=== PATIENT | male | born 1945 | race Caucasian/White ===

== ENCOUNTER 2020-05-08 15:17 | Outpatient (REF) | payer MEDICARE, MEDICAID, SELFPAY | END 2020-05-08 15:18 | disposition home or self-care (01) | LOC: HO.HAP 15:17 | DX: Z46.1 Encounter for fitting and adjustment of hearing aid (principal) | CPT/HCPCS: 92700 ==

== ENCOUNTER 2021-06-17 16:51 | Outpatient (REF) | payer MEDICARE, MEDICAID, SELFPAY | END 2021-06-17 16:52 | disposition home or self-care (01) | LOC: HO.HAP 16:51 | DX: Z13.89 Encounter for screening for other disorder (principal) ==

== ENCOUNTER 2022-06-12 15:47 | Emergency (ER) | payer MEDICARE, OTHER, SELFPAY ==
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
[2022-06-12 16:59] VITALS: BP 140/74; PULSE 63; O2SAT 97; BMI 24.2
[2022-06-12 17:21] LABS: MANUAL DIFF FLAG NO
[2022-06-12 17:22] LABS: Basophils Percent Auto 0.2 % (0-2); Eosinophils Absolute Auto 0.1 X10*3/uL (0.0-0.4); Eosinophils Percent Auto 1.5 % (0-4); Hematocrit 34.6 % (42.0-52.0); Imm Gran Abs Auto 0.02 X10*3/uL (0.00-0.03); Imm Gran Pct Auto 0.4 % (0.0-0.4); Lymphocytes Absolute Auto 0.8 X10*3/uL (1.2-4.9); Lymphocytes Percent Auto 18.1 % (20-40); Mean Corpuscular HGB Conc 31.8 g/dl (31.0-36.0); Mean Corpuscular Hemoglobin 29.3 pg (27.0-33.0); Mean Corpuscular Volume 92.3 fL (80.0-98.0); Mean Platelet Volume 9.1 fL (9.4-12.4); Monocytes Absolute Auto 0.4 X10*3/uL (0.1-1.2); Monocytes Percent Auto 9.1 % (2-11); Neutrophils Absolute Auto 3.3 x10*3/uL (2.0-8.3); Neutrophils Percent Auto 70.7 % (45-73); Platelet Count 194 X10*3/uL (160-400); Red Blood Count 3.75 X10*6/uL (4.60-5.80); Red Cell Distribution Width 13.2 % (11.0-16.0); White Blood Count 4.6 X10*3/uL (4.8-10.8)
[2022-06-12 17:34] LABS: Ethanol < 10 mg/dL
[2022-06-12 17:36] LABS: Alanine Aminotransferase 17 U/L (0-40); Albumin Level 4.1 g/dL (3.5-5.0); Alkaline Phosphatase 69 U/L (39-117); Anion Gap 13 (12-20); Aspartate Amino Transferase 25 U/L (5-37); Bilirubin Total 0.3 mg/dL (0.0-1.0); Blood Urea Nitrogen 16 mg/dL (9-16); Calcium 9.1 mg/dL (8.4-10.2); Carbon Dioxide 26 mmol/L (22-29); Chloride 105 mmol/L (96-108); Creatinine Clr Calc Pharmacy 78.6; Estimated Glomerular Filt Rate > 60; Glucose Random 93 mg/dL (60-115); Sodium 140 mmol/L (135-145); Total Protein 6.7 g/dL (6.5-8.0)
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
[2022-06-12 18:16] VITALS: BP 120/70; PULSE 66; RESP 18; TEMP 36.8; O2SAT 98
== END 2022-06-12 18:35 | disposition home or self-care (01) ==
LOC: HO.ED 18:15
PROVIDERS: Emergency Provider Student in an Organized Health Care Education/Training Program; PCP Nurse Practitioner Family
DX: F03.90 Unspecified dementia, unspecified severity, without behavioral disturbance, psychotic disturbance, mood disturbance, and anxiety (principal); Z79.899 Other long term (current) drug therapy
CPT/HCPCS: 36415; 80053; 82077; 85025; 99283

== ENCOUNTER 2022-12-18 15:49 | Emergency (ER) | payer MEDICARE, OTHER, SELFPAY ==
--- NOTE | ~2022-12-18 | XR_ITS ---
EXAMINATION: XR CHEST CLINICAL INFORMATION: Abnormal CT. COMPARISON: CT abdomen earlier today at 2:54 PM. TECHNIQUE: Frontal view of the chest was obtained. FINDINGS: Normal appearance of the cardiomediastinal silhouette. Increased interstitial markings and patchy opacities projecting over the left lower lung, related with bronchiectasis and mucus impaction noted on same day CT. No pleural effusion or pneumothorax. No acute osseous findings. The visualized upper abdomen is within normal limits. XR/XR chest 1V IMPRESSION: Subtle interstitial and patchy opacities projecting over the left lower lung corresponding with the bronchiectasis and mucus impaction noted on same day CT. These could be infectious or inflammatory, a short-term follow-up chest CT in 3-6 months is recommended for reevaluation.
--- NOTE | ~2022-12-18 | CT_ITS ---
EXAMINATION: CT ABDOMEN AND PELVIS WITHOUT CONTRAST CLINICAL INFORMATION: Mental status changes and vomiting. COMPARISON: 06/22/2006 TECHNIQUE: Multidetector volumetric imaging was performed from the superior aspect of the liver through the pubic symphysis. Sagittal and coronal reformatted images were obtained on the technologist's workstation. This CT examination was performed using dose optimization techniques as appropriate, variously including the following: *Automated exposure control *Adjustment of mA and/or kV according to patient size (this includes techniques or standardized protocols for targeted exams where dose is matched to indication/reason for exam; i.e. extremities or head) *Use of iterative reconstruction technique DLP: 535 mGy-cm FINDINGS: LUNG BASES: Lingular bronchiectasis with mucoid impaction and tree-in-bud opacities. Nonspecific wall thickening of the distal esophagus. LIVER, GALLBLADDER, AND BILIARY TREE: The noncontrast liver is normal in size and contour. No biliary ductal dilatation is present. The gallbladder is unremarkable with no evidence of radiopaque gallstones, gallbladder wall thickening, or obvious pericholecystic inflammatory changes. PANCREAS: Unremarkable. SPLEEN: Unremarkable. ADRENAL GLANDS: Unremarkable. KIDNEYS AND URETERS: The kidneys are symmetric in size. Midpole right renal cyst. No renal calculus. No hydronephrosis or perinephric stranding. BLADDER: Unremarkable. GASTROINTESTINAL TRACT: No small bowel obstruction. Copious stool throughout the colon with fecal impaction in the rectum. Appendix is within normal limits. LYMPH NODES: No bulky abdominal or pelvic lymphadenopathy. VASCULAR: Normal caliber abdominal aorta. PELVIC VISCERA: Surgical clips in the right groin. OSSEOUS STRUCTURES: Sclerotic focus in the right iliac bone. No destructive bone lesions. CT/CT abdomen pelvis wo IV con IMPRESSION: Severe constipation. Peribronchial tree-in-bud opacities in the lingula. This may represent an acute infectious or inflammatory process. Advise clinical correlation.
--- NOTE | ~2022-12-18 | XR_ITS ---
EXAMINATION: XR CHEST CLINICAL INFORMATION: Fever COMPARISON: None available. TECHNIQUE: Frontal view of the chest was obtained. FINDINGS: Heart size normal. There is some left basilar atelectasis with some increased density and some mild obscuration left hemidiaphragm. Infectious etiology cannot be entirely ruled out. No pleural effusions. No CHF. No lung masses. Degenerative changes are present in the spine. XR/XR chest 1V IMPRESSION: Left lower lobe atelectasis/infiltrate.
--- NOTE | ~2022-12-18 | CT_ITS ---
EXAMINATION: CT HEAD WITHOUT CONTRAST CLINICAL INFORMATION: Lethargy. Change in mental status and vomiting. COMPARISON: None available. TECHNIQUE: Contiguous axial imaging was performed from the skull base to vertex without intravenous administration of contrast. This CT examination was performed using dose optimization techniques as appropriate, variously including the following: *Automated exposure control *Adjustment of mA and/or kV according to patient size (this includes techniques or standardized protocols for targeted exams where dose is matched to indication/reason for exam; i.e. extremities or head) *Use of iterative reconstruction technique DLP: 903.7 mGy-cm FINDINGS: No intracranial hemorrhage, extra-axial surface collection, focal mass effect or midline shift. Moderate parenchymal volume loss with commensurate prominence of ventricles and sulci. No acute findings within the posterior fossa. The cerebellar tonsils are in normal position. The mild patchy hypoattenuation within periventricular white matter is compatible with sequela of chronic microangiopathy. No evidence of an acute major vascular territory infarction. The thorpe-white matter differentiation is maintained. Small amount mucus is present within a left anterior ethmoid air cell. The paranasal sinuses are overall well aerated and without air-fluid levels. The mastoid air cells are clear. There is chondrocalcinosis of temporomandibular joints. The orbits and globes are unremarkable. CT/CT head/brain wo IV con IMPRESSION: * No intracranial mass, hemorrhage or other acute intracranial pathology. * Chronic moderate volume loss and changes of mild microangiopathy affecting the supratentorial white matter.
[2022-12-18 16:01] VITALS: BP 108/58; BP 118/70; PULSE 55; PULSE 60; RESP 13; TEMP 36.4; O2SAT 100; BMI 22.8
--- NOTE | 2022-12-18 16:29 | ECG_ITS ---
Test Reason : ALTERED MENTAL Blood Pressure : / mmHG Vent. Rate : 052 BPM Atrial Rate : 052 BPM P-R Int : 140 ms QRS Dur : 090 ms QT Int : 482 ms P-R-T Axes : 082 070 069 degrees QTc Int : 448 ms Sinus bradycardia Otherwise normal ECG When compared with ECG of 13-DEC-2002 08:56, No significant change was found Referred By: Mariangel Stewart Electronically Signed By:Javier Tinsley
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
--- NOTE | 2022-12-18 17:00 | MHC.EDTECH ---
patient came in via ems ,patient was change consultant into hospital attire , patient drank a can of anna billy,patient watching television .
[2022-12-18 17:14] LABS: MANUAL DIFF FLAG NO
[2022-12-18 17:19] VITALS: BP 130/71; PULSE 52; RESP 16; TEMP 36.3; O2SAT 96
[2022-12-18 17:34] LABS: Ethanol < 10 mg/dL
[2022-12-18 17:35] LABS: Alanine Aminotransferase 20 U/L (0-40); Albumin Level 3.6 g/dL (3.5-5.0); Alkaline Phosphatase 58 U/L (39-117); Anion Gap 13 (12-20); Aspartate Amino Transferase 27 U/L (5-37); Bilirubin Direct 0.1 mg/dL (0.0-0.5); Bilirubin Total 0.4 mg/dL (0.0-1.0); Blood Urea Nitrogen 26 mg/dL (9-16); Calcium 8.7 mg/dL (8.4-10.2); Carbon Dioxide 24 mmol/L (22-29); Chloride 108 mmol/L (96-108); Estimated Glomerular Filt Rate > 60; Glucose Random 127 mg/dL (60-115); Potassium 4.9 mmol/L (3.3-5.1); Sodium 140 mmol/L (135-145)
[2022-12-18 17:42] LABS: Basophils Percent Auto 0.2 % (0-2); Eosinophils Absolute Auto 0.1 X10*3/uL (0.0-0.4); Eosinophils Percent Auto 1.8 % (0-4); Hematocrit 33.1 % (42.0-52.0); Hemoglobin 10.7 g/dl (14.0-18.0); Imm Gran Abs Auto 0.05 X10*3/uL (0.00-0.03); Lymphocytes Absolute Auto 0.8 X10*3/uL (1.2-4.9); Lymphocytes Percent Auto 15.3 % (20-40); Mean Corpuscular HGB Conc 32.3 g/dl (31.0-36.0); Mean Corpuscular Hemoglobin 29.2 pg (27.0-33.0); Mean Corpuscular Volume 90.2 fL (80.0-98.0); Mean Platelet Volume 10.1 fL (9.4-12.4); Monocytes Absolute Auto 0.4 X10*3/uL (0.1-1.2); Neutrophils Absolute Auto 3.6 x10*3/uL (2.0-8.3); Neutrophils Percent Auto 72.7 % (45-73); Platelet Count 169 X10*3/uL (160-400); Red Blood Count 3.67 X10*6/uL (4.60-5.80); Red Cell Distribution Width 13.3 % (11.0-16.0); White Blood Count 4.9 X10*3/uL (4.8-10.8)
--- NOTE | 2022-12-18 17:54 | MHC.EDTECH ---
PATIENT WAS ASSISTED TO USE THE URINAL ,URINE SAMPLE COLLECTED AND SENT TO LAB ,PATIENT WAS SET UP FOR DINNER .
[2022-12-18 18:04] LABS: Appearance Urine Clear; Color Urine Yellow; Glucose Urine UA Negative (Negative); Leukocyte Esterase Urine Negative (Negative); Nitrite Urine Negative (Negative); Specific Gravity - Urine 1.015 (1.005-1.025); Urine Blood Negative (Negative); Urine Ketones Negative (Negative); Urine Protein Negative (Neg-Trace)
--- NOTE | 2022-12-18 18:05 | MHC.EDTECH ---
PATIENT WAS ASSISTED TO WALK TO BATHROOM AND BACK TO BED ,PATIENT VOID LARGE AMOUNT OF URINE ,JILLE HUMPHREYTER CAMERA IS IN ROOM .
[2022-12-18 18:12] LABS: Amphetamine Screen Urine Not Detected (Not Detect); Barbiturates, Urine Not Detected (Not Detect); Benzodiazepines Screen Urine Not Detected (Not Detect); Cannabinoid Screen Urine Not Detected (Not Detect); Cocaine Screen Urine Not Detected (Not Detect); Fentanyl, urine Not Detected (Not Detect); Opiate Screen Urine Not Detected (Not Detect); Phencyclidine Screen Urine Not Detected (Not Detect)
--- NOTE | 2022-12-18 18:23 | MHC.EDTECH ---
PATIENT ATE 100 % OF DINNER ,DRANK 600 ML FLUIDS .
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
--- NOTE | 2022-12-18 19:48 | PC.NURSE ---
Pt ambulated independently to the bathroom. Pt had steady gait and did not need an assist. Pt has no complaints at this time.
[2022-12-18 20:00] VITALS: BP 123/65; PULSE 54; RESP 16; TEMP 36.8; O2SAT 98
--- NOTE | 2022-12-18 20:57 | PC.NURSE ---
Addendum entered by Zeinab Santana RN 12/18/22 21:20: Greg - [phone] Original Note: Spoke with Greg from [facility], who is telephone order clerk. He inquired about a psych consult, which is already in place. Stated he is telephone order clerk and will be the person to contact. Also stated he will call back in the morning.
[2022-12-18 21:29] VITALS: BP 104/51; PULSE 52; RESP 16; TEMP 36.6; O2SAT 99
--- NOTE | 2022-12-18 23:09 | MHC.EDTECH ---
PATIENT WAS ASSISTED TO WALK TO BATHROOM ,VOID AND ASSISTED BY TO BED .
[2022-12-19] VITALS (17 sets, daily range): BP systolic 114–160; BP diastolic 57–91; PULSE 46–77; RESP 16–20; TEMP 36.2–36.8; O2SAT 96–100
--- NOTE | 2022-12-19 | MHC.EDTECH ---
PATIENT WAS ASSISTED TO BATHROOM ,AND BACK TO BED ,PATIENT HAD SMALL BOWEL MOVEMENT ,PATIENT IS IS VERY AGITATED PROVIDER ILANA IS AWARE.
[2022-12-19] MEDS: diphenhydrAMINE HCL 50 MG/ML VIAL IM (01:11)
[2022-12-19] MEDS: OLANZapine 10 MG VIAL IM (01:12)
--- NOTE | 2022-12-19 01:32 | PC.NURSE ---
monica Graves returned by inventory count unable to do return bin.
--- NOTE | 2022-12-19 02:32 | MHC.EDTECH ---
600 ML URINE EMPTY FROM URINAL .
--- NOTE | 2022-12-19 03:21 | MHC.EDTECH ---
PATIENT VOID 450 IN URINAL .
--- NOTE | 2022-12-19 07:10 | PC.NURSE ---
pt is currently eating his breakfast, in no apparent distress at this time
--- NOTE | 2022-12-19 08:01 | PC.NURSE ---
Addendum entered by Estephania Luna 12/19/22 08:03: pt refusing to participate getting slightly agitated Original Note: physical therapy at bedside
--- NOTE | 2022-12-19 09:28 | PHA.MEDREC ---
Pharmacy Consult ? Medication Reconciliation Pharmacy has completed the medication reconciliation.
--- NOTE | 2022-12-19 09:29 | PC.NURSE ---
spoke to yareli the listed health care proxy, she reports that she is not the health care proxy and would like to be removed, referred her to case management her number [phone]
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
--- NOTE | 2022-12-19 12:51 | P.CNPS_ITS ---
History of Present Illness Date of Service: 12/19/2022 Chief Complaint: ams Requesting physician: Juno Hernandez Discussed with referring provider: Yes (discussed with thER physician) HPI Narrative: Mr. Mac is any a 77-year-old white gentleman with history of dementia and was brought to the emergency room because of agitation, confusion. A competency evaluation has been requested. He is not able to give any information in about his history, is quite confused, hyperverbal and intermittently agitated. He is cognitively impaired and unable to make any informed decision about his care. He does have a healthcare proxy who has refuse to participate, leading to the competency evaluation. Past Psychiatric History: Unknown Medical Evaluation Reviewed: Yes (Reviewed) Personal & Social History: Unable to obtain [facility] Medical History (Updated 12/18/22 @ 18:25 by Mariangel Stewart MD) Dementia Diagnostics Vital Signs (24Hr): Vital Signs - 24 hr 12/18/22 16:01 12/18/22 17:19 12/18/22 20:00 Temperature 97.6 F 97.4 F 98.2 F Pulse Rate 55 52 54 Respiratory Rate 13 16 16 Blood Pressure 108/58 L 130/71 123/65 Pulse Oximetry 100 96 98 Oxygen Delivery Method Room Air Room Air Room Air 12/18/22 21:29 12/19/22 01:03 12/19/22 01:18 Temperature 97.9 F 97.2 F 98.2 F Pulse Rate 52 71 55 Respiratory Rate 16 16 16 Blood Pressure 104/51 L 114/91 H 157/80 H Pulse Oximetry 99 96 96 Oxygen Delivery Method Room Air Room Air Room Air 12/19/22 01:33 12/19/22 01:48 12/19/22 02:03 Temperature 98.0 F 98.0 F 97.8 F Pulse Rate 63 65 54 Respiratory Rate 16 16 16 Blood Pressure 160/80 H 153/60 H 140/57 H Pulse Oximetry 96 96 96 Oxygen Delivery Method Room Air Room Air 12/19/22 06:00 Temperature 97.4 F Pulse Rate 46 L Respiratory Rate 16 Blood Pressure 126/62 Pulse Oximetry 97 Oxygen Delivery Method Room Air BMI result Body Mass Index 22.8 Labs 12/18/22 17:09 12/18/22 17:09 Labs: Laboratory Results - last 48 hr 12/18/22 12/18/22 12/18/22 17:09 17:09 17:09 WBC 4.9 RBC 3.67 L Hgb 10.7 L Hct 33.1 L MCV 90.2 MCH 29.2 MCHC 32.3 RDW 13.3 Plt Count 169 MPV 10.1 Immature Gran % (Auto) 1.0 H Neut % (Auto) 72.7 Lymph % (Auto) 15.3 L [place] % (Auto) 9.0 Eos % (Auto) 1.8 Baso % (Auto) 0.2 Lymph # (Auto) 0.8 L [place] # (Auto) 0.4 Eos # (Auto) 0.1 Baso # (Auto) 0.0 Abs Immat Gran (auto) 0.05 H Absolute Neuts (auto) 3.6 Absolute Nucleated RBC 0.000 Nucleated RBC % (auto) 0.0 Sodium 140 Potassium 4.9 D Chloride 108 Carbon Dioxide 24 Anion Gap 13 BUN 26 H Creatinine 0.70 Estim Creat Clear Calc 81.0 Estimated GFR > 60 Random Glucose 127 H Calcium 8.7 Magnesium 2.0 Total Bilirubin 0.4 Direct Bilirubin 0.1 AST 27 ALT 20 Alkaline Phosphatase 58 Total Protein 6.0 L Albumin 3.6 Urine Color Urine Appearance Urine pH Ur Specific [place] Urine Protein Urine Glucose (UA) Urine Ketones Urine Blood Urine Nitrite Ur Leukocyte Esterase Urine Opiates Screen Urine Fentanyl Screen Ur Barbiturates Screen Ur Phencyclidine Scrn Ur Amphetamines Screen U Benzodiazepines Scrn Urine Cocaine Screen U Marijuana (THC) Screen Ethyl Alcohol < 10 12/18/22 12/18/22 17:57 17:57 WBC RBC Hgb Hct MCV MCH MCHC RDW Plt Count MPV Immature Gran % (Auto) Neut % (Auto) Lymph % (Auto) [place] % (Auto) Eos % (Auto) Baso % (Auto) Lymph # (Auto) [place] # (Auto) Eos # (Auto) Baso # (Auto) Abs Immat Gran (auto) Absolute Neuts (auto) Absolute Nucleated RBC Nucleated RBC % (auto) Sodium Potassium Chloride Carbon Dioxide Anion Gap BUN Creatinine Estim Creat Clear Calc Estimated GFR Random Glucose Calcium Magnesium Total Bilirubin Direct Bilirubin AST ALT Alkaline Phosphatase Total Protein Albumin Urine Color Yellow Urine Appearance Clear Urine pH 7.0 Ur Specific [place] 1.015 Urine Protein Negative Urine Glucose (UA) Negative Urine Ketones Negative Urine Blood Negative Urine Nitrite Negative Ur Leukocyte Esterase Negative Urine Opiates Screen Not Detected Urine Fentanyl Screen Not Detected Ur Barbiturates Screen Not Detected Ur Phencyclidine Scrn Not Detected Ur Amphetamines Screen Not Detected U Benzodiazepines Scrn Not Detected Urine Cocaine Screen Not Detected U Marijuana (THC) Screen Not Detected Ethyl Alcohol Mental Status Exam Mental Status Exam Narrative: I attempted to see him today in the emergency room. In he is loud, agitated and unable to give any coherent information. Based on his current mental status I do not find him to be able to make any informed decision pertaining to his care and welfare. Medications Medications Current Medications Pharmacy Consult (Consult Rx Perform Med Rec) 1 each MISCELLANE ONCE PRN PRN Reason: Consult order Allergies Allergies Allergy/AdvReac Type Severity Reaction Status Date / Time Unable to Assess Allergy Verified 06/12/22 16:15 Assessment & Plan Assessment & Plan (1) Dementia: Status: Acute Code(s): F03.90 - Unspecified dementia, unspecified severity, without behavioral disturbance, psychotic disturbance, mood disturbance, and anxiety Plan Is not able to make any informed decision pertaining to his care Total time managing care of this patient today ____ minutes.
[2022-12-19] MEDS: diphenhydrAMINE HCL 25 MG CAPSULE PO (12:52)
[2022-12-19] MEDS: OLANZapine 10 MG TABLET PO ×2 (12:52→23:26)
--- NOTE | 2022-12-19 12:55 | PC.NURSE ---
pt started to get agitated, wanting to leave and is putting his clothing on, medicated for agitation psychiatrist at bedside for evaluation
--- NOTE | 2022-12-19 15:05 | PC.NURSE ---
report received from RUSSELL Ibarra Pt is resting comfortably on chair in room at this time, occasionally getting up to wander. pt is now sitting eating pudding at this time. No apparent distress. Pt is noted to be slightly unsteady on his feet and should have someone standby if he does get up. Camera sitter in place at this time
--- NOTE | 2022-12-19 19:29 | ED_ITS ---
HPI - General Adult General Chief complaint: General Medical Stated complaint: ams Time Seen by Provider: 12/18/22 16:11 Source: EMS Mode of arrival: EMS Limitations: other (Dementia) Related Data Home Medications Medication Instructions Recorded Confirmed No Known Home Meds 12/19/22 12/19/22 Allergies Allergy/AdvReac Type Severity Reaction Status Date / Time Unable to Assess Allergy Verified 06/12/22 16:15 [facility] Past Medical History Medical History (Updated 12/18/22 @ 18:25 by Mariangel Stewart MD) Dementia Social History Social History Alcohol intake: unknown Use of substances other than those prescribed or required for medical reasons: Unknown Advance Directives: No Advance Directives Information Provided: Yes Physical Exam ED Vital Signs: Vital Signs - 24 hr 12/18/22 20:00 12/18/22 21:29 12/19/22 01:03 Temperature 98.2 F 97.9 F 97.2 F Pulse Rate 54 52 71 Respiratory Rate 16 16 16 Blood Pressure 123/65 104/51 L 114/91 H Pulse Oximetry 98 99 96 Oxygen Delivery Method Room Air Room Air Room Air 12/19/22 01:18 12/19/22 01:33 12/19/22 01:48 Temperature 98.2 F 98.0 F 98.0 F Pulse Rate 55 63 65 Respiratory Rate 16 16 16 Blood Pressure 157/80 H 160/80 H 153/60 H Pulse Oximetry 96 96 96 Oxygen Delivery Method Room Air Room Air 12/19/22 02:03 12/19/22 06:00 12/19/22 13:02 Temperature 97.8 F 97.4 F Pulse Rate 54 46 L 66 Respiratory Rate 16 16 20 Blood Pressure 140/57 H 126/62 138/78 Pulse Oximetry 96 97 99 Oxygen Delivery Method Room Air Room Air Room Air BMI result Body Mass Index 22.8 Course Reevaluation(s) Reevaluation #1: Patient is becoming combative. He has been up ambulating throughout the department and has been redirectable throughout most my shift. However now he is not redirectable and becoming aggressive. He was medicated for his safety Time: 19:29 Medications Administered Discontinued Medications Generic Name Dose Route Start Last Admin Trade Name Freq PRN Reason Stop Dose Admin Diphenhydramine HCl 50 mg 12/18/22 23:58 12/19/22 01:11 Diphenhydramine Hcl 25 Mg Capsule PO 12/18/22 23:59 Not Given ONCE ONE Diphenhydramine HCl 50 mg 12/19/22 01:02 12/19/22 01:11 Diphenhydramine Hcl 50 Mg/Ml Vial IM 12/19/22 01:03 50 mg ONCE ONE Administration Diphenhydramine HCl 25 mg 12/19/22 12:46 12/19/22 12:52 Diphenhydramine Hcl 25 Mg Capsule PO 12/19/22 12:47 25 mg ONCE ONE Administration Olanzapine 10 mg 12/19/22 01:02 12/19/22 01:12 Olanzapine 10 Mg Vial IM 12/19/22 01:03 10 mg ONCE ONE Administration Olanzapine 10 mg 12/19/22 12:46 12/19/22 12:52 Olanzapine 10 Mg Tablet PO 12/19/22 12:47 10 mg ONCE ONE Administration Medical Decision Making Lab Data 12/18/22 17:09 12/18/22 17:09 Labs: Lab Results 12/18/22 12/18/22 12/18/22 Range/Units 17:09 17:09 17:09 WBC 4.9 (4.8-10.8) X10*3/uL RBC 3.67 L (4.60-5.80) X10*6/uL Hgb 10.7 L (14.0-18.0) g/dl Hct 33.1 L (42.0-52.0) % MCV 90.2 (80.0-98.0) fL MCH 29.2 (27.0-33.0) pg MCHC 32.3 (31.0-36.0) g/dl RDW 13.3 (11.0-16.0) % Plt Count 169 (160-400) X10*3/uL MPV 10.1 (9.4-12.4) fL Immature Gran % (Auto) 1.0 H (0.0-0.4) % Neut % (Auto) 72.7 (45-73) % Lymph % (Auto) 15.3 L (20-40) % [place] % (Auto) 9.0 (2-11) % Eos % (Auto) 1.8 (0-4) % Baso % (Auto) 0.2 (0-2) % Lymph # (Auto) 0.8 L (1.2-4.9) X10*3/uL [place] # (Auto) 0.4 (0.1-1.2) X10*3/uL Eos # (Auto) 0.1 (0.0-0.4) X10*3/uL Baso # (Auto) 0.0 (0.0-0.2) X10*3/uL Abs Immat Gran (auto) 0.05 H (0.00-0.03) X10*3/uL Absolute Neuts (auto) 3.6 (2.0-8.3) x10*3/uL Absolute Nucleated RBC 0.000 (0.0-0.012) X10*3/uL Nucleated RBC % (auto) 0.0 (0.0-0.2) /100WBC Sodium 140 (135-145) mmol/L Potassium 4.9 D (3.3-5.1) mmol/L Chloride 108 (96-108) mmol/L Carbon Dioxide 24 (22-29) mmol/L Anion Gap 13 (12-20) BUN 26 H (9-16) mg/dL Creatinine 0.70 (0.5-1.4) mg/dL Estim Creat Clear Calc 81.0 Estimated GFR > 60 Random Glucose 127 H (60-115) mg/dL Calcium 8.7 (8.4-10.2) mg/dL Magnesium 2.0 (1.6-2.6) mg/dL Total Bilirubin 0.4 (0.0-1.0) mg/dL Direct Bilirubin 0.1 (0.0-0.5) mg/dL AST 27 (5-37) U/L ALT 20 (0-40) U/L Alkaline Phosphatase 58 (39-117) U/L Total Protein 6.0 L (6.5-8.0) g/dL Albumin 3.6 (3.5-5.0) g/dL Urine Color Urine Appearance Urine pH (5.0-9.0) Ur Specific [place] (1.005-1.025) Urine Protein (Neg-Trace) mg/dL Urine Glucose (UA) (Negative) mg/dL Urine Ketones (Negative) mg/dL Urine Blood (Negative) Urine Nitrite (Negative) Ur Leukocyte Esterase (Negative) Urine Opiates Screen (Not Detect) Urine Fentanyl Screen (Not Detect) Ur Barbiturates Screen (Not Detect) Ur Phencyclidine Scrn (Not Detect) Ur Amphetamines Screen (Not Detect) U Benzodiazepines Scrn (Not Detect) Urine Cocaine Screen (Not Detect) U Marijuana (THC) Screen (Not Detect) Ethyl Alcohol < 10 mg/dL 12/18/22 12/18/22 Range/Units 17:57 17:57 WBC (4.8-10.8) X10*3/uL RBC (4.60-5.80) X10*6/uL Hgb (14.0-18.0) g/dl Hct (42.0-52.0) % MCV (80.0-98.0) fL MCH (27.0-33.0) pg MCHC (31.0-36.0) g/dl RDW (11.0-16.0) % Plt Count (160-400) X10*3/uL MPV (9.4-12.4) fL Immature Gran % (Auto) (0.0-0.4) % Neut % (Auto) (45-73) % Lymph % (Auto) (20-40) % [place] % (Auto) (2-11) % Eos % (Auto) (0-4) % Baso % (Auto) (0-2) % Lymph # (Auto) (1.2-4.9) X10*3/uL [place] # (Auto) (0.1-1.2) X10*3/uL Eos # (Auto) (0.0-0.4) X10*3/uL Baso # (Auto) (0.0-0.2) X10*3/uL Abs Immat Gran (auto) (0.00-0.03) X10*3/uL Absolute Neuts (auto) (2.0-8.3) x10*3/uL Absolute Nucleated RBC (0.0-0.012) X10*3/uL Nucleated RBC % (auto) (0.0-0.2) /100WBC Sodium (135-145) mmol/L Potassium (3.3-5.1) mmol/L Chloride (96-108) mmol/L Carbon Dioxide (22-29) mmol/L Anion Gap (12-20) BUN (9-16) mg/dL Creatinine (0.5-1.4) mg/dL Estim Creat Clear Calc Estimated GFR Random Glucose (60-115) mg/dL Calcium (8.4-10.2) mg/dL Magnesium (1.6-2.6) mg/dL Total Bilirubin (0.0-1.0) mg/dL Direct Bilirubin (0.0-0.5) mg/dL AST (5-37) U/L ALT (0-40) U/L Alkaline Phosphatase (39-117) U/L Total Protein (6.5-8.0) g/dL Albumin (3.5-5.0) g/dL Urine Color Yellow Urine Appearance Clear Urine pH 7.0 (5.0-9.0) Ur Specific [place] 1.015 (1.005-1.025) Urine Protein Negative (Neg-Trace) mg/dL Urine Glucose (UA) Negative (Negative) mg/dL Urine Ketones Negative (Negative) mg/dL Urine Blood Negative (Negative) Urine Nitrite Negative (Negative) Ur Leukocyte Esterase Negative (Negative) Urine Opiates Screen Not Detected (Not Detect) Urine Fentanyl Screen Not Detected (Not Detect) Ur Barbiturates Screen Not Detected (Not Detect) Ur Phencyclidine Scrn Not Detected (Not Detect) Ur Amphetamines Screen Not Detected (Not Detect) U Benzodiazepines Scrn Not Detected (Not Detect) Urine Cocaine Screen Not Detected (Not Detect) U Marijuana (THC) Screen Not Detected (Not Detect) Ethyl Alcohol mg/dL Discharge Plan Discharge Clinical Impression: Dementia Patient Disposition: Still a Patient Prescriptions: No Action No Known Home Meds
[2022-12-19] MEDS: Ziprasidone Mesylate 20 MG VIAL IM (19:37)
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
--- NOTE | 2022-12-19 23:30 | PC.NURSE ---
pt given zyprexa to assist with falling asleep not as a restraint. Pt is resting comfortably reports to this RN I cannot fall asleep tonight .
--- NOTE | 2022-12-20 01:08 | PC.NURSE ---
pt sleeping at this time, respirations even and unlabored, skin pwd. 1:[address] for safety
--- NOTE | 2022-12-20 04:51 | PC.NURSE ---
Pt ambulatory to restroom with 1 assist due to drowsiness. clear yelow urine noted in toilet. New caitlin coat and pants given to pt.
[2022-12-20 06:00] VITALS: PULSE 67; RESP 18; TEMP 36.1; O2SAT 98
--- NOTE | 2022-12-20 06:34 | PC.NURSE ---
Breakfast tray brought to bedside. Pt made aware however turned over in bed for more sleep.
--- NOTE | 2022-12-20 06:56 | PC.NURSE ---
Continues with constant intelligence clerk for safety. Sleeping at this time.
[2022-12-20 08:22] VITALS: BP 125/67; PULSE 51; RESP 18; TEMP 36.4; O2SAT 98
--- NOTE | 2022-12-20 08:35 | PC.NURSE ---
Pt ambulatory to bathroom with pt observer. Steady. Eating breakfast, appears in good spirits at this time
--- NOTE | 2022-12-20 08:54 | PC.NURSE ---
Alert and watching t.v. in bed after eating breakfast. Calm and cooperative
[2022-12-20 11:48] VITALS: BP 118/64; PULSE 50; RESP 16; O2SAT 99
[2022-12-20 14:02] VITALS: BP 124/61; PULSE 82; RESP 18; TEMP 37.1; O2SAT 99
--- NOTE | 2022-12-20 14:03 | PC.NURSE ---
Alert with confusion. Hard of hearing but clam and cooperative. Taking fluids when offered, good appetite for lunch. No complaints of any pain or discomfort. Resting in bed at this time watching t.v.
[2022-12-20 16:34] VITALS: BP 128/82; PULSE 69; RESP 16; O2SAT 99
--- NOTE | 2022-12-20 19:26 | PC.NURSE ---
I assumed care of the pt at 1900. Pt was found standing in his room, making his bed, with good balance and steady gait. Pt is calm and cooperative, answering questions appropriately.
[2022-12-20 22:00] VITALS: RESP 16
[2022-12-21 06:21] VITALS: BP 105/68; PULSE 65; RESP 17; TEMP 36.3; O2SAT 95
[2022-12-21 08:02] VITALS: BP 92/73; PULSE 84; RESP 15; TEMP 36.7; O2SAT 97
--- NOTE | 2022-12-21 08:13 | PC.NURSE ---
pt is a/o x 1 no sob/herminio noted. pt states that he is very wrangell. pt ate breakfast. appears in good spirits. pt is sitting on his bed.
--- NOTE | 2022-12-21 09:08 | MHC.EDTECH ---
PCT went into to pts room ambulated PATIENT to the bathroom, PATIENT refused to be washed up at this time, I said I would come back soon to check if its a good time to wash up,AM care completed along with with shaving patient
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
--- NOTE | 2022-12-21 12:00 | PC.NURSE ---
Patient sitting at side of bed having lunch. Patient with no complaints at this time and is generally well appearing.
[2022-12-21 14:47] VITALS: BP 102/72; PULSE 67; RESP 14; TEMP 36.7; O2SAT 98
[2022-12-21] MEDS: risperiDONE 2 MG TABLET PO (20:21)
[2022-12-21 21:07] VITALS: BP 110/58; PULSE 68; RESP 15; TEMP 36.5; O2SAT 97
--- NOTE | 2022-12-21 21:10 | PC.NURSE ---
Patient given bedtime medication without incident. Patient is resting quietly on hospital bed, no complaints at this time.
--- NOTE | 2022-12-21 23:16 | PC.NURSE ---
hand off to bruce rn
--- NOTE | 2022-12-21 23:29 | PC.NURSE ---
Took report from off-going RN. Pt is sleeping in bed, appears comfortable and changes positions independently as desired. Sitter at bedside for safety. Will continue to monitor.
--- NOTE | 2022-12-22 01:16 | PC.NURSE ---
Pt is awake and alert, sitting in bed. Denies any needs at this time. Sitter at bedside for safety. Will continue to monitor.
[2022-12-22 03:22] VITALS: BP 130/43; PULSE 54; RESP 16; O2SAT 98
[2022-12-22 06:14] VITALS: BP 135/47; PULSE 77; RESP 20; O2SAT 96
--- NOTE | 2022-12-22 06:18 | PC.NURSE ---
Pt back to bed after ambulating to the bathroom with assist of one. Pt is arousable with verbal stimuli and changes positions in bed as desired. Pt verbalizes any needs. Pt is easily agitated and can be vocal towards staff. Sitter at bedside for safety. Will continue to monitor.
--- NOTE | 2022-12-22 09:08 | MHC.EDTECH ---
pt cleaned and linens changed. call light given
--- NOTE | 2022-12-22 10:28 | MHC.CM.PN ---
Addendum entered by Jerri Cortes 12/24/22 13:55: Placed call to Derek to f/u re: potential guardian. Awaiting return phone call. Original Note: This financial underwriter placed call to Jerri Gonzalez for final validation that she no longer will serve as HCP- she continued to voice that she no longer wants to serve in this capacity. Implications to this decision were communicated. Call placed to patient's nephew listed in contact information. Derek Morris is considering taking on the role of Guardian- education regarding the role was sent via email. This financial underwriter will follow up with Derek 12/23 afternoon.
[2022-12-22 10:37] VITALS: BP 100/57; PULSE 67; RESP 16; O2SAT 99
--- NOTE | 2022-12-22 13:33 | PC.NURSE ---
OT saw pt in ED to assess cognition. OT administered the Devendra Cognitive Level Screen. Pt scored a 3.4 on the ACLS indicating severe cognitive impairment, very little awareness of cause and effect, poor safety awareness. A score of 3.4 can indicate: attention span is MAX 30 minutes and actions are unpredictable; MODERATE Assistance may be needed for simple tasks; No new learning occurs, pt relies on motor memory for ADLs; pt can be perseverative, erratic, impulsive. Pt woul benefit from close supervision, needing 54% cognitive assistance.
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
--- NOTE | 2022-12-22 14:27 | ED.GENADULT ---
HPI - General Adult General Chief complaint: General Medical Stated complaint: ams Time Seen by Provider: 12/18/22 16:11 Source: EMS Mode of arrival: EMS Limitations: other (Dementia) Related Data Home Medications Medication Instructions Recorded Confirmed No Known Home Meds 12/19/22 12/19/22 Allergies Allergy/AdvReac Type Severity Reaction Status Date / Time Unable to Assess Allergy Verified 06/12/22 16:15 [facility] Past Medical History Medical History (Updated 12/22/22 @ 00:25 by Cherie Thomas) Dementia Social History Social History Alcohol intake: unknown Use of substances other than those prescribed or required for medical reasons: Unknown Advance Directives: Yes Advance Directives on File: Yes Advance Directives Date on File: 12/21/22 Physical Exam ED Vital Signs: Vital Signs - 24 hr 12/21/22 14:47 12/21/22 21:07 12/22/22 03:22 Temperature 98.0 F 97.7 F Pulse Rate 67 68 54 Respiratory Rate 14 15 16 Blood Pressure 102/72 110/58 L 130/43 L Pulse Oximetry 98 97 98 Oxygen Delivery Method Room Air Room Air Room Air 12/22/22 06:14 12/22/22 10:37 Temperature Pulse Rate 77 67 Respiratory Rate 20 16 Blood Pressure 135/47 L 100/57 L Pulse Oximetry 96 99 Oxygen Delivery Method Room Air Room Air BMI result Body Mass Index 22.8 Medications Administered Generic Name Dose Route Start Last Admin Trade Name Freq PRN Reason Stop Dose Admin Risperidone 2 mg 12/21/22 21:00 12/21/22 20:21 Risperidone 2 Mg Tablet PO 2 mg BEDTIME EDSON Administration Discontinued Medications Generic Name Dose Route Start Last Admin Trade Name Freq PRN Reason Stop Dose Admin Diphenhydramine HCl 50 mg 12/18/22 23:58 12/19/22 01:11 Diphenhydramine Hcl 25 Mg Capsule PO 12/18/22 23:59 Not Given ONCE ONE Diphenhydramine HCl 50 mg 12/19/22 01:02 12/19/22 01:11 Diphenhydramine Hcl 50 Mg/Ml Vial IM 12/19/22 01:03 50 mg ONCE ONE Administration Diphenhydramine HCl 25 mg 12/19/22 12:46 05/20/23 12:52 Diphenhydramine Hcl 25 Mg Capsule PO 12/19/22 12:47 25 mg ONCE ONE Administration Olanzapine 10 mg 12/19/22 01:02 12/19/22 01:12 Olanzapine 10 Mg Vial IM 12/19/22 01:03 10 mg ONCE ONE Administration Olanzapine 10 mg 12/19/22 12:46 12/19/22 12:52 Olanzapine 10 Mg Tablet PO 12/19/22 12:47 10 mg ONCE ONE Administration Olanzapine 10 mg 12/19/22 23:15 12/19/22 23:26 Olanzapine 10 Mg Tablet PO 12/19/22 23:16 10 mg ONCE ONE Administration Ziprasidone 20 mg 12/19/22 19:29 12/19/22 19:37 Ziprasidone Mesylate 20 Mg Vial IM 12/19/22 19:30 20 mg ONCE ONE Administration Medical Decision Making Lab Data 12/18/22 17:09 12/18/22 17:09 Labs: Lab Results 12/18/22 12/18/22 12/18/22 Range/Units 17:09 17:09 17:09 WBC 4.9 (4.8-10.8) X10*3/uL RBC 3.67 L (4.60-5.80) X10*6/uL Hgb 10.7 L (14.0-18.0) g/dl Hct 33.1 L (42.0-52.0) % MCV 90.2 (80.0-98.0) fL MCH 29.2 (27.0-33.0) pg MCHC 32.3 (31.0-36.0) g/dl RDW 13.3 (11.0-16.0) % Plt Count 169 (160-400) X10*3/uL MPV 10.1 (9.4-12.4) fL Immature Gran % (Auto) 1.0 H (0.0-0.4) % Neut % (Auto) 72.7 (45-73) % Lymph % (Auto) 15.3 L (20-40) % [place] % (Auto) 9.0 (2-11) % Eos % (Auto) 1.8 (0-4) % Baso % (Auto) 0.2 (0-2) % Lymph # (Auto) 0.8 L (1.2-4.9) X10*3/uL [place] # (Auto) 0.4 (0.1-1.2) X10*3/uL Eos # (Auto) 0.1 (0.0-0.4) X10*3/uL Baso # (Auto) 0.0 (0.0-0.2) X10*3/uL Abs Immat Gran (auto) 0.05 H (0.00-0.03) X10*3/uL Absolute Neuts (auto) 3.6 (2.0-8.3) x10*3/uL Absolute Nucleated RBC 0.000 (0.0-0.012) X10*3/uL Nucleated RBC % (auto) 0.0 (0.0-0.2) /100WBC Sodium 140 (135-145) mmol/L Potassium 4.9 D (3.3-5.1) mmol/L Chloride 108 (96-108) mmol/L Carbon Dioxide 24 (22-29) mmol/L Anion Gap 13 (12-20) BUN 26 H (9-16) mg/dL Creatinine 0.70 (0.5-1.4) mg/dL Estim Creat Clear Calc 81.0 Estimated GFR > 60 Random Glucose 127 H (60-115) mg/dL Calcium 8.7 (8.4-10.2) mg/dL Magnesium 2.0 (1.6-2.6) mg/dL Total Bilirubin 0.4 (0.0-1.0) mg/dL Direct Bilirubin 0.1 (0.0-0.5) mg/dL AST 27 (5-37) U/L ALT 20 (0-40) U/L Alkaline Phosphatase 58 (39-117) U/L Total Protein 6.0 L (6.5-8.0) g/dL Albumin 3.6 (3.5-5.0) g/dL Urine Color Urine Appearance Urine pH (5.0-9.0) Ur Specific [place] (1.005-1.025) Urine Protein (Neg-Trace) mg/dL Urine Glucose (UA) (Negative) mg/dL Urine Ketones (Negative) mg/dL Urine Blood (Negative) Urine Nitrite (Negative) Ur Leukocyte Esterase (Negative) Urine Opiates Screen (Not Detect) Urine Fentanyl Screen (Not Detect) Ur Barbiturates Screen (Not Detect) Ur Phencyclidine Scrn (Not Detect) Ur Amphetamines Screen (Not Detect) U Benzodiazepines Scrn (Not Detect) Urine Cocaine Screen (Not Detect) U Marijuana (THC) Screen (Not Detect) Ethyl Alcohol < 10 mg/dL 12/18/22 12/18/22 Range/Units 17:57 17:57 WBC (4.8-10.8) X10*3/uL RBC (4.60-5.80) X10*6/uL Hgb (14.0-18.0) g/dl Hct (42.0-52.0) % MCV (80.0-98.0) fL MCH (27.0-33.0) pg MCHC (31.0-36.0) g/dl RDW (11.0-16.0) % Plt Count (160-400) X10*3/uL MPV (9.4-12.4) fL Immature Gran % (Auto) (0.0-0.4) % Neut % (Auto) (45-73) % Lymph % (Auto) (20-40) % [place] % (Auto) (2-11) % Eos % (Auto) (0-4) % Baso % (Auto) (0-2) % Lymph # (Auto) (1.2-4.9) X10*3/uL [place] # (Auto) (0.1-1.2) X10*3/uL Eos # (Auto) (0.0-0.4) X10*3/uL Baso # (Auto) (0.0-0.2) X10*3/uL Abs Immat Gran (auto) (0.00-0.03) X10*3/uL Absolute Neuts (auto) (2.0-8.3) x10*3/uL Absolute Nucleated RBC (0.0-0.012) X10*3/uL Nucleated RBC % (auto) (0.0-0.2) /100WBC Sodium (135-145) mmol/L Potassium (3.3-5.1) mmol/L Chloride (96-108) mmol/L Carbon Dioxide (22-29) mmol/L Anion Gap (12-20) BUN (9-16) mg/dL Creatinine (0.5-1.4) mg/dL Estim Creat Clear Calc Estimated GFR Random Glucose (60-115) mg/dL Calcium (8.4-10.2) mg/dL Magnesium (1.6-2.6) mg/dL Total Bilirubin (0.0-1.0) mg/dL Direct Bilirubin (0.0-0.5) mg/dL AST (5-37) U/L ALT (0-40) U/L Alkaline Phosphatase (39-117) U/L Total Protein (6.5-8.0) g/dL Albumin (3.5-5.0) g/dL Urine Color Yellow Urine Appearance Clear Urine pH 7.0 (5.0-9.0) Ur Specific [place] 1.015 (1.005-1.025) Urine Protein Negative (Neg-Trace) mg/dL Urine Glucose (UA) Negative (Negative) mg/dL Urine Ketones Negative (Negative) mg/dL Urine Blood Negative (Negative) Urine Nitrite Negative (Negative) Ur Leukocyte Esterase Negative (Negative) Urine Opiates Screen Not Detected (Not Detect) Urine Fentanyl Screen Not Detected (Not Detect) Ur Barbiturates Screen Not Detected (Not Detect) Ur Phencyclidine Scrn Not Detected (Not Detect) Ur Amphetamines Screen Not Detected (Not Detect) U Benzodiazepines Scrn Not Detected (Not Detect) Urine Cocaine Screen Not Detected (Not Detect) U Marijuana (THC) Screen Not Detected (Not Detect) Ethyl Alcohol mg/dL Discharge Plan Discharge Clinical Impression: Dementia Patient Disposition: Still a Patient Prescriptions: No Action No Known Home Meds
[2022-12-22 15:10] VITALS: BP 115/55; PULSE 72; RESP 16
--- NOTE | 2022-12-22 16:48 | PC.NURSE ---
pt up - irritable and yelling, telling staff to take a walk . pt appears paranoid. walking out of his room and peaking around the corner. willing to take a walk with NAT Linda.
[2022-12-22] MEDS: chlorproMAZINE HCl 25 MG TABLET 50 MG PO (19:38)
[2022-12-22] MEDS: risperiDONE 2 MG TABLET PO (19:40)
[2022-12-22 23:21] VITALS: BP 116/68; PULSE 69; RESP 18; TEMP 36.7; O2SAT 96
--- NOTE | 2022-12-23 00:03 | PC.NURSE ---
pt assessed, sleeping, oob to bathroom with standby assist
[2022-12-23 00:35] VITALS: BP 135/78; PULSE 67; RESP 22; TEMP 36.4; O2SAT 98
[2022-12-23] MEDS: chlorproMAZINE HCl 25 MG TABLET 50 MG PO ×2 (01:03→19:51)
[2022-12-23] MEDS: diphenhydrAMINE HCL 50 MG/ML VIAL IM (01:59)
--- NOTE | 2022-12-23 02:33 | PC.NURSE ---
Assumed care at midnight. Pt is confused and agitated. PRN meds for agitation was given with no effect, needing us to call the security to calm and redirect the patiet. IM benadryl given.
[2022-12-23 08:29] VITALS: BP 143/76; PULSE 66; RESP 16; O2SAT 98
--- NOTE | 2022-12-23 12:02 | MHC.CM.ED ---
Patient remains in ER. Jerri Cortes, Director of Case Management is working with indoor landscaper/gardener to submit guardianship paperwork. Anticipate patient will be with us until this is completed and a safe discharge plan could be made. Continue to monitor for d/c needs.
[2022-12-23 16:07] VITALS: BP 111/74; PULSE 99; RESP 16; TEMP 36.6; O2SAT 99
[2022-12-23 19:21] VITALS: BP 135/70; PULSE 77; RESP 16; TEMP 36.3; O2SAT 98
[2022-12-23] MEDS: risperiDONE 2 MG TABLET PO (19:51)
--- NOTE | 2022-12-23 21:14 | PC.NURSE ---
pt anxious ambulated in room ans around main ed, pt directed for safety
--- NOTE | 2022-12-23 21:38 | MHC.EDTECH ---
Patient token for a walk around the unit and then given magazines
--- NOTE | 2022-12-23 22:29 | MHC.EDTECH ---
Patient was washed up and caitlin changed and new pants and socks given
[2022-12-23 23:39] VITALS: BP 109/73; PULSE 83; RESP 19; O2SAT 94
--- NOTE | 2022-12-24 04:30 | PC.NURSE ---
end of downtime charting. pt agitated and combative during downtime, medicated per provider order. pt continued with agitated behavior, entering other patients rooms. assisted back to bed, sitter remains at bedside for pt safety.
--- NOTE | 2022-12-24 05:32 | PC.NURSE ---
pt resting at this time, no longer displaying anxious and agitated behavior, resp even and unlabored.
--- NOTE | 2022-12-24 07:40 | PC.NURSE ---
assumed care of this pt at 0700. pt ambulated to BR and ate breakfast. currently resting quietly on stretcher. denies pain. vss. rr even/unlabored. wctm
--- NOTE | 2022-12-24 07:55 | MHC.EDTECH ---
pt walked to and from the bathroom. pt sat on the edge of the bed with breakfast. bed alarm on
[2022-12-24 10:01] VITALS: BP 152/77; PULSE 65; RESP 16; TEMP 36.4; O2SAT 100
--- NOTE | 2022-12-24 12:17 | PC.NURSE ---
pt sleeping in hospital bed in no apparent distress. rr even/unlabored. wctm
--- NOTE | 2022-12-24 13:54 | MHC.CM.ED ---
Patient remains in ER. Jerri Cortes still waiting to hear from pateint's nephew to see if he would be willing to be guardian or conservator. Continue to monitor for d/c needs.
--- NOTE | 2022-12-24 15:32 | PC.NURSE ---
pt awoke for short amount of time, walked around ED and escorted back to room. pt back to bed and currently sleeping. in no apparent distress. rr even/unlabored. wctm
--- NOTE | 2022-12-24 18:44 | PC.NURSE ---
obtained report from ed nurse, pt brought to overflow bed 9, assumed care of patient at 1845, patient currently sleeping- per report- pt is alert to self when awake, will be reporting off to evening/night nurse in 15 minutes.
[2022-12-24] MEDS: risperiDONE 2 MG TABLET PO (21:43)
[2022-12-24 22:00] VITALS: BP 139/71; PULSE 56; RESP 16; TEMP 36.3; O2SAT 100
--- NOTE | 2022-12-24 23:39 | PC.NURSE ---
Assumed care for patient at 1900. Patient sleeping, when woke he was incontinent of urine. Patient and bed changed. Resting at present. Will continue to monitor.
[2022-12-25 07:22] VITALS: BP 176/90; PULSE 64; RESP 16; TEMP 36.2; O2SAT 99
--- NOTE | 2022-12-25 09:07 | PC.NURSE ---
patient awake/alert to self, pt requesting to watch tv- speech difficult to understand which is at baseline as told in report, pt denies pain/discomfort, call ta within reach will continue to monitor
--- NOTE | 2022-12-25 12:50 | PC.NURSE ---
patient alert to his baseline, pt offers no complaints of pain or discomfort, ambulated with assist to bathroom, pt given lunch tray, call ta within reach, will continue to monitor
--- NOTE | 2022-12-25 14:04 | MHC.CM.ED ---
Pt continues to board in ED while waiting for court date for guardianship. CM Director will discuss possible appointment w/pt's nephew. Pt will need LTC placement once payor and guardianship have been secured. Pt will continue boarding in the ED until a safe disposition can be obtained.
[2022-12-25 14:28] VITALS: BP 103/60; PULSE 74; RESP 20; TEMP 36.6; O2SAT 98
--- NOTE | 2022-12-25 15:24 | PC.NURSE ---
pt exit seeking and increased agitation about being in the hospital, will medicate the patient.
[2022-12-25] MEDS: chlorproMAZINE HCl 25 MG TABLET 50 MG PO ×2 (15:31→20:46)
--- NOTE | 2022-12-25 15:32 | PC.NURSE ---
pt medicated per order will continue to monitor
--- NOTE | 2022-12-25 15:34 | PC.NURSE ---
ed provider notified that pt was given prn medication for agitation
--- NOTE | 2022-12-25 16:40 | PC.NURSE ---
pt noted to settle and is calm after taking po medication, pt requested light to be shut off so he could take a nap, per pt request the light was turned down. will continue to monitor.
--- NOTE | 2022-12-25 17:38 | PC.NURSE ---
patient currently sleeping, dinner being saved for him, will continue to monitor
[2022-12-25] MEDS: risperiDONE 2 MG TABLET PO (20:46)
--- NOTE | 2022-12-25 20:58 | PC.NURSE ---
pt assessed, mildly anxious, able to be redirected . took meds w/o any difficulty
[2022-12-25 22:48] VITALS: BP 118/68; PULSE 74; RESP 14; TEMP 36.6; O2SAT 98
--- NOTE | 2022-12-26 05:53 | PC.NURSE ---
pt assessed , slept during the night
[2022-12-26 06:31] VITALS: BP 132/78; RESP 18; TEMP 36.8; O2SAT 99
[2022-12-26] MEDS: chlorproMAZINE HCl 25 MG TABLET 50 MG PO (16:24)
[2022-12-26 17:53] VITALS: BP 135/68; PULSE 101; RESP 17; TEMP 36.7; O2SAT 99
[2022-12-26] MEDS: OLANZapine ODT 10 MG TAB.RAPDIS 20 MG TRANSLINGU (18:11)
[2022-12-26] MEDS: Acetaminophen 325 MG TABLET 650 MG PO (21:08)
[2022-12-26] MEDS: risperiDONE 2 MG TABLET PO (21:08)
[2022-12-26 21:16] VITALS: TEMP 38
[2022-12-26 22:28] VITALS: BP 142/70; PULSE 90; RESP 14; TEMP 37.7; O2SAT 99
[2022-12-27 00:59] VITALS: BP 110/63; PULSE 80; RESP 16; TEMP 37.4; O2SAT 97
--- NOTE | 2022-12-27 01:02 | PC.NURSE ---
Pt found out of bed and on the floor. The floor was wet with urine as well. Pt assisted back to bed with no difficulty. Changed to clean hospital attire as pt was also wet with urine. No injuries noted. Pt re-assigned to a room closer to the nurses and camera monitor put in place. Charge nurse and provider notified. VSS.
[2022-12-27 06:00] VITALS: BP 134/59; PULSE 82; RESP 16; TEMP 36.2; O2SAT 98
--- NOTE | 2022-12-27 07:53 | PC.NURSE ---
found by this rn and pct to be heavily saturated in urine, attempting to get out of bed. bed linens appear saturated from head to toe of bed in urine. pt walked to bathroom using walker and two assist to continue to use bathroom as well as get changed and cleaned. pt given warm wipe bath while toileting, tolerated well, expressing appreciation throughout. pt walked back to room using walker and standby assist, bed cleaned and linens changed. pt brought back to bed sitting upright, provided breakfast and opened and readied all containers for pt. camera on in room for pt safety, pt reportedly had fall r/t incontinence last night.
[2022-12-27 14:26] VITALS: BP 124/69; PULSE 89; RESP 16; TEMP 36.5; O2SAT 100
--- NOTE | 2022-12-27 19:11 | PC.NURSE ---
assumed care of pt at 1900. pt disoriented, exiting bed and room, requiring frequent redirection back to room, camera at bedside.
[2022-12-27] MEDS: risperiDONE 2 MG TABLET PO (19:44)
--- NOTE | 2022-12-27 19:44 | PC.NURSE ---
Addendum entered by Joe Cordova 12/27/22 20:03: pharmacy contacted re rescheduling PM medication, pt starts experiencing increased agitation in early evening, PM bedtime medication scheduled for 0. Original Note: pt medicated w pm medications, took medication whole with water.
--- NOTE | 2022-12-27 21:11 | PC.NURSE ---
pt assisted with getting into bed and repositioning, warm blanket provided.
--- NOTE | 2022-12-27 21:49 | MHC.EDTECH ---
Addendum entered by Radhika Mcnair 12/27/22 21:57: note by idalia lacy. Original Note: RN-RN report given to ED Overflow, pt transporting to OF9.
[2022-12-28 00:06] VITALS: BP 101/59; PULSE 91; RESP 18; TEMP 36.6; O2SAT 100
[2022-12-28] MEDS: chlorproMAZINE HCl 25 MG TABLET 50 MG PO ×2 (00:30→21:30)
--- NOTE | 2022-12-28 10:01 | PC.NURSE ---
report obtained from sacha, uche care for patient at 930, patient sleeping, wakes to verbal stimulus- pt hard of hearing- speech slurred/difficult to understand at baseline, pt denies pain/discomfort, call ta within reach, will continue to monitor.
--- NOTE | 2022-12-28 10:02 | PC.NURSE ---
lungs clear/diminished throughout
--- NOTE | 2022-12-28 10:06 | PC.NURSE ---
pt ambulating with tech to bathroom with walker
[2022-12-28 11:43] VITALS: BP 130/67; PULSE 72; RESP 16; O2SAT 98
[2022-12-28 14:21] VITALS: BP 122/68; PULSE 74; RESP 18; O2SAT 98
--- NOTE | 2022-12-28 14:49 | PC.NURSE ---
patient has been incontinent of large amounts of urine, [place] cath applied for patient comfort- patient currently sleeping, vss, call ta within reach, will continue to monitor
--- NOTE | 2022-12-28 15:28 | PC.NURSE ---
Report recevied from RUSSELL Welch Pt is sleeping at this time, per previous nurse, patient has been sleeping for a little while but is easily arousable. Pt respirations are even and unlabored, skin pwd, no apparent distress at this time. Bed alarm on and call ta within reach Continue plan of care for case management follow up
--- NOTE | 2022-12-28 16:52 | PC.NURSE ---
pt was assisted up to chair to eat dinner, pt ate about half his dinner when he requested to go back to the bed. Pt was assisted back into bed to finish the rest of his dinner. pt finished his dinner and then requested to go to the bathroom. This RN reminded patient that he had a condom catheter on so he could urinate if he needed to. Pt was adamant about going to the bathroom so this RN assisted patient to the bathroom. When going ot the bathroom, the patient's condom cath fell off so this RN replaced it. Pt is now back in bed resting comfortably
[2022-12-28] MEDS: risperiDONE 2 MG TABLET PO (18:27)
--- NOTE | 2022-12-28 18:45 | PC.NURSE ---
pt resting in bed at this time, eating ice cream, offers no complaints, no apparent distress
--- NOTE | 2022-12-28 19:43 | MHC.EDTECH ---
THIS PCT ASSUMED CARE OF PT AT 1930 PM ,PT WAS REPOSITION IN BED ,PT WATCHING TELEVISION .
[2022-12-28 20:44] VITALS: BP 147/76; PULSE 82; RESP 16; TEMP 36.7; O2SAT 95
--- NOTE | 2022-12-28 21:31 | MHC.EDTECH ---
PT VITALS SIGN TAKEN ,PT CARE GIVEN ,PT BACK IN BED WATCHING TELEVISION .
--- NOTE | 2022-12-28 22:58 | PC.NURSE ---
0832-0621; Patient alert, oriented to self, denies pain at this time, l/s diminished, and soft, vss. Assisted with urinal, repositioned, warm blanket provided. Call ta within reach.
--- NOTE | 2022-12-28 23:32 | PC.NURSE ---
Addendum entered by Silvia Vines RN 12/29/22 00:06: 2330; Report given to next shift RN, made aware of patient's elevated temperature, orders for tylenol, viral swab, chest xray Original Note: Patient reporting he needs to use the bathroom, assisted patient, patient incontinent, patient very warm to touch, rectal temp 102.2 No orders for tylenol available, main ed called, charge nurse notified who will notify ed provider.
[2022-12-28 23:33] VITALS: BP 149/73; PULSE 74; RESP 16; TEMP 39; O2SAT 97
--- NOTE | 2022-12-28 23:41 | MHC.EDTECH ---
patient was inc of urine ,care given ,this pct felt pt skin was warm ,rectal temp taken ,it was 102.2 full sets of vitals taken at this time bambi nicolas aware ,pt drank 240 ml water .
--- NOTE | 2022-12-29 00:03 | MHC.EDTECH ---
RSV COVID SWAB COLLECTED AND SENT TO LAB .
--- NOTE | 2022-12-29 00:04 | MHC.EDTECH ---
pt drank an additional 480 ml water .
[2022-12-29] MEDS: Acetaminophen 325 MG TABLET 975 MG PO (00:11)
[2022-12-29 00:37] LABS: Influenza A PCR NEGATIVE (Negative); Influenza B PCR NEGATIVE (Negative); Resp Syncy Virus RNA Qual PCR NEGATIVE (Negative); SARS COV2 PCR INHOUSE NEGATIVE (Negative)
--- NOTE | 2022-12-29 00:54 | MHC.EDTECH ---
PATIENT IV WAS PUT IN BY MECHELLE ASKEW ,BLOOD DRAWN ,INCLUDING BLOOD CULTURE AND LACTIC ACID ALL SENT TO LAB ,PT WAS INCONIENT CARE GIVEN BEDDING CHANGE ,RECTAL TEMP TAKEN AT THIS TIME IT WAS 101.2 RUSSELL BAH AWARE ,UNABLE TO COLLECT URINE SAMPLE PATIENT IS INCONIENT ,RN AWARE .
[2022-12-29 00:56] LABS: MANUAL DIFF FLAG NO
[2022-12-29 00:57] LABS: Basophils Percent Auto 0.1 % (0-2); Eosinophils Percent Auto 0.1 % (0-4); Hematocrit 32.6 % (42.0-52.0); Hemoglobin 10.6 g/dl (14.0-18.0); Imm Gran Abs Auto 0.05 X10*3/uL (0.00-0.03); Imm Gran Pct Auto 0.5 % (0.0-0.4); Lymphocytes Absolute Auto 0.4 X10*3/uL (1.2-4.9); Lymphocytes Percent Auto 4.4 % (20-40); Mean Corpuscular HGB Conc 32.5 g/dl (31.0-36.0); Mean Corpuscular Hemoglobin 28.6 pg (27.0-33.0); Mean Corpuscular Volume 88.1 fL (80.0-98.0); Mean Platelet Volume 9.9 fL (9.4-12.4); Monocytes Absolute Auto 0.9 X10*3/uL (0.1-1.2); Monocytes Percent Auto 8.7 % (2-11); Neutrophils Absolute Auto 8.5 x10*3/uL (2.0-8.3); Neutrophils Percent Auto 86.2 % (45-73); Platelet Count 157 X10*3/uL (160-400); Red Cell Distribution Width 13.6 % (11.0-16.0); White Blood Count 9.8 X10*3/uL (4.8-10.8)
[2022-12-29 00:58] VITALS: TEMP 38.4
[2022-12-29 01:14] LABS: Alanine Aminotransferase 20 U/L (0-40); Albumin Level 3.6 g/dL (3.5-5.0); Alkaline Phosphatase 81 U/L (39-117); Anion Gap 12 (12-20); Aspartate Amino Transferase 25 U/L (5-37); Bilirubin Total 0.4 mg/dL (0.0-1.0); Blood Urea Nitrogen 20 mg/dL (9-16); Calcium 8.7 mg/dL (8.4-10.2); Carbon Dioxide 27 mmol/L (22-29); Chloride 99 mmol/L (96-108); Creatinine Clr Calc Pharmacy 69.2; Estimated Glomerular Filt Rate > 60; Glucose Random 123 mg/dL (60-115); Potassium 3.9 mmol/L (3.3-5.1); Sodium 134 mmol/L (135-145); Total Protein 6.4 g/dL (6.5-8.0)
[2022-12-29] MEDS: cefTRIAXone sodium 1 GM in 0.9 % Sodium Chloride 50 ML IV (01:26)
[2022-12-29] MEDS: Azithromycin 500 MG in 0.9 % Sodium Chloride 250 ML 125 MG IV (01:57)
--- NOTE | 2022-12-29 02:20 | MHC.EDTECH ---
PATIENT WAS INCONTINENT OF URINE CARE GIVEN ,VITALS SIGN TAKEN .
--- NOTE | 2022-12-29 02:21 | PC.NURSE ---
Assumed care of pt at 23:00, RN from previous shift reported that the pt had a rectal temp of 102.2. ED MD ordered one time dose of PO Tylenol, chest xray & viral swab. Pt A&O to self, denies any pain, and restless in bed. This RN administered the one time dose of PO Tylenol. Chest xray results showed pna, viral swab still pending. MD ordered lab work, and IV antibiotics. PA came to bedside to assess the pt and placed a #20 to R AC. IV antibiotic adminitred to pt and rectal temp went down to 99.8. Pt changed and repositioned with call ta in reach, camera & bed alarm on. Will continue to monitor.
[2022-12-29 02:28] VITALS: BP 126/70; PULSE 72; RESP 18; TEMP 37.7; O2SAT 98
--- NOTE | 2022-12-29 04:23 | MHC.EDTECH ---
PATIENT AWAKE UP TO USE URINAL ,VOID 700ML ,URINE SAMPLE COLLECTED AND SENT TO LAB .
[2022-12-29 04:53] LABS: Appearance Urine Clear; Color Urine Yellow; Glucose Urine UA Negative (Negative); Leukocyte Esterase Urine Negative (Negative); Nitrite Urine Negative (Negative); PH 6.5 (5.0-9.0); Urine Blood Negative (Negative); Urine Ketones Negative (Negative); Urine Protein Negative (Neg-Trace)
[2022-12-29 04:58] LABS: Bacteria Urine None Seen (None Seen); Hyaline Casts Urine 0-2 /LPF (0-2); RBC Urine 0-2 /HPF (0-2); Squamous Epithelial Cell Urine 0-2 /HPF (0-2); WBC Urine 0-5 /HPF (0-5)
[2022-12-29 06:00] VITALS: BP 129/67; PULSE 66; RESP 16; TEMP 36.4; O2SAT 98
--- NOTE | 2022-12-29 06:00 | MHC.EDTECH ---
0600 ROUNDING DONE ,VITALS SIGN TAKEN ,PT ASLEEP ,AND IS DRY ,FRESH ICE WATER AT BEDSIDE TABLE ,BED ALARM ON BED .
[2022-12-29 08:01] VITALS: BP 129/68; PULSE 72; RESP 14; TEMP 36.7; O2SAT 94
--- NOTE | 2022-12-29 09:29 | PC.NURSE ---
called pharmacy awaiting missing med
[2022-12-29] MEDS: Azithromycin 250 MG TABLET PO (10:17)
--- NOTE | 2022-12-29 10:22 | PC.NURSE ---
patient sleeping, woke to verbal stimulus, pt took po abx per order whole with water, pt denying pain/discomfort, lungs diminished, call ta within reach, will continue to monitor
--- NOTE | 2022-12-29 12:48 | MHC.EDTECH ---
patient ate 10% of his lunch. patient did stand up with staff assist and transition to the recliner.
--- NOTE | 2022-12-29 12:50 | MHC.EDTECH ---
patient asked to go back to bed. patient was incontinent of urine before going back to bed. patient was cleaned and bed was freshened. patient transitioned from the recliner to the bed.
--- NOTE | 2022-12-29 14:14 | PC.NURSE ---
patient awake/alert, pt has been oob to chair to eat meals today, pt offers no c/o pain or discomfort at this time, currently watching tv, call ta within reach, will continue to monitor.
[2022-12-29 17:38] VITALS: BP 109/58; PULSE 73; RESP 16; TEMP 37.1; O2SAT 99
[2022-12-29] MEDS: chlorproMAZINE HCl 25 MG TABLET 50 MG PO (18:21)
[2022-12-29] MEDS: risperiDONE 2 MG TABLET PO (18:21)
--- NOTE | 2022-12-29 18:22 | PC.NURSE ---
patient agitated and argumentative, attempting to get oob without assist, pt arguing not wanting to walk with his walker stating hes fine and doesnt need it. pt was given a choice to either go for a walk with the walker, sit in the bedside chair or get back into bed, pt was medicated and put back into bed, pt wished to now eat dinner which he had refused earlier, pts dinner tray set up, call ta within reach, will continue to monitor.
--- NOTE | 2022-12-29 20:00 | PC.NURSE ---
Pt slightly agitated, intermittently trying to get out of bed. Ambulated to bathroom with walker per EDTA.
[2022-12-29 20:44] VITALS: BP 140/65; PULSE 83; RESP 17; TEMP 37.2; O2SAT 97
[2022-12-29] MEDS: HaloperidoL 5 MG TABLET PO (20:46)
[2022-12-29] MEDS: LORazepam 1 MG TABLET PO (20:46)
--- NOTE | 2022-12-29 20:49 | PC.NURSE ---
Pt medicated per MAR with night meds. Tolerated well.
--- NOTE | 2022-12-29 22:40 | PC.NURSE ---
Pt remains intermittently agitated trying to get out of bed, redirectable.
--- NOTE | 2022-12-30 | PC.NURSE ---
Pt continues to yell out and intermittently try to get out of bed. Remains redirectable. Julia sure remains in place and alarming as appropriate.
--- NOTE | 2022-12-30 02:00 | PC.NURSE ---
Pt still talking to himself in bed. Thinks it is time for work. Redirectable at this time. Avasure remains in place.
--- NOTE | 2022-12-30 03:30 | PC.NURSE ---
Pt appears to be resting quietly with eyes closed. Respirations even and unlabored. No acute distress noted.
[2022-12-30 06:02] VITALS: BP 133/71; PULSE 83; RESP 17; TEMP 36.8; O2SAT 98
[2022-12-30 07:47] VITALS: BP 127/70; PULSE 88; RESP 18; TEMP 37.3; O2SAT 99
--- NOTE | 2022-12-30 08:30 | PC.NURSE ---
pt is a/o x 1 no sob/herminio noted pt is extremely teller. speaks in mumbling language at times. pt is being feed breakfast hob up.
[2022-12-30] MEDS: chlorproMAZINE HCl 25 MG TABLET 50 MG PO ×2 (08:31→19:51)
[2022-12-30] MEDS: Azithromycin 250 MG TABLET PO (08:31)
--- NOTE | 2022-12-30 08:40 | PC.NURSE ---
pt restless, med x 1 with thorazine 50mg po.
--- NOTE | 2022-12-30 11:04 | MHC.CM.PN ---
Guardianship paperwork continues to be in progress. Derek (nephew) has agreed to be the guardian. In review of pt's chart- pt was prescribed 2 antipsychotic medications. If these medications are to be continued pt will need a [employer] Affidavidt for a Kwame's order. Message sent to Dr. Long covering consults for ER.
[2022-12-30 13:33] VITALS: BP 140/82; PULSE 90; RESP 18; TEMP 37.1; O2SAT 95
[2022-12-30 19:26] VITALS: BP 97/70; PULSE 89; RESP 18; TEMP 37; O2SAT 98
[2022-12-30] MEDS: risperiDONE 2 MG TABLET PO (19:51)
--- NOTE | 2022-12-30 21:10 | PC.NURSE ---
Pt confused and can be impulsive at times. He has poor po intake, sched meds given curshed in applesauce. Incont of urine and also voided 500cc in urinal. Bed alarm on/camera in room, safety measures maintained.
[2022-12-31 06:36] VITALS: BP 120/74; PULSE 87; RESP 18; TEMP 36.6; O2SAT 98
[2022-12-31 08:04] VITALS: BP 130/61; PULSE 88; RESP 18; TEMP 36.7; O2SAT 97
[2022-12-31] MEDS: Azithromycin 250 MG TABLET PO (08:04)
[2022-12-31 11:08] LABS: MANUAL DIFF FLAG NO
[2022-12-31 11:11] LABS: Eosinophils Percent Auto 0.4 % (0-4); Hematocrit 30.2 % (42.0-52.0); Hemoglobin 9.7 g/dl (14.0-18.0); Imm Gran Abs Auto 0.03 X10*3/uL (0.00-0.03); Imm Gran Pct Auto 0.5 % (0.0-0.4); Lymphocytes Absolute Auto 0.3 X10*3/uL (1.2-4.9); Lymphocytes Percent Auto 4.9 % (20-40); Mean Corpuscular HGB Conc 32.1 g/dl (31.0-36.0); Mean Corpuscular Hemoglobin 28.5 pg (27.0-33.0); Mean Corpuscular Volume 88.8 fL (80.0-98.0); Mean Platelet Volume 10.3 fL (9.4-12.4); Monocytes Absolute Auto 0.4 X10*3/uL (0.1-1.2); Monocytes Percent Auto 7.7 % (2-11); Neutrophils Absolute Auto 4.8 x10*3/uL (2.0-8.3); Neutrophils Percent Auto 86.5 % (45-73); Platelet Count 159 X10*3/uL (160-400); Red Cell Distribution Width 13.5 % (11.0-16.0); White Blood Count 5.6 X10*3/uL (4.8-10.8)
[2022-12-31 11:30] LABS: Anion Gap 14 (12-20); Blood Urea Nitrogen 27 mg/dL (9-16); Calcium 8.3 mg/dL (8.4-10.2); Carbon Dioxide 22 mmol/L (22-29); Chloride 105 mmol/L (96-108); Creatinine Clr Calc Pharmacy 83.4; Estimated Glomerular Filt Rate > 60; Glucose Random 202 mg/dL (60-115); Sodium 137 mmol/L (135-145)
--- NOTE | 2022-12-31 11:44 | MHC.EDTECH ---
Assisted patient with personal care . Silvia Lemon
--- NOTE | 2022-12-31 12:03 | HO.PSYCHPN ---
Subjective Subjective Date of Service: 12/31/22 Reason For Visit: ams Interim History: Reviewed note; discussed with team; Patient sleeping on approach and did not arouse. Staff who have been working with patient said that he has become more lethargic lately and sleeping most of the day. Review of notes indicate patient recently diagnosed with pneumonia and started on antibiotics. Review of MAR are shows that patient is getting Thorazine 50 mg about once or twice a day in addition to Risperdal 2 mg scheduled at bedtime. At this time it is not clear if patient sedation is due to lung infection or psychiatric medications. Mental Status Exam Mental Status Exam Narrative: Patient sleeping Diagnostics Vital Signs (24Hr): Vital Signs - 24 hr 12/30/22 13:33 12/30/22 19:26 12/31/22 06:36 Temperature 98.8 F 98.6 F 97.8 F Pulse Rate 90 89 87 Respiratory Rate 18 18 18 Blood Pressure 140/82 H 97/70 120/74 Pulse Oximetry 95 98 98 Oxygen Delivery Method Room Air Room Air Room Air 12/31/22 08:04 Temperature 98.1 F Pulse Rate 88 Respiratory Rate 18 Blood Pressure 130/61 Pulse Oximetry 97 Oxygen Delivery Method Room Air BMI result Body Mass Index 22.8 Labs 12/31/22 10:44 12/31/22 10:44 Labs: Laboratory Results - last 48 hr 12/31/22 12/31/22 10:44 10:44 WBC 5.6 RBC 3.40 L Hgb 9.7 L Hct 30.2 L MCV 88.8 MCH 28.5 MCHC 32.1 RDW 13.5 Plt Count 159 L MPV 10.3 Immature Gran % (Auto) 0.5 H Neut % (Auto) 86.5 H Lymph % (Auto) 4.9 L Harper % (Auto) 7.7 Eos % (Auto) 0.4 Baso % (Auto) 0.0 Lymph # (Auto) 0.3 L Harper # (Auto) 0.4 Eos # (Auto) 0.0 Baso # (Auto) 0.0 Abs Immat Gran (auto) 0.03 Absolute Neuts (auto) 4.8 Absolute Nucleated RBC 0.000 Nucleated RBC % (auto) 0.0 Sodium 137 Potassium 4.0 Chloride 105 Carbon Dioxide 22 Anion Gap 14 BUN 27 H Creatinine 0.68 Estim Creat Clear Calc 83.4 Estimated GFR > 60 Random Glucose 202 H Calcium 8.3 L Imaging Radiology Impressions: ITS Impressions Chest X-Ray 12/28/22 23:58 IMPRESSION: Left lower lobe atelectasis/infiltrate. Medications Medications Current Medications Azithromycin (Azithromycin 250 Mg Tablet) 250 mg PO DAILY [facility] Stop: 01/01/23 09:01 Last Admin: 12/31/22 08:04 Dose: 250 mg Cefuroxime Axetil (Cefuroxime Axetil 500 Mg Tablet) 500 mg PO BID [facility] Stop: 01/04/23 21:01 Last Admin: 12/31/22 08:04 Dose: 500 mg Chlorpromazine HCl (Chlorpromazine Hcl 25 Mg Tablet) 12.5 mg PO BID PRN PRN Reason: agitation Pharmacy Consult (Consult Rx Perform Med Rec) 1 each MISCELLANE ONCE PRN PRN Reason: Consult order Risperidone (Risperidone 2 Mg Tablet) 2 mg PO DAILY@1900 [facility] Last Admin: 12/30/22 19:51 Dose: 2 mg Allergies Allergies Allergy/AdvReac Type Severity Reaction Status Date / Time Unable to Assess Allergy Verified 06/12/22 16:15 Assessment & Plan Assessment & Plan (1) Major neurocognitive disorder due to multiple etiologies with behavioral disturbance: Status: Acute Code(s): F02.818 - Dementia in other diseases classified elsewhere, unspecified severity, with other behavioral disturbance Plan Mr. Morris is a 77 year-old male with hx of advanced dementia who was sent [place] [facility] due to combative behaviors. His HCP has expressed her preference not to continue being his HCP. Hospital going for guardianship as pt severely impaired in terms of his memory and cognitive affecting his ability to make medical decisions, care for himself safely in the community. F/P Reportedly patient is more sedated than on admission; not sure if it is due to recovering from recent pneumonia or psychiatric medications. Currently, he is getting PRN Thorazine 50 mg about once or twice a day in addition to Risperdal 2 mg scheduled at bedtime. Thorazine is slow to get out of a person system and also has anticholinergic properties. At this time will discontinue Thorazine. Will continue with Risperdal 2 mg at bedtime and add low-dose Risperdal as a p.r.n. for breakthrough agitation. It remains preferable to see if monotherapy can alleviate agitation. PLAN 1. Continue risperidone 2mg po qhs. 2 ADD prn Risperdal 0.25 mg b.i.d. p.r.n. for breakthrough agitation 3 DISContinue prn Thorazine as it is anticholinergic and may be causing over-sedation Reason for continued inpatient stay Substantial Risk for: inability to function Time Spent With Patient Time: Total time managing care of this patient today ____ minutes.
--- NOTE | 2022-12-31 15:00 | PC.NURSE ---
report received from RUSSELL Pavon Pt is sleeping at this time, per previous RN, patient has been sleeping and fatigued throughout the morning. Pt is arousable at this time. Respirations even and unlabored, skin pwd. Continue plan of care for abx treatment and case management follow up
[2022-12-31 15:25] VITALS: BP 134/72; PULSE 87; RESP 14; TEMP 36.4; O2SAT 98
--- NOTE | 2022-12-31 16:08 | PC.NURSE ---
pt incontinent of urine in bed, this RN and NAT Garrido changed patients linens, cleaned patient and repositioned him to prevent bed sores. Pt calm and cooperative throughout process. Pt is now back to sleeping at this time
--- NOTE | 2022-12-31 16:59 | PC.NURSE ---
Pt incontinent in bed again, pt was assisted up to chair by this RN and NAT Garrido. Pt now in chair eating dinner, pt is much more responsive that earlier in the shift. Pt alert to name at this time
--- NOTE | 2022-12-31 17:41 | PC.NURSE ---
pt ate approximately 25% of his dinner, pt more responsive to pureed food than chopped food. Pt requested to go back to bed. Pt assisted back into bed and is now resting comfortably in bed watching TV, no apparent distress, respirations even and unlabored
[2022-12-31] MEDS: risperiDONE 2 MG TABLET PO (18:26)
--- NOTE | 2022-12-31 21:21 | PC.NURSE ---
pt repositioned in bed, took night medications with pudding. now sleeping, respirations equal and unlabored, skin pwd, no apparent distress
[2022-12-31 21:51] VITALS: BP 124/65; PULSE 92; RESP 15; TEMP 36.6; O2SAT 97
--- NOTE | 2022-12-31 22:39 | MHC.EDTECH ---
pt ambulated w/ walker and 2 asst by t/w and RUSSELL Burris
--- NOTE | 2022-12-31 22:39 | PC.NURSE ---
pt ambulated around overflow with this RN and NAT Garrido. Pt walked with walker and occasionally required re-direction and assistance. Pt is now back in bed, repositioned for comfort, no apparent distress
--- NOTE | 2023-01-01 02:14 | MHC.EDTECH ---
pt incontinent of urine. pt's shawn and caitlin changed. tasha lacy and t/w applied condom catheter to protect skin. condom catheter tolerated well by pt
--- NOTE | 2023-01-01 06:08 | PC.NURSE ---
pt assisted to reclining chair from the bed, pt is resting comfortably offering no complaints at this time. Pt provided with newspaper and playing cards as well at the TV remote. continue plan of care for case management follow up
[2023-01-01 06:22] VITALS: BP 119/69; PULSE 79; RESP 16; TEMP 36.3; O2SAT 98
[2023-01-01] MEDS: Azithromycin 250 MG TABLET PO (09:21)
--- NOTE | 2023-01-01 12:44 | PC.NURSE ---
patient assisted with eating lunch. cooperative and pleasant with staff
--- NOTE | 2023-01-01 14:24 | MHC.CM.ED ---
Patient remains in ER overflow unit. Jerri Cortes CM director still completing necessary paperwork for guardianship, conservator and Kwame's order. Placement will not be able to be pursued until guardianship, conservator, and Kwame's order have been granted. Continue to monitor for d/c needs.
--- NOTE | 2023-01-01 14:54 | MHC.CM.PN ---
Complete guardianship w/ clinicians affidavit submitted to [place] for court filing.
[2023-01-01 16:38] VITALS: BP 124/63; PULSE 70; RESP 16; TEMP 36.8; O2SAT 98
--- NOTE | 2023-01-01 18:46 | MHC.EDTECH ---
PT was cleaned up had change of caitlin and bedding.
[2023-01-01] MEDS: risperiDONE 2 MG TABLET PO (21:07)
--- NOTE | 2023-01-01 21:53 | PC.NURSE ---
Pt confused and can be impulsive at times. He has poor po intake, sched meds given crushed in applesauce. Incont of urine and also voided 500cc in urinal. Pt resting in bed w/ eyes closed. Bed alarm on/camera in room, safety measures maintained.
[2023-01-01] MEDS: risperiDONE 0.25 MG TABLET PO (23:17)
--- NOTE | 2023-01-01 23:18 | PC.NURSE ---
Pt agitated, yelling and screaming that he wants to go to his house. Impulsive and tried to get OOB. Pt was redirected back to bed and prn risperidal given.
[2023-01-02 06:00] VITALS: BP 122/83; PULSE 112; RESP 20; TEMP 36.8; O2SAT 99
[2023-01-02] MEDS: risperiDONE 0.25 MG TABLET PO (08:07)
--- NOTE | 2023-01-02 09:59 | PC.NURSE ---
Assumed care of patient at 0645, Pt is A&Ox1-2 and requires frequent redirection. Pt continues to try to get out of bed and out of the chair with out ringing for help, pt is unsteady. Redirection provided multiple times with minimal success, toileting and snacks offered. Pt given scheduled risperidone as ordered, with poor effect. Provider notified of patients agitation and exit seeking via tiger txt, additional dose of risperidone ordered. Pt is currently up in chair, chair alarm on, camera in place. All needs met at this time, VSS.
[2023-01-02] MEDS: risperiDONE 1 MG TABLET PO (10:46)
[2023-01-02 14:00] VITALS: BP 117/67; PULSE 73; RESP 14; TEMP 36.8; O2SAT 100
[2023-01-02] MEDS: risperiDONE 2 MG TABLET PO (19:54)
[2023-01-02 21:26] VITALS: BP 118/70; PULSE 72; RESP 16; TEMP 36.9; O2SAT 98
--- NOTE | 2023-01-02 23:14 | PC.NURSE ---
Pt A&OX1, confused and can be impulsive at times. He has poor po intake, sched meds given crushed in applesauce. Incont of urine. Pt resting in bed w/ eyes closed. Bed alarm on/camera in room, safety measures maintained.
[2023-01-03] MEDS: risperiDONE 0.25 MG TABLET PO ×2 (01:27→13:01)
[2023-01-03 05:53] VITALS: BP 105/61; PULSE 82; RESP 16; TEMP 36.6; O2SAT 100
[2023-01-03 14:00] VITALS: BP 109/64; PULSE 89; RESP 20; TEMP 36.6; O2SAT 98
[2023-01-03 15:15] VITALS: BP 128/74; PULSE 91; RESP 20; TEMP 36.3; O2SAT 94
[2023-01-03] MEDS: risperiDONE 2 MG TABLET PO (18:20)
[2023-01-04 05:30] VITALS: BP 119/57; PULSE 72; RESP 20; TEMP 36.2; O2SAT 100
[2023-01-04 14:13] VITALS: BP 113/64; PULSE 64; RESP 14; TEMP 36.7; O2SAT 97
--- NOTE | 2023-01-04 14:19 | MHC.EDTECH ---
pt was found soiled in urine, with help from rn, pt was cleaned, fresh sheets, hospital gown, and warm blankets were given. pt is now comfortable and eating lunch.
--- NOTE | 2023-01-04 15:56 | MHC.EDTECH ---
Tw helped pt going to the bathroom. Pt was changed to a new hospital gown. Pt is resting in bed at this time.
--- NOTE | 2023-01-04 19:20 | PC.NURSE ---
Report received from previous nurse. Upon assessment patient found to be at rest with eyes closed at this time respirations with ease, no s/s of discomfort noted. Patent allow to rest at this time. Will continue to monitor patient status.
--- NOTE | 2023-01-04 20:45 | MHC.EDTECH ---
At 16:20 pt was offered his dinner tray, pt refused and went back to sleep. rn aware. Around 20:20 pt was seen eating part of his meal.
[2023-01-04] MEDS: risperiDONE 2 MG TABLET PO (20:48)
[2023-01-04 22:00] VITALS: BP 123/60; PULSE 66; RESP 20; TEMP 36.8; O2SAT 98
--- NOTE | 2023-01-05 13:48 | MHC.CM.ED ---
Patient remains in ER overflow. Guardianship court is scheduled for 01/15 at 11am via Zoom. Court paperwork delivered to patient. Received telephone call from patient's court appointed urology surgeon, Department Store Door Greeter Susana Owusu. She can be reached via telephone at [phone]. Facetime appointment scheduled for 01/06 at 2pm. Jerri Cortes CM director aware. Continue to monitor for d/c needs.
[2023-01-05 14:00] VITALS: BP 138/89; PULSE 70; RESP 19; TEMP 36.4; O2SAT 98
--- NOTE | 2023-01-05 14:00 | PC.NURSE ---
incontinent care and complete bed change done. pt compliant with not getting out of bed without assistance.
--- NOTE | 2023-01-05 19:37 | PC.NURSE ---
assumed care of pt at 1915 - pt resting comfortably on stretcher in no apparent distress. pt within view of nurses station will CTM
[2023-01-05] MEDS: risperiDONE 2 MG TABLET PO (20:09)
[2023-01-06 00:16] VITALS: BP 157/80; PULSE 67; RESP 18; TEMP 36.4; O2SAT 98
[2023-01-06] MEDS: risperiDONE 0.25 MG TABLET PO (03:08)
--- NOTE | 2023-01-06 14:42 | MHC.CM.ED ---
Patient remains in ER overflow. Court appointed coil winder hand met with patient virtually. Court is scheduled for 01/15. Mason is complaining that his hearing aides are not working properly. Carmelo MIN made aware and asked to ordera NUTRITION THERAPIST eval to assist in evaluating patient's hearing aides. Continue to monitor for d/c needs.
[2023-01-06 16:10] VITALS: BP 122/70; PULSE 72; RESP 16; TEMP 36.5; O2SAT 98
--- NOTE | 2023-01-06 16:11 | MHC.EDTECH ---
THIS PCT ASSUMED CARE OF PT AT 1500 ,VITALS SIGN TAKEN ,PT IN BED WATCHING TELEVISION ,PT HAVING ICE CREAM FOR SNACK .
--- NOTE | 2023-01-06 17:52 | MHC.EDTECH ---
PT ATE 100 % OF DINNER DRANK 360 ML FLUIDS ,AFTER DINNER ,PT HAD A BED BATH ,BEDDING CHANGE ,LOTION APPLY ,PT WATCHING TELEVISION ,NO ISSUES AT THIS TIME .
[2023-01-06] MEDS: risperiDONE 2 MG TABLET PO (19:18)
[2023-01-06 21:32] VITALS: BP 132/76; PULSE 68; RESP 16; TEMP 36.3; O2SAT 98
--- NOTE | 2023-01-06 21:35 | MHC.EDTECH ---
800 ml empty from high ,patient sleeping .
[2023-01-07 05:54] VITALS: BP 126/77; PULSE 58; RESP 16; TEMP 36.5; O2SAT 98
--- NOTE | 2023-01-07 05:55 | MHC.EDTECH ---
0600 rounding done ,vitals sign taken ,200 ml urine empty ,pt was up most of the night ,pt had 2 pudding throughtout the night and drank 3 orange juice .
[2023-01-07 07:29] VITALS: BP 115/60; PULSE 94; RESP 18; TEMP 36.6; O2SAT 100
[2023-01-07 14:00] VITALS: BP 107/76; PULSE 82; RESP 16; TEMP 36.4; O2SAT 98
--- NOTE | 2023-01-07 16:49 | PC.NURSE ---
Pt calm and cooperative with staff throughout day. Ate 100% of breakfast and lunch. Pt had a nice 2 hour visit with a family member today. Currently sleeping while dinner is present, will reheat for pt when awake. Will CTM. VSS.
--- NOTE | 2023-01-07 19:02 | MHC.EDTECH ---
Assisted patient with nurse Rosy with personal hygiene and commode assist. Changed patients gown and linen. Emptied commode and replced liner. Silvia Lemon
[2023-01-07] MEDS: risperiDONE 2 MG TABLET PO (19:58)
[2023-01-07 22:00] VITALS: BP 127/71; PULSE 81; RESP 16; TEMP 36.3; O2SAT 99
--- NOTE | 2023-01-08 05:47 | PC.NURSE ---
HS vital signs stable. Pt A&OX1-self. Pleasant and cooperative. [place]. Slept all night (talks in his sleep). Pt pulled off [place] catheter X2. Urinal at bedside. No c/o pain. Camera and bed alarm on for patient safety.
[2023-01-08 06:47] VITALS: BP 119/61; PULSE 79; RESP 18; TEMP 37; O2SAT 98
--- NOTE | 2023-01-08 11:54 | PC.NURSE ---
patient sleeping at this time. respirations are equal and unlabored. bed in lowest locked position with bed alarm on for safety. will CTM
--- NOTE | 2023-01-08 13:11 | PC.NURSE ---
incontinence care provided. bed linen and hospital gown changed to new. set up for lunch. patient calm and cooperative with staff. will CTM
[2023-01-08 15:17] VITALS: BP 102/67; PULSE 75; RESP 18; TEMP 36.3; O2SAT 100
--- NOTE | 2023-01-08 18:08 | PC.NURSE ---
patient up eating dinner. visitors at the bedside
[2023-01-08] MEDS: risperiDONE 2 MG TABLET PO (19:17)
--- NOTE | 2023-01-08 19:29 | PC.NURSE ---
Pt sitting up in bed with family at the bedside. Pt is eating his dinner. Pt was given chopped chicken but is unable to chew the chicken. Family is requesting a dietary change. Otherwise, pt is alert and oriented to person with some confusion. Pt has warm, dry skin. No complaints at this time.
--- NOTE | 2023-01-08 23:57 | PC.NURSE ---
Pt had an episode of urinary incontinence. He was cleaned and given a new brief. Pt was able to stand and pivot to the commode with two assist.Pt had 2 firm bowel movements, normal in color. Pt reported difficulty passing the bowel movements. Pt was assisted back in bed and positioned for comfort. Pt has no other complaints at this time.
--- NOTE | 2023-01-09 03:31 | PC.NURSE ---
assumed care of pt resting quietly, no apparent distress will CTM
--- NOTE | 2023-01-09 04:34 | PC.NURSE ---
pt sleeping respirations even and unlabored no apparent distress
--- NOTE | 2023-01-09 06:07 | PC.NURSE ---
assisted pt with urinal
[2023-01-09 06:12] VITALS: BP 125/73; PULSE 63; RESP 16; TEMP 36.7; O2SAT 98
--- NOTE | 2023-01-09 08:39 | MHC.EDTECH ---
patient AM care done bed change . Patient relaxing drawing and reading his news paper.
--- NOTE | 2023-01-09 11:18 | PC.NURSE ---
pt sleeping in room, bed alarm and camera in place
--- NOTE | 2023-01-09 16:46 | PC.NURSE ---
complete bed change done by pct, pt now sitting in recliner with camera in place
[2023-01-09 17:22] VITALS: BP 120/67; PULSE 80; RESP 16; TEMP 36.7; O2SAT 100
[2023-01-09] MEDS: risperiDONE 2 MG TABLET PO (19:41)
--- NOTE | 2023-01-09 19:43 | PC.NURSE ---
Assumed care of pt. Pt sitting on recliner, with newspaper in hand. No acute medical or behavrioal concners at this time. Medicated per orders and plan to transfer pt to stretcher at 9:00 p.m. for sleep. Pt aware of POC. WCTM.
--- NOTE | 2023-01-09 21:57 | PC.NURSE ---
Pt transferred to Overflow, report given to RUSSELL Wan
--- NOTE | 2023-01-10 05:26 | MHC.EDTECH ---
Micheal has been awake for several hours this shift. he was given snacks and is resting comfortably in bed.
[2023-01-10 05:43] VITALS: BP 117/65; PULSE 83; RESP 18; TEMP 36.6; O2SAT 96
--- NOTE | 2023-01-10 05:46 | PC.NURSE ---
Assumed care at approximately 2200 when patient moved to overflow unit. Patient resting in bed eyes closed hslf of the night. Patient [place], talking loudly and very confused. Patient incontinent of urine, cleaned and changed bed/clothes. Patient educated and redirected multiple times throughout the night.Camera in place, bed alarm on.
[2023-01-10 14:00] VITALS: BP 109/64; PULSE 63; RESP 18; TEMP 36.6; O2SAT 99
--- NOTE | 2023-01-10 16:03 | MHC.EDTECH ---
pt found to have episode of incontinence of both bladder and bowels. pt cleaned, clothes and linens changed, boosted and repositioned. pt then ate 25% lunch . per report, pt was asleep when lunch came.
--- NOTE | 2023-01-10 17:32 | PC.NURSE ---
Assumed care at 1500. Patient alert to self, confused. No complaints. Incontinent of urine and stool. Adjust self in bed. Resting comfortably, no complaints. All needs met.
[2023-01-10 19:44] VITALS: BP 138/69; PULSE 68; RESP 16; TEMP 36.3; O2SAT 98
[2023-01-10] MEDS: risperiDONE 2 MG TABLET PO (20:43)
--- NOTE | 2023-01-10 21:36 | PC.NURSE ---
Addendum entered by Jory Bassett RN 01/11/23 05:05: At approx 0430, pt restless in bed. Unable to get comfortable, and continues to yell out to staff. PRN Risperidone for agitation given with effect. Resting comfortably in bed. Original Note: Assumed care for patient at 1900, A&Ox person, pleasantly confused. Mild c/o neck and back pain, repositioned and placed extra pillow with effect. No s/sx respiratory distress. Incontinent of urine, maris care provided. Call ta with reach. Bed alarm on and in lowest locked position. Maintained safety and comfort.
[2023-01-11] MEDS: risperiDONE 0.25 MG TABLET PO ×2 (04:16→23:51)
[2023-01-11 05:38] VITALS: BP 113/68; PULSE 65; RESP 17; TEMP 36.5; O2SAT 99
--- NOTE | 2023-01-11 11:33 | PC.NURSE ---
patient continues to sleep. respirations are equal and unlabored. bed alarm in place for safety. will CTM
--- NOTE | 2023-01-11 14:34 | PC.NURSE ---
bed bath provided. new linen and hospital gown in place.
--- NOTE | 2023-01-11 17:33 | MHC.EDTECH ---
Warmed up patients lunch at 15:30.
[2023-01-11] MEDS: risperiDONE 2 MG TABLET PO (18:15)
[2023-01-11 22:00] VITALS: BP 136/75; PULSE 69; RESP 18; TEMP 36.2; O2SAT 100
[2023-01-12 06:00] VITALS: BP 120/72; PULSE 69; RESP 20; TEMP 36.3; O2SAT 96
[2023-01-12 07:20] VITALS: BP 137/70; PULSE 73; RESP 18; TEMP 36.4; O2SAT 97
[2023-01-12] MEDS: risperiDONE 0.25 MG TABLET PO (08:29)
--- NOTE | 2023-01-12 08:36 | MHC.CM.ED ---
Patient remains in ER overflow. Guardian/conservator court scheduled for Monday 01/15 virtually. Continue to monitor for d/c needs.
[2023-01-12 16:08] VITALS: BP 112/61; PULSE 73; RESP 20; TEMP 36.4; O2SAT 99
[2023-01-12] MEDS: risperiDONE 2 MG TABLET PO (18:31)
[2023-01-12 20:52] VITALS: BP 105/71; PULSE 75; RESP 20; TEMP 36.6; O2SAT 100
--- NOTE | 2023-01-13 01:05 | PC.NURSE ---
Assume care for patient at 1900. A&Ox1 to self only. VSS. Patient LIME, speaking loudly while awake though difficult to understand at times. Redirected and reoriented frequently. Safety measures including bed alarm and Avasure video monitoring camera in place. Patient has been intermittently resting/sleeping in bed overnight. Breathing is even and unlabored without distress. Incontinent of bladder, incontinence care provided.
[2023-01-13 05:39] VITALS: BP 119/65; PULSE 67; RESP 16; TEMP 36.4; O2SAT 97
[2023-01-13 07:12] VITALS: BP 123/66; PULSE 72; RESP 20; TEMP 36.6; O2SAT 98
--- NOTE | 2023-01-13 08:26 | MHC.EDTECH ---
fall risk measures placed
--- NOTE | 2023-01-13 09:32 | PC.NURSE ---
patient aaox1, calm and cooperative, pleasant and confused. garbled speech at baseline. re-directable, following commands. lung sounds clear throughout on room air. positive bowel sounds. incontinent of urine and stool. no complaints of pain. up in recliner eating breakfast. avasure in place.
--- NOTE | 2023-01-13 09:37 | MHC.EDTECH ---
tx pt to recliner, given art supplies
--- NOTE | 2023-01-13 09:55 | MHC.EDTECH ---
PT ate 100% of breakfast
--- NOTE | 2023-01-13 11:47 | MHC.EDTECH ---
asst with lunch tray set up
[2023-01-13 13:20] VITALS: BP 111/65; PULSE 78; RESP 18; TEMP 36.6; O2SAT 99
--- NOTE | 2023-01-13 13:23 | MHC.EDTECH ---
vitals , rounded , placed alarm
[2023-01-13] MEDS: risperiDONE 0.25 MG TABLET PO (13:41)
--- NOTE | 2023-01-13 13:58 | MHC.EDTECH ---
pt ate 75% of lunch , vmt camera stated due to pt trying to get up states he wanted to go up to his room.
[2023-01-13] MEDS: risperiDONE 2 MG TABLET PO (19:11)
[2023-01-13 21:48] VITALS: BP 120/67; PULSE 85; RESP 16; TEMP 36.6; O2SAT 98
--- NOTE | 2023-01-13 22:19 | MHC.EDTECH ---
Pt informed this manual writer that it is his birthday and read me a few birthday cards, at this time he requested and was given an ice cream . Pt requested cake , there was nine in cafeteria so I got him a brownie. Patient very pleased. Patient is now resting comfortably .
--- NOTE | 2023-01-14 06:45 | PC.NURSE ---
Patient continues in ED overflow. VSS. Continues A&Ox1 to self. Agitated on assuming care, improved with scheduled risperdal. Slept most of night. LSCTA on RA. No distress noted. Denies pain. Abd WNL. +BM overnight, continent. Patient incontinent of urine this AM, odorless yellow. Incont. care provided. Safety measures, Bed alarm and camera in place.
[2023-01-14 09:05] VITALS: BP 109/66; PULSE 90; RESP 18; O2SAT 99
--- NOTE | 2023-01-14 14:56 | PC.NURSE ---
Pt AOx1. Redirectable. Pt is resting in bed. Safety measures, bed alarm, and camera in place.
[2023-01-14 18:05] VITALS: BP 119/71; PULSE 84; RESP 16; TEMP 36.1; O2SAT 100
[2023-01-14] MEDS: risperiDONE 2 MG TABLET PO (18:50)
--- NOTE | 2023-01-14 20:16 | PC.NURSE ---
patient in bed with eyes open patient showing no signs of distress patient stated he is not in any pain at this time patient will continue to be monitored for safety
[2023-01-14 23:02] VITALS: BP 126/71; PULSE 65; O2SAT 99
[2023-01-15 06:00] VITALS: BP 114/69; PULSE 65; RESP 14; TEMP 36.6; O2SAT 99
--- NOTE | 2023-01-15 07:36 | PC.NURSE ---
Pt sitting up on side of bed eating his breakfast. After eating 100%, pt requested assistance to go to the restroom with staff.
[2023-01-15] MEDS: risperiDONE 0.25 MG TABLET PO ×2 (08:26→16:30)
--- NOTE | 2023-01-15 08:27 | PC.NURSE ---
Pt agitated wanting belongings from various part of the unit. Wanting to go upstairs, shouting. PRN medication given.
--- NOTE | 2023-01-15 10:50 | MHC.CM.ED ---
Patient scheduled for virtual court at 11am. T/W went to patient's bedside to get patient set up for Zoom meeting. Patient currently sleeping. Spoke with patient's court appointed veneer stock layer, Susana Owusu via telephone at [phone]. Susana will waive patient's appearance at court hearing. Continue to monitor for d/c needs.
--- NOTE | 2023-01-15 11:33 | PC.NURSE ---
Attempted to wake pt from nap for lunch. Pt snoring, will re-heat lunch when pt awake.
--- NOTE | 2023-01-15 12:22 | PC.NURSE ---
Pt sat up to eat both breakfast and lunch today.
[2023-01-15 14:00] VITALS: BP 110/66; PULSE 73; RESP 16; TEMP 36.1; O2SAT 97
--- NOTE | 2023-01-15 14:51 | PC.NURSE ---
Patient sitting up coloring, non-disruptive.
[2023-01-15] MEDS: risperiDONE 2 MG TABLET PO (19:58)
[2023-01-16 05:47] VITALS: BP 138/74; PULSE 80; RESP 18; TEMP 36.7; O2SAT 99
[2023-01-16 06:00] VITALS: BP 132/55; PULSE 54; RESP 18; TEMP 36.6; O2SAT 97
[2023-01-16] MEDS: risperiDONE 0.25 MG TABLET PO (07:28)
--- NOTE | 2023-01-16 10:52 | PC.NURSE ---
Assumed care of patient at 0645, at this time patient agitated and trying to get out of bed, patient redirected multiple times. Pt given Risperdal at 0728 and then ambulated to bathroom with assistance. Pt currently resting in bed comfortably, rise and fall of chest noted RR 18. All safety measures in place, VSS.
[2023-01-16 14:00] VITALS: BP 118/67; PULSE 77; RESP 16; TEMP 36.6; O2SAT 98
[2023-01-16] MEDS: risperiDONE 2 MG TABLET PO (19:17)
[2023-01-16 19:19] VITALS: BP 134/67; PULSE 75; RESP 18; TEMP 36.8; O2SAT 94
--- NOTE | 2023-01-16 19:19 | MHC.EDTECH ---
pt up in chair requesting food. [place] ,soda and nicole dune cookies given. Pt thankful and in a good mood.
[2023-01-16 23:38] VITALS: BP 138/70; PULSE 73; RESP 17; TEMP 37.1; O2SAT 98
[2023-01-17 06:57] VITALS: BP 140/72; PULSE 72; RESP 16; TEMP 36.9; O2SAT 97
--- NOTE | 2023-01-17 09:18 | PC.NURSE ---
Pt up OOB in chair eating breakfast, non disruptive, no reports of pain.
--- NOTE | 2023-01-17 12:48 | MHC.CM.ED ---
Pt had a court hearing for guardianship/conservator on 01/15. Unsure of outcome: ED RN to follow up w/court on 01/19 on status. Pt pleasant, offers no complaints and is conversant. Pt will need LTC placement once he has a guardian and conservator. No referrals placed at this time.
[2023-01-17 14:00] VITALS: BP 114/62; PULSE 67; RESP 18; TEMP 36.4; O2SAT 99
[2023-01-17] MEDS: risperiDONE 2 MG TABLET PO (19:17)
[2023-01-17 22:36] VITALS: BP 114/67; PULSE 61; O2SAT 99
[2023-01-18 06:00] VITALS: BP 120/62; PULSE 72; TEMP 36.2; O2SAT 98
[2023-01-18] MEDS: risperiDONE 0.25 MG TABLET PO (07:50)
[2023-01-18] MEDS: Acetaminophen 325 MG TABLET 975 MG PO (07:51)
[2023-01-18] MEDS: Amoxicillin/Potassium Clav 875 MG TABLET PO ×2 (07:52→19:20)
[2023-01-18 13:31] VITALS: BP 133/72; PULSE 70; RESP 18; TEMP 36.1; O2SAT 96
--- NOTE | 2023-01-18 15:16 | PC.NURSE ---
Addendum entered by Vance Bell RN 01/18/23 15:19: PRN risperidal with minimal effect this morning. Original Note: Assumed care at 07:00. Patient was awake all night per report, confused, calls out often for delusional needs like needing help coloring, gets volatile and aggressive about this type of problem when help is offered. Patient is confused, difficult to assess, very hard of hearing. Hearing aides installed with new batteries with some improvement. Patient ambulated to with 1 assist. Pills whole with thin liquids. 100% breakfast. LS clear. Breathing easily on room air.
--- NOTE | 2023-01-18 17:36 | PC.NURSE ---
Assumed care at 1500- Patient confused, wanting to go upstairs , easily redirected. Ambulated with staff x2. OOB to bathroom, +void. Denies pain, trouble breathing, chest pain. Ate 100% of dinner. All needs met at this time.
[2023-01-18] MEDS: risperiDONE 2 MG TABLET PO (19:20)
--- NOTE | 2023-01-18 19:23 | PC.NURSE ---
Assumed care for pt. Pt alert and oriented to self. Resting at the bedside. No apparent distress noted. Medicated po as ordered. Pt tolerated well. Video monitor at bedside. Will continue to monitor.
--- NOTE | 2023-01-18 21:21 | ECG_ITS ---
Test Reason : CHEST PAIN Blood Pressure : / mmHG Vent. Rate : 064 BPM Atrial Rate : 064 BPM P-R Int : 126 ms QRS Dur : 080 ms QT Int : 434 ms P-R-T Axes : 076 075 073 degrees QTc Int : 447 ms Normal sinus rhythm Normal ECG When compared with ECG of 18-DEC-2022 16:40, No significant change was found Referred By: Mariangel Stewart Electronically Signed By:REYNA CARRIZALES
--- NOTE | 2023-01-18 21:32 | PC.NURSE ---
Pt reports chest pain/epigastric pain. Reports I don't know why it hurts pointing to the center of the chest. VSS. EKG done with NSR. MD aware. No new orders at this time. Pt currently resting at the bedside. No apparent distress noted.
--- NOTE | 2023-01-18 21:40 | PC.NURSE ---
Pt resting/sleeping at the bedside in no apparent distress. Lab drawn and sent per Dr Stewart.
[2023-01-18 21:56] VITALS: BP 136/75; PULSE 72; O2SAT 100
[2023-01-18 22:12] LABS: COVID-19 Test Negative (Negative); IDNOW Serial# BCCEAD1C
[2023-01-18 22:21] LABS: Troponin-I High Sensitivity < 2.7 ng/L (<3.5-35.0)
--- NOTE | 2023-01-19 01:08 | PC.NURSE ---
Pt asleep at the bedside in no apparent distress. Breahts are even regular and unlabored with equal chest rises. Will continue to monitor.
[2023-01-19] MEDS: risperiDONE 0.25 MG TABLET PO ×2 (02:53→12:45)
[2023-01-19 06:00] VITALS: BP 111/80; PULSE 94; RESP 16; TEMP 36.4; O2SAT 98
--- NOTE | 2023-01-19 08:19 | MHC.EDTECH ---
Patients personal belongings were placed in room 12 activity room dresser drawers. His clothes were folded and placed in the drawer labeled rm 9. His hygiene products were placed inside this drawer as well, to avoid keeping them on the floor.
--- NOTE | 2023-01-19 08:48 | PC.NURSE ---
Pt sleeping soundly Unable to roused for am meds. will attempt to medicate again in 30 min.
--- NOTE | 2023-01-19 09:08 | PC.NURSE ---
Attempted to medicate x 2 with Antibiotic. Pt remains deeply asleep. Sissy MIN notified. Okay to hold antibiotics until pt wakes up.
[2023-01-19] MEDS: Amoxicillin/Potassium Clav 875 MG TABLET PO (12:44)
--- NOTE | 2023-01-19 13:03 | PC.NURSE ---
ambulated with walker and ERT to bathroom. Medicated with AM medication at this time. PT endorses feeling restless. Pt encouraged to express feelings. Pt given lunch try.
--- NOTE | 2023-01-19 13:06 | MHC.EDTECH ---
patient woke up just after lunch. He ambulated with a walker and tech to bathroom. He washed up and brief changed. His lunch was warmed up and he ate. His bed linens were changed. pt is curently sitting in his recliner finishing lunch.
[2023-01-19 13:53] VITALS: BP 122/77; PULSE 102; RESP 18; TEMP 36; O2SAT 100
--- NOTE | 2023-01-19 14:07 | PC.NURSE ---
ambulated approximately 150ft x 2 to bathroom and back with walker.
--- NOTE | 2023-01-19 15:00 | PC.NURSE ---
Report received from off-going RN. Pt resting quietly in bed with eyes closed. respirations even and unlabored. no acute distress noted.
--- NOTE | 2023-01-19 18:15 | PC.NURSE ---
pt ambulatory to restroom with tech
[2023-01-19] MEDS: risperiDONE 2 MG TABLET PO (18:31)
--- NOTE | 2023-01-19 19:00 | PC.NURSE ---
Report received from RN, Melissa Coley about pts present condition, the reason for the admission to the hospital, what the care plan is and what is to be expected by the care placed by MD. All pertinent information about lab results, test results and treatments provided were also discussed. At moment pt is resting comfortably in bed, call ta within reach, bed in low position, valuables within pts reach. Pt appears in NAD.
--- NOTE | 2023-01-19 22:00 | PC.NURSE ---
pt cleaned up by tech and nurse from soiled urine. Pt attempting to get out of bed, nurse at bedside to prevent pt from falling.
--- NOTE | 2023-01-20 | PC.NURSE ---
pt jumped out of bed as the camera is on and bed alarm is on. tech had to eliseo pt from running or falling from the bed. Pt was running towards the bathroom because pt was confused and wanted to go to the bathroom not recognizing that there is a bedside commode by his side. Pt did not fall and tech was able to catch pt before any incidences could have occured.
--- NOTE | 2023-01-20 03:31 | PC.NURSE ---
Pt was moved from overflow bed 9 to bed 3 to be closer to the nurses station. camera at bedside, bed alarm on, bed in low position, pt continues to have the red socks on bilaterally and fall bracelet on right side of arm for safety all personal items within reach.
[2023-01-20 06:00] VITALS: BP 119/76; PULSE 70; RESP 16; TEMP 36.6; O2SAT 98
[2023-01-20] MEDS: Amoxicillin/Potassium Clav 875 MG TABLET PO ×2 (06:18→19:22)
--- NOTE | 2023-01-20 10:03 | PC.NURSE ---
assumed care of pt at 0645, pt alert to self only, yelling out to staff but unable to comprehend what pt is yelling about, pt needs frequent redirecting, ate all of breakfast as well as 2 milks and an ice cream yet still asking for more food. Patient cleaned and bed changed by CNAs.
[2023-01-20 12:50] LABS: MANUAL DIFF FLAG NO
[2023-01-20 12:51] LABS: Basophils Percent Auto 0.1 % (0-2); Eosinophils Absolute Auto 0.1 X10*3/uL (0.0-0.4); Eosinophils Percent Auto 1.1 % (0-4); Hematocrit 31.4 % (42.0-52.0); Hemoglobin 10.2 g/dl (14.0-18.0); Imm Gran Abs Auto 0.04 X10*3/uL (0.00-0.03); Imm Gran Pct Auto 0.5 % (0.0-0.4); Lymphocytes Absolute Auto 0.8 X10*3/uL (1.2-4.9); Lymphocytes Percent Auto 10.2 % (20-40); Mean Corpuscular HGB Conc 32.5 g/dl (31.0-36.0); Mean Corpuscular Volume 89.2 fL (80.0-98.0); Mean Platelet Volume 9.1 fL (9.4-12.4); Monocytes Absolute Auto 0.7 X10*3/uL (0.1-1.2); Monocytes Percent Auto 9.2 % (2-11); Neutrophils Absolute Auto 5.9 x10*3/uL (2.0-8.3); Neutrophils Percent Auto 78.9 % (45-73); Platelet Count 213 X10*3/uL (160-400); Red Blood Count 3.52 X10*6/uL (4.60-5.80); Red Cell Distribution Width 13.7 % (11.0-16.0); White Blood Count 7.5 X10*3/uL (4.8-10.8)
[2023-01-20 13:06] LABS: Anion Gap 14 (12-20); Blood Urea Nitrogen 15 mg/dL (9-16); Calcium 9.1 mg/dL (8.4-10.2); Carbon Dioxide 28 mmol/L (22-29); Chloride 102 mmol/L (96-108); Creatinine Clr Calc Pharmacy 79.9; Estimated Glomerular Filt Rate > 60; Glucose Random 125 mg/dL (60-115); Potassium 3.7 mmol/L (3.3-5.1); Sodium 140 mmol/L (135-145)
[2023-01-20] MEDS: risperiDONE 0.25 MG TABLET PO (15:02)
--- NOTE | 2023-01-20 16:04 | PC.NURSE ---
Patient constantly yelling out, throwing belongings, and disturbing other patients, medicated prn risperadal per sep with very little effect.
[2023-01-20 18:03] VITALS: BP 133/66; PULSE 91; RESP 18; TEMP 36.6; O2SAT 98
[2023-01-20] MEDS: risperiDONE 2 MG TABLET PO (19:22)
--- NOTE | 2023-01-20 20:39 | MHC.EDTECH ---
This tech ambulated patient to the bathroom,patient urinated a moderate amount. Patient is back in bed and was repositioned to comfort. Alarm is on for safety and Call ta within reach
[2023-01-21] MEDS: risperiDONE 0.25 MG TABLET PO (01:35)
[2023-01-21] MEDS: Acetaminophen 325 MG TABLET 975 MG PO (01:35)
[2023-01-21 06:00] VITALS: BP 112/69; PULSE 83; RESP 16; TEMP 36.6; O2SAT 98
[2023-01-21] MEDS: Amoxicillin/Potassium Clav 875 MG TABLET PO ×2 (08:12→19:39)
--- NOTE | 2023-01-21 08:59 | PC.NURSE ---
Addendum entered by Kaylee Aguiar RN 01/21/23 12:26: Patient assisted to recliner at 1000. Resting quietly at present. No distress. Addendum entered by Kaylee Aguiar RN 01/21/23 10:07: Patient assisted oob to recliner 1 assist. Currently resting quietly. Original Note: Patient alert, confused. Restless and needs frequent reorientation. Constantly trying to jump oob. Camera in place. Ate 100% of breakfast.
[2023-01-21 14:00] VITALS: BP 124/74; PULSE 76; RESP 20; TEMP 36.4; O2SAT 98
[2023-01-21 15:59] VITALS: BP 109/66; PULSE 97; RESP 16; TEMP 36.5; O2SAT 98
[2023-01-21] MEDS: risperiDONE 2 MG TABLET PO (18:15)
[2023-01-21] MEDS: LORazepam 1 MG TABLET PO (19:39)
[2023-01-21] MEDS: diphenhydrAMINE HCL 25 MG CAPSULE PO (19:39)
--- NOTE | 2023-01-21 21:08 | PC.NURSE ---
patient in bed with eyes closed with no distress at this time patient received medication with no issues patient will continue to monitored safety
[2023-01-21 21:51] VITALS: BP 131/78; PULSE 65; RESP 20; TEMP 37.2; O2SAT 100
--- NOTE | 2023-01-22 01:15 | PC.NURSE ---
patient in the bed with eyes closed patient was changed twice due to patient is incontinent patient will continue to be monitored for the remaining of the night safety maintained vitals are stable
[2023-01-22 05:35] VITALS: BP 142/78; PULSE 70; RESP 18; TEMP 36.4; O2SAT 98
[2023-01-22 06:30] LABS: Appearance Urine Clear; Color Urine Yellow; Glucose Urine UA Negative (Negative); Leukocyte Esterase Urine Negative (Negative); Nitrite Urine Negative (Negative); Urine Blood Negative (Negative); Urine Ketones Negative (Negative); Urine Protein Negative (Neg-Trace)
[2023-01-22 07:21] VITALS: BP 131/62; PULSE 74; RESP 20; TEMP 37.4; O2SAT 99
[2023-01-22] MEDS: Acetaminophen 325 MG TABLET 975 MG PO (07:49)
[2023-01-22] MEDS: risperiDONE 0.25 MG TABLET PO (07:49)
[2023-01-22] MEDS: Amoxicillin/Potassium Clav 875 MG TABLET PO ×2 (07:49→19:47)
--- NOTE | 2023-01-22 09:21 | PC.NURSE ---
Assumed care of patient at 0645, Pt sleeping at this time, noted rise and fall of chest, no apparent distress. Upon awakening patient A&O to self per baseline. Pt appears agitated, constantly trying to get out of bed, snacks, toileting, and repositioning offered multiple times. PRN Tylenol and Risperdal given at 0749 with mild effect per patient continuing to try to get out of bed. Patient currently up in chair, camera on, chair alarm in place, patient visible from nursing station. VSS, all needs met at this time, awaiting disposition.
--- NOTE | 2023-01-22 10:17 | MHC.CM.ED ---
Patient remains in ER overflow. Copy of temporary guardianship obtained. Patient's nephew Derek is the guardian. He can be reached via telephone at [phone]. Contact information provided to [facility] [place] so they can reach out to apply for [facility] for patient. Patient will also need a Kwame's Order. Continue to monitor for d/c needs.
[2023-01-22] MEDS: LORazepam 1 MG TABLET PO (10:58)
--- NOTE | 2023-01-22 12:12 | PC.NURSE ---
Patient was agitated, throwing lunch food and asking to take things back home. ED provider called, Im shot ordered, patient calmer after moving to bed, no need for IM at this time
[2023-01-22 14:00] VITALS: BP 112/68; PULSE 76; RESP 18; TEMP 36.9; O2SAT 99
[2023-01-22] MEDS: risperiDONE 2 MG TABLET PO (19:47)
--- NOTE | 2023-01-22 20:42 | PC.NURSE ---
Pt sleeping-had to wake for assessment and HS medications. Cooperative with both. Pt alert and oriented to self. LS-CTA/dim. No cough or SOB noted. HRR. BS+. No c/o N/V. Denies pain. Bed alarm and camera on for patient safety. Will continue to monitor.
[2023-01-22 23:28] VITALS: BP 104/56; PULSE 65; RESP 16; TEMP 36.9; O2SAT 98
--- NOTE | 2023-01-23 05:12 | PC.NURSE ---
05:12-report given to Elsa in ED. Pt transported with paperwork and belongings at present time.
[2023-01-23 06:00] VITALS: BP 96/55; PULSE 75; RESP 16; TEMP 36.8; O2SAT 98
--- NOTE | 2023-01-23 06:32 | PC.NURSE ---
Informed that pt's BP is 96/55.
[2023-01-23 06:34] VITALS: BP 106/57
[2023-01-23] MEDS: Amoxicillin/Potassium Clav 875 MG TABLET PO ×2 (07:40→19:29)
--- NOTE | 2023-01-23 11:19 | PC.NURSE ---
Patient attempting to get out of bed unassisted. Patient able to be redirected to bed, bed alarm on at this time.
[2023-01-23 14:10] VITALS: BP 111/67; PULSE 76; RESP 15; O2SAT 95
--- NOTE | 2023-01-23 15:00 | PC.NURSE ---
Patient hollering in room stating that he's hungry. Patient given chocolate ice cream at this time. Patient sitting on side of bed eating his ice cream at this time.
[2023-01-23] MEDS: risperiDONE 0.25 MG TABLET PO (15:53)
[2023-01-23 16:00] VITALS: BP 114/70; PULSE 72; RESP 16; TEMP 36.1; O2SAT 97
--- NOTE | 2023-01-23 16:10 | MHC.EDTECH ---
this pct assumed care of pt at 150o ,pt was incontinent of urine ,bed bath given ,bedding change ,pt was walk to the bathroom ,had a medium bowel movement .back to bed snack given .
--- NOTE | 2023-01-23 18:30 | MHC.EDTECH ---
PATIENT ATE 100 5 OF DINNER ,DRANK 240 ML COFFEE ,120 ML MILK ,AFTER DINNER PATIENT FACE CLEAN ,PT VOID IN BEDSIDE COMMODE AND BACK IN BED WATCHING TELEVISION ,WARM BLANKET GIVEN .
[2023-01-23] MEDS: risperiDONE 2 MG TABLET PO (19:29)
[2023-01-23 19:57] VITALS: BP 113/59; PULSE 75; RESP 16; TEMP 36.2; O2SAT 97
--- NOTE | 2023-01-23 20:31 | PC.NURSE ---
I assumed care of the pt at 1900. Pt is asleep at this time. When woken up, pt was calm and cooperative, answering questions appropriately. Pt was medicated per MAR, had no problem with swallowing pills. Pt has no complaints at this time.
--- NOTE | 2023-01-23 23:55 | PC.NURSE ---
Assisted pt with standing and urinating into commode
--- NOTE | 2023-01-24 00:02 | MHC.EDTECH ---
patient was up to void then back to bed ,bed alarm on bed .
--- NOTE | 2023-01-24 04:02 | PC.NURSE ---
Assisted pt to commode, pt voided without complication. Pt was given a sandwich and ice cream. Pt is still yelling sporadically and getting out of bed. I asked the pt if he would like something to help him sleep, he said yes. PRN medication administered.
[2023-01-24] MEDS: risperiDONE 0.25 MG TABLET PO ×2 (04:04→12:27)
[2023-01-24] MEDS: Amoxicillin/Potassium Clav 875 MG TABLET PO ×2 (07:42→21:40)
[2023-01-24 07:45] VITALS: BP 119/68; PULSE 78; RESP 16; TEMP 36.5; O2SAT 98
--- NOTE | 2023-01-24 07:53 | PC.NURSE ---
assumed care of this pt at 0700. pt ate breakfast and took meds per sep. vs taken and stable. rr even/unlabored. resting in hospital bed. sitter camera in room. no distress noted. wctm
[2023-01-24 08:53] VITALS: BP 99/62; PULSE 80; RESP 14; TEMP 36.7; O2SAT 98
--- NOTE | 2023-01-24 13:00 | PC.NURSE ---
Addendum entered by Akosua Wild 01/24/23 16:06: pt sitting up in bed, having lunch. pt is pleasent, verbalizes needs. bedding / linens are dry. Original Note: pt sittig
--- NOTE | 2023-01-24 17:11 | PC.NURSE ---
PT QUIET IN ROOM.
[2023-01-24] MEDS: risperiDONE 2 MG TABLET PO (18:32)
[2023-01-24 20:21] VITALS: BP 128/74; PULSE 77; RESP 16; TEMP 36.9; O2SAT 99
--- NOTE | 2023-01-24 21:36 | PC.NURSE ---
patient is being medicated with no issues patient vitals are stable at this time patient will continue to be monitored for safety
[2023-01-24] MEDS: LORazepam 1 MG TABLET PO (22:44)
--- NOTE | 2023-01-25 00:24 | PC.NURSE ---
patient in bed with eyes closed patient showing no distress at this time patient will continue to be monitored for safety
[2023-01-25 02:06] VITALS: BP 128/74; PULSE 77; RESP 16; TEMP 36.9; O2SAT 99
[2023-01-25] MEDS: LORazepam 1 MG TABLET PO ×3 (04:01→21:06)
--- NOTE | 2023-01-25 04:14 | PC.NURSE ---
patient had to be given a prn due to patient was becoming very delusional patient was assisted to the commode vitals are stable patient will continue to be monitored for safety
[2023-01-25 08:39] VITALS: BP 131/74; PULSE 68; RESP 16; TEMP 36.4; O2SAT 98
--- NOTE | 2023-01-25 08:40 | PC.NURSE ---
Addendum entered by Veronica Prajapati 01/25/23 08:47: pt awoke to verbal stimuli, vss, pt has camera stationed in room for pt safety, bed alarm intact, no pain noted. Original Note: pt resting comfortably in bed semi-andino's position, pt eating breakfast
--- NOTE | 2023-01-25 08:58 | PC.NURSE ---
pt incontinent, full bed changed performed, pt changed to clean hospital attire, pt resumed eating breakfast.
[2023-01-25] MEDS: risperiDONE 0.25 MG TABLET PO (10:02)
--- NOTE | 2023-01-25 10:02 | PC.NURSE ---
this morning the patient has had increased confusion as well as agitation with staff, pt repeatedly getting oob independently and he is unsteady on his feet- pt redirected which he becomes angry with staff. patient states he is at home and is unaware he is in the hospital at this time. provider was notified, patient has been medicated with his prn medications for agitation, call ta within reach, fall precautions intact- red sox, camera and bed in lowest position, will continue to monitor.
--- NOTE | 2023-01-25 11:12 | PC.NURSE ---
patient currently sleeping
--- NOTE | 2023-01-25 11:30 | PC.NURSE ---
pt brought to overflow by transport
[2023-01-25 14:00] VITALS: BP 126/71; PULSE 71; RESP 18; TEMP 36.8; O2SAT 98
--- NOTE | 2023-01-25 17:46 | PC.NURSE ---
pt brought back over to main ED as overflow closed.
--- NOTE | 2023-01-25 18:11 | PC.NURSE ---
per overflow RN, pt refused dinner.
--- NOTE | 2023-01-25 20:19 | MHC.EDTECH ---
Patient given chicken salad sandwhich, beef stew and 2 gingerales
[2023-01-25] MEDS: Ibuprofen 600 MG TABLET PO (21:06)
[2023-01-25] MEDS: risperiDONE 2 MG TABLET PO (21:06)
--- NOTE | 2023-01-25 22:02 | MHC.EDTECH ---
2202 pm check for inc patient is dry
[2023-01-25 23:14] VITALS: BP 126/70; PULSE 80; RESP 16; TEMP 36.9
[2023-01-25 23:15] VITALS: BP 125/77; PULSE 65; RESP 18; TEMP 36.9
[2023-01-26 03:21] VITALS: BP 119/68; PULSE 63; RESP 16; TEMP 36.5; O2SAT 98
--- NOTE | 2023-01-26 05:32 | PC.NURSE ---
patient in bed with eyes closed patient ADL was taken care of patient was cooperative patient will continue to be monitored for safety
--- NOTE | 2023-01-26 07:25 | PC.NURSE ---
Resumed care of patient, he is currently eating breakfast in bed. Denies needing anything at this time. Bed alarm remains on.
--- NOTE | 2023-01-26 07:31 | MHC.CM.ED ---
Addendum entered by Rosmery Perez 01/26/23 12:24: Tonia from [facility] [place] emailed patient's nephew/guardian on 01/22 explaining all of the documentation she will need for patient's LTC [facility]. She has not received a response yet. Jerri Cortes CM Director aware. Original Note: Patient remains in ER. Copy of Kwame's Order obtained. Patient is currently on Ativan Q4H PRN agitation. Ativan is not on Kwame's Order. Copy of Kwame's Order provided to Lary MIN. Lary will order correct meds. Continue to monitor for d/c needs.
[2023-01-26] MEDS: OLANZapine 5 MG TABLET PO (11:16)
--- NOTE | 2023-01-26 11:16 | PC.NURSE ---
Pt getting restless in bed, needing a lot of redirection, and attempting to get back into bed
[2023-01-26] MEDS: Ibuprofen 600 MG TABLET PO (14:51)
[2023-01-26] MEDS: risperiDONE 0.25 MG TABLET PO (14:51)
--- NOTE | 2023-01-26 14:56 | PC.NURSE ---
Pt attempting to get out of bed multiple times, swinging at staff and yelling. Attempted to assess PO intake, offered ice cream and OJ, offered warm blanket, got pt up in chair. PRN given at this time, camera in place
[2023-01-26] MEDS: Ziprasidone 20 MG CAPSULE PO (17:37)
--- NOTE | 2023-01-26 18:19 | PC.NURSE ---
PT continues to get up multiple times, hitting staff, taking shoes off to attempt to hit staff, multiple attempts to distract with folding towels, coloring, wheeling pt around unit, dinner, with no success..
--- NOTE | 2023-01-26 20:29 | MHC.CM.ED ---
Addendum entered by Rea Perkins 01/26/23 20:38: Pt medicated with Geodon po. Presently sleeping. Original Note: Pt has been increasingly confused, attempting to wander and is a high fall risk. He can be aggressive and yelling at times. Staff has been able to re-direct him, but he needs constant attention. Telesitter is present, Patient has been medicated with both scheduled medications and prn's without much effect. CM spoke with Inocente MIN. Will order psych consult to review medication management. ? need for possible [facility] psych admission for medication management. Concerns that the main ED is too stimulating for this patient. Concerns e-mailed to CM Line Up Machine Operator and Director. No referrals yet placed for LTC, as application has not been completed as of yet and guardianship and Fisher Order have just be obtained this week. Will attempt to call guardian in the morning regarding LTC choices. CM will continue to monitor for discharge planning.
--- NOTE | 2023-01-27 00:06 | PC.NURSE ---
Pt is a bit aggressive yelling at staff and wanting to get out of bed, sitter at bedside, MD made aware of pts behavior. Pt denies any pain or needing to go to the bathroom.
[2023-01-27 05:06] VITALS: RESP 16
--- NOTE | 2023-01-27 07:20 | PC.NURSE ---
assumed care of this pt at 0700. pt currently sleeping soundly, in no apparent distress. sitter camera in room for pt safety. rr even/unlabored. wctm
[2023-01-27] MEDS: Ziprasidone 20 MG CAPSULE PO (10:53)
[2023-01-27 11:24] VITALS: BP 119/73; PULSE 85; RESP 20; TEMP 36.3; O2SAT 100
[2023-01-27 11:49] LABS: MANUAL DIFF FLAG NO
[2023-01-27 11:53] LABS: Basophils Percent Auto 0.2 % (0-2); Eosinophils Absolute Auto 0.1 X10*3/uL (0.0-0.4); Eosinophils Percent Auto 2.3 % (0-4); Hemoglobin 10.9 g/dl (14.0-18.0); Imm Gran Abs Auto 0.04 X10*3/uL (0.00-0.03); Imm Gran Pct Auto 0.9 % (0.0-0.4); Lymphocytes Absolute Auto 0.7 X10*3/uL (1.2-4.9); Lymphocytes Percent Auto 15.9 % (20-40); Mean Corpuscular HGB Conc 32.1 g/dl (31.0-36.0); Mean Corpuscular Hemoglobin 28.7 pg (27.0-33.0); Mean Corpuscular Volume 89.5 fL (80.0-98.0); Mean Platelet Volume 9.1 fL (9.4-12.4); Monocytes Absolute Auto 0.3 X10*3/uL (0.1-1.2); Monocytes Percent Auto 7.6 % (2-11); Neutrophils Absolute Auto 3.2 x10*3/uL (2.0-8.3); Neutrophils Percent Auto 73.1 % (45-73); Platelet Count 264 X10*3/uL (160-400); Red Cell Distribution Width 13.5 % (11.0-16.0); White Blood Count 4.3 X10*3/uL (4.8-10.8)
[2023-01-27 12:07] LABS: Alanine Aminotransferase 15 U/L (0-40); Albumin Level 3.6 g/dL (3.5-5.0); Alkaline Phosphatase 87 U/L (39-117); Anion Gap 8 (12-20); Aspartate Amino Transferase 19 U/L (5-37); Bilirubin Total 0.3 mg/dL (0.0-1.0); Blood Urea Nitrogen 16 mg/dL (9-16); Calcium 9.5 mg/dL (8.4-10.2); Carbon Dioxide 29 mmol/L (22-29); Chloride 103 mmol/L (96-108); Creatinine Clr Calc Pharmacy 78.8; Estimated Glomerular Filt Rate > 60; Glucose Random 112 mg/dL (60-115); Sodium 136 mmol/L (135-145); Total Protein 6.8 g/dL (6.5-8.0)
[2023-01-27] MEDS: QUEtiapine Fumarate 50 MG TABLET PO ×2 (14:01→20:15)
[2023-01-27] MEDS: OLANZapine 10 MG VIAL 5 MG IM (14:28)
--- NOTE | 2023-01-27 15:03 | PC.NURSE ---
pt becoming increasingly agitated, sitting in recliner attempting to get up multiple times. sitter camera for safety to alert staff when pt is getting up. pt is upset that the bottom of his shoes have a tear at the heels from scuffing his feet from walking in them but he is accusing staff of ruining them. pt is visably upset, yelling and threatening to call the police. pt also appearing to possibly get physical with staff with his increasing agitation. MECHELLE Randall aware of situation and ordered medication restraint on pt. two staff members gently helped hold the pt in place while the pt was medicated per sep. he is sitting in the chair geovanna, appearing slightly calmer than before. medication restraint paperwork being filled out per protocol. wctm
[2023-01-27 15:12] VITALS: BP 132/75; PULSE 73; RESP 16; O2SAT 100
--- NOTE | 2023-01-27 15:25 | MHC.EDTECH ---
1:1 assist from recliner to bed. Boost up patient with the help of another tech. Brought patient ice water.
--- NOTE | 2023-01-27 16:14 | P.CNPS_ITS ---
History of Present Illness Date of Service: 01/27/2023 Chief Complaint: ams Reason for Consult: combative behaviors in dementia. Requesting physician: Tonia Powell Discussed with referring provider: Yes Sources of Information: patient interviewed, chart reviewed and crisis/core team assessment reviewed HPI Narrative: Mr. Morris is a 77 year-old male with hx of dementia who was brought via EMS due to combative behaviors on 12/19/2022. Pt's HCP has been invoked, however, his HCP has declined to continue serving has his HCP. Nephew was appointed as guardian. Pt was seen by psychiatry, initially started on risperidone 2 mg po qhs. He had prn risperidone but this medication as PRN not shown to be effective. Pt has Kwame's- which includes, risperidone, seroquel, olanzapine. Mr. Morris has been waiting for placement. However, in past 2 days increasingly more combative trying to hit staff and difficult to redirect. Pt has been given geodon IM. This morning, pt again increasingly more agitated, trying to ambulate on his own without safety awareness, more combative when redirected. Labs ordered including cbc and cmp- no acute anormalities. no acute medical conditions affecting combative behaviors in setting of dementia. Past Psychiatric History: Unknown [facility] Medical History (Updated 12/22/22 @ 15:37 by Meri Medel) Dementia Diagnostics Vital Signs (24Hr): Vital Signs - 24 hr 01/27/23 05:06 01/27/23 11:24 01/27/23 15:12 Temperature 97.4 F Pulse Rate 85 73 Respiratory Rate 16 20 16 Blood Pressure 119/73 132/75 Pulse Oximetry 100 100 Oxygen Delivery Method Room Air Room Air BMI result Body Mass Index 22.8 Labs 01/27/23 11:42 01/27/23 11:43 Labs: Laboratory Results - last 48 hr 01/27/23 01/27/23 11:42 11:43 WBC 4.3 L RBC 3.80 L Hgb 10.9 L Hct 34.0 L MCV 89.5 MCH 28.7 MCHC 32.1 RDW 13.5 Plt Count 264 MPV 9.1 L Immature Gran % (Auto) 0.9 H Neut % (Auto) 73.1 H Lymph % (Auto) 15.9 L Vilas % (Auto) 7.6 Eos % (Auto) 2.3 Baso % (Auto) 0.2 Lymph # (Auto) 0.7 L Vilas # (Auto) 0.3 Eos # (Auto) 0.1 Baso # (Auto) 0.0 Abs Immat Gran (auto) 0.04 H Absolute Neuts (auto) 3.2 Absolute Nucleated RBC 0.000 Nucleated RBC % (auto) 0.0 Sodium 136 Potassium 4.0 Chloride 103 Carbon Dioxide 29 Anion Gap 8 L BUN 16 Creatinine 0.72 Estim Creat Clear Calc 78.8 Estimated GFR > 60 Random Glucose 112 Calcium 9.5 Total Bilirubin 0.3 AST 19 ALT 15 Alkaline Phosphatase 87 Total Protein 6.8 Albumin 3.6 Imaging Radiology Impressions: ITS Impressions Chest X-Ray 12/28/22 23:58 IMPRESSION: Left lower lobe atelectasis/infiltrate. Mental Status Exam Mental Status Exam Narrative: Appearance: wearing hospital gown, sitting in bed, with newspaper, trying to read loudly Behaviors: calm Psychomotor: no agitation at time of interview TP: disorganized, difficult to understands TC: mumbles, difficult to understand Affect: calm Not oriented to place or situation, month or date. Medications Medications Current Medications Acetaminophen (Acetaminophen 325 Mg Tablet) 975 mg PO Q8H PRN PRN Reason: mild to moderate pain Last Admin: 01/22/23 07:49 Dose: 975 mg Ibuprofen (Ibuprofen 600 Mg Tablet) 600 mg PO Q8H PRN PRN Reason: moderate pain Last Admin: 01/26/23 14:51 Dose: 600 mg Olanzapine (Olanzapine 5 Mg Tablet) 5 mg PO TID PRN PRN Reason: Agitation Last Admin: 01/26/23 11:16 Dose: 5 mg Pharmacy Consult (Consult Rx Perform Med Rec) 1 each MISCELLANE ONCE PRN PRN Reason: Consult order Risperidone (Risperidone 2 Mg Tablet) 2 mg PO DAILY@1900 E[facility] Last Admin: 01/26/23 21:11 Dose: Not Given Allergies Allergies Allergy/AdvReac Type Severity Reaction Status Date / Time Unable to Assess Allergy Verified 06/12/22 16:15 Assessment & Plan Assessment & Plan (1) Major neurocognitive disorder due to multiple etiologies with behavioral disturbance: Status: Acute Code(s): F02.818 - Dementia in other diseases classified elsewhere, unspecified severity, with other behavioral disturbance Plan Mr. Morris is a 77 year-old male with hx of advanced dementia who was [place] [facility] [place] to combative behaviors. His HCP has expressed her preference not to continue being his HCP. Hospital going for guardianship as pt severely impaired in terms of his memory and cognitive affecting his ability to make medical decisions, care for himself safely in the community. Pt currently has kwame's order- includes only antipsychotic- risperidone, seroquel and olanzapine PLAN 01/27- will dc risperidone. add instead seroquel 50mg po TID- monitor for over sedation. monitor EKG, maintain qtc<500ms, Maintain K>4, Mg>2. PRN seroquel 50mg po q6h agitation. If need IM- use olanzapine 5mg IM with or without ativan 1mg IM- again monitor over sedation, cumulative doses of antipsychotic with other sedation medication to avoid over medication. Total time managing care of this patient today _30___ minutes.
--- NOTE | 2023-01-27 16:49 | MHC.CM.ED ---
JC spoke with Meri Pierce main entree cook and cashier regarding her plan of care/recommendations for this patient. Meri 1. ordered labs, which were in normal limits,2. will order scheduled medication changes, 3. asked that providers try to use antipsychotics approved on his Fisher order (Risperdal, Seroquel and Zyprexa) whenever possible, 4. will see patient each day this week to assess patient response to medication changes, and 5. asked that staff and CM document behaviors/prn medications and that CM contact her with any concerns. JC did speak with Meri regarding possible [facility] psych admit. Meri would like to go forward with this plan of care and reassess. JC shared this plan with provider and with [facility] Clinical coordinator. Will email Jerri Brown and Reema Petersen from CM.
[2023-01-27] MEDS: OLANZapine 5 MG TABLET PO (17:21)
--- NOTE | 2023-01-27 19:00 | PC.NURSE ---
assumed care of pt from Maddi WELLS about pts present condition, the reason for pts stay into the ED and what the care plan is for pt in the ED. Pt has been very agitated, per RN. Pt was given medication restraints to calm his aggressive behavior. Upon assessment pt continues to be agitated, yelling and wanting to get out of bed, is not happy with his dinner tonight stating I always get the same food, everyday . Pt states that he is also upset with not being able to walk freely about the hospital . MD made aware of pts behavior and his frustration with dinner and not able to move about freely.
--- NOTE | 2023-01-27 22:00 | PC.NURSE ---
Pt is resting comfortable, sitter at bedside, no signs of distress.
--- NOTE | 2023-01-27 22:54 | PC.NURSE ---
Report received from RNMaddi about pts present condition, the reason pt has a sitter at bedside and how pt was behaving this afternoon. Upon assessment of pt. Pt appears to be angry that the food is always the same and the fact that he cant walk around freely as he wants .
--- NOTE | 2023-01-28 00:18 | PC.NURSE ---
Pt has awoke from his sleep wanting to use the bathroom and asking for something to eat. sitter at side helping pt with urination and providing food for pt per his request.
[2023-01-28 00:20] VITALS: BP 145/81; PULSE 81; RESP 16; TEMP 36.3; O2SAT 98
[2023-01-28 05:06] VITALS: RESP 16
--- NOTE | 2023-01-28 08:17 | PC.NURSE ---
see paper documentation for down time charting
[2023-01-28 08:22] VITALS: BP 130/72; PULSE 67; RESP 16; TEMP 36.6; O2SAT 98
--- NOTE | 2023-01-28 08:35 | PC.NURSE ---
pt awake in bed. incontinent of urine. linen changed and maris care provided. attempted to assist pt to eat breakfast- refused at this time. will reattempt.
--- NOTE | 2023-01-28 08:41 | MHC.EDTECH ---
Patient found to be incontinent of urine. Complete bed change done with welder apprenticeJose Vidal. Patient cleaned up with new hospital gown placed and repositioned. Vitals done on Pt. Patient in and out of sleep, not awake enough to eat breakfast. RUSSELL mojica.
[2023-01-28] MEDS: QUEtiapine Fumarate 50 MG TABLET PO ×4 (09:37→19:59)
--- NOTE | 2023-01-28 15:14 | PC.NURSE ---
report given to rn in overflow
[2023-01-28] MEDS: OLANZapine 5 MG TABLET PO (15:34)
[2023-01-28] MEDS: Acetaminophen 325 MG TABLET 975 MG PO (19:58)
[2023-01-29] MEDS: OLANZapine 5 MG TABLET PO ×3 (01:30→18:04)
[2023-01-29 06:00] VITALS: BP 104/68; PULSE 72; RESP 18; TEMP 36.7; O2SAT 92
[2023-01-29] MEDS: QUEtiapine Fumarate 50 MG TABLET PO ×3 (08:28→14:41)
--- NOTE | 2023-01-29 13:18 | MHC.CM.ED ---
Patient remains in ER overflow. Attempted to reach out to patient's guardian/nephew, Derek via telephone at [phone]. Left message requesting return telephone so update on Zechariah and progress on [employer] application can be discussed. Continue to monitor for d/c needs.
[2023-01-29 14:00] VITALS: BP 122/65; PULSE 83; RESP 18; TEMP 37; O2SAT 97
[2023-01-29 15:42] VITALS: BP 99/57; PULSE 76; RESP 20; TEMP 37.2; O2SAT 98
[2023-01-29] MEDS: OLANZapine 10 MG VIAL 5 MG IM (18:56)
--- NOTE | 2023-01-29 19:59 | PC.NURSE ---
Assumed care at 07:00. Patient initially slept in late, then was agitated, yelling/shouting/swearing/threatening staff/demanding help with things that, when asked, were clearly delusional stimuli. Patient was redirected as best as possible, and has 1:1 and telesitter. Patient still very aggressive all day despite full use of PRN seroquel PO and zyprexa PO, appeared to be sundowning as well in the evening, and [employer] notified, and new order for IM zyprexa administered to right deltoid with good effect. Patient was fully outfitted with hearing aides and glasses, and batteries changed in hearing aides. Is compliant with medications. Pills whole in pureed. Ate well. OOB to commode and also incontinent to briefs.
[2023-01-29 23:39] VITALS: BP 100/58; PULSE 87; RESP 16; TEMP 37.1; O2SAT 98
--- NOTE | 2023-01-29 23:51 | MHC.EDTECH ---
THIS PCT ASSUMED CARE OF PT AT 2300 ,PT SLEEPING AND IS DRY VITALS TAKEN AND IS STABLE .
--- NOTE | 2023-01-30 01:15 | PC.NURSE ---
Assumed care for patient at 1900. Patient confused , and yelling at staff. Zyprexa 5mg IM administered with good effect. Patient has been sleeping , unable to take HS Seroquel. Will continue to monitor.
--- NOTE | 2023-01-30 05:12 | MHC.EDTECH ---
Patient up to commode with help of this tech and observer. Patient urinated and then situated himself back into bed, resting quietly at this time. Commode cleaned and new liner placed.
[2023-01-30 06:39] VITALS: BP 113/62; PULSE 57; RESP 16; TEMP 37.2; O2SAT 99
[2023-01-30] MEDS: QUEtiapine Fumarate 50 MG TABLET PO ×3 (08:55→19:46)
--- NOTE | 2023-01-30 10:40 | PC.NURSE ---
pt has camera with 1:1 sitter for the safety, pt has difficulty hearing. he talking out loudly. elevated voices all time. pt dentures in the denture cup and put it in the belonging bag. all staffing witnesses. will monitor any changes and keep him safe.
--- NOTE | 2023-01-30 11:31 | PC.NURSE ---
pt sitting up on edge of bed talking to 1:1 sitter, camera at bedside, pt cooperative with care.
[2023-01-30] MEDS: OLANZapine 5 MG TABLET PO ×2 (13:16→19:46)
--- NOTE | 2023-01-30 13:18 | PC.NURSE ---
pt moved to dining room for lunch, ate 50% of meal. increased agitation after lunch, requiring multiple techs for redirection ack to chair/bed for safety, medicated w PRN zyprexa per SEP.
[2023-01-30 14:00] VITALS: BP 127/71; PULSE 69; RESP 16; TEMP 36.7; O2SAT 96
--- NOTE | 2023-01-30 14:41 | PC.NURSE ---
Addendum entered by Joe Cordova 01/30/23 14:41: pt repositioned to recliner, resting quietly, talking to 1:1 sitter. Original Note: pt medicated per PREETHI rios 1500 medication.
[2023-01-30] MEDS: Acetaminophen 325 MG TABLET 975 MG PO (19:46)
--- NOTE | 2023-01-30 20:16 | PC.NURSE ---
Pt moved from overflow bed 9 to overflow bed 1. Medicated per SEP. Sitter and camera in room. Pt resting comfortably in bed.
[2023-01-31 06:00] VITALS: BP 142/77; PULSE 54; RESP 18; TEMP 36.8; O2SAT 99
[2023-01-31] MEDS: QUEtiapine Fumarate 50 MG TABLET PO ×3 (08:56→20:06)
[2023-01-31] MEDS: OLANZapine 5 MG TABLET PO ×2 (10:16→20:12)
[2023-01-31 14:00] VITALS: BP 132/64; PULSE 88; TEMP 36.1; O2SAT 94
[2023-01-31] MEDS: Acetaminophen 325 MG TABLET 975 MG PO (15:23)
--- NOTE | 2023-01-31 17:04 | PC.NURSE ---
pt with sitter and camera in the room. takes pills whole in pudding. Intermittently agitated. Awaiting guardianship
[2023-01-31 21:11] VITALS: BP 122/77; PULSE 72; RESP 16; TEMP 36.6; O2SAT 95
--- NOTE | 2023-01-31 22:41 | PC.NURSE ---
Assumed care of pt at 19:00. Pt alert & orientated to self. [place] to bilateral ears, lungs dim at bases. Pt a little agitated after being medicated per MAR. PRN Olanzapine given to pt with no effect. 1:1 sitter at bedside with camera in room. Personal belongings and call ta within reach.
[2023-02-01] MEDS: OLANZapine 5 MG TABLET PO ×4 (00:21→22:05)
[2023-02-01] MEDS: QUEtiapine Fumarate 50 MG TABLET PO ×5 (00:21→19:16)
--- NOTE | 2023-02-01 00:51 | PC.NURSE ---
Assumed care at 2330. Pt was awake and agitated. Loud voice. Combative. Sitter with the pt. Camera inside the room. Pt fell. Vital signs with in normal. Remains combative and agitated. ED charge nurse notified to ask for any meds. Per MD to give PRNs. Pt was not cooperative . Trying to hit the staff. Security was called. Finally able to take the PRN meds. Awaiting for meds effectiveness.
[2023-02-01] MEDS: Acetaminophen 325 MG TABLET 975 MG PO (08:06)
--- NOTE | 2023-02-01 09:15 | PC.NURSE ---
Pt conversing with staff but difficult to understand. Took all po medications as ordered as well as tylenol for back pain this morning. Tolerated breakfast. Currently resting in bed
--- NOTE | 2023-02-01 09:59 | PC.NURSE ---
Pt becoming agitated, pushing through sitter to get into hallway. Yelling aloud, upset over breakfast menu. Attempted to guide pt back into room but refusing and continues to yell aloud. Pt guided back into room with 2 assist, given prn dose of Olanzapine and a snack. Will monitor effectiveness
--- NOTE | 2023-02-01 11:31 | PC.NURSE ---
Pt with increased agitation, raising voice, trying to pack up belongings. Attempted to redirect pt without effect. PRN Seroquel given with pending effect. Sitter at bedside along with bedside camera
--- NOTE | 2023-02-01 13:01 | MHC.CM.ED ---
Patient remains in ER overflow. Still waiting for [employer] osvaldo to be completed by guardian. Continue to monitor for d/c needs.
[2023-02-01 14:44] VITALS: BP 124/77; PULSE 98; RESP 16; TEMP 36.8; O2SAT 99
[2023-02-01 16:39] VITALS: BP 113/61; PULSE 64; RESP 16; TEMP 36.6; O2SAT 97
--- NOTE | 2023-02-01 16:40 | MHC.EDTECH ---
THIS PCT ASSUMED CARE OF PATIENT AT 1500 ,VITALS SIGN TAKEN ,PT WAS ASSISTED TO AMBULATE TO BATHROOM AND BACK TO RECLINER ,WAITING FOR DINNER .
--- NOTE | 2023-02-01 17:19 | PC.NURSE ---
1500: Pt walking into hallway with sitter accompanying him. He attempted to push away from sitter and slid onto his left hip onto the floor. VS 98.3 HR 98 RR 18 BP 124/77. No injuries noted. Assisted pt to standing, denies pain. Sissy Senior notified. No new orders at this time. Pt medicated with prn Olanzapine with some effect. Pt not easily directable. Has been continuously ambulating throughout the day. Sitter at side
--- NOTE | 2023-02-01 19:00 | MHC.EDTECH ---
PATIENT DID NOT EAT MUCH DINNER ,HAD AN ICE CREAM AND DRANK APPLE JUICE ,AND A FEW BITES OF PASTA ,PT WAS INCONIENT OF URINE ,SPONGE BATH GIVEN ,PATIENT IN BED WATCHING TELEVISION.
[2023-02-01 20:55] VITALS: BP 138/72; PULSE 85; RESP 16; TEMP 36.3; O2SAT 98
--- NOTE | 2023-02-01 21:48 | PC.NURSE ---
Assumedcare at 1900. Pt is awake intermittently. takes naps. C/o burning sensation from epigastric area that goes up to the throat. He has cough but no phlegm only saliva. RN cristy lorenzana MD provider in ED for meds for acid reflux. awaiting for orders. Still on 1:1 watch.
[2023-02-02] MEDS: QUEtiapine Fumarate 50 MG TABLET PO ×4 (02:47→19:51)
[2023-02-02 06:00] VITALS: BP 114/71; PULSE 76; RESP 16; TEMP 37.1; O2SAT 98
[2023-02-02] MEDS: OLANZapine 5 MG TABLET PO ×3 (06:19→17:46)
[2023-02-02 14:00] VITALS: BP 138/55; PULSE 76; RESP 18; TEMP 36.8; O2SAT 97
--- NOTE | 2023-02-02 15:38 | MHC.CM.ED ---
Met w/pt : attempted to converse however, pt was fixated on taking a walk and wouldn't engage this CM: [employer] application in process of completion by guardian for transfer to LTC.
--- NOTE | 2023-02-02 15:46 | PC.NURSE ---
At approx 1515pm, patient was standing without his walker with 2 staff members and was lowered to the floor as he was going to fall, no injury noted. He refused to use his walker and very agitated throughout the shift.
--- NOTE | 2023-02-02 15:46 | MHC.EDTECH ---
PT was walking around and refusing to use a walker. Pt tripped and was about to fall when observer and and two techs carefully guided him down to the ground. Pt had no sign of pain or wounds.
--- NOTE | 2023-02-02 18:45 | PC.NURSE ---
patient was with agitation for the entire shift, refusing his walker and when helping him he got even more agitated. he did however take all his meds that given without any complications noted.Charge nurse aware of his status.
[2023-02-02] MEDS: Acetaminophen 325 MG TABLET 975 MG PO (19:54)
--- NOTE | 2023-02-02 22:22 | PC.NURSE ---
patient confused,1:1 sitter with patient,ambulated to BR x2 since 7 pm,denies pain at present
--- NOTE | 2023-02-03 00:47 | PC.NURSE ---
Patient confused, refused hs vital signs. Resting in bed at present. 1:1 sitter at bedside. Denies pain.
[2023-02-03] MEDS: QUEtiapine Fumarate 50 MG TABLET PO ×4 (07:20→22:16)
[2023-02-03] MEDS: OLANZapine 5 MG TABLET PO ×3 (08:26→22:16)
--- NOTE | 2023-02-03 09:28 | PC.NURSE ---
Patient with neurological surgeon at bedside, patient awake and speaking with neurological surgeon. Patient confused but cooperative at this time.
--- NOTE | 2023-02-03 10:17 | MHC.CM.ED ---
Patient remains in ER overflow. T/W spoke with patient's nephew/guardian, Derek via telephone at [phone]. Derek is in the process of obtaining all the necessary paperwork for patient's LTC [facility] application. Derek is planning on working with Tonia of [facility] to complete MH osvaldo. Derek lives in [place], [place] and would prefer patient be placed in [place] or [facility]. T/W explained bedsearch will be started when [employer] Application is completed and necessary financial documents are obtained. Derek verbalized understanding. Continue to monitor for d/c needs.
[2023-02-03 10:52] VITALS: BP 129/63; PULSE 69; RESP 18; TEMP 36.7; O2SAT 99
--- NOTE | 2023-02-03 11:02 | PC.NURSE ---
Patient continues to yell at staff. Patient medicated per MAR, given snack per request.
--- NOTE | 2023-02-03 13:43 | PC.NURSE ---
Family at bedside with patient.
[2023-02-03 14:00] VITALS: BP 133/63; PULSE 89; TEMP 36.8; O2SAT 97
--- NOTE | 2023-02-03 14:09 | PC.NURSE ---
Patient still agitated despite getting PRN medications. Provider aware.
--- NOTE | 2023-02-03 15:00 | PM.PSYCN ---
History of Present Illness Date of Service: 02/03/2023 Chief Complaint: ams Reason for Consult: combative behaviors Discussed with referring provider: Yes Sources of Information: patient interviewed, chart reviewed and crisis/core team assessment reviewed HPI Narrative: Interim Hx: pt with dementia awaiting placement. Last week, seroquel was increased to 50mg po TID. Pt continues to become agitated, trying to ambulate without walker without awareness of fall risk. Pt seen in ED today, pt talkative, difficult to understand at times. Pt grabbing things from tray. Did mentioned pain in throat. Otherwise, pt difficult to engage in linear conversation. Reviewed RN notes. Pt continues to receive PRN medication for agitation. Past Psychiatric History: Unknown [facility] Medical History (Updated 12/22/22 @ 15:37 by Meri Medel) Dementia Diagnostics Vital Signs (24Hr): Vital Signs - 24 hr 02/03/23 10:52 Temperature 98.0 F Pulse Rate 69 Respiratory Rate 18 Blood Pressure 129/63 Pulse Oximetry 99 Oxygen Delivery Method Room Air BMI result Body Mass Index 22.8 Labs 01/27/23 11:42 01/27/23 11:43 Imaging Radiology Impressions: ITS Impressions Chest X-Ray 12/28/22 23:58 IMPRESSION: Left lower lobe atelectasis/infiltrate. Mental Status Exam Mental Status Exam Narrative: Appearance: wearing hospital gown, sitting in bed, with newspaper, trying to read loudly Behaviors: talkative Psychomotor: no agitation at time of interview TP: disorganized, difficult to understands TC: mumbles, difficult to understand Affect: fairly calm but hyperverbal Not oriented to place or situation, month or date. Medications Medications Current Medications Acetaminophen (Acetaminophen 325 Mg Tablet) 975 mg PO Q8H PRN PRN Reason: mild to moderate pain Last Admin: 02/02/23 19:54 Dose: 975 mg Divalproex Sodium (Divalproex Sodium 250 Mg Tablet.) 250 mg PO BID EDSON Olanzapine (Olanzapine 5 Mg Tablet) 5 mg PO Q6H PRN PRN Reason: Agitation Last Admin: 02/03/23 08:26 Dose: 5 mg Pharmacy Consult (Consult Rx Perform Med Rec) 1 each MISCELLANE ONCE PRN PRN Reason: Consult order Quetiapine Fumarate (Quetiapine Fumarate 50 Mg Tablet) 50 mg PO Q6H PRN PRN Reason: agitation Last Admin: 02/03/23 10:50 Dose: 50 mg Quetiapine Fumarate (Quetiapine Fumarate 25 Mg Tablet) 75 mg PO TID EDSON Allergies Allergies Allergy/AdvReac Type Severity Reaction Status Date / Time Unable to Assess Allergy Verified 06/12/22 16:15 Assessment & Plan Assessment & Plan (1) Major neurocognitive disorder due to multiple etiologies with behavioral disturbance: Status: Acute Code(s): F02.818 - Dementia in other diseases classified elsewhere, unspecified severity, with other behavioral disturbance Plan Mr. Morris is a 77 year-old male with hx of multifactorial dementia, awaiting senior living placement. Pt continues to present as agitated, trying to ambulate without walker without awareness of fall risk and getting more agitated and combative when staff tries to redirect him. PLAN 02/03 increase seroquel to 75mg po TID, start depakote 250mg po BID for impulsive, explosive behaviors- Monitor EKG, maintain QTc<500ms, K>4, Mg>2. Will check depakote and ammonia levels in 4-7 days. Total time managing care of this patient today ____ minutes.
--- NOTE | 2023-02-03 15:19 | PC.NURSE ---
Pt sitting in recliner with sitter at side. Increased yelling and pt becoming agitated. Medicated with Zyprexa with pending effect.
--- NOTE | 2023-02-03 16:42 | PC.NURSE ---
1545: pharmacy called to stock depakote in [facility]
[2023-02-03] MEDS: Divalproex Sodium 250 MG TABLET.DR PO (17:56)
--- NOTE | 2023-02-03 18:05 | PC.NURSE ---
Pt sitting in recliner, continuously talking. Refused dinner but offered snakcks and tolerated those.
[2023-02-03 19:32] VITALS: BP 139/69; PULSE 78; RESP 17; TEMP 36.7; O2SAT 97
[2023-02-03] MEDS: QUEtiapine Fumarate 25 MG TABLET 75 MG PO (20:10)
[2023-02-03 21:00] VITALS: RESP 20; O2SAT 98
--- NOTE | 2023-02-04 02:48 | PC.NURSE ---
bed/linen changed due to inc. mental status at baseline. health and safety coordinator at bedside. cont to reinforce safety.
[2023-02-04 06:00] VITALS: BP 132/68; PULSE 68; RESP 18; TEMP 36.6; O2SAT 96
[2023-02-04] MEDS: QUEtiapine Fumarate 50 MG TABLET PO (07:31)
[2023-02-04] MEDS: Divalproex Sodium 250 MG TABLET.DR PO ×2 (07:31→20:18)
--- NOTE | 2023-02-04 10:22 | PC.NURSE ---
Patient alert to person only, denies any pain at this time. Patient impulsive, agitated at times. Sitter and camera at bedside for safety. VSS. PRN seroquel given for agitation at 0800. At this time patient resting comfortably in bed, no distress noted.
[2023-02-04] MEDS: QUEtiapine Fumarate 25 MG TABLET 75 MG PO ×2 (11:13→20:18)
--- NOTE | 2023-02-04 15:43 | PC.NURSE ---
Alert and pleasant. Coloring in room, calm and cooperative. Denies pain or discomfort
[2023-02-04 16:34] VITALS: BP 142/91; PULSE 92; RESP 18; TEMP 36.7; O2SAT 99
[2023-02-04] MEDS: Acetaminophen 325 MG TABLET 975 MG PO (18:54)
[2023-02-04] MEDS: OLANZapine 5 MG TABLET PO (18:54)
--- NOTE | 2023-02-04 19:28 | PC.NURSE ---
Assumed care at 1902. Pt was heard to be so agitated and loud. Offered PRN Olanzapine for agitation and tylenol for sore throat. Pt became more agitated and refused to take the meds. Security was called to help pacify the pt.
[2023-02-05] MEDS: Divalproex Sodium 250 MG TABLET.DR PO ×2 (07:41→19:39)
[2023-02-05] MEDS: QUEtiapine Fumarate 25 MG TABLET 75 MG PO ×3 (07:41→19:39)
[2023-02-05 09:25] VITALS: BP 120/78; PULSE 91; RESP 18; TEMP 36.7; O2SAT 98
--- NOTE | 2023-02-05 09:50 | PC.NURSE ---
sitter/tech at bedside. Pt went to bathroom and is now talking with tech. will cont to kathia
--- NOTE | 2023-02-05 13:55 | PC.NURSE ---
pt so far today has been alert and active, very talkative, but not especially agitated nor combative. Tech/1:1 staff have been with pt and are able to keep him relatively calm, cooperative and comfortable. At this time, after an active morning, lights are dimmed in the room, pt is back in bed after a walk and spending some time in recliner, and is encouraged to rest.
--- NOTE | 2023-02-05 15:22 | PC.NURSE ---
holding seroquel for now, pt is sleeping
--- NOTE | 2023-02-05 15:42 | PC.NURSE ---
pt awake and having a sandwich as a snack with 1:1 at bedside, medicated with scheduled seroquel per mar
--- NOTE | 2023-02-05 16:47 | PC.NURSE ---
pt has increased agitation over the past half hour. pt is yelling and arguing with staff
[2023-02-05] MEDS: OLANZapine 5 MG TABLET PO ×2 (17:52→23:07)
--- NOTE | 2023-02-05 17:54 | PC.NURSE ---
pt continues to be agitated and aggressive despite attempts to calm pt with distractions. Pt attempted to walk behind nurses station, and made attempts to push staff when they guided him away. Medicated with PRN zyprexa per [facility] protocol for agitation
--- NOTE | 2023-02-05 19:04 | MHC.EDTECH ---
Pt in room a little agigtated. patient states he is hungry and will give him a sandwich and gingerale.
[2023-02-05] MEDS: Acetaminophen 325 MG TABLET 975 MG PO (19:39)
[2023-02-05 19:47] VITALS: BP 139/80; PULSE 90; RESP 20; TEMP 36.6; O2SAT 96
[2023-02-05 22:00] VITALS: RESP 20
[2023-02-05] MEDS: QUEtiapine Fumarate 50 MG TABLET PO (22:13)
--- NOTE | 2023-02-06 05:38 | PC.NURSE ---
Pt agitated/restless throughout most of the night. Pt given scheduled seroquel at HS with no effect. Pt then given PRN seroquel at 2213, again with no effect. Pt given PRN zyprexa at 2315 with minimal effect - pt fell asleep briefly for 30 minutes or less, then began yelling and getting out of bed. Very difficult to redirect. One time dose of trazodne ordered - positive effect. PT asleep around 0330, up x1 to void and then back to sleep.
[2023-02-06 06:00] VITALS: BP 127/87; PULSE 74; RESP 16; TEMP 36.5; O2SAT 95
[2023-02-06] MEDS: Divalproex Sodium 250 MG TABLET.DR PO ×2 (08:15→20:41)
[2023-02-06] MEDS: QUEtiapine Fumarate 25 MG TABLET 75 MG PO ×3 (08:15→20:39)
[2023-02-06 14:13] VITALS: BP 127/87; PULSE 74; RESP 15; TEMP 36.5; O2SAT 99
--- NOTE | 2023-02-06 14:58 | PC.NURSE ---
pt has been chatting a lot, very calm and cooperative during shift. got up ate breakfast, got dressed and has spent most of the day in community room. also ambulating around unit with assist.
--- NOTE | 2023-02-06 16:15 | PC.NURSE ---
really enjoyed watching older versions of Notorious Mouse (black & white)
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
[2023-02-06] MEDS: Acetaminophen 325 MG TABLET 975 MG PO (19:10)
[2023-02-06] MEDS: OLANZapine 5 MG TABLET PO (19:10)
--- NOTE | 2023-02-06 19:31 | PC.NURSE ---
Tylenol and Olanzapine given at 1910. Pt is sitting on the edge of the bed, continues to be yelling and slightly aggressive with the staff, but is more manageable. Medications appear to slowly be taken into effect. staff is trying to see if pt wants to take a shower before bed, but pt is refusing treatment or help at the moment. pt continues to be unsettled and is walking around the unit and yelling to go home.
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
--- NOTE | 2023-02-06 21:22 | PC.NURSE ---
Pt was given an extra dose of 5mg of Zyprexa for his violent behavior. At the moment the sitter is in the room with pt trying to get pt to rest in bed comfortably. Pt at the moment is calming down a little. Pt is still awake but has stopped roaming around the unit, laying in bed gently talking and being cooperative.
--- NOTE | 2023-02-06 23:56 | PC.NURSE ---
Pt has lost his sitter due to staffing. Pt is being monitored by the camera and pt is near the nurses station, but has lost his 1:1 sitter due to lack of staffing. made aware of pts behavior with climbing out of bed and that he no longer has a sitter to watch over him.
[2023-02-07 00:13] VITALS: BP 118/70; PULSE 72; RESP 16; TEMP 36.6; O2SAT 95
[2023-02-07] MEDS: QUEtiapine Fumarate 50 MG TABLET PO ×2 (00:31→17:30)
--- NOTE | 2023-02-07 02:00 | PC.NURSE ---
Pt continues to be aggressive with staff, jumping out of bed, trying to hit the staff members, and being very agitated and just yelling out. Pt has been fighting to stay awake regardless of the medication that was given.
[2023-02-07] MEDS: OLANZapine 5 MG TABLET PO ×2 (03:28→15:58)
[2023-02-07 06:00] VITALS: BP 128/73; PULSE 70; RESP 16; TEMP 37; O2SAT 100
--- NOTE | 2023-02-07 06:02 | PC.NURSE ---
assisted pt to the bedside commode. Pt urinated 250 cc of urine.
[2023-02-07] MEDS: QUEtiapine Fumarate 25 MG TABLET 75 MG PO ×2 (08:25→15:57)
[2023-02-07] MEDS: Divalproex Sodium 250 MG TABLET.DR PO ×2 (08:25→20:13)
--- NOTE | 2023-02-07 08:41 | PC.NURSE ---
pt has been up and moving all morning. has a bed alarm and camera but was able to walk through department with staff simply standing by. difficult to redirect. now, finally sleeping at this time in a recliner.
[2023-02-07 12:00] VITALS: RESP 18
[2023-02-07 14:00] VITALS: RESP 16
--- NOTE | 2023-02-07 14:48 | PC.NURSE ---
tech at bedside w pt encouraging to eat lunch and taking vs. pt in recliner. no distress. RR 18 breaths/min. warm blanket given. given bathrobe
--- NOTE | 2023-02-07 15:52 | MHC.CM.ED ---
Pt moved to main ED: attempted to visit - pt sleeping in recliner after what was apparently episodes of aggitated behavior requiring PRN medication. Pt is extremely hard of hearing and becomes frustrated easily. In addition, his speaking voice is quite loud and can be interpreted as angry or aggressive. Pt can also exhibit behaviors that are aggressive and threatening. Pt is boarding for LTC placement but needs [facility]/payor source. Pt has a guardian who is in the process of completing application after which LTC referrals with then be placed.
--- NOTE | 2023-02-07 16:00 | PC.NURSE ---
pt becoming restless and anxious- given meds per mar. offered food and urinal. no distress. respirations even
[2023-02-07 18:00] VITALS: RESP 18
--- NOTE | 2023-02-07 18:52 | PC.NURSE ---
pt changed and cleaned for incontinence. new clothes. pt loud and yelling, given prn seroquel per leny practitioner to help calm pt down and be less agitated. ate dinner earlier prior to this agitation. alert. no resp distress. walking around with staff.
[2023-02-07 23:43] VITALS: RESP 16
[2023-02-08 05:16] VITALS: RESP 18
--- NOTE | 2023-02-08 05:16 | PC.NURSE ---
Pt appears to be sleeping, RR 18, equal and non labored, no apparent distress noted, will CTM.
[2023-02-08 06:00] VITALS: BP 132/58; PULSE 67; RESP 16; TEMP 36.7; O2SAT 100
--- NOTE | 2023-02-08 10:43 | PC.NURSE ---
assumed care of this pt at 0700. pt has gotten up once to use the bathroom, otherwise has been sleeping since this RN came on shift. rr even/unlabored. sitter camera at bedside for pt safety. pt has not eaten breakfast or taken meds due to pt sleeping. wctm
[2023-02-08] MEDS: Divalproex Sodium 250 MG TABLET.DR PO ×2 (11:28→20:37)
[2023-02-08] MEDS: QUEtiapine Fumarate 25 MG TABLET 75 MG PO ×3 (11:28→20:37)
--- NOTE | 2023-02-08 11:35 | PC.NURSE ---
pt woke up, was bathed/cleaned up and linens changed. reprinted patient bracelet. medicated per sep. pt in recliner currently eating lunch.
--- NOTE | 2023-02-08 11:37 | MHC.CM.ED ---
Patient remains in ER overflow. Patient's nephew/guardian, Derek is still in the process of trying to obtain the necessary documents to apply to [facility] assisted care. Continue to monitor for d/c needs.
[2023-02-08 14:00] VITALS: BP 96/62; PULSE 86; RESP 20; TEMP 36.8; O2SAT 97
--- NOTE | 2023-02-08 17:18 | MHC.EDTECH ---
1:1 assist to the commode. Patient constipated. Nurse aware. Patient had a B/M and voided. 1:1 assist back to bed.
[2023-02-08] MEDS: OLANZapine 5 MG TABLET PO ×2 (17:50→20:37)
--- NOTE | 2023-02-08 17:58 | PC.NURSE ---
pt became increasingly agitated. refusing to get back in bed and yelling at this rn and mary mendoza to get out of his room. pt medicated with PRN per mar. given crayons and coloring book for activity. david
[2023-02-08] MEDS: QUEtiapine Fumarate 50 MG TABLET PO (18:43)
--- NOTE | 2023-02-08 18:49 | PC.NURSE ---
pt became even more agitated and kept getting out of bed, becoming slightly combative towards this rn and tech and yelling profanities. medicated with PRN per sep. 1:1 sitter in pt room now and at bedside for safety
[2023-02-08] MEDS: Acetaminophen 325 MG TABLET 975 MG PO (20:37)
[2023-02-08] MEDS: LORazepam 1 MG TABLET PO (21:58)
[2023-02-09 00:07] VITALS: BP 135/65; PULSE 87; RESP 17; TEMP 36.1; O2SAT 98
[2023-02-09] MEDS: QUEtiapine Fumarate 50 MG TABLET PO ×2 (00:26→21:31)
--- NOTE | 2023-02-09 00:35 | PC.NURSE ---
Pt seen on bed at 1900, alert , agitated, yelling out loud, impulsive, combative and unredirectible to verbal cues, distractions, TV, or any other activity, previous RN said pt just got prn seroquel and Zyprexa with no effect evidently. sitter was taken to the ED so single FOOD AND BEVERAGE MANAGER in the unit sat with the pt, Maura Rivera was notified. additional Zyprexa 5 mg po ordered and given at 2036, pt's behavioral was unchanged. Maura was updated, Dr. Almanza ordered Ativan 1 mg po and given at 2157, sitter came to attend to pt, pt quieted down for good 30 mins and resumed being loud and yelling out again, sitter remained at bedside and tried redirecting pt, anotehr dose of prn seroquel given at 24, effectiveness pending, kept pt safe on bed.
--- NOTE | 2023-02-09 07:30 | PC.NURSE ---
Pt visualized in bed with video monitor in room. he is resting comfortably and quietly on stretcher.
--- NOTE | 2023-02-09 09:04 | PC.NURSE ---
Pt sleeping in stretcher with observer in room. he is resting comfortably and quietly.
[2023-02-09] MEDS: OLANZapine 5 MG TABLET PO ×3 (10:01→21:31)
[2023-02-09] MEDS: Divalproex Sodium 250 MG TABLET.DR PO ×2 (10:01→20:28)
[2023-02-09] MEDS: QUEtiapine Fumarate 25 MG TABLET 75 MG PO ×3 (10:01→20:28)
[2023-02-09 10:14] VITALS: BP 147/87; PULSE 74; RESP 14; TEMP 35.9; O2SAT 94
--- NOTE | 2023-02-09 10:14 | PC.NURSE ---
Pt abruptly stood up, yelling out, urinated large amount on floor. pt difficult to redirect but was returned to clean bed, given food and fluids, medicated per order.
--- NOTE | 2023-02-09 15:44 | PC.NURSE ---
Pt sleeping on stretcher, repositioning self intermittently. 1:1 observer at bedside.
--- NOTE | 2023-02-09 16:50 | PC.NURSE ---
Pt assisted up to commode, voided small amount and had wet brief. pt cleaned and then put back to bed. pt then became very agitated yelling I need to go to the bathroom and I want to go to bed. difficult to redirect. multiple attempts to get out of bed. medicated per PRN order. pt fed by RN, ate mashed potatoes and some corn.
[2023-02-09 19:42] VITALS: BP 123/91; PULSE 78; RESP 18; TEMP 36.5; O2SAT 100
--- NOTE | 2023-02-09 20:54 | MHC.EDTECH ---
Patient was asking to get up, patient was incontinent of urine, patient bedding change, patient is clean dry.
[2023-02-09] MEDS: Acetaminophen 325 MG TABLET 975 MG PO (21:31)
--- NOTE | 2023-02-10 00:29 | PC.NURSE ---
pt awake talking very loud, complaint in staying in the bed
--- NOTE | 2023-02-10 00:30 | PC.NURSE ---
pt being watched by camera
--- NOTE | 2023-02-10 03:35 | MHC.EDTECH ---
Patient woke up, yelling that he wanted to go to his bed. His linens were changed due to incontinence. Given 2 warm blankets and reposition in his bed. Patient settled and went back to sleep.
--- NOTE | 2023-02-10 06:11 | PC.NURSE ---
pt slept for a few hours, refused VS
[2023-02-10 06:13] VITALS: RESP 16; TEMP 36.8
[2023-02-10 12:04] VITALS: BP 131/72; PULSE 76; RESP 20; TEMP 37.2; O2SAT 98
[2023-02-10] MEDS: OLANZapine 5 MG TABLET PO ×2 (12:47→20:09)
--- NOTE | 2023-02-10 13:47 | MHC.CM.ED ---
Patient remains in ER overflow. Still waiting for [facility] LTC application to be completed with guardian/Derek arias. Derek would prefer LTC placement be found in [place] or [facility]. Continue to monitor for d/c needs.
[2023-02-10] MEDS: QUEtiapine Fumarate 25 MG TABLET 75 MG PO ×2 (14:21→20:09)
[2023-02-10] MEDS: Divalproex Sodium 250 MG TABLET.DR PO (20:09)
--- NOTE | 2023-02-10 20:37 | MHC.EDTECH ---
I can not add the vitals on the work list, they are not listed and the computer will not allow me to add the task. T:97.7 temporal scan, P:92, R:18, O2:93, BP: 108/75 Right upper arm semi fowlers. SG.
[2023-02-10] MEDS: QUEtiapine Fumarate 50 MG TABLET PO (21:35)
[2023-02-10] MEDS: Acetaminophen 325 MG TABLET 975 MG PO (23:16)
[2023-02-11] MEDS: OLANZapine 5 MG TABLET PO ×3 (02:03→20:20)
[2023-02-11] MEDS: QUEtiapine Fumarate 50 MG TABLET PO ×2 (03:30→21:37)
--- NOTE | 2023-02-11 04:47 | PC.NURSE ---
pt changed several times during night for INC. no attempts out of bed but remains very verbal/loud. safety sealer at bedside. will cont to maintain safety.
--- NOTE | 2023-02-11 07:46 | PC.NURSE ---
assumed care of pt at 0700. pt currently sleeping in hospital bed with sitter at bedside. rr even/unlabored. wctm
[2023-02-11] MEDS: Divalproex Sodium 250 MG TABLET.DR PO ×2 (10:30→20:20)
[2023-02-11] MEDS: QUEtiapine Fumarate 25 MG TABLET 75 MG PO ×3 (10:30→20:20)
[2023-02-11 17:07] VITALS: RESP 16
--- NOTE | 2023-02-11 18:59 | MHC.EDTECH ---
assisted pt w/ urinal. pt screaming while sleeping. when asked about needs, pt screams incoherently. pt very confused and agitated. t/w, bambi toro, and sitter walked pt w/ fww around unit. pt provided with ice cream and clean pants. rr observed d/t agitation
--- NOTE | 2023-02-11 21:06 | MHC.EDTECH ---
t/w and esdras lacy toilet pt on commode. pt urinated in commode. pt extremely disoriented, yelling, striking staff.
[2023-02-12] MEDS: QUEtiapine Fumarate 50 MG TABLET PO (03:51)
[2023-02-12] MEDS: OLANZapine 5 MG TABLET PO (03:52)
[2023-02-12 10:09] LABS: MANUAL DIFF FLAG NO
[2023-02-12 10:11] LABS: Basophils Percent Auto 0.2 % (0-2); Hematocrit 37.4 % (42.0-52.0); Hemoglobin 12.2 g/dl (14.0-18.0); Imm Gran Abs Auto 0.03 X10*3/uL (0.00-0.03); Imm Gran Pct Auto 0.3 % (0.0-0.4); Lymphocytes Absolute Auto 0.5 X10*3/uL (1.2-4.9); Lymphocytes Percent Auto 4.3 % (20-40); Mean Corpuscular HGB Conc 32.6 g/dl (31.0-36.0); Mean Corpuscular Hemoglobin 28.6 pg (27.0-33.0); Mean Corpuscular Volume 87.6 fL (80.0-98.0); Mean Platelet Volume 9.2 fL (9.4-12.4); Monocytes Absolute Auto 0.8 X10*3/uL (0.1-1.2); Monocytes Percent Auto 6.3 % (2-11); Neutrophils Absolute Auto 10.7 x10*3/uL (2.0-8.3); Neutrophils Percent Auto 88.9 % (45-73); Platelet Count 230 X10*3/uL (160-400); Red Blood Count 4.27 X10*6/uL (4.60-5.80); Red Cell Distribution Width 14.1 % (11.0-16.0)
[2023-02-12 10:14] LABS: Venous Blood Gas Refer to POC result
[2023-02-12 10:14] LABS: VBG Base Excess 2.1 mmol/L; VBG HCO3 25 mmol/L (22-26); VBG pCO2 34 mmHg; VBG pH 7.47 (7.32-7.43); VBG pO2 118 mmHg
[2023-02-12 10:21] LABS: Prothrombin Time 10.9 SEC (10.0-13.1)
[2023-02-12 10:24] LABS: Partial Thromboplastin Time 28.2 SEC (26.0-36.4)
[2023-02-12 10:53] LABS: Alanine Aminotransferase 12 U/L (0-40); Albumin Level 3.8 g/dL (3.5-5.0); Alkaline Phosphatase 77 U/L (39-117); Anion Gap 13 (12-20); Aspartate Amino Transferase 16 U/L (5-37); Bilirubin Direct 0.1 mg/dL (0.0-0.5); Bilirubin Total 0.4 mg/dL (0.0-1.0); Blood Urea Nitrogen 16 mg/dL (9-16); Carbon Dioxide 23 mmol/L (22-29); Chloride 110 mmol/L (96-108); Creatinine Clr Calc Pharmacy 87.3; Estimated Glomerular Filt Rate > 60; Glucose Random 148 mg/dL (60-115); Potassium 3.9 mmol/L (3.3-5.1); Sodium 142 mmol/L (135-145); Total Protein 6.6 g/dL (6.5-8.0)
[2023-02-12 10:53] LABS: COVID-19 Test Negative (Negative); IDNOW Serial# BCCEAD1C
--- NOTE | 2023-02-12 11:54 | PC.NURSE ---
patient has been sleeping pretty much the entire morning, is arousal to sternal rub and then just drifts back to sleep. vomited a large amount of brown vomits and PA was here and is aware
[2023-02-12 12:11] LABS: Appearance Urine Clear; Color Urine Yellow; Glucose Urine UA Negative (Negative); Leukocyte Esterase Urine Negative (Negative); Nitrite Urine Negative (Negative); Urine Blood Negative (Negative); Urine Ketones Trace mg/dL (Negative); Urine Protein Negative (Neg-Trace)
[2023-02-12 15:34] VITALS: BP 126/85; PULSE 88; RESP 16; TEMP 36.9; O2SAT 98
[2023-02-12] MEDS: Piperacillin Sodium/Tazobactam 4.5 GM in 0.9 % Sodium Chloride 100 ML IV (17:55)
[2023-02-12] MEDS: 0.9 % Sodium Chloride 1,000 ML 999 ML IVCONT (18:12)
--- NOTE | 2023-02-12 18:12 | P.HPHOSP_ITS ---
History of Present Illness Date of Service: 02/12/23 Chief Complaint: Vomiting This is a 77-year-old gentleman was brought in to [facility] by EMS since social director call 911 with concern that patient was not safe at home, patient offered no complaints in the emergency room and was admitted for long-term care placement, patient was living alone at home and was receiving help form Jerri Gonzalez patient's reported healthcare proxy/p.o.a, she informed that patient was rapidly declining in his ability to self manage noted to be paranoid blocking doors with furniture and walking outside at night and getting lost, patient unable to use the microwave to prepare meals, Jerri was bringing food and checking on him daily, 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, and wear glasses he can read and write and communicate with the white board if needed, he speaks very loud and is mistaken for aggression, she also stated the patient was showing more physical aggression with increasing confusion, patient was in overflow waiting for long-term care placement and was being daily checked according to patient's nurse he was doing fine up until last night but this morning he was noted to be very sleepy , lethargic and not himself and had 3 episodes of brown color vomiting therefore ED provider, obtained labs that showed stable renal function and electrolytes blood [place] 148[place] [address] s table hematocrit of 37, platelet of [address] head showed no intracranial mass hemorrhage, showed chronic moderate volume loss and changes of mild microangiopathy, CT abdomen and pelvis showed severe constipation, with fecal impaction, and CT chest showed peribronchial your tree-in-bud opacities in the lung and lingula representing acute infection or inflammatory process, patient is communicating awake ,alert answering questions in 1 or 2 words moving all 4 extremities, stable oxygenation and vitals. During course of ED stay patient was followed closely by Psychiatry and has been started on Depakote 250 mg b.i.d., Seroquel 75 mg t.i.d. recently dose increased, and is on as needed Seroquel 50 mg q.6 hours. and Zyprexa 5 mg q.6 hours prn, patient was not on any home medications prior to admission. Review of Systems Review of Systems: Unable to obtain due to mental status PMFSH Medical History Dementia Pertinent family history: Unable to obtain due to mental status Social History Alcohol intake: never Patient Tobacco Use Status: Never used Tobacco Smoked in Last 30 Days: No Use of substances other than those prescribed or required for medical reasons: No Advance Directives: Yes Advance Directives on File: Yes Advance Directives Date on File: 12/21/22 Nutrition Risks: No Nutritional Risk Meds Allergies Allergy/AdvReac Type Severity Reaction Status Date / Time Unable to Assess Allergy Verified 06/12/22 16:15 Active Medications: Current Medications Acetaminophen (Acetaminophen 325 Mg Tablet) 975 mg PO Q8H PRN PRN Reason: mild to moderate pain Last Admin: 02/10/23 23:16 Dose: 975 mg Acetaminophen (Acetaminophen 325 Mg Tablet) 650 mg PO Q6H PRN PRN Reason: Pain, Mild (Pain Scale 1-3) Divalproex Sodium (Divalproex Sodium 250 Mg Tablet.Dr) 250 mg PO BID [facility] Last Admin: 02/12/23 10:11 Dose: Not Given Enoxaparin Sodium (Enoxaparin Sodium 40 Mg/0.4 Ml Syringe) 40 mg SUBCUT DAILY [facility] Piperacillin Sod/Tazobactam (Sod 3.375 gm/ Sodium Chloride) 50 mls @ 100 mls/hr IV Q6H [facility] Dextrose/Lactated Ringer's (D5lr) 1,000 mls @ 100 mls/hr IVCONT .Q10H [facility] Ondansetron HCl (Ondansetron Hcl 4 Mg/2 Ml Vial) 4 mg IVPUSH Q8H PRN PRN Reason: Nausea and Vomiting Pharmacy Consult (Consult Rx Perform Med Rec) 1 each MISCELLANE ONCE PRN PRN Reason: Consult order Quetiapine Fumarate (Quetiapine Fumarate 25 Mg Tablet) 25 mg PO Q6H PRN PRN Reason: agitation Quetiapine Fumarate (Quetiapine Fumarate 50 Mg Tablet) 50 mg PO BID [facility] Sodium Chloride (0.9 % Sodium Chloride Flush 3 Ml Syringe) 3 ml IVFLUSH QSHIFT [facility] Home Medications Medication Instructions Recorded Confirmed Last Taken Type No Known Home Meds 12/19/22 12/19/22 Unknown History Physical Exam Vital Signs and Narrative: Vital Signs: Last Vital Signs Temp 98.4 F 02/12/23 15:34 Pulse 88 02/12/23 15:34 Resp 16 02/12/23 15:34 BP 126/85 02/12/23 15:34 Pulse Ox 98 02/12/23 15:34 O2 Del Method Room Air 02/12/23 15:34 BMI result Body Mass Index 22.8 Const: Other: General awake alert, resting comfortably in no acute distress. Neck supple no JVD. CVS regular rate rhythm, Respiratory lungs clear to auscultation, no respiratory distress, no wheeze, no rhonchi. Gastrointestinal abdomen soft, nontender, bowel sounds audible, no guarding , no rigidity. Extremities no edema. Neuro nonfocal, moving all 4 extremity ,speech clear. Noted to have jerky movement both upper extremity. Skin no rash Psych poor insight Results Labs 02/12/23 10:04 02/12/23 10:04 Labs: Laboratory Results - last 24 hr 02/12/23 02/12/23 02/12/23 10:04 10:04 10:04 MCV 87.6 MCH 28.6 MCHC 32.6 RDW 14.1 Plt Count 230 MPV 9.2 L Immature Gran % (Auto) 0.3 Neut % (Auto) 88.9 H Lymph % (Auto) 4.3 L [place] % (Auto) 6.3 Eos % (Auto) 0.0 Baso % (Auto) 0.2 Lymph # (Auto) 0.5 L [place] # (Auto) 0.8 Eos # (Auto) 0.0 Baso # (Auto) 0.0 Abs Immat Gran (auto) 0.03 Absolute Neuts (auto) 10.7 H Absolute Nucleated RBC 0.000 Nucleated RBC % (auto) 0.0 PT 10.9 INR 1.0 APTT 28.2 VBG pH VBG pCO2 VBG pO2 VBG HCO3 VBG O2 Saturation VBG Base Excess Anion Gap 13 Estim Creat Clear Calc 87.3 Estimated GFR > 60 Random Glucose 148 H Lactic Acid Calcium 9.0 Magnesium 2.0 Total Bilirubin 0.4 Direct Bilirubin 0.1 AST 16 ALT 12 Alkaline Phosphatase 77 Ammonia Total Protein 6.6 Albumin 3.8 Urine Color Urine Appearance Urine pH Ur Specific Energy Urine Protein Urine Glucose (UA) Urine Ketones Urine Blood Urine Nitrite Ur Leukocyte Esterase COVID-19 ([facility]) COVID-19 Clin Com 0702/12/23 02/12/23 10:07 10:16 11:54 MCV MCH MCHC RDW Plt Count MPV Immature Gran % (Auto) Neut % (Auto) Lymph % (Auto) [place] % (Auto) Eos % (Auto) Baso % (Auto) Lymph # (Auto) [place] # (Auto) Eos # (Auto) Baso # (Auto) Abs Immat Gran (auto) Absolute Neuts (auto) Absolute Nucleated RBC Nucleated RBC % (auto) PT INR APTT VBG pH 7.47 H VBG pCO2 34 VBG pO2 118 VBG HCO3 25 VBG O2 Saturation 99.0 VBG Base Excess 2.1 Anion Gap Estim Creat Clear Calc Estimated GFR Random Glucose Lactic Acid Calcium Magnesium Total Bilirubin Direct Bilirubin AST ALT Alkaline Phosphatase Ammonia Total Protein Albumin Urine Color Yellow Urine Appearance Clear Urine pH 7.0 Ur Specific Energy 1.020 Urine Protein Negative Urine Glucose (UA) Negative Urine Ketones Trace Urine Blood Negative Urine Nitrite Negative Ur Leukocyte Esterase Negative COVID-19 ([facility]) Negative COVID-19 Clin Com See Note 02/12/23 02/12/23 17:56 17:56 MCV MCH MCHC RDW Plt Count MPV Immature Gran % (Auto) Neut % (Auto) Lymph % (Auto) [place] % (Auto) Eos % (Auto) Baso % (Auto) Lymph # (Auto) [place] # (Auto) Eos # (Auto) Baso # (Auto) Abs Immat Gran (auto) Absolute Neuts (auto) Absolute Nucleated RBC Nucleated RBC % (auto) PT INR APTT VBG pH VBG pCO2 VBG pO2 VBG HCO3 VBG O2 Saturation VBG Base Excess Anion Gap Estim Creat Clear Calc Estimated GFR Random Glucose Lactic Acid 1.1 Calcium Magnesium Total Bilirubin Direct Bilirubin AST ALT Alkaline Phosphatase Ammonia 21 Total Protein Albumin Urine Color Urine Appearance Urine pH Ur Specific Energy Urine Protein Urine Glucose (UA) Urine Ketones Urine Blood Urine Nitrite Ur Leukocyte Esterase COVID-19 ([facility]) COVID-19 Clin Com Imaging Radiologist's Impressions: Impressions Abdomen/Pelvis CT 02/12/23 15:11 IMPRESSION: Severe constipation. Peribronchial tree-in-bud opacities in the lingula. This may represent an acute infectious or inflammatory process. Advise clinical correlation. Head CT 02/12/23 15:11 IMPRESSION: * No intracranial mass, hemorrhage or other acute intracranial pathology. * Chronic moderate volume loss and changes of mild microangiopathy affecting the supratentorial white matter. Chest X-Ray 02/12/23 16:44 IMPRESSION: Subtle interstitial and patchy opacities projecting over the left lower lung corresponding with the bronchiectasis and mucus impaction noted on same day CT. These could be infectious or inflammatory, a short-term follow-up chest CT in 3-6 months is recommended for reevaluation. Assessment and Plan (1) Dementia: Status: Acute (2) Aspiration pneumonia: Status: Inactive (3) Constipation: Status: Inactive (4) Acute metabolic encephalopathy: Status: Inactive Plan 77-year-old gentleman with no known past medical history was brought in to [facility] since he was unable to take care of himself due to worsening dementia patient was living alone, patient was placed in overflow bed 1 and was waiting for long-term care placement being followed by case specialist and waiting for [facility] application to be completed with guardian/Nephew Derek Morris , patient this morning noted to be lethargic, vomiting imaging studies consistent with constipation, stool impaction and possible left lower lobe pne umonia therefore being admitted to medical floor. Vomiting Likely due to constipation related to antipsychotic, hematocrit is stable, will treat constipation with enema, Anti emetics/IV fluids/clear liquid diet if tolerated/bowl regimen CT abdomen showed no small-bowel obstruction Will add PPI for GI prophylaxis Extrapyramidal side effect with dystonia likely due to antipsychotic medication will minimize medication follow clinical course Acute toxic metabolic encephalopathy Likely related to multiple antipsychotic medications, infection Will check ammonia level/CPK/lactic acid Minimize antipsychotics/treat infections/IV fluids follow clinical course Possible left lower lobe pneumonia ? aspiration pneumonia Noted to have leukocytosis, afebrile no hypoxia Chest x-ray and CT abdomen and pelvis showed subtle interstitial and patchy opacities left lower lobe corresponding with bronchiectasis and mucus impaction question infection or inflammatory Will treat with IV Zosyn is started on 02/12 follow clinical course No evidence of sepsis, check lactic acid, blood cultures Code status DNR DNI discussed with patient's nephew healthcare proxy DVT prophylaxis Lovenox subQ In my clinical judgment patient will need 2 night inpatient stay FaceTime on a report is a bony numbness in toe which I you minimal drip inpatient hospitalization for treatment of constipation/vomiting acute toxic metabolic encephalopathy and pneumonia with IV antibiotics Time Spent With Patient Time: Total time managing care of this patient today ____ minutes. Quality Stroke Does the patient have a stroke diagnosis?: No VTE Prior VTE?: No VTE Risk Level:: Medical - moderate - high VTE Device Contraindication: Treatment Not Indicated VTE Drug Contraindication: N/A - Med Ordered
[2023-02-12 18:14] LABS: Ammonia 21 umol/L (13-55)
[2023-02-12 18:17] LABS: Lactic Acid 1.1 mmol/L (0.5-2.0)
--- NOTE | 2023-02-12 18:49 | PC.NURSE ---
approx 1700 patient has become more awake and alert, not sleeping as much but feels tired still. IV line and first antibiotic given, labs drawn. sitter is still in place as of now, city dispatch supervisor is aware of the situation with a pending admission.
[2023-02-12 19:36] LABS: Thyroid Stimulating Hormone 0.81 uIU/mL (0.32-4.0)
--- NOTE | 2023-02-12 19:49 | PM.EVENT ---
Event Note Date of Service: 02/12/23 Event Note: Patient combative, not cooperating, not directable. will give 5 of Haldol Time Spent With Patient Time: Total time managing care of this patient today ____ minutes.
[2023-02-12] MEDS: Lactulose 20 GM/30 ML SOLUTION 10 GM PO (19:59)
[2023-02-12 20:00] VITALS: BP 129/80; PULSE 80; RESP 17; O2SAT 98
[2023-02-12] MEDS: Haloperidol Lactate 5 MG/ML VIAL IM (20:10)
[2023-02-12 20:15] VITALS: BP 115/71; PULSE 73; RESP 17; O2SAT 98
[2023-02-12] MEDS: ondansetron HCL 4 MG/2 ML VIAL IVPUSH (20:15)
[2023-02-12] MEDS: Dextrose 5 % and Lactated Ring 1,000 ML 100 ML IVCONT (20:21)
[2023-02-12 20:30] VITALS: BP 131/69; PULSE 75; RESP 17; O2SAT 99
[2023-02-12] MEDS: diphenhydrAMINE HCL 50 MG/ML VIAL IVPUSH (20:31)
--- NOTE | 2023-02-12 20:34 | PC.NURSE ---
patient received in a very agitated and combative mood patient doctor was notified about the update on patient condition patient had to be given a chemical restraint due to patient condition patient IV fluids are just being administered due to this circumstances patient vitals are being monitored patient will be reassessed doctor will continue to be monitored for safety patient refused all oral medications doctor is aware patient has a 1:1 status at this time
[2023-02-12 20:45] VITALS: BP 118/70; PULSE 86; RESP 17; O2SAT 99
[2023-02-12 21:00] VITALS: BP 116/65; PULSE 82; RESP 17; O2SAT 100
[2023-02-12] MEDS: Divalproex Sodium 250 MG TABLET.DR PO (22:32)
--- NOTE | 2023-02-13 00:36 | PC.NURSE ---
patient hearing aids are not in the container storeroom supervisor Lili and the case management Mary and were notified about the issue patient will continue to be monitored for safety
[2023-02-13] MEDS: 0.9 % Sodium Chloride Flush 3 ML SYRINGE IVFLUSH ×2 (00:42→18:18)
[2023-02-13] MEDS: Piperacillin Sodium/Tazobactam 3.375 GM in 0.9 % Sodium Chloride 50 ML IV ×4 (00:55→18:16)
--- NOTE | 2023-02-13 00:55 | PC.NURSE ---
patient in bed with eyes open patient is still very restless and agitated patient vitals are continuing to be monitored for safety patient is being monitored patient is receiving IV medication patient will continue to be monitored for safety
[2023-02-13] MEDS: Dextrose 5 % and Lactated Ring 1,000 ML 100 ML IVCONT (03:30)
--- NOTE | 2023-02-13 04:08 | PC.NURSE ---
patient in room up in the chair bring very restless and agitated as well as combative patient is on a 1 to 1 at this time patient doctor was notified of the status of the patient safety will continue to be maintained
[2023-02-13] MEDS: LORazepam 2 MG/ML VIAL 0.5 MG IVPUSH ×2 (05:02→19:00)
--- NOTE | 2023-02-13 05:03 | PC.NURSE ---
patient was given medication for the agitation and restlessness patient vitals are stable patient 1:1 is still in affect patient will continue to be monitored for safety.
[2023-02-13 06:14] VITALS: BP 127/55; PULSE 66; RESP 17; TEMP 36.1; O2SAT 97
--- NOTE | 2023-02-13 09:54 | P.PNIM_ITS ---
Subjective Subjective Date of Service: 02/13/23 Interval History: Events from last night noted patient noted to be agitated receive IV Haldol and IV Ativan this morning patient noted to be sedated resting in bed, vitals remained stable. Review of Systems Unable to obtain due to mental status Physical Exam Vital Signs: Vital Signs: Last Vital Signs Temp 96.9 F 02/13/23 06:14 Pulse 66 02/13/23 06:14 Resp 17 02/13/23 06:14 BP 127/55 L 02/13/23 06:14 Pulse Ox 97 02/13/23 06:14 O2 Del Method Room Air 02/13/23 06:14 BMI result Body Mass Index 22.8 Const: Other: General resting comfortably in no acute distress.? Neck? supple no JVD. CVS? regular rate rhythm, Respiratory lungs clear to auscultation, no respiratory distress, no wheeze, no rhonchi. Gastrointestinal abdomen soft, bowel sounds audible Extremities no edema. Neuro not done since patient is sleeping Skin no rash Objective Data Active Medications Acetaminophen (Acetaminophen 325 Mg Tablet) 650 mg PO Q6H PRN PRN Reason: Pain, Mild (Pain Scale 1-3) Divalproex Sodium (Divalproex Sodium 250 Mg Tablet.) 250 mg PO BID [facility] Last Admin: 02/12/23 22:32 Dose: 250 mg Documented By: DEREK Docusate Sodium (Docusate Sodium 100 Mg Capsule) 100 mg PO DAILY [facility] Last Admin: 02/12/23 20:12 Dose: Not Given Documented By: DUNIA Non-Admin Reason: Patient Refused Enoxaparin Sodium (Enoxaparin Sodium 40 Mg/0.4 Ml Syringe) 40 mg SUBCUT DAILY [facility] Piperacillin Sod/Tazobactam (Sod 3.375 gm/ Sodium Chloride) 50 mls @ 100 mls/hr IV Q6H [facility] Last Infusion: 02/13/23 05:50 Dose: 100 mls/hr Documented By: DEREK Ondansetron HCl (Ondansetron Hcl 4 Mg/2 Ml Vial) 4 mg IVPUSH Q8H PRN PRN Reason: Nausea and Vomiting Last Admin: 02/12/23 20:15 Dose: 4 mg Documented By: DUNIA Pharmacy Consult (Consult Rx Perform Med Rec) 1 each MISCELLANE ONCE PRN PRN Reason: Consult order Polyethylene Glycol (Polyethylene Glycol 3350 17 Gm Powd.Pack) 17 gm PO DAILY [facility] Quetiapine Fumarate (Quetiapine Fumarate 25 Mg Tablet) 25 mg PO Q6H PRN PRN Reason: agitation Quetiapine Fumarate (Quetiapine Fumarate 50 Mg Tablet) 50 mg PO BID [facility] Last Admin: 02/12/23 20:14 Dose: Not Given Documented By: DUNIA Non-Admin Reason: Patient Refused Sodium Chloride (0.9 % Sodium Chloride Flush 3 Ml Syringe) 3 ml IVFLUSH QSHIFT [facility] Last Admin: 02/13/23 09:44 Dose: Not Given Documented By: ALEXUS Non-Admin Reason: Patient Asleep Labs 02/12/23 10:04 02/12/23 10:04 Labs: Laboratory Results - last 24 hr 02/12/23 02/12/23 02/12/23 10:04 10:04 10:04 MCV 87.6 MCH 28.6 MCHC 32.6 RDW 14.1 Plt Count 230 MPV 9.2 L Immature Gran % (Auto) 0.3 Neut % (Auto) 88.9 H Lymph % (Auto) 4.3 L [place] % (Auto) 6.3 Eos % (Auto) 0.0 Baso % (Auto) 0.2 Lymph # (Auto) 0.5 L [place] # (Auto) 0.8 Eos # (Auto) 0.0 Baso # (Auto) 0.0 Abs Immat Gran (auto) 0.03 Absolute Neuts (auto) 10.7 H Absolute Nucleated RBC 0.000 Nucleated RBC % (auto) 0.0 PT 10.9 INR 1.0 APTT 28.2 VBG pH VBG pCO2 VBG pO2 VBG HCO3 VBG O2 Saturation VBG Base Excess Anion Gap 13 Estim Creat Clear Calc 87.3 Estimated GFR > 60 Random Glucose 148 H Lactic Acid Calcium 9.0 Magnesium 2.0 Total Bilirubin 0.4 Direct Bilirubin 0.1 AST 16 ALT 12 Alkaline Phosphatase 77 Ammonia Total Creatine Kinase Total Protein 6.6 Albumin 3.8 TSH Urine Color Urine Appearance Urine pH Ur Specific [place] Urine Protein Urine Glucose (UA) Urine Ketones Urine Blood Urine Nitrite Ur Leukocyte Esterase COVID-19 ([facility]) COVID-19 Clin Com 02/12/23 02/12/23 02/12/23 10:07 10:16 11:54 MCV MCH MCHC RDW Plt Count MPV Immature Gran % (Auto) Neut % (Auto) Lymph % (Auto) Iron % (Auto) Eos % (Auto) Baso % (Auto) Lymph # (Auto) Iron # (Auto) Eos # (Auto) Baso # (Auto) Abs Immat Gran (auto) Absolute Neuts (auto) Absolute Nucleated RBC Nucleated RBC % (auto) PT INR APTT VBG pH 7.47 H VBG pCO2 34 VBG pO2 118 VBG HCO3 25 VBG O2 Saturation 99.0 VBG Base Excess 2.1 Anion Gap Estim Creat Clear Calc Estimated GFR Random Glucose Lactic Acid Calcium Magnesium Total Bilirubin Direct Bilirubin AST ALT Alkaline Phosphatase Ammonia Total Creatine Kinase Total Protein Albumin TSH Urine Color Yellow Urine Appearance Clear Urine pH 7.0 Ur Specific [place] 1.020 Urine Protein Negative Urine Glucose (UA) Negative Urine Ketones Trace Urine Blood Negative Urine Nitrite Negative Ur Leukocyte Esterase Negative COVID-19 ([facility]) Negative COVID-19 Clin Com See Note 02/12/23 02/12/23 02/12/23 17:56 17:56 18:37 MCV MCH MCHC RDW Plt Count MPV Immature Gran % (Auto) Neut % (Auto) Lymph % (Auto) Iron % (Auto) Eos % (Auto) Baso % (Auto) Lymph # (Auto) Iron # (Auto) Eos # (Auto) Baso # (Auto) Abs Immat Gran (auto) Absolute Neuts (auto) Absolute Nucleated RBC Nucleated RBC % (auto) PT INR APTT VBG pH VBG pCO2 VBG pO2 VBG HCO3 VBG O2 Saturation VBG Base Excess Anion Gap Estim Creat Clear Calc Estimated GFR Random Glucose Lactic Acid 1.1 Calcium Magnesium Total Bilirubin Direct Bilirubin AST ALT Alkaline Phosphatase Ammonia 21 Total Creatine Kinase 32 L Total Protein Albumin TSH 0.81 Urine Color Urine Appearance Urine pH Ur Specific [place] Urine Protein Urine Glucose (UA) Urine Ketones Urine Blood Urine Nitrite Ur Leukocyte Esterase COVID-19 ([facility]) COVID-19 Clin Com Assessment and Plan (1) Dementia: Status: Acute Plan 77-year-old gentleman with no known past medical history was brought in to [facility] since he was unable to take care of himself due to worsening dementia patient was living alone, patient was placed in overflow bed 1 and was waiting for long-term care placement being followed by director of casework department and waiting for [facility] LT application to be completed with guardian/Nephew Derek Morris , patient this morning noted to be lethargic, vomiting imaging studies consistent with constipation, stool impaction and possible left lower lobe pneumonia therefore being admitted to medical floor. Vomiting No recurrent episodes of vomiting noted Likely was due to constipation related to antipsychotic, hematocrit is stable, had small bowel movement after enema Continue as needed Anti emetics, diet as tolerated CT abdomen showed no small-bowel obstruction PPI for GI prophylaxis/stool softeners added Extrapyramidal side effect with dystonia likely due to antipsychotic medication dose of Seroquel reduced to 50 t.i.d. Acute toxic metabolic encephalopathy Likely related to multiple antipsychotic medications, infection Normal ammonia level/CPK/lactic acid Minimize antipsychotics/treat infections Unspecified dementia with behavioral change Minimize antipsychotic medication, re-consult Psychiatry, recommend to ambulate patient t.i.d. /out of bed to chair/as needed iv ativan Possible left lower lobe pneumonia ? aspiration pneumonia Noted to have leukocytosis, afebrile no hypoxia Chest x-ray and CT abdomen and pelvis showed subtle interstitial and patchy opacities left lower lobe corresponding with bronchiectasis and mucus impaction question infection or inflammatory on IV Zosyn started on 02/12 follow clinical course No evidence of sepsis, follow blood cultures Code status DNR DNI discussed with patient's nephew healthcare proxy DVT prophylaxis Lovenox subQ In my clinical judgment patient will need continued inpatient hospitalization for treatment of constipation/vomiting acute toxic metabolic encephalopathy and pneumonia with IV antibiotics Time Spent With Patient Time: Total time managing care of this patient today ____ minutes. Quality Stroke Does the patient have a stroke diagnosis?: No VTE Prior VTE?: No VTE Risk Level:: Medical - moderate - high VTE Device Contraindication: Treatment Not Indicated VTE Drug Contraindication: N/A - Med Ordered
[2023-02-13] MEDS: Enoxaparin Sodium 40 MG/0.4 ML SYRINGE SUBCUT (12:30)
[2023-02-13 14:22] VITALS: BP 151/85; PULSE 66; RESP 16; TEMP 37.1; O2SAT 98
[2023-02-13 15:42] VITALS: BP 132/77; PULSE 61; RESP 18; TEMP 36.6; O2SAT 98
--- NOTE | 2023-02-13 18:21 | PC.NURSE ---
pt sleeping most of the morning/early afternoon. Incontinent of urine, maris care provided. IV Zosyn infusing per orders. Pt intermittently agitated, raising voice but redirectable
[2023-02-13] MEDS: QUEtiapine Fumarate 25 MG TABLET PO (19:05)
--- NOTE | 2023-02-13 19:14 | PC.NURSE ---
patient in bed with eyes open patient started being restless and agitated patient was given a PRN to help patient to be less agitated patient vitals are stable at this time patient has a 1:1 due to patient needs a monitor due to patient condition patient will continue to be monitored for safety
[2023-02-13] MEDS: Divalproex Sodium 250 MG TABLET.DR PO (20:16)
[2023-02-13] MEDS: QUEtiapine Fumarate 50 MG TABLET PO (20:17)
--- NOTE | 2023-02-13 20:54 | MHC.EDTECH ---
This tech assume care of pt at 1900 pt has a 1-1 sitter for safety and camera in place. pt was incont. of a large amount of urine pt was cleaned linen was changed and pt was repositioned.
--- NOTE | 2023-02-13 23:00 | PC.NURSE ---
patient in bed with eyes open patient is restless, having internal stimuli patient received all medication with no issues
[2023-02-14] MEDS: 0.9 % Sodium Chloride Flush 3 ML SYRINGE IVFLUSH ×3 (00:31→17:29)
[2023-02-14] MEDS: Piperacillin Sodium/Tazobactam 3.375 GM in 0.9 % Sodium Chloride 50 ML IV ×4 (00:31→17:29)
--- NOTE | 2023-02-14 00:32 | PC.NURSE ---
patient in bed with eyes open patient is restless patient have close monitoring at this time patient have no signs of pain at this time patient will continue to be monitored for safety
--- NOTE | 2023-02-14 02:14 | MHC.EDTECH ---
Completed hourly rounds,patient was yelling out this tech checked if patient was wet,patient is clean and dry at this time,patient was repositioned and warm blankets were applied. Camera is monitoring patient for safety and bed alarm is on.
--- NOTE | 2023-02-14 04:06 | PC.NURSE ---
patient was in bed with eyes open patient vitals are stable at this time patient continue to have internal stimuli patient ADL care was given safety will continue to be maintained
[2023-02-14 04:12] VITALS: BP 163/88; PULSE 96; RESP 18; TEMP 37; O2SAT 95
--- NOTE | 2023-02-14 04:13 | MHC.EDTECH ---
Completed hourly rounds,vitals taken and patient was incont of a large amount of urine. Patient was cleaned and linen was changed. Warm blankets applied to patient. Video monitor and bed alarm on for safety. RN aware
[2023-02-14] MEDS: Omeprazole 20 MG CAPSULE.DR PO (05:55)
--- NOTE | 2023-02-14 06:57 | PC.NURSE ---
Resumed care of patient, he is currently sleeping in bed, reported from prior staff he has not slept in a couple of days. Staff to keep safety measures in place, and let pt rest.
--- NOTE | 2023-02-14 10:29 | PC.NURSE ---
Pt remains sleeping at this time, provider aware, plan to not wake patient at this time, morning medications delayed, provider aware.
[2023-02-14 12:11] VITALS: BP 155/81; PULSE 90; RESP 18; O2SAT 97
--- NOTE | 2023-02-14 12:12 | PC.NURSE ---
pt continues to sleep, with periods of waking up and yelling out and then falling back asleep, provider aware, AM medications held, POc checked 110, vitals stable at this time, provider aware.
[2023-02-14 12:14] LABS: Glucose, Whole Blood 110 mg/dL (60-115)
[2023-02-14 12:22] VITALS: TEMP 36.4
--- NOTE | 2023-02-14 13:44 | MHC.CM.PN ---
Patient has been holding since 12/18/2022. A guardianship was granted on 01/17/23. Patient's nephew, Derek, was appointed patient's guardian. Derek is in the process of trying to obtain all the necessary paperwork so that a [facility] application can be completed. Patient was found to have aspiration pneumonia and was admitted to the hospital. This was explained to Derek via telephone at [phone]. IMM explained and sent via certified mail. Derek is hoping for placement in [facility] because that is where Derek lives. Derek also questioned patient being transferred to an acute care hospital near him. T/W explained there would need to be a medical need that can't be performed at [facility] in order for this to happen. Derek verbalized understanding. Continue to monitor for d/c needs.
--- NOTE | 2023-02-14 16:47 | MHC.EDTECH ---
PATIENT WAS FED DINNER ATE 1 CUP JELLO AND1 CUP PUDDING ,DRANK 240 ML JUICE ,PATIENT SAID THAT'S ALL HE WANT .
--- NOTE | 2023-02-14 17:43 | HO.PM.IMPN ---
Subjective Subjective Date of Service: 02/14/23 Interval History: Patient noted to be somnolent easily arousable but then falls back to sleep as per nursing staff he was up most of the night, but did not require prn antipsychotics, patient vitals and blood sugars are stable. Hard of hearing, does not have hearing aids in ED. Review of Systems Unable to obtain due to somnolence. Physical Exam Vital Signs: Vital Signs: Last Vital Signs Temp 97.5 F 02/14/23 12:22 Pulse 90 02/14/23 12:11 Resp 18 02/14/23 12:11 BP 155/81 H 02/14/23 12:11 Pulse Ox 97 02/14/23 12:11 O2 Del Method Room Air 02/14/23 12:11 BMI result Body Mass Index 22.8 Const: Other: Gen:? Somnolent bu t arousable, in no acute distress HE ENT: sclera anicte jessy, moist mucus m embranes, no thrus h Neck: supple Duran gs: clear to auscu ltation bilaterall y Heart: regular r ate and rhythm, no murmurs Abd:? Sof t ,non tender, bow el sounds audible Ext: no edema Skin : warm/well-perfus ed Neuro: Moving all 4 extremities speech clear Objective Data Active Medications Acetaminophen (Acetaminophen 325 Mg Tablet) 650 mg PO Q6H PRN PRN Reason: Pain, Mild (Pain Scale 1-3) Divalproex Sodium (Divalproex Sodium 250 Mg Tablet.) 250 mg PO BID [facility] Last Admin: 02/14/23 12:04 Dose: Not Given Documented By: EVELYNE Non-Admin Reason: Physician Approved Docusate Sodium (Docusate Sodium 100 Mg Capsule) 100 mg PO DAILY [facility] Last Admin: 02/14/23 12:04 Dose: Not Given Documented By: EVELYNE Non-Admin Reason: Physician Approved Enoxaparin Sodium (Enoxaparin Sodium 40 Mg/0.4 Ml Syringe) 40 mg SUBCUT DAILY [facility] Last Admin: 02/14/23 12:04 Dose: Not Given Documented By: EVELYNE Non-Admin Reason: Physician Approved Piperacillin Sod/Tazobactam (Sod 3.375 gm/ Sodium Chloride) 50 mls @ 100 mls/hr IV Q6H [facility] Last Admin: 02/14/23 17:29 Dose: 100 mls/hr Documented By: EVELYNE Lactulose (Lactulose 20 Gm/30 Ml Solution) 10 gm PO DAILY PRN PRN Reason: Constipation Lorazepam (Lorazepam 2 Mg/Ml Vial) 0.5 mg IVPUSH Q6H PRN PRN Reason: Restlessness Omeprazole (Omeprazole 20 Mg Capsule.Dr) 20 mg PO DAILY@0630 [facility] Last Admin: 02/14/23 05:55 Dose: 20 mg Documented By: DEREK Ondansetron HCl (Ondansetron Hcl 4 Mg/2 Ml Vial) 4 mg IVPUSH Q8H PRN PRN Reason: Nausea and Vomiting Last Admin: 02/12/23 20:15 Dose: 4 mg Documented By: DUNIA Pharmacy Consult (Consult Rx Perform Med Rec) 1 each MISCELLANE ONCE PRN PRN Reason: Consult order Polyethylene Glycol (Polyethylene Glycol 3350 17 Gm Powd.Pack) 17 gm PO DAILY [facility] Last Admin: 02/14/23 12:09 Dose: Not Given Documented By: EVELYNE Non-Admin Reason: Physician Approved Quetiapine Fumarate (Quetiapine Fumarate 25 Mg Tablet) 25 mg PO Q6H PRN PRN Reason: agitation Last Admin: 02/13/23 19:05 Dose: 25 mg Documented By: DEREK Quetiapine Fumarate (Quetiapine Fumarate 50 Mg Tablet) 50 mg PO BID [facility] Last Admin: 02/14/23 12:09 Dose: Not Given Documented By: EVELYNE Non-Admin Reason: Physician Approved Sodium Chloride (0.9 % Sodium Chloride Flush 3 Ml Syringe) 3 ml IVFLUSH QSHIFT [facility] Last Admin: 02/14/23 17:29 Dose: 3 ml Documented By: EVELYNE Labs 02/12/23 10:04 02/12/23 10:04 Labs: Laboratory Results - last 24 hr 02/14/23 12:09 POC Glucose 110 Microbiology Microbiology Results: Microbiology 02/12/23 17:56 Blood Culture - Preliminary Blood - Venous No growth after 24 hours. 02/12/23 17:56 Blood Culture - Preliminary Blood - Venous No growth after 24 hours. Assessment and Plan (1) Dementia: Status: Acute Plan 77-year-old gentleman with no known past medical history was brought in to [facility] since he was unable to take care of himself due to worsening dementia patient was living alone, patient was placed in overflow bed 1 and was waiting for long-term care placement being followed by child support case officer and waiting for [facility] application to be completed with guardian/Nephew Derek Morris , patient this morning noted to be lethargic, vomiting imaging studies consistent with constipation, stool impaction and possible left lower lobe pneumonia therefore being admitted to medical floor. Vomiting patient admitted to medical service on 02/12 since noted to have 3 episodes of brown color vomitus, Likely was due to constipation related to antipsychotic, hematocrit is stable, had small bowel movement after enema No recurrent episodes of vomiting, Continue diet as tolerated ,CT abdomen showed no small-bowel obstruction PPI for GI prophylaxis/stool softeners Extrapyramidal side effect with dystonia likely due to antipsychotic medication dose of Seroquel reduced to 50 b.i.d. from 75 mg t.i.d. Acute toxic metabolic encephalopathy Likely related to multiple antipsychotic medications, infection Normal ammonia level/CPK/lactic acid, Minimize antipsychotics/treat infections , patient noted to be somnolent all day today since up all night, will try to medicate with Seroquel tonight, will reassess need for a.m. Seroquel. Unspecified dementia with behavioral change Minimize antipsychotic medication, re-consult Psychiatry, recommend to ambulate patient t.i.d. /out of bed to chair/as needed iv ativan Patient mostly bed ridden in ED overflow will obtain PT evaluation since patient noted to be weak with unsteady gait Possible left lower lobe pneumonia ? aspiration pneumonia Noted to have leukocytosis, afebrile no hypoxia Chest x-ray and CT abdomen and pelvis showed subtle interstitial and patchy opacities left lower lobe corresponding with bronchiectasis and mucus impaction question infection or inflammatory on IV Zosyn started on 02/12 follow clinical course, blood cultures x2 negative, no evidence of sepsis will DC antibiotics after 5 day treatment Code status DNR DNI discussed with patient's nephew healthcare proxy DVT prophylaxis Lovenox subQ In my clinical judgment patient will need continued inpatient hospitalization for treatment of acute toxic metabolic encephalopathy and pneumonia on IV antibiotics. Time Spent With Patient Time: Total time managing care of this patient today ____ minutes. Quality Stroke Does the patient have a stroke diagnosis?: No VTE Prior VTE?: No VTE Risk Level:: Medical - moderate - high VTE Device Contraindication: Treatment Not Indicated VTE Drug Contraindication: N/A - Med Ordered
--- NOTE | 2023-02-14 18:00 | MHC.EDTECH ---
PATIENT WAS INCONTINENT OF URINE ,CARE GIVEN BEDDING CHANGE ,WARM BLANKET GIVEN .
--- NOTE | 2023-02-14 18:19 | PC.NURSE ---
pt continuing to yell out for help when staff enters the room and asks what he needs pt then yells leave me the fuck alone Nurse went in to d/c IV antx running, and pt would not let go of IV tubing, two staff members were able to free it from pt. Pt attempted to be redirected multiple times, offered multiple activies, pt just yells leave me the fuck alone at staff. Warm blankts given, verbal reassurance given, low stim noted.
[2023-02-14] MEDS: QUEtiapine Fumarate 50 MG TABLET PO (19:52)
[2023-02-14] MEDS: Divalproex Sodium 250 MG TABLET.DR PO (19:52)
[2023-02-14 20:02] VITALS: BP 142/86; PULSE 82; RESP 16; TEMP 36.4; O2SAT 96
--- NOTE | 2023-02-14 20:07 | MHC.EDTECH ---
PATIENT VITALS SIGN TAKEN ,PT AWAKE IN BED WATCHING TELEVISION .
[2023-02-14] MEDS: LORazepam 2 MG/ML VIAL 0.5 MG IVPUSH (22:10)
--- NOTE | 2023-02-14 22:22 | PC.NURSE ---
assisted out of bed for ROM. stood at bedside briefly and assisted back to bed. pt is unsteady on feet. cont to reinforce safety/ maintenance worker municipal at bedside.
[2023-02-15] MEDS: Piperacillin Sodium/Tazobactam 3.375 GM in 0.9 % Sodium Chloride 50 ML IV ×2 (00:16→05:29)
[2023-02-15] MEDS: 0.9 % Sodium Chloride Flush 3 ML SYRINGE IVFLUSH ×2 (00:20→09:48)
[2023-02-15] MEDS: QUEtiapine Fumarate 25 MG TABLET PO (00:22)
[2023-02-15 06:00] VITALS: BP 128/69; PULSE 90; RESP 16; TEMP 36.9; O2SAT 98
--- NOTE | 2023-02-15 06:00 | MHC.EDTECH ---
PATIENT WAS AWAKE MOST OF THE NIGHT FELL ASLEEP AROUND 0500 ,0600 VITALS SIGN TAKEN ,AM BLOOD DRAWN AND SENT TO LAB ,PATIENT WAS INCONTINENT ,CARE GIVEN .BED ALARM ON BED .
--- NOTE | 2023-02-15 06:08 | PC.NURSE ---
Assumed care at 2300. Pt was lethargic, but intermittently making some loud noises. Given 1 time PRN Seroquel. Occasional coughing noted. High risk for aspiration. There is a moderate amount of clear secretions in the buccal cavity, needing constant suctioning. HOB kept elevated to 30degrees. Scheduled omeprazole this am was held because pt is too sleepy and unable to swallow.
[2023-02-15 06:59] LABS: Hematocrit 34.1 % (42.0-52.0); Mean Corpuscular HGB Conc 32.3 g/dl (31.0-36.0); Mean Corpuscular Hemoglobin 28.4 pg (27.0-33.0); Mean Corpuscular Volume 87.9 fL (80.0-98.0); Mean Platelet Volume 9.9 fL (9.4-12.4); Platelet Count 223 X10*3/uL (160-400); Red Blood Count 3.88 X10*6/uL (4.60-5.80); Red Cell Distribution Width 14.2 % (11.0-16.0); White Blood Count 10.6 X10*3/uL (4.8-10.8)
[2023-02-15 07:01] LABS: Anion Gap 15 (12-20); Blood Urea Nitrogen 17 mg/dL (9-16); Calcium 8.5 mg/dL (8.4-10.2); Carbon Dioxide 23 mmol/L (22-29); Chloride 107 mmol/L (96-108); Creatinine Clr Calc Pharmacy 84.6; Estimated Glomerular Filt Rate > 60; Glucose Random 148 mg/dL (60-115); Potassium 3.8 mmol/L (3.3-5.1); Sodium 141 mmol/L (135-145)
--- NOTE | 2023-02-15 07:30 | PC.NURSE ---
PT IS SLEEPING RESP EVEN AND UNLABORED. PT HAS A CAMERA IN HIS ROOM AND A 1:1 SITTER AT BEDSIDE. SWALLOW EVAL ORDERED PER HOUSING AND RESIDENCE LIFE DIRECTOR RN PT HAD TO BE SUCTIONED WHILE SLEEPING
[2023-02-15 08:14] LABS: Procalcitonin 0.11 ng/mL
[2023-02-15 08:21] VITALS: BP 141/79; PULSE 88; RESP 24; TEMP 36.4; O2SAT 96
--- NOTE | 2023-02-15 12:15 | PC.NURSE ---
RN TO RN REPORT GIVEN TO LUC VALADEZ TO BE TRANSFER ROOM 383 WITH 1:1 SITTER AND CAMERA.
[2023-02-15] MEDS: Enoxaparin Sodium 40 MG/0.4 ML SYRINGE SUBCUT (12:34)
--- NOTE | 2023-02-15 14:28 | PC.NURSE ---
please note that pt was transferee to room 383 at 1237. lovenox 40mg was also given by this rn.
== END 2023-02-15 13:53 | disposition admitted as inpatient to this hospital (09) ==
PROVIDERS: Emergency Medicine; Family Medicine; Hospitalist; Nurse Practitioner Family; Physician Assistant; Social Worker; Emergency Provider Emergency Medicine Emergency Medical Services
DX: F03.90 Unspecified dementia, unspecified severity, without behavioral disturbance, psychotic disturbance, mood disturbance, and anxiety (principal); J69.0 Pneumonitis due to inhalation of food and vomit; G93.41 Metabolic encephalopathy; R41.82 Altered mental status, unspecified; R50.9 Fever, unspecified; R26.2 Difficulty in walking, not elsewhere classified; R47.02 Dysphasia; J98.11 Atelectasis; Z20.828 Contact with and (suspected) exposure to other viral communicable diseases; Z20.822 Contact with and (suspected) exposure to COVID-19; Z79.899 Other long term (current) drug therapy
CPT/HCPCS: 0241U; 36415; 70450; 71045; 74176; 80048; 80053; 80076; 80307; 81001; 81003; 82140; 82550; 82803; 82947; 83605; 83735; 84145; 84443; 84484; 85025; 85027; 85610; 85730; 87040; 87635; 93005; 97161; 99285; J0456; J0696; J1200; J1650; J2060; J2405; J2543; J3486

== ENCOUNTER → 2022-12-18 16:34 | Outpatient (BNV) | payer MEDICARE, MEDICAID, SELFPAY | PROVIDERS: Emergency Provider Emergency Medicine Emergency Medical Services; Visit Provider Internal Medicine | DX: F03.90 Unspecified dementia, unspecified severity, without behavioral disturbance, psychotic disturbance, mood disturbance, and anxiety (principal) | CPT/HCPCS: 99232; 99233; 99499 ==

== ENCOUNTER 2023-02-15 11:24 | Outpatient (BNV) | payer MEDICARE, MEDICAID, SELFPAY | END 2023-02-18 15:29 | PROVIDERS: Admitting Provider Family Medicine; Visit Provider Internal Medicine Cardiovascular Disease | DX: R94.31 Abnormal electrocardiogram [ECG] [EKG] (principal) | CPT/HCPCS: 93010 ==

== ENCOUNTER 2023-02-15 11:24 | Inpatient (IN) | payer MEDICARE, OTHER, SELFPAY ==
--- NOTE | ~2023-02-15 | XR_ITS ---
EXAMINATION: XR ABDOMEN KUB CLINICAL INDICATION: Constipation. COMPARISON: CT abdomen/pelvis 02/12/2023 TECHNIQUE: 2 views of the abdomen. FINDINGS: Minimal opacity in the lingula. Copious gas and stool throughout the colon. Fecal impaction in the rectum. No abnormal small bowel dilatation. XR/XR abdomen 1V IMPRESSION: Constipation.
--- OUTSIDE RECORDS SUMMARY | 2023-02-15 12:01 | XMS_ITS | Continuity of Care Document ---
Author Name Unknown Organization [facility] ter Address [address] [place] [address]- Care Team Providers Care Comprehensive Ophthalmologist Name Role Phone Erick CHEEMA, Alicia Chi Primary Care Physician Encounter [facility] Date(s): 04/29/22 - 04/30/[address] [address]- Discharge Disposition: A-D/C Home Attending Physician: Mohit Gomez MD Admitting Physician: Mohit Gomez MD Referring Physician: Not on Staff, Referring MD Allergies, Adverse Reactions, Alerts Substance Reaction Severity Status ibuprofen Unknown Active naproxen ALLERGY Active ketoconazole Unknown Active lorazepam ALLERGY Active ipratropium Unknown Active nitroglycerin Unknown Active oxycodone ALLERGY Active fluticasone Unknown Active loratadine Unknown Active fexofenadine ALLERGY Active Keflex ALLERGY Active cephalexin monohydrate Unknown Activ e Selenium Sulfide Unknown Active Mometasone Furoate Unknown Active Metoprolol Succinate ER Unknown Acti ve Azelastine Hydrochloride Unknown Act jelena Immunizations Given and Recorded Vaccine Date Status Refusal Reason SARS-CoV-2 (COVID-19) mRNA-1273 vaccine 12/25/20 R ecorded SARS-CoV-2 (COVID-19) mRNA-1273 vaccine 11/27/20 R ecorded influenza virus vaccine, inactivated 05/30/20 Marcelo rded influenza virus vaccine, inactivated 1 07/10/19 Gi mery influenza virus vaccine, inactivated 03/31/19 Marcelo rded influenza virus vaccine, inactivated 04/08/18 Marcelo rded influenza virus vaccine, inactivated 07/29/17 Marcelo rded influenza virus vaccine, inactivated 08/06/16 Marcelo rded influenza virus vaccine, inactivated 04/11/16 Marcelo rded pneumococcal 23-valent vaccine 07/22/18 Given pneumococcal 13-valent vaccine 06/27/18 Given Zoster Vaccine Live 10/09/13 Recorded tetanus-diphtheria toxoids (Td) 10/06/10 Given 1Result Comment: [facility] 60687-133-09 Problem List Condition Confirmation Course Effective Dates Status H ealth Status Informant BPH (benign prostatic hyperplasia) Confirmed Active Bronchiectasis Confirmed Active Epididymitis Confirmed Active History of chest pain Confirmed Active Hearing impaired Confirmed Active History of shortness of breath Confirmed Active Urinary frequency Confirmed Active Urge incontinence Confirmed Active Results Radiology Reports * Exam Date Time Procedure Performing Provider Status 04/29/22 9:41 PM Chest Portable Jerri Espinal; Auth (Verified) Notes: (Chest Portable) Reason For Exam: Shortness of Breath RESULT: Chest Portable Chest Portable Reason: Shortness of Breath; Clinical Question(s): CHF COMPARISON: 11/23/2017. FINDINGS: LINES AND TUBES: None. LUNGS AND PLEURA: Clear lungs. Normal pulmonary vascularity. No pleural effusion. No pneumothorax. HEART, MEDIASTINUM AND ALEXA: Heart is normal in size. Normal mediastinal and hilar contour. BONES AND SOFT TISSUES: No acute abnormality. IMPRESSION: No acute abnormality. WSN: [id number] Ordering Physician: Codie Rivera Dictated By: Khurram Saenz MD Dictated Date/Time: 04/29/22 9:42 pm Reviewed By: Khurram Saenz MD Signed By: Khurram Saenz MD Signed Date/Time: 04/29/22 9:42 pm Transcribed By: TAWNYA Transcribed Date/Time: 04/29/22 9:42 pm Vital Signs Most recent to oldest [Reference Range]: 1 2 3 Oxygen Saturation [94-100 %] 99 % (04/30/22 6:20 PM) 98 % (04/30/22 8:59 AM) 98 % (04/29/22 8:30 PM) Pulse Rate [55-90 bpm] 53 bpm *L* (04/30/22 6:20 PM) 74 bpm (04/30/22 8:59 AM) 50 bpm *L* (04/30/22 12:08 AM) Blood Pressure [90-138/55-84 mm Hg] 133/68mm Hg (04/30/22 6:20 PM) 136/53mm Hg (04/30/22 8:59 AM) 125/61mm Hg (04/30/22 12:08 AM) Respiratory Rate [16-30 br/min] 17 br/min (04/30/22 6:20 PM) 18 br/min (04/30/22 1:00 PM) 16 br/min (04/30/22 8:59 AM) Temperature [96.8-100.4 DegF] 98.1 DegF (04/30/22 12:08 AM) 97.8 DegF (04/29/22 8:30 PM) Mode of Delivery (Oxygen) Room air (04/30/22 6:20 PM) Room air (04/30/22 8:59 AM) Room air (04/29/22 8:30 PM) Blood pressure sites Arm, left (04/29/22 8:30 PM) Temperature Route Oral (04/30/22 12:08 AM) Oral (04/29/22 8:30 PM) Social History Social History Type Response Smoking Status Never smoker entered on: 09/24/16 Sex Portable XR Chest Views * BHSPowerscribe , CIS S: TRANSCRIBE Khurram Saenz MD: VERIFY Event Display: Result: Authored Date: [id number] Chest Portable Reason: Shortness of Breath; Clinical Question(s): CHF COMPARISON: 11/23/2017. FINDINGS: LINES AND TUBES: None. LUNGS AND PLEURA: Clear lungs. Normal pulmonary vascularity. No pleural effusion. No pneumothorax. HEART, MEDIASTINUM AND ALEXA: Heart is normal in size. Normal mediastinal and hilar contour. BONES AND SOFT TISSUES: No acute abnormality. IMPRESSION: No acute abnormality. WSN: [id number] Ordering Physician: Codie Rivera Dictated By: Khurram Saenz MD Dictated Date/Time: 04/29/22 9:42 pm Reviewed By: Khurram Saenz MD Signed By: Khurram Saenz MD Signed Date/Time: 04/29/22 9:42 pm Transcribed By: TAWNYA Transcribed Date/Time: 04/29/22 9:42 pm Patient Care team information Personnel Name: Alicia Suarez NP Address: Address: [address] [address]- [place]
--- OUTSIDE RECORDS SUMMARY | 2023-02-15 12:01 | XMS_ITS | Continuity of Care Document ---
Author Name Unknown Organization [facility] Adult Address [address] [place] [address]- Care Team Providers Care Automobile Glass Technician Name Role Phone Alicia Suarez NP Primary Care Physician Encounter [facility] Date(s): 09/01/22 - 09/08/22 [facility] [address] [place] [id number]- Encounter Diagnosis Major neurocognitive disorder(Discharge Diagnosis) - 09/01/22 Intellectual disability(Discharge Diagnosis) - 09/01/22 Attending Physician: Josesito Barr MD Allergies, Adverse Reactions, Alerts Substance Reaction [...] and Recorded Vaccine Date Status Refusal Reason [id number] bivalent booster vax 06/03/22 Recorded influenza virus vaccine, inactivated 06/03/22 Marcelo rded influenza virus vaccine, inactivated 05/30/20 Marcelo rded influenza virus vaccine, inactivated 1 07/10/19 Gi mery influenza virus vaccine, inactivated 03/31/19 Marcelo rded influenza virus vaccine, inactivated 04/08/18 Marcelo rded influenza virus vaccine, inactivated 07/29/17 Marcelo rded influenza virus vaccine, inactivated 08/06/16 Marcelo rded influenza virus vaccine, inactivated 04/11/16 Marcelo rded SARS-CoV-2 (COVID-19) mRNA-1273 vaccine 12/25/20 R ecorded SARS-CoV-2 (COVID-19) mRNA-1273 vaccine 11/27/20 R ecorded pneumococcal 23-valent vaccine 07/22/18 Given pneumococcal 13-valent vaccine 06/27/18 Given Zoster Vaccine Live 10/09/13 Recorded tetanus-diphtheria toxoids (Td) 10/06/10 Given 1Result Comment: [facility] [id number] Problem List Condition Confirmation Course Effective Dates Status H ealth Status Informant BPH (benign prostatic hyperplasia) Confirmed Active Bronchiectasis Confirmed Active Epididymitis Confirmed Active History of chest pain Confirmed Active Hearing impaired Confirmed Active History of shortness of breath Confirmed Active Urinary frequency Confirmed Active Intellectual disability Confirmed Active Major neurocognitive disorder Confirmed Active Urge incontinence Confirmed Active Diagnosis Diagnosis Type Effective Dates Health Status Clinical Service Informant Major neurocognitive disorder Discharge Diagnosis 09/01/22 Intellectual disability Discharge Diagnosis 09/01/22 Vital Signs Most recent to oldest [Reference Range]: 1 Height 162 cm (09/01/22 1:38 PM) Weight 64.7 kg (09/01/22 1:38 PM) Oxygen Saturation [94-100 %] 100 % (09/01/22 1:38 PM) Pulse Rate [55-90 bpm] 53 bpm *L* (09/01/22 1:38 PM) Body Mass Index [18.5-24.99 kg/m2] 24.65 kg/m2 (09/01/22 1:38 PM) Blood Pressure [90-138/55-84 mm Hg] 98/5 4mm Hg (09/01/22 1:38 PM) Temperature [96.8-100.4 DegF] 98.6 DegF (09/01/22 1:38 PM) Mode of Delivery (Oxygen) Room air (09/01/22 1:38 PM) Blood pressure sites Arm, left (09/01/22 1:38 PM) Temperature Route Temporal (09/01/22 1:38 PM) Weight Obtained Via Standing scale (09/01/22 1:38 PM) Social History Social History Type Response Smoking Status Never smoker entered on: 09/24/16 Sex Patient Care team information Care Team Personnel Name: Erick CHEEMA, Alicia Chi Position: S PCO Associate Professional Member Role: PCP Address: Address: [address] [place] [address] [address] [place], [place] [address] Name: Nuha Leigh RN Position: [facility] Nurse Member Role: Primary Care Nurse Name: Karen Campbell RN Position: [facility] Hospital Can Machine Operator Member Role: Primary Care Nurse Care Team Related Persons Name: ADRIEL VICTORIA Address: home [address] [place] [address] OF [employer] [place] [address] Name: ANANTH HARRELL Address: [place] [address]
--- OUTSIDE RECORDS SUMMARY | 2023-02-15 12:01 | XMS_ITS | Continuity of Care Document ---
Author Name Unknown Organization [facility] Address [address] [place] [address]- Care Team Providers Care Federal District Clerk Name Role Phone Erick CHEEMA, Alicia Chi Primary Care Physician [place] [facility] Date(s): 02/05/20 - 03/06/[address] [address]- [facility] Attending Physician: Ruben Nunes Admitting Physician: AdmtrRuben Referring Physician: AdmtrRuben Allergies, Adverse Reactions, Alerts Substance Reaction Severity [...] and Recorded Vaccine Date Status Refusal Reason influenza virus vaccine, inactivated 1 07/10/19 Gi mery influenza virus vaccine, inactivated 04/08/18 Marcelo rded pneumococcal 23-valent vaccine 07/22/18 Given pneumococcal 13-valent vaccine 06/27/18 Given tetanus-diphtheria toxoids (Td) 10/06/10 Given 1Result Comment: [facility] [id number] Problem List Condition Effective Dates Status Health Status Inform ant BPH (benign prostatic hyperplasia)(Confirmed) Active Bronchiectasis(Confirmed) Active Epididymitis(Confirmed) Active History of chest pain(Confirmed) Active Hearing impaired(Confirmed) Active History of shortness of breath(Confirmed) Active Urinary frequency(Confirmed) Active Urge incontinence(Confirmed) Active Social History Social History Type Response Smoking Status Never smoker entered on: 09/24/16 Sex
--- OUTSIDE RECORDS SUMMARY | 2023-02-15 12:01 | XMS_ITS | Continuity of Care Document ---
Author Name Unknown Organization [facility] Adult Address [address] [place] [address]- Care Team Providers Care Entry Level Programmer Name Role Phone Erick CHEEMA, Alicia Chi Primary Care Physician Encounter [facility] Date(s): 05/07/22 - 05/14/22 [facility] [address] [place] [address] Encounter Diagnosis Confusion(Discharge Diagnosis) - 05/07/22 Attending Physician: Alicia Suarez NP Allergies, Adverse Reactions, Alerts Substance Reaction Severity [...] tetanus-diphtheria toxoids (Td) 10/06/10 Given 1Result Comment: [facility] [id number] Problem List Condition Confirmation Course Effective Dates Status H ealth Status Informant BPH (benign prostatic hyperplasia) Confirmed Active Bronchiectasis Confirmed Active Epididymitis Confirmed Active History of chest pain Confirmed Active Hearing impaired Confirmed Active History of shortness of breath Confirmed Active Urinary frequency Confirmed Active Urge incontinence Confirmed Active Diagnosis Diagnosis Type Effective Dates Health Status Clini verna Service Informant Confusion Discharge Diagnosis 05/07/22 Vital Signs Most recent to oldest [Reference Range]: 1 Height 162 cm (05/07/22 1:21 PM) Weight 60.3 kg (05/07/22 1:21 PM) Oxygen Saturation [94-100 %] 99 % (05/07/22 1:21 PM) Pulse Rate [55-90 bpm] 59 bpm (05/07/22 1:21 PM) Body Mass Index [18.5-24.99 kg/m2] 22.98 kg/m2 (05/07/22 1:21 PM) Blood Pressure [90-138/55-84 mm Hg] 103/ 57mm Hg (05/07/22 1:21 PM) Temperature [96.8-100.4 DegF] 98.4 DegF (05/07/22 1:21 PM) Mode of Delivery (Oxygen) Room air (05/07/22 1:21 PM) Blood pressure sites Arm, left (05/07/22 1:21 PM) Temperature Route Temporal (05/07/22 1:21 PM) Weight Obtained Via Standing scale (05/07/22 1:21 PM) Social History Social History Type Response Smoking Status Never smoker entered on: 09/24/16 Sex Patient Care team information Personnel Name: Erick CHEEMA, Alicia Chi Address: Address: [address] [place], [place] [address]
--- OUTSIDE RECORDS SUMMARY | 2023-02-15 12:02 | XMS_ITS | Continuity of Care Document ---
Author Name Unknown Organization [facility] Adult Address [address] [place] [address]- Care Team Providers Care Atmospheric Drier Tender Name Role Phone Erick CHEEMA, Alicia Chi Primary Care Physician Encounter [facility] Date(s): 10/01/21 - 10/31/[address] [address] Allergies, Adverse Reactions, Alerts Substance Reaction Severity Status ibuprofen Unknown Active naproxen ALLERGY Active ketoconazole Unknown Active lorazepam ALLERGY Active ipratropium Unknown Active nitroglycerin Unknown Active oxycodone ALLERGY Active fluticasone Unknown Active loratadine Unknown Active fexofenadine ALLERGY Active Keflex ALLERGY Active cephalexin monohydrate Unknown Activ e Mometasone Furoate Unknown Active Metoprolol Succinate ER Unknown Acti ve Azelastine Hydrochloride Unknown Act jelena Selenium Sulfide Unknown Active Immunizations Given and Recorded Vaccine Date Status [...] tetanus-diphtheria toxoids (Td) 10/06/10 Given 1Result Comment: [facility] 66069-861-44 Problem List Condition Effective Dates Status Health Status Inform ant BPH (benign prostatic hyperplasia)(Confirmed) Active Bronchiectasis(Confirmed) Active Epididymitis(Confirmed) Active History of chest pain(Confirmed) Active Hearing impaired(Confirmed) Active History of shortness of breath(Confirmed) Active Urinary frequency(Confirmed) Active Urge incontinence(Confirmed) Active Social History Social History Type Response Smoking Status Never smoker entered on: 09/24/16 Sex
--- OUTSIDE RECORDS SUMMARY | 2023-02-15 12:02 | XMS_ITS | Continuity of Care Document ---
Author Name Unknown Organization [facility] Adult Address [address] [place] [address]- Care Team Providers Care Octave Board Racker Name Role Phone Alicia Suarez NP Primary Care Physician [place] [facility] [place] Date(s): 07/08/22 - 07/15/[address] [address]- Encounter Diagnosis Hearing impaired(Discharge Diagnosis) - 07/08/22 Mood swings(Discharge Diagnosis) - 07/08/22 Attending Physician: Alicia Suarez NP Allergies, Adverse [...] and Recorded Vaccine Date Status Refusal Reason [id number] bivalent booster vax 06/03/22 Recorded influenza virus [...] tetanus-diphtheria toxoids (Td) 10/06/10 Given 1Result Comment: [facility][NOTE 3] 45033-127-17 Problem List Condition Confirmation Course Effective Dates Status H ealth Status Informant BPH (benign prostatic hyperplasia) Confirmed Active Bronchiectasis Confirmed Active Epididymitis Confirmed Active History of chest pain Confirmed Active Hearing impaired Confirmed Active History of shortness of breath Confirmed Active Urinary frequency Confirmed Active Urge incontinence Confirmed Active Diagnosis Diagnosis Type Effective Dates Health Status Cl inical Service Informant Hearing impaired Discharge Diagnosis 07/08/22 Mood swings Discharge Diagnosis 07/08/22 Vital Signs Most recent to oldest [Reference Range]: 1 Height 162 cm (07/08/22 8:06 AM) Weight 62.6 kg (07/08/22 8:06 AM) Oxygen Saturation [94-100 %] 98 % (07/08/22 8:06 AM) Pulse Rate [55-90 bpm] 64 bpm (07/08/22 8:06 AM) Body Mass Index [18.5-24.99 kg/m2] 23.85 kg/m2 (07/08/22 8:06 AM) Blood Pressure [90-138/55-84 mm Hg] 124/ 71mm Hg (07/08/22 8:06 AM) Temperature [96.8-100.4 DegF] 97.9 DegF (07/08/22 8:06 AM) Mode of Delivery (Oxygen) Room air (07/08/22 8:06 AM) Blood pressure sites Arm, right (07/08/22 8:06 AM) Temperature Route Temporal (07/08/22 8:06 AM) Weight Obtained Via Standing scale (07/08/22 8:06 AM) Social History Social History Type Response Smoking Status Never smoker entered on: 09/24/16 Sex Note * Brittanie Chen: PERFORM, SIGN, VERIFY Event Display: Patient Education/Instruction Authored Date: [id number] [facility] *[facility] [place] [facility] Clinical Summary Name JIGAR HARRELL Age 76 Years 1945 PCP Erick CHEEMA, [id number] Visit Date 07/08/2022 07:50:00 Additional Instructions: Scheduled Appointments?? Future Appointments ?*Rehab??Adult??Aud ?Phone:??--?Fax:??-- ?Appt. Date:??07/08/2022?1:00 PM ?Scheduled Provider:??Milagros Snowden Follow-Up Instructions ?? Diagnosis Emotional lability; Unspecified hearing loss, unspecified ear Medications: Please continue your medications until treatment is completed or stopped by your provider. Discuss any questions related to medications with your provider. Allergy Info:?? Azelastine Hydrochloride; Metoprolol Succinate ER; Mometasone Furoate; Selenium Sulfide; cephalexin monohydrate; Keflex; fexofenadine; loratadine; fluticasone; oxycodone; nitroglycerin; ipratropium; lorazepam; ketoconazole; naproxen; ibuprofen Medications Given This Visit Future Orders ?No future orders Vital Signs Height 162 cm Weight 62.6 kg BMI 23.85 kg/m2 Blood Pressure 124 mm Hg/71 mm Hg Temperature 97.9 DegF Pulse Rate 64 bpm Respiratory Rate 02 Sat Mode of Delivery 98 %/Room air You can now view a summary of your hospital visit from the comfort of your home through a free online portal called [employer]. [employer] is a website that allows you to securely view your medical information including discharge summary, medications and follow-up visits. ??You can alsosend a secure electronic message to your doctor???s office to request appointments, renew medications or just ask a question. You can enroll at [email or web address] or register during your next office visit. Disclaimer:?? The information provided is of a general nature and is intended to be used in conjunction with the recommendations and advice of your health care practitioner. ??Every effort has been made to ensure that the information provided is accurate and complete at the time it is provided to you however, as your needs change, or, as new ??information becomes available, different or additional instructions may be required. If you have questions, please consult with your primary care provider or pharmacist, as appropriate. ??This information is not intended to serve as substitution for assessment and evaluation by a qualified health care provider. If you do not have a primary care provider, you may find a [facility] provider by calling [facility] [employer] [facility] at [phone]. For information about the plan of care including goals and instructions for your diagnosis, please see the patient education orders section of this document. Patient Education Materials?? The content of this educational material or handout may have been modified, supplemented, or adapted from its original content and format to support your individualized medical care. Patient Care team information Care Team Personnel Name: Alicia Suarez NP Position: [facility] PCO Associate Professional Member Role: PCP Address: Address: [address] 3rd Floor [place], [place] [address] Name: Nuha Leigh RN Position: [facility] Nurse Member Role: Primary Care Nurse Name: Karen Campbell RN Position: [facility] Hospital Human Factors Specialist Member Role: Primary Care Nurse Care Team Related Persons Name: ADRIEL VICTORIA Address: home [address] [place] [address] [place] [address] Name: ANANTH HARRELL Address: [place] [address]
--- OUTSIDE RECORDS SUMMARY | 2023-02-15 12:02 | XMS_ITS | Continuity of Care Document ---
Author Name Unknown Organization [facility] Adult Address [address] [place] [address]- Care Team Providers Care Air Deodorizer Servicer Name Role Phone Erick CHEEMA, Alicia Chi Primary Care Physician Encounter [facility] [place] Date(s): 07/16/20 - 08/15/20 [facility] Adult [address] [place] [address] Attending Physician: Admcharisma, [id number] Admitting Physician: Admtr, Ar8 Referring Physician: Admtr, Ar8 Allergies, Adverse Reactions, Alerts Substance Reaction Severity [...] tetanus-diphtheria toxoids (Td) 10/06/10 Given 1Result Comment: [facility] 33302-578-67 Problem List Condition Effective Dates Status Health Status Inform ant BPH (benign prostatic hyperplasia)(Confirmed) Active Bronchiectasis(Confirmed) Active Epididymitis(Confirmed) Active History of chest pain(Confirmed) Active Hearing impaired(Confirmed) Active History of shortness of breath(Confirmed) Active Urinary frequency(Confirmed) Active Urge incontinence(Confirmed) Active Social History Social History Type Response Smoking Status Never smoker entered on: 2/23/17 Sex
--- OUTSIDE RECORDS SUMMARY | 2023-02-15 12:02 | XMS_ITS | Continuity of Care Document ---
Author Name Unknown Organization [facility] Adult Address [address] [place] [address]- Care Team Providers Care Control Chemist Name Role Phone Erick CHEEMA, Alicia Chi Primary Care Physician [place] [facility] Date(s): 10/29/22 - 11/28/22 [facility] Adult [address] [place] [address]- Attending Physician: Admtr, [id number] Admitting Physician: Admtr, Ar8 Referring Physician: [...] and Recorded Vaccine Date Status Refusal Reason [id number] bivalent booster vax 06/03/22 Recorded influenza virus [...] tetanus-diphtheria toxoids (Td) 10/06/10 Given 1Result Comment: [facility] 50894-928-46 Problem List Condition Confirmation Course Effective Dates Status H ealth Status Informant BPH (benign prostatic hyperplasia) Confirmed Active Bronchiectasis Confirmed Active Epididymitis Confirmed Active History of chest pain Confirmed Active Hearing impaired Confirmed Active History of shortness of breath Confirmed Active Urinary frequency Confirmed Active Intellectual disability Confirmed Active Major neurocognitive disorder Confirmed Active Urge incontinence Confirmed Active Social History Social History Type Response Smoking Status Never smoker entered on: 09/24/16 Sex Note * Event Display: Laboratory Result Scanned Authored Date: [id number] * Event Display: Laboratory Result Scanned Authored Date: [id number] Patient Care team information Care Team Personnel Name: Erick CHEEMA, Alicia Chi Position: [facility] PCO Associate Professional Member Role: PCP Address: Address: [address] [place] [address]- Name: Nuha Leigh RN Position: [facility] OB RN Member Role: Primary Care Nurse Name: Karen Campbell RN Position: [facility] Hospital Repairer Wood Furniture Member Role: Primary Care Nurse Care Team Related Persons Name: ADRIEL VICTORIA Address: home [address] [place] [address] [place] [address] Name: ANANTH HARRELL Address: [place] [address]
--- OUTSIDE RECORDS SUMMARY | 2023-02-15 12:02 | XMS_ITS | Continuity of Care Document ---
Author Name Unknown Organization [facility] Adult Address [address] [place] [address]- Care Team Providers Care Home Health Care Physician Name Role Phone Alicia Suarez NP Primary Care Physician Encounter [facility] [place] Date(s): 09/25/22 - 10/25/22 [facility] Adult [address] [place] [address]- Allergies, Adverse Reactions, Alerts Substance Reaction Severity [...] and Recorded Vaccine Date Status Refusal Reason [id number] bivalent booster vax 06/03/22 Recorded influenza virus [...] tetanus-diphtheria toxoids (Td) 10/06/10 Given 1Result Comment: [facility] 50072-035-32 Problem List Condition Confirmation Course Effective Dates [...] Team Personnel Name: Alicia Suarez NP Position: [facility] PCO Associate Professional Member Role: PCP Address: Address: [address] [place] [address] [address]rd [place] [address]- Name: Nuha Leigh RN Position: [facility] OB RN Member Role: Primary Care Nurse Name: Karen Campbell RN Position: [facility] Hospital Die Maintenance Technician Member Role: Primary Care Nurse Care Team Related Persons Name: ADRIEL VICTORIA Address: home [address] [place] [address] [place] [address] Name: ANANTH HARRELL Address: [place] [address]
--- OUTSIDE RECORDS SUMMARY | 2023-02-15 12:02 | XMS_ITS | Continuity of Care Document ---
Author Name Unknown Organization [facility] Adult Address [address] [place] [address]- Care Team Providers Care Land Resource Specialist Name Role Phone Erick CHEEMA, Alicia Chi Primary Care Physician [place] [facility] [place] Date(s): 02/24/21 - 03/26/21 [facility] Adult [address] [place] [address]- Allergies, Adverse Reactions, Alerts Substance Reaction Severity [...] Status Refusal Reason SARS-CoV-2 (COVID-19) mRNA-1273 vaccine 11/27/20 R ecorded influenza virus vaccine, inactivated 1 07/10/19 Gi mery influenza virus vaccine, inactivated 04/08/18 Marcelo rded pneumococcal 23-valent vaccine 07/22/18 Given pneumococcal 13-valent vaccine 06/27/18 Given tetanus-diphtheria toxoids (Td) 10/06/10 Given 1Result Comment: [facility] 77183-080-95 Problem List Condition Effective Dates Status Health Status Inform ant BPH (benign prostatic hyperplasia)(Confirmed) Active Bronchiectasis(Confirmed) Active Epididymitis(Confirmed) Active History of chest pain(Confirmed) Active Hearing impaired(Confirmed) Active History of shortness of breath(Confirmed) Active Urinary frequency(Confirmed) Active Urge incontinence(Confirmed) Active Social History Social History Type Response Smoking Status Never smoker entered on: 09/24/16 Sex
--- OUTSIDE RECORDS SUMMARY | 2023-02-15 12:02 | XMS_ITS | Continuity of Care Document ---
Author Name Unknown Organization [facility] Adult Address [address] [place] [address]- Care Team Providers Care Lmft Name Role Phone Alicia Suarez NP Primary Care Physician En[place] [facility] Date(s): 11/18/22 - 12/18/22 [facility] Adult [address] [place] [address]- Allergies, Adverse Reactions, Alerts Substance Reaction Severity Status ibuprofen Unknown Active naproxen ALLERGY Active ketoconazole Unknown Active lorazepam ALLERGY Active ipratropium Unknown Active nitroglycerin Unknown Active oxycodone ALLERGY Active fluticasone Unknown Active loratadine Unknown Active fexofenadine ALLERGY Active Mometasone Furoate Unknown Active Metoprolol Succinate ER Unknown Acti ve Azelastine Hydrochloride Unknown Act jelena Keflex ALLERGY Active cephalexin monohydrate Unknown Activ e Selenium Sulfide Unknown Active Immunizations Given and Recorded Vaccine Date Status Refusal Reason [id number] bivalent booster vax 06/03/22 Recorded influenza virus [...] toxoids (Td) 10/06/10 Given 1Result Comment: [facility] 49123-150-57 Problem List Condition Confirmation Course Effective Dates [...] Team Personnel Name: Alicia Suarez NP Position: [facility] PCO Associate Professional Member Role: PCP Address: Address: [address] [place] [address] [address]rd [place] [address]- Name: Nuha Leigh RN Position: [facility] OB RN Member Role: Primary Care Nurse Name: Karen Campbell RN Position: [facility] Hospital Motors And Controls Tester Member Role: Primary Care Nurse Care Team Related Persons Name: ADRIEL VICTORIA Address: home [address] [place] [address] [place] [address] Name: ANANTH HARRELL Address: [place] [address]
--- OUTSIDE RECORDS SUMMARY | 2023-02-15 12:02 | XMS_ITS | Continuity of Care Document ---
Author Name Unknown Organization [facility] Adult Address [address] [place] [address]- Care Team Providers Care Well Logger Name Role Phone Alicia Suarez NP Primary Care Physician En[facility] [place] Date(s): 10/20/22 - 11/19/22 [facility] Adult [address] [place] [address]- Allergies, Adverse Reactions, Alerts Substance Reaction Severity [...] and Recorded Vaccine Date Status Refusal Reason [id number] bivalent booster vax 06/03/22 Recorded influenza virus [...] tetanus-diphtheria toxoids (Td) 10/06/10 Given 1Result Comment: [facility] 12613-332-90 Problem List Condition Confirmation Course Effective Dates [...] Team Personnel Name: Alicia Suarez NP Position: [facility] PCO Associate Professional Member Role: PCP Address: Address: [address] [place] [address] 3rd [place] [address]- Name: Nuha Leigh RN Position: [facility] OB RN Member Role: Primary Care Nurse Name: Karen Campbell RN Position: [facility] Hospital Molded Goods Inspector Trimmer Member Role: Primary Care Nurse Care Team Related Persons Name: ADRIEL VICTORIA Address: home [address] [place] [address] [place] [address] Name: ANANTH HARRELL Address: [place] [address]
--- OUTSIDE RECORDS SUMMARY | 2023-02-15 12:02 | XMS_ITS | Continuity of Care Document ---
Author Name Unknown Organization [facility] Adult Address [address] [place] [address]- Care Team Providers Care Non Destructive Evaluation Technician Name Role Phone Erick CHEEMA, Alicia Chi Primary Care Physician Encounter [facility] [place] Date(s): 07/01/21 - 07/08/[address] [address] Encounter Diagnosis Memory changes(Discharge Diagnosis) - 07/01/21 Incontinence(Discharge Diagnosis) - 07/01/21 Attending Physician: Alicia Suarez NP Allergies, Adverse [...] 10/06/10 Given 1Result Comment: [facility] 96577-589-90 Problem List Condition Effective Dates Status Health Status Inform ant BPH (benign prostatic hyperplasia)(Confirmed) Active Bronchiectasis(Confirmed) Active Epididymitis(Confirmed) Active History of chest pain(Confirmed) Active Hearing impaired(Confirmed) Active History of shortness of breath(Confirmed) Active Urinary frequency(Confirmed) Active Urge incontinence(Confirmed) Active Diagnosis Diagnosis Type Effective Dates Health Status Cl inical Service Informant Memory changes Discharge Diagnosis 07/01/21 Incontinence Discharge Diagnosis 07/01/21 Vital Signs Most recent to oldest [Reference Range]: 1 Height 162 cm (07/01/21 11:31 AM) Weight 62.3 kg (07/01/21 11:31 AM) Oxygen Saturation [94-100 %] 100 % (07/01/21 11:31 AM) Pulse Rate [55-90 bpm] 55 bpm (07/01/21 11:31 AM) Body Mass Index [18.5-24.99] 23.74 (07/01/21 11:31 AM) Blood Pressure [90-138/55-84 mm Hg] 108/ 65mm Hg (07/01/21 11:31 AM) Mode of Delivery (Oxygen) Room air (07/01/21 11:31 AM) Blood pressure sites Arm, left (07/01/21 11:31 AM) Weight Obtained Via Standing scale (07/01/21 11:31 AM) Social History Social History Type Response Smoking Status Never smoker entered on: 09/24/16 Sex
--- OUTSIDE RECORDS SUMMARY | 2023-02-15 12:02 | XMS_ITS | Continuity of Care Document ---
Author Name Unknown Organization [facility] Address [address] [place] [address]- Care Team Providers Care Forestry Adviser Name Role Phone Erick CHEEMA, Alicia Chi Primary Care Physician [place] [facility] [place] Date[place] 07/08/22 - 08/07/[address] [address] Attending Physician: AdmRuben zafar Admitting Physician: Admtr, [id number] Referring Physician: Admtr, Ar8 Allergies, Adverse Reactions, Alerts Substance Reaction Severity Status ibuprofen Unknown Active naproxen ALLERGY Active oxycodone ALLERGY Active ketoconazole Unknown Active lorazepam ALLERGY Active ipratropium Unknown Active nitroglycerin Unknown Active fluticasone Unknown Active loratadine Unknown Active Mometasone Furoate Unknown Active fexofenadine ALLERGY Active Keflex ALLERGY Active cephalexin monohydrate Unknown Activ e Selenium Sulfide Unknown Active Metoprolol Succinate ER Unknown Acti ve Azelastine Hydrochloride Unknown Act jelena Immunizations Given and Recorded Vaccine Date Status Refusal Reason [id number] bivalent booster vax 06/03/22 Recorded influenza virus [...] toxoids (Td) 10/06/10 Given 1Result Comment: [facility] 23698-931-28 Problem List Condition Confirmation Course Effective Dates Status H ealth Status Informant BPH (benign prostatic hyperplasia) Confirmed Active Bronchiectasis Confirmed Active Epididymitis Confirmed Active History of chest pain Confirmed Active Hearing impaired Confirmed Active History of shortness of breath Confirmed Active Urinary frequency Confirmed Active Urge incontinence Confirmed Active Social History Social History Type Response Smoking Status Never smoker entered on: 09/24/16 Sex Patient Care team information Care Team Personnel Name: Erick CHEEMA, Alicia Chi Position: [facility] PCO Associate Professional Member Role: PCP Address: Address: [address] [place] [address] [address]rd [place] [address]- Name: Nuha Leigh RN Position: [facility] Nurse Member Role: Primary Care Nurse Name: Karen Campbell RN Position: [facility] Hospital Agricultural Sales Representative Member Role: Primary Care Nurse Care Team Related Persons Name: ADRIEL VICTORIA Address: home [address] [place] [address] [place] [address] Name: ANANTH HARRELL Address: [place] [address]
--- OUTSIDE RECORDS SUMMARY | 2023-02-15 12:02 | XMS_ITS | Continuity of Care Document ---
Author Name Unknown Organization [facility] Adult Address [address] [place] [address]- Care Team Providers Care Farm Helper Name Role Phone Erick CHEEMA, Alicia Chi Primary Care Physician [id number] Date(s): 01/09/20 - 01/16/[address] [address] Encounter Diagnosis BPH (benign prostatic hyperplasia)(Discharge Diagnosis) - 01/09/20 Bronchiectasis(Discharge Diagnosis) - 01/09/20 Hearing impaired(Discharge Diagnosis) - 01/09/20 Attending Physician: Alicia Suarez NP Allergies, Adverse [...] Comment: [facility] 96170-179-20 Problem List Condition Effective Dates Status Health Status Inform ant BPH (benign prostatic hyperplasia)(Confirmed) Active Bronchiectasis(Confirmed) Active Epididymitis(Confirmed) Active History of chest pain(Confirmed) Active Hearing impaired(Confirmed) Active History of shortness of breath(Confirmed) Active Urinary frequency(Confirmed) Active Urge incontinence(Confirmed) Active Diagnosis Diagnosis Type Effective Dates Health Status Clinical Service Informant BPH (benign prostatic hyperplasia) Discharge Diagnosis 01/09/20 Bronchiectasis Discharge Diagnosis 01/09/20 Hearing impaired Discharge Diagnosis 01/09/20 Vital Signs Most recent to oldest [Reference Range]: 1 2 Height 162 cm (01/09/20 2:32 PM) 162 cm (01/09/20 2:09 PM) Weight 66.8 kg (01/09/20 2:09 PM) Oxygen Saturation [94-100 %] 97 % (01/09/20 2:09 PM) Pulse Rate [55-90 bpm] 57 bpm (01/09/20 2:09 PM) Body Mass Index [18.5-24.99] 25.45 *H* (01/09/20 2:09 PM) Blood Pressure [90-138/55-84 mm Hg] 102/ 62mm Hg (01/09/20 2:32 PM) 102/58mm Hg (01/09/20 2:09 PM) Respiratory Rate [16-30 br/min] 18 br/mi n (01/09/20 2:09 PM) Mode of Delivery (Oxygen) Room air (01/09/20 2:09 PM) Blood pressure sites Arm, left (01/09/20 2:32 PM) Arm, left (01/09/20 2:09 PM) Weight Obtained Via Standing scale (01/09/20 2:09 PM) Social History Social History Type Response Smoking Status Never smoker entered on: 09/24/16 Sex
--- OUTSIDE RECORDS SUMMARY | 2023-02-15 12:02 | XMS_ITS | Continuity of Care Document ---
Author Name Unknown Organization [facility] Adult Address [address] [place] [address]- Care Team Providers Care Surgical Training Specialist Name Role Phone Erick CHEEMA, Alicia Chi Primary Care Physician En[place] [facility] [place] Date(s): 04/17/20 - 08/15/20 [facility] Adult [address] [place] [address]- Attending Physician: Alicia Suarez NP Allergies, Adverse [...] tetanus-diphtheria toxoids (Td) 10/06/10 Given 1Result Comment: [facility] 94414-690-81 Problem List Condition Effective Dates Status Health Status Inform ant BPH (benign prostatic hyperplasia)(Confirmed) Active Bronchiectasis(Confirmed) Active Epididymitis(Confirmed) Active History of chest pain(Confirmed) Active Hearing impaired(Confirmed) Active History of shortness of breath(Confirmed) Active Urinary frequency(Confirmed) Active Urge incontinence(Confirmed) Active Social History Social History Type Response Smoking Status Never smoker entered on: 09/24/16 Sex
--- OUTSIDE RECORDS SUMMARY | 2023-02-15 12:02 | XMS_ITS | Continuity of Care Document ---
Author Name Unknown Organization [facility] Adult Address [address] [place] [address]- Care Team Providers Care Junior Qa Analyst Name Role Phone Alicia Suarez NP Primary Care Physician En[place] [facility] [place](s): 08/21/22 - 09/20/22 [facility] Adult [address] [place] [address]- Allergies, Adverse Reactions, Alerts Substance Reaction Severity [...] and Recorded Vaccine Date Status Refusal Reason [id number] bivalent booster vax 06/03/22 Recorded influenza virus [...] tetanus-diphtheria toxoids (Td) 10/06/10 Given 1Result Comment: [facility] 44617-508-28 Problem List Condition Confirmation Course Effective Dates [...] Team Personnel Name: Alicia Suarez NP Position: [facility] Associate Professional Member Role: PCP Address: Address: [address] [place] [address] 3rd [place] [address]- Name: Nuha Leihg RN Position: [facility] Nurse Member Role: Primary Care Nurse Name: Karen Campbell RN Position: [facility] Hospital Route Aide Member Role: Primary Care Nurse Care Team Related Persons Name: ADRIEL VI[place]IA Address: home [address] [facility] [place] [address] Name: ANANTH HARRELL Address: [place] [address]
--- OUTSIDE RECORDS SUMMARY | 2023-02-15 12:02 | XMS_ITS | Continuity of Care Document ---
Author Name Unknown Organization [facility] Adult Address [address] [place] [address]- Care Team Providers Care Project Superintendent Name Role Phone Alicia Suarez NP Primary Care Physician [place] [facility] [place] 03/07/20 - 04/06/20 [facility] Adult [address] [place] [address]- [facility] Allergies, Adverse Reactions, Alerts Substance Reaction Severity [...] tetanus-diphtheria toxoids (Td) 10/06/10 Given 1Result Comment: [facility] 04430-137-78 Problem List Condition Effective Dates Status Health Status Inform ant BPH (benign prostatic hyperplasia)(Confirmed) Active Bronchiectasis(Confirmed) Active Epididymitis(Confirmed) Active History of chest pain(Confirmed) Active Hearing impaired(Confirmed) Active History of shortness of breath(Confirmed) Active Urinary frequency(Confirmed) Active Urge incontinence(Confirmed) Active Social History Social History Type Response Smoking Status Never smoker entered on: 09/24/16 Sex
--- OUTSIDE RECORDS SUMMARY | 2023-02-15 12:02 | XMS_ITS | Continuity of Care Document ---
Author Name Unknown Organization [facility] Adult Address [address] [place] [address]- Care Team Providers Care Assembler Wire Group Name Role Phone Alicia Suarez NP Primary Care Physician Encounter [facility] [place] Date(s): 07/08/22 - 08/07/22 [facility] Adult [address] [place] [address]- Attending Physician: Ruben Nunes Admitting Physician: AdmtrRuben Referring Physician: Admtr, Ar8 Allergies, Adverse Reactions, [...] and Recorded Vaccine Date Status Refusal Reason [id number] bivalent booster vax 06/03/22 Recorded influenza virus [...] (Td) 10/06/10 Given 1Result Comment: [facility] 95438-256-93 Problem List Condition Confirmation Course Effective Dates [...] Event Display: Laboratory Result Scanned Authored Date: * Event Display: Laboratory Result Scanned Authored Date: Patient Care team information Care Team Personnel Name: Alicia Suarez NP Position: [facility] Associate Professional Member Role: PCP Address: Address: [address] [place] [address] 3rd [place] [address]- Name: Nuha Leigh RN Position: [facility] Nurse Member Role: Primary Care Nurse Name: Karen Campbell RN Position: [facility] Hospital Director Custom Member Role: Primary Care Nurse Care Team Related Persons Name: ADRIEL VICTORIA Address: home [address] [place] [address] HYDROGENATION [place] [address] Name: ANANTH HARRELL Address: [place] [address]
--- OUTSIDE RECORDS SUMMARY | 2023-02-15 12:02 | XMS_ITS | Continuity of Care Document ---
Author Name Unknown Organization [facility] Adult Address [address] [place] [address]- Care Team Providers Care Central Office Supervisor Name Role Phone Erick CHEEMA, Alicia Chi Primary Care Physician Encounter [facility] [place] Date(s): 12/16/20 - 01/15/21 [facility] Adult [address] [place] [address]- Allergies, Adverse Reactions, Alerts Substance Reaction Severity [...] tetanus-diphtheria toxoids (Td) 10/06/10 Given 1Result Comment: [facility] 47195-456-43 Problem List Condition Effective Dates Status Health Status Inform ant BPH (benign prostatic hyperplasia)(Confirmed) Active Bronchiectasis(Confirmed) Active Epididymitis(Confirmed) Active History of chest pain(Confirmed) Active Hearing impaired(Confirmed) Active History of shortness of breath(Confirmed) Active Urinary frequency(Confirmed) Active Urge incontinence(Confirmed) Active Social History Social History Type Response Smoking Status Never smoker entered on: 09/24/16 Sex
--- OUTSIDE RECORDS SUMMARY | 2023-02-15 12:02 | XMS_ITS | Continuity of Care Document ---
Author Name Unknown Organization [facility] Address [address] [place] [address]- Care Team Providers Care Grocery Cashier Name Role Phone Erick CHEEMA, Alicia Chi Primary Care Physician En[place] [facility] [place] Date(s): 06/21/20 - 07/21/[address] [email or web address] Attending Physician: AdmRuben zafar Admitting Physician: Admtr, Ruben Referring Physician: Admtr, Ar8 Allergies, Adverse Reactions, [...] 1Result Comment: [facility] 99587-220-25 Problem List Condition Effective Dates Status Health Status Inform ant BPH (benign prostatic hyperplasia)(Confirmed) Active Bronchiectasis(Confirmed) Active Epididymitis(Confirmed) Active History of chest pain(Confirmed) Active Hearing impaired(Confirmed) Active History of shortness of breath(Confirmed) Active Urinary frequency(Confirmed) Active Urge incontinence(Confirmed) Active Social History Social History Type Response Smoking Status Never smoker entered on: 09/24/16 Sex
--- OUTSIDE RECORDS SUMMARY | 2023-02-15 12:02 | XMS_ITS | Continuity of Care Document ---
Author Name Unknown Organization [facility] Adult Address [address] [place] [address]- Care Team Providers Care Plastics Production Machine Operator Name Role Phone Erick CHEEMA, Alicia Chi Primary Care Physician En[place] [facility] [place]s): 07/01/21 - 07/31/21 [facility] Adult [address] [place] [address] Attending Physician: Admcharisma, Severo8 Admitting Physician: Admtr, Ar8 Referring Physician: Admtr, Ar8 Allergies, Adverse Reactions, Alerts Substance Reaction Severity Status ibuprofen Unknown Active naproxen ALLERGY Active nitroglycerin Unknown Active oxycodone ALLERGY Active ketoconazole Unknown Active lorazepam ALLERGY Active ipratropium Unknown Active fluticasone Unknown Active loratadine Unknown [...] tetanus-diphtheria toxoids (Td) 10/06/10 Given 1Result Comment: [facility] 77887-669-94 Problem List Condition Effective Dates Status Health Status Inform ant BPH (benign prostatic hyperplasia)(Confirmed) Active Bronchiectasis(Confirmed) Active Epididymitis(Confirmed) Active History of chest pain(Confirmed) Active Hearing impaired(Confirmed) Active History of shortness of breath(Confirmed) Active Urinary frequency(Confirmed) Active Urge incontinence(Confirmed) Active Social History Social History Type Response Smoking Status Never smoker entered on: 09/24/16 Sex
--- OUTSIDE RECORDS SUMMARY | 2023-02-15 12:02 | XMS_ITS | Continuity of Care Document ---
Author Name Unknown Organization [facility] Adult Address [address] [place] [address]- Care Team Providers Care Electric Melt Operator Name Role Phone Erick CHEEMA, Alicia Chi Primary Care Physician En[place] [facility] [place] Date(s): 05/07/22 - 06/06/[address] [address] Attending Physician: Admtr, Ar8 Admitting Physician: Admtr, Ar8 Referring Physician: Admtr, [...] tetanus-diphtheria toxoids (Td) 10/06/10 Given 1Result Comment: [facility] [place] 71118-720-41 Problem List Condition Confirmation Course Effective Dates [...] Sex Patient Care team information Personnel Name: Alicia Suarez NP Address: Address: [address] [place] [address] 3rd Floor [place], [place] [address]
--- OUTSIDE RECORDS SUMMARY | 2023-02-15 12:02 | XMS_ITS | Continuity of Care Document ---
Author Name Unknown Organization [facility] Adult Address [address] [place] [address]- Care Team Providers Care Banking Teacher Name Role Phone Erick CHEEMA, Alicia hCi Primary Care Physician Encounter [facility] Date(s): 07/01/21 - 07/31/[address] [address] Allergies, Adverse Reactions, Alerts Substance Reaction [...] tetanus-diphtheria toxoids (Td) 10/06/10 Given 1Result Comment: [facility] 57575-506-95 Problem List Condition Effective Dates Status Health Status Inform ant BPH (benign prostatic hyperplasia)(Confirmed) Active Bronchiectasis(Confirmed) Active Epididymitis(Confirmed) Active History of chest pain(Confirmed) Active Hearing impaired(Confirmed) Active History of shortness of breath(Confirmed) Active Urinary frequency(Confirmed) Active Urge incontinence(Confirmed) Active Social History Social History Type Response Smoking Status Never smoker entered on: 09/24/16 Sex
--- OUTSIDE RECORDS SUMMARY | 2023-02-15 12:02 | XMS_ITS | Continuity of Care Document ---
Author Name Unknown Organization [facility] Adult Address [address] [place] [address]- Care Team Providers Care Manager Financial Reporting Name Role Phone Erick CHEEMA, Alicia Chi Primary Care Physician Encounter [facility] Date(s): 01/23/22 - 02/22/22 [facility] Adult [address] [place] [address]- Allergies, Adverse Reactions, Alerts Substance Reaction Severity [...] toxoids (Td) 10/06/10 Given 1Result Comment: [facility] 63288-386-39 Problem List Condition Effective Dates Status Health Status Inform ant BPH (benign prostatic hyperplasia)(Confirmed) Active Bronchiectasis(Confirmed) Active Epididymitis(Confirmed) Active History of chest pain(Confirmed) Active Hearing impaired(Confirmed) Active History of shortness of breath(Confirmed) Active Urinary frequency(Confirmed) Active Urge incontinence(Confirmed) Active Social History Social History Type Response Smoking Status Never smoker entered on: 09/24/16 Sex
--- OUTSIDE RECORDS SUMMARY | 2023-02-15 12:02 | XMS_ITS | Continuity of Care Document ---
Author Name Unknown Organization [facility] Adult Address [address] [place] [address]- Care Team Providers Care Rehab Services Aide Name Role Phone Erick CHEEMA, Alicia Chi Primary Care Physician Encounter [facility] [place] Date(s): 01/10/21 - 02/09/21 [facility] Adult [address] [place] [address]- Allergies, Adverse Reactions, Alerts Substance Reaction Severity [...] (Td) 10/06/10 Given 1Result Comment: [facility] 54687-023-82 Problem List Condition Effective Dates Status Health Status Inform ant BPH (benign prostatic hyperplasia)(Confirmed) Active Bronchiectasis(Confirmed) Active Epididymitis(Confirmed) Active History of chest pain(Confirmed) Active Hearing impaired(Confirmed) Active History of shortness of breath(Confirmed) Active Urinary frequency(Confirmed) Active Urge incontinence(Confirmed) Active Social History Social History Type Response Smoking Status Never smoker entered on: 09/24/16 Sex
--- OUTSIDE RECORDS SUMMARY | 2023-02-15 12:02 | XMS_ITS | Continuity of Care Document ---
Author Name Unknown Organization [facility] Adult Address [address] [place] [address]- Care Team Providers Care Integration Analyst Name Role Phone Alicia Suarez NP Primary Care Physician Encounter [facility] [place] Date(s): 08/12/22 - 09/11/22 [facility] Adult [address] [place] [address]- Allergies, Adverse Reactions, Alerts Substance Reaction Severity [...] and Recorded Vaccine Date Status Refusal Reason [id number] bivalent booster vax 06/03/22 Recorded influenza virus [...] 10/06/10 Given 1Result Comment: [facility] 20820-929-54 Problem List Condition Confirmation Course Effective Dates [...] Team Personnel Name: Alicia Suarez NP Position: [facility] Associate Professional Member Role: PCP Address: Address: [address] [place] [address] 3rd [place] [address]- Name: Nuha Leigh RN Position: [facility] Nurse Member Role: Primary Care Nurse Name: Karen Campbell RN Position: [facility] Hospital High Risk Case Manager Member Role: Primary Care Nurse Care Team Related Persons Name: ADRIEL [place]IA Address: home [address] [place] [address] OF [employer] [place] [address] Name: ANANTH HARRELL Address: [place] [address]
--- OUTSIDE RECORDS SUMMARY | 2023-02-15 12:02 | XMS_ITS | Continuity of Care Document ---
Author Name Unknown Organization [facility] Adult Address [address] [place] [address]- Care Team Providers Care Tool And Die Supervisor Name Role Phone Erick CHEEMA, Alicia Chi Primary Care Physician Encounter [facility] Date(s): 08/06/21 - 09/05/[address] [address] Allergies, Adverse Reactions, Alerts Substance Reaction Severity Status ibuprofen Unknown Active naproxen ALLERGY Active ketoconazole Unknown Active lorazepam ALLERGY Active ipratropium Unknown Active nitroglycerin Unknown Active oxycodone ALLERGY Active loratadine Unknown Active Keflex ALLERGY Active cephalexin monohydrate Unknown Activ e Selenium Sulfide Unknown Active Mometasone Furoate Unknown Active Metoprolol Succinate ER Unknown Acti ve Azelastine Hydrochloride Unknown Act jelena fluticasone Unknown Active fexofenadine ALLERGY Active Immunizations Given and Recorded Vaccine Date [...] toxoids (Td) 10/06/10 Given 1Result Comment: [facility] 99495-080-59 Problem List Condition Effective Dates Status Health Status Inform ant BPH (benign prostatic hyperplasia)(Confirmed) Active Bronchiectasis(Confirmed) Active Epididymitis(Confirmed) Active History of chest pain(Confirmed) Active Hearing impaired(Confirmed) Active History of shortness of breath(Confirmed) Active Urinary frequency(Confirmed) Active Urge incontinence(Confirmed) Active Social History Social History Type Response Smoking Status Never smoker entered on: 09/24/16 Sex
--- OUTSIDE RECORDS SUMMARY | 2023-02-15 12:02 | XMS_ITS | Continuity of Care Document ---
Author Name Unknown Organization [facility] Address [address] [place] [address]- Care Team Providers Care Stick Puller Name Role Phone Erick CHEEMA, Alicia Chi [id number] - 03/06/[address] [address] [facility] Attending Physician: Alicia Suarez NP Admitting Physician: Alicia Suarez NP Referring Physician: Agustin Oneil MD Allergies, Adverse Reactions, Alerts Substance Reaction [...] tetanus-diphtheria toxoids (Td) 10/06/10 Given 1Result Comment: [facility] 45163-179-34 Problem List Condition Effective Dates Status Health Status Inform ant BPH (benign prostatic hyperplasia)(Confirmed) Active Bronchiectasis(Confirmed) Active Epididymitis(Confirmed) Active History of chest pain(Confirmed) Active Hearing impaired(Confirmed) Active History of shortness of breath(Confirmed) Active Urinary frequency(Confirmed) Active Urge incontinence(Confirmed) Active Social History Social History Type Response Smoking Status Never smoker entered on: 09/24/16 Sex
--- OUTSIDE RECORDS SUMMARY | 2023-02-15 12:02 | XMS_ITS | Continuity of Care Document ---
Author Name Unknown Organization [facility] Adult Address [address] [place] [address]- Care Team Providers Care Sourcer Name Role Phone Erick CHEEMA, Alicia Chi Primary Care Physician [place] [facility] [place] 01/23/21 [facility] Adult [address] [place] [address]- Allergies, Adverse Reactions, Alerts Substance Reaction Severity [...] 10/06/10 Given 1Result Comment: [facility] 79704-606-88 Problem List Condition Effective Dates Status Health Status Inform ant BPH (benign prostatic hyperplasia)(Confirmed) Active Bronchiectasis(Confirmed) Active Epididymitis(Confirmed) Active History of chest pain(Confirmed) Active Hearing impaired(Confirmed) Active History of shortness of breath(Confirmed) Active Urinary frequency(Confirmed) Active Urge incontinence(Confirmed) Active Social History Social History Type Response Smoking Status Never smoker entered on: 09/24/16 Sex
--- OUTSIDE RECORDS SUMMARY | 2023-02-15 12:03 | XMS_ITS | Continuity of Care Document ---
Author Name Unknown Organization [facility] Address [address] [place] [address]- Care Team Providers Care Pet Ambassador Name Role Phone Erick CHEEMA, Alicia Chi Primary Care Physician [place] [facility] [place]/11/20 - 04/10/20 [place] [address]- [facility] Attending Physician: Admcharisma, Ruben Admitting Physician: Admtr, Severo8 Referring Physician: Admtr, [...] tetanus-diphtheria toxoids (Td) 10/06/10 Given 1Result Comment: [facility] 30483-490-41 Problem List Condition Effective Dates Status Health Status Inform ant BPH (benign prostatic hyperplasia)(Confirmed) Active Bronchiectasis(Confirmed) Active Epididymitis(Confirmed) Active History of chest pain(Confirmed) Active Hearing impaired(Confirmed) Active History of shortness of breath(Confirmed) Active Urinary frequency(Confirmed) Active Urge incontinence(Confirmed) Active Social History Social History Type Response Smoking Status Never smoker entered on: 09/24/16 Sex
--- OUTSIDE RECORDS SUMMARY | 2023-02-15 12:03 | XMS_ITS | Continuity of Care Document ---
Author Name Unknown Organization [facility] Adult Address [address] [place] [address]- Care Team Providers Care Industrial Electrician Journeyman Name Role Phone Alicia Suarez NP Primary Care Physician Encounter [facility] [place] Date(s): 12/11/22 - 01/10/23 [facility] Adult [address] [place] [address]- Allergies, Adverse Reactions, Alerts Substance Reaction Severity Status ibuprofen Unknown Active naproxen ALLERGY Active loratadine Unknown Active ketoconazole Unknown Active lorazepam ALLERGY Active ipratropium Unknown Active nitroglycerin Unknown Active oxycodone ALLERGY Active fluticasone Unknown Active fexofenadine ALLERGY Active Keflex ALLERGY Active Mometasone Furoate Unknown Active cephalexin monohydrate Unknown Activ e Selenium Sulfide Unknown Active Metoprolol Succinate ER Unknown Acti ve Azelastine Hydrochloride Unknown Act jelena Immunizations Given and Recorded Vaccine Date Status Refusal Reason [id number] bivalent booster vax 06/03/22 Recorded influenza virus [...] 10/06/10 Given 1Result Comment: [facility] 86046-134-77 Problem List Condition Confirmation Course Effective Dates [...] Team Personnel Name: Alicia Suarez NP Position: [facility]O Associate Professional Member Role: PCP Address: Address: [address] [place] [address] 3rd [place] [address]- Name: Nuha Leigh RN Position: [facility] OB RN Member Role: Primary Care Nurse Name: Karen Campbell RN Position: [facility] Hospital Director Of Food And Nutrition Services Member Role: Primary Care Nurse Care Team Related Persons Name: ADRIEL [place]IA Address: home [address] [place] [address] SURFACE [place] [address] Name: ANANTH HARRELL Address: [place] [address]
--- OUTSIDE RECORDS SUMMARY | 2023-02-15 12:03 | XMS_ITS | Continuity of Care Document ---
Author Name Unknown Organization [facility] Adult Address [address] [place] [address]- Care Team Providers Care Development Editor Name Role Phone Alicia Suarez NP Primary Care Physician [place] [facility] [place]22 - 01/07/23 [facility] Adult [address] [place] [address]- Allergies, Adverse Reactions, Alerts Substance Reaction Severity Status ibuprofen Unknown Active naproxen ALLERGY Active ipratropium Unknown Active Keflex ALLERGY Active ketoconazole Unknown Active lorazepam ALLERGY Active nitroglycerin Unknown Active oxycodone ALLERGY Active fluticasone Unknown Active loratadine Unknown Active fexofenadine ALLERGY Active Metoprolol Succinate ER Unknown Acti ve cephalexin monohydrate Unknown Activ e Mometasone Furoate Unknown Active Selenium Sulfide Unknown Active Azelastine Hydrochloride Unknown Act jelena Immunizations Given and Recorded Vaccine Date Status Refusal Reason [id number] bivalent booster vax 06/03/22 Recorded influenza virus [...] tetanus-diphtheria toxoids (Td) 10/06/10 Given 1Result Comment: [facility] 36818-460-49 Problem List Condition Confirmation Course Effective Dates [...] Team Personnel Name: Alicia Suarez NP Position: [facility] Associate Professional Member Role: PCP Address: Address: [address] [place] [address] 3rd [place] [address]- Name: Nuha Leigh RN Position: [facility] OB RN Member Role: Primary Care Nurse Name: Karen Campbell RN Position: [facility] Hospital Foundry Technician Member Role: Primary Care Nurse Care Team Related Persons Name: ADRIEL VICTORIA Address: home [address] [place] [address] [place] [address] Name: ANANTH HARRELL Address: [place] [address]
--- OUTSIDE RECORDS SUMMARY | 2023-02-15 12:03 | XMS_ITS | Continuity of Care Document ---
Author Name Unknown Organization [facility] Adult Address [address] [place] [address]- Care Team Providers Care Ballistic Expert Name Role Phone Erick CHEEMA, Alicia Chi Primary Care Physician Encounter [facility] [place] Date(s): 02/25/21 - 03/04/[address] [address]- Attending Physician: Katey STANFORD, Alex Referring Physician: Marisa CHEEMA, Dimple Allergies, Adverse Reactions, Alerts Substance Reaction Severity [...] toxoids (Td) 10/06/10 Given 1Result Comment: [facility] 02033-560-71 Problem List Condition Effective Dates Status Health Status Inform ant BPH (benign prostatic hyperplasia)(Confirmed) Active Bronchiectasis(Confirmed) Active Epididymitis(Confirmed) Active History of chest pain(Confirmed) Active Hearing impaired(Confirmed) Active History of shortness of breath(Confirmed) Active Urinary frequency(Confirmed) Active Urge incontinence(Confirmed) Active Vital Signs Most recent to oldest [Reference Range]: 1 Height 162 cm (02/25/21 8:46 AM) Social History Social History Type Response Smoking Status Never smoker entered on: 09/24/16 Sex
--- OUTSIDE RECORDS SUMMARY | 2023-02-15 12:03 | XMS_ITS | Continuity of Care Document ---
Author Name Unknown Organization [facility] Adult Address [address] [place] [address]- Care Team Providers Care Ginner Name Role Phone Erick CHEEMA, Alicia Chi Primary Care Physician [place] [facility] [place]20 - 03/27/21 [facility] Adult [address] [place] [address] Attending Physician: Alicia Suarez NP Allergies, Adverse [...] tetanus-diphtheria toxoids (Td) 10/06/10 Given 1Result Comment: [facility] 18720-432-16 Problem List Condition Effective Dates Status Health Status Inform ant BPH (benign prostatic hyperplasia)(Confirmed) Active Bronchiectasis(Confirmed) Active Epididymitis(Confirmed) Active History of chest pain(Confirmed) Active Hearing impaired(Confirmed) Active History of shortness of breath(Confirmed) Active Urinary frequency(Confirmed) Active Urge incontinence(Confirmed) Active Social History Social History Type Response Smoking Status Never smoker entered on: 09/24/16 Sex
--- OUTSIDE RECORDS SUMMARY | 2023-02-15 12:03 | XMS_ITS | Continuity of Care Document ---
Author Name Unknown Organization [facility] Adult Address [address] [place] [address]- Care Team Providers Care Special Effects Designer Name Role Phone Erick CHEEMA, Alicia Chi Primary Care Physician [place] [facility] [place] 05/08[place]21 - 06/07/21 [facility] Adult [address] [place] [address]- Allergies, Adverse Reactions, Alerts Substance Reaction Severity [...] toxoids (Td) 10/06/10 Given 1Result Comment: [facility] 20965-322-41 Problem List Condition Effective Dates Status Health Status Inform ant BPH (benign prostatic hyperplasia)(Confirmed) Active Bronchiectasis(Confirmed) Active Epididymitis(Confirmed) Active History of chest pain(Confirmed) Active Hearing impaired(Confirmed) Active History of shortness of breath(Confirmed) Active Urinary frequency(Confirmed) Active Urge incontinence(Confirmed) Active Social History Social History Type Response Smoking Status Never smoker entered on: 09/24/16 Sex
--- OUTSIDE RECORDS SUMMARY | 2023-02-15 12:03 | XMS_ITS | Continuity of Care Document ---
Author Name Unknown Organization [facility] Address [address] [place] [address]- Care Team Providers Care Lead Game Designer Name Role Phone Erick CHEEMA, Alicia hCi Primary Care Physician Encounter [facility] [place] Date(s): 08/09/19 - 08/19/[address] [address]- [facility] Attending Physician: Ruben Nunes Admitting Physician: AdmtrRuben [...] tetanus-diphtheria toxoids (Td) 10/06/10 Given 1Result Comment: [facility] 69525-011-38 Medications hydrocortisone 2.5% topical ointment 1 application, Topically, 2 times a day, # 20 Gm, 0 Refills, Maintenance, 05/03/19 8:44:57 EDT, Ointment, 1 application Topically 2 times a day Start Date: 05/03/19 Status: Ordered oxybutynin 15 mg/24 hr oral tablet, extended release TK 1 T PO QD Start Date: 11/17/17 Status: Ordered Problem List Condition Effective Dates Status Health Status Inform ant BPH (benign prostatic hyperplasia)(Confirmed) Active Bronchiectasis(Confirmed) Active Epididymitis(Confirmed) Active History of chest pain(Confirmed) Active Hearing impaired(Confirmed) Active History of shortness of breath(Confirmed) Active Urinary frequency(Confirmed) Active Urge incontinence(Confirmed) Active Social History Social History Type Response Smoking Status Never smoker entered on: 09/24/16 Sex
--- OUTSIDE RECORDS SUMMARY | 2023-02-15 12:03 | XMS_ITS | Continuity of Care Document ---
Author Name Unknown Organization [facility] Adult Address [address] [place] [address]- Care Team Providers Care Family Practice Physician Name Role Phone Erick DIE FITTER, Alicia Chi [id number] - 09/26/[address] [address]- [facility] Encounter Diagnosis Subconjunctival hemorrhage(Discharge Diagnosis) - 09/19/19 Attending Physician: Ac CHEEMA, Patricia Allergies, Adverse Reactions, Alerts Substance Reaction Severity [...] [facility] 64907-515-94 Medications hydrocortisone 2.5% topical ointment 1 application, [...] Effective Dates Health Status Clinical Service Informant Subconjunctival hemorrhage Discharge Diagnosis 09/19/19 Vital Signs Most recent to oldest [Reference Range]: 1 Height 162 cm (09/19/19 9:42 AM) Weight 67 kg (09/19/19 9:42 AM) Oxygen Saturation [94-100 %] 98 % (09/19/19 9:42 AM) Pulse Rate [55-90 bpm] 57 bpm (09/19/19 9:42 AM) Body Mass Index [18.5-24.99] 25.53 *H* (09/19/19 9:42 AM) Blood Pressure [90-138/55-84 mm Hg] 100/ 50mm Hg (09/19/19 9:42 AM) Temperature [96.8-100.4 DegF] 98 DegF (09/19/19 9:42 AM) Mode of Delivery (Oxygen) Room air (09/19/19 9:42 AM) Blood pressure sites Arm, left (09/19/19 9:42 AM) Temperature Route Oral (09/19/19 9:42 AM) Weight Obtained Via Standing scale (09/19/19 9:42 AM) Social History Social History Type Response Smoking Status Never smoker entered on: 09/24/16 Sex
--- OUTSIDE RECORDS SUMMARY | 2023-02-15 12:03 | XMS_ITS | Continuity of Care Document ---
Author Name Unknown Organization [facility] Address [address] [place] [address]- Care Team Providers Care Highway Painter Helper Name Role Phone Erick CHEEMA, Alicia Chi Primary Care [id number] Date[facility] 08/03/19 - 10/09/[address] [address]- [facility] Discharge Disposition: A-D/C Home Attending Physician: Alicia Suarez NP Admitting Physician: Alicia Suarez NP Referring Physician: Alicia Suarez NP Allergies, Adverse Reactions, [...] tetanus-diphtheria toxoids (Td) 10/06/10 Given 1Result Comment: [facility] 35630-564-59 Medications hydrocortisone 2.5% topical ointment 1 application, [...]
--- OUTSIDE RECORDS SUMMARY | 2023-02-15 12:03 | XMS_ITS | Continuity of Care Document ---
Author Name Unknown Organization [facility] Adult Address [address] [place] [address]- Care Team Providers Care Studio Assistant Name Role Phone Erick CHEEMA, Alicia Chi Primary Care Physician Encounter [facility] Date(s): 11/04/21 - 12/04/21 [facility] Adult [address] [place] [address]- Allergies, Adverse Reactions, Alerts Substance Reaction Severity [...] Given 1Result Comment: [facility] 28276-719-99 Problem List Condition Effective Dates Status Health Status Inform ant BPH (benign prostatic hyperplasia)(Confirmed) Active Bronchiectasis(Confirmed) Active Epididymitis(Confirmed) Active History of chest pain(Confirmed) Active Hearing impaired(Confirmed) Active History of shortness of breath(Confirmed) Active Urinary frequency(Confirmed) Active Urge incontinence(Confirmed) Active Social History Social History Type Response Smoking Status Never smoker entered on: 09/24/16 Sex
--- OUTSIDE RECORDS SUMMARY | 2023-02-15 12:03 | XMS_ITS | Continuity of Care Document ---
Author Name Unknown Organization [facility] Adult Address [address] [place] [address]- Care Team Providers Care Senior Consultant Name Role Phone Alicia Suarez NP Primary Care Physician En[place] [facility] [place] Date(s): 10/29/22 - 11/05/22 [facility] Adult [address] [place] [address]- Encounter Diagnosis Hearing impaired(Discharge Diagnosis) - 10/29/22 Intellectual disability(Discharge Diagnosis) - 10/29/22 Major neurocognitive disorder(Discharge Diagnosis) - 10/29/22 Attending Physician: Alicia Suarez NP Allergies, Adverse [...] and Recorded Vaccine Date Status Refusal Reason [id number] bivalent booster vax 06/03/22 Recorded influenza virus [...] toxoids (Td) 10/06/10 Given 1Result Comment: [facility] 15995-605-62 Problem List Condition Confirmation Course Effective Dates [...] Effective Dates Health Status Clinical Service Informant Hearing impaired Discharge Diagnosis 10/29/22 Intellectual disability Discharge Diagnosis 10/29/22 Major neurocognitive disorder Discharge Diagnosis 10/29/22 Vital Signs Most recent to oldest [Reference Range]: 1 Height 162 cm (10/29/22 9:40 AM) Social History Social History Type Response Smoking Status Never smoker entered on: 09/24/16 Sex Patient Care team information Care Team Personnel Name: Erick CHEEMA, Alicia Chi Position: [facility] PCO Associate Professional Member Role: PCP Address: Address: [address] [place] [address] [address] [place] [address]- Name: Nuha Leigh RN Position: [facility] OB RN Member Role: Primary Care Nurse Name: Karen Campbell RN Position: [facility] Hospital Neonatal Nurse Member Role: Primary Care Nurse Care Team Related Persons Name: ADRIEL VICTORIA Address: home [address] [place] [address] Name: ANANTH HARRELL Address: [place] [address]
--- OUTSIDE RECORDS SUMMARY | 2023-02-15 12:03 | XMS_ITS | Continuity of Care Document ---
Author Name Unknown Organization [facility] Adult Address [address] [place] [address]- Care Team Providers Care Psychiatry Adult Physician Name Role Phone Erick CHEEMA, Alicia Chi Primary Care Physician [place] [facility] [place] Date(s): 07/12/20 - 08/11/20 [facility] Adult [address] [place] [address]- Allergies, Adverse Reactions, Alerts Substance Reaction Severity [...] toxoids (Td) 10/06/10 Given 1Result Comment: [facility] 21429-532-06 Problem List Condition Effective Dates Status Health Status Inform ant BPH (benign prostatic hyperplasia)(Confirmed) Active Bronchiectasis(Confirmed) Active Epididymitis(Confirmed) Active History of chest pain(Confirmed) Active Hearing impaired(Confirmed) Active History of shortness of breath(Confirmed) Active Urinary frequency(Confirmed) Active Urge incontinence(Confirmed) Active Social History Social History Type Response Smoking Status Never smoker entered on: 09/24/16 Sex
--- OUTSIDE RECORDS SUMMARY | 2023-02-15 12:03 | XMS_ITS | Continuity of Care Document ---
Author Name Unknown Organization [facility] Adult Address [address] [place] [address]- Care Team Providers Care Printer Technician Name Role Phone Alicia Suarez NP Primary Care Physician [place] [facility] [place](s): 09/23/22 - 10/23/22 [facility] Adult [address] [place] [address]- Allergies, Adverse Reactions, Alerts Substance Reaction Severity [...] and Recorded Vaccine Date Status Refusal Reason [id number] bivalent booster vax 06/03/22 Recorded influenza virus [...] (Td) 10/06/10 Given 1Result Comment: [facility] 13749-302-61 Problem List Condition Confirmation Course Effective Dates [...] Name: Alicia Suarez NP Position: [facility] PCO Associate Professional Member Role: PCP Address: Address: [address] [place] [address] [address] [place] [address]- Name: Nuha Leigh RN Position: [facility] OB RN Member Role: Primary Care Nurse Name: Karen Campbell RN Position: [facility] Hospital Caser Member Role: Primary Care Nurse Care Team Related Persons Name: ADRIEL VICTORIA Address: home [address] [place] [address] [place] [address] Name: ANANTH HARRELL Address: [place] [address]
--- OUTSIDE RECORDS SUMMARY | 2023-02-15 12:03 | XMS_ITS | Continuity of Care Document ---
Author Name Unknown Organization [facility] Adult Address [address] [place] [address]- Care Team Providers Care Mold Sheet Cleaner Name Role Phone Alicia Suarez NP Primary Care Physician [place] [facility] [place] 10[place]29[place]22 - 11/28/22 [facility] Adult [address] [place] [address]- Allergies, Adverse Reactions, Alerts Substance Reaction Severity [...] and Recorded Vaccine Date Status Refusal Reason [id number] bivalent booster vax 06/03/22 Recorded influenza virus vaccine, inactivated 06/03/22 Marceol rded influenza virus vaccine, inactivated 05/30/20 Marcelo [...] toxoids (Td) 10/06/10 Given 1Result Comment: [facility] 81420-551-91 Problem List Condition Confirmation Course Effective Dates [...] Team Personnel Name: Alicia Suarez NP Position: [facility] PCO Associate Professional Member Role: PCP Address: Address: [address] [place] [address] [address] [place] [address]- Name: Nuha Leigh RN Position: [facility] OB RN Member Role: Primary Care Nurse Name: Karen Campbell RN Position: [facility] Hospital Marine Steamfitter Member Role: Primary Care Nurse Care Team Related Persons Name: ADRIEL VICTORIA Address: home [address] [place] [address] [employer] [place] [address] Name: ANANTH HARRELL Address: [place] [address]
--- OUTSIDE RECORDS SUMMARY | 2023-02-15 12:03 | XMS_ITS | Continuity of Care Document ---
Author Name Unknown Organization [facility] Adult Address [address] [place] [address]- Care Team Providers Care Cooker Operator Name Role Phone Alicia Suarez NP Primary Care Physician [place] [facility] [place] 07/10/19 - 07/17/[address] [address] Encounter Diagnosis BPH (benign prostatic hyperplasia)(Discharge Diagnosis) - 07/10/19 Bronchiectasis(Discharge Diagnosis) - 07/10/19 Hearing impaired(Discharge Diagnosis) - 07/10/19 GERD (gastroesophageal reflux disease)(Discharge Diagnosis) - 07/10/19 Attending Physician: Alicia Suarez NP Allergies, Adverse [...] tetanus-diphtheria toxoids (Td) 10/06/10 Given 1Result Comment: [facility] 10712-888-23 Medications hydrocortisone 2.5% topical ointment 1 application, [...] Informant BPH (benign prostatic hyperplasia) Discharge Diagnosis 07/10/19 Bronchiectasis Discharge Diagnosis 07/10/19 Hearing impaired Discharge Diagnosis 07/10/19 GERD (gastroesophageal reflux disease) Discharge Diagnosis 07/10/19 Vital Signs Most recent to oldest [Reference Range]: 1 Height 162 cm (07/10/19 10:05 AM) Weight 64.9 kg (07/10/19 10:05 AM) Oxygen Saturation [94-100 %] 97 % (07/10/19 10:05 AM) Pulse Rate [55-90 bpm] 65 bpm (07/10/19 10:05 AM) Body Mass Index [18.5-24.99] 24.73 (07/10/19 10:05 AM) Blood Pressure [90-138/55-84 mm Hg] 102/ 60mm Hg (07/10/19 10:05 AM) Temperature [96.8-100.4 DegF] 97.6 DegF (07/10/19 10:05 AM) Mode of Delivery (Oxygen) Room air (07/10/19 10:05 AM) Blood pressure sites Arm, left (07/10/19 10:05 AM) Temperature Route Oral (07/10/19 10:05 AM) Weight Obtained Via Standing scale (07/10/19 10:05 AM) Social History Social History Type Response Smoking Status Never smoker entered on: 09/24/16 Sex
--- OUTSIDE RECORDS SUMMARY | 2023-02-15 12:03 | XMS_ITS | Continuity of Care Document ---
Author Name Unknown Organization [facility] Adult Address [address] [place] [address]- Care Team Providers Care Fixture Repairer Fabricator Name Role Phone Erick CHEEMA, Alicia Chi Primary Care Physician Encounter [facility] Date(s): 11/07/21 - 12/07/[address] [facility] Adult [address] [place] [address]- Allergies, Adverse Reactions, Alerts Substance Reaction Severity [...] 10/06/10 Given 1Result Comment: [facility] 54860-952-38 Problem List Condition Effective Dates Status Health Status Inform ant BPH (benign prostatic hyperplasia)(Confirmed) Active Bronchiectasis(Confirmed) Active Epididymitis(Confirmed) Active History of chest pain(Confirmed) Active Hearing impaired(Confirmed) Active History of shortness of breath(Confirmed) Active Urinary frequency(Confirmed) Active Urge incontinence(Confirmed) Active Social History Social History Type Response Smoking Status Never smoker entered on: 09/24/16 Sex
--- OUTSIDE RECORDS SUMMARY | 2023-02-15 12:03 | XMS_ITS | Continuity of Care Document ---
Author Name Unknown Organization [facility] Adult Address [address] [place] [address]- Care Team Providers Care Signal Worker Helper Name Role Phone Erick CHEEMA, Alicia Chi Primary Care Physician Encounter [facility] Date(s): 09/29/21 - 10/29/21 [facility] Adult [address] [place] [address]- Allergies, Adverse Reactions, Alerts Substance Reaction Severity [...] Gi mery influenza virus vaccine, inactivated 03/31/19 Amrcelo rded influenza virus vaccine, inactivated 04/08/18 Marcelo rded influenza virus vaccine, inactivated 07/29/17 Marcelo rded influenza virus vaccine, inactivated 08/06/16 Marcelo rded influenza virus vaccine, inactivated 04/11/16 Marcelo rded pneumococcal 23-valent vaccine 07/22/18 Given pneumococcal 13-valent vaccine 06/27/18 Given Zoster Vaccine Live 10/09/13 Recorded tetanus-diphtheria toxoids (Td) 10/06/10 Given 1Result Comment: [facility] 42273-389-67 Problem List Condition Effective Dates Status Health Status Inform ant BPH (benign prostatic hyperplasia)(Confirmed) Active Bronchiectasis(Confirmed) Active Epididymitis(Confirmed) Active History of chest pain(Confirmed) Active Hearing impaired(Confirmed) Active History of shortness of breath(Confirmed) Active Urinary frequency(Confirmed) Active Urge incontinence(Confirmed) Active Social History Social History Type Response Smoking Status Never smoker entered on: 09/24/16 Sex
--- OUTSIDE RECORDS SUMMARY | 2023-02-15 12:03 | XMS_ITS | Continuity of Care Document ---
Author Name Unknown Organization [facility] Adult Address [address] [place] [address]- Care Team Providers Care Hotel Room Attendant Name Role Phone Erick CHEEMA, Alicia Chi Primary Care Physician En[facility] [place] Date(s): 04/30/21 - 05/30/21 [facility] Adult [address] [place] [address]- Allergies, Adverse Reactions, Alerts Substance Reaction Severity [...] 10/06/10 Given 1Result Comment: [facility] 40404-520-93 Problem List Condition Effective Dates Status Health Status Inform ant BPH (benign prostatic hyperplasia)(Confirmed) Active Bronchiectasis(Confirmed) Active Epididymitis(Confirmed) Active History of chest pain(Confirmed) Active Hearing impaired(Confirmed) Active History of shortness of breath(Confirmed) Active Urinary frequency(Confirmed) Active Urge incontinence(Confirmed) Active Social History Social History Type Response Smoking Status Never smoker entered on: 09/24/16 Sex
--- OUTSIDE RECORDS SUMMARY | 2023-02-15 12:03 | XMS_ITS | Continuity of Care Document ---
Author Name Unknown Organization [facility] Adult Address [address] [place] [address]- Care Team Providers Care Animal Physiology Teacher Name Role Phone Erick CHEEMA, Alicia Chi Primary Care Physician [place] [facility] [place]/19 - 09/29/[address] [address]- [facility] Attending Physician: Ruben Nunes Admitting Physician: AdmtrRuben Referring Physician: [id number] Allergies, Adverse Reactions, Alerts Substance Reaction Severity [...] tetanus-diphtheria toxoids (Td) 10/06/10 Given 1Result Comment: [facility] 82728-447-47 Medications hydrocortisone 2.5% topical ointment 1 application, [...]
--- OUTSIDE RECORDS SUMMARY | 2023-02-15 12:03 | XMS_ITS | Continuity of Care Document ---
Author Name Unknown Organization [facility] Adult Address [address] [place] [address]- Care Team Providers Care Milieu Technician Name Role Phone Erick CHEEMA, Alicia Chi Primary Care Physician En[place] [facility] [place] Date(s): 01/10/21 - 02/09/21 [facility] Adult [address] [place] [address]- Allergies, Adverse Reactions, Alerts Substance Reaction Severity [...] 10/06/10 Given 1Result Comment: [facility] 50503-149-02 Problem List Condition Effective Dates Status Health Status Inform ant BPH (benign prostatic hyperplasia)(Confirmed) Active Bronchiectasis(Confirmed) Active Epididymitis(Confirmed) Active History of chest pain(Confirmed) Active Hearing impaired(Confirmed) Active History of shortness of breath(Confirmed) Active Urinary frequency(Confirmed) Active Urge incontinence(Confirmed) Active Social History Social History Type Response Smoking Status Never smoker entered on: 09/24/16 Sex
--- OUTSIDE RECORDS SUMMARY | 2023-02-15 12:03 | XMS_ITS | Continuity of Care Document ---
Author Name Unknown Organization [facility] Adult Address [address] [place] [address]- Care Team Providers Care Diamond Sizer And Sorter Name Role Phone Erick CHEEMA, Alicia Chi Primary Care Physician [place] [facility] [place] Date(s): 01/27/22 - 02/26/22 [facility] Adult [address] [place] [id number] Allergies, Adverse Reactions, Alerts Substance Reaction Severity Status ibuprofen Unknown Active naproxen ALLERGY Active lorazepam ALLERGY Active fluticasone Unknown Active ketoconazole Unknown Active ipratropium Unknown Active nitroglycerin Unknown Active oxycodone ALLERGY Active loratadine Unknown Active Mometasone Furoate Unknown [...] 1Result Comment: [facility] 52067-608-91 Problem List Condition Effective Dates Status Health Status Inform ant BPH (benign prostatic hyperplasia)(Confirmed) Active Bronchiectasis(Confirmed) Active Epididymitis(Confirmed) Active History of chest pain(Confirmed) Active Hearing impaired(Confirmed) Active History of shortness of breath(Confirmed) Active Urinary frequency(Confirmed) Active Urge incontinence(Confirmed) Active Social History Social History Type Response Smoking Status Never smoker entered on: 09/24/16 Sex
--- OUTSIDE RECORDS SUMMARY | 2023-02-15 12:03 | XMS_ITS | Continuity of Care Document ---
Author Name Unknown Organization [facility] Adult Address [address] [place] [address]- Care Team Providers Care Access Coordinator Name Role Phone Erick CHEEMA, Alicia Chi Primary Care Physician Encounter [facility] Date(s): 02/25/21 - 03/27/21 [facility] Adult [address] [place] [id number]- Attending Physician: Admtr, [id number] Admitting Physician: Admtr, [...] Given 1Result Comment: [facility] [id number] Problem List Condition Effective Dates Status Health Status Inform ant BPH (benign prostatic hyperplasia)(Confirmed) Active Bronchiectasis(Confirmed) Active Epididymitis(Confirmed) Active History of chest pain(Confirmed) Active Hearing impaired(Confirmed) Active History of shortness of breath(Confirmed) Active Urinary frequency(Confirmed) Active Urge incontinence(Confirmed) Active Social History Social History Type Response Smoking Status Never smoker entered on: 09/24/16 Sex
--- OUTSIDE RECORDS SUMMARY | 2023-02-15 12:03 | XMS_ITS | Continuity of Care Document ---
Author Name Unknown Organization [facility] Adult Address [address] [place] [address]- Care Team Providers Care Rose Grower Name Role Phone Alicia Suarez NP Primary Care Physician Encounter [facility] Date(s): 08/25/22 - 09/24/22 [facility] Adult [address] [place] [address]- Allergies, Adverse Reactions, Alerts Substance Reaction Severity [...] and Recorded Vaccine Date Status Refusal Reason [id number] bivalent booster vax 06/03/22 Recorded influenza virus [...] Given 1Result Comment: [facility] [id number] Problem List Condition Confirmation Course Effective Dates [...] Professional Member Role: PCP Address: Address: [address] [place] [address] [address] [place] [address]- Name: Nuha Leigh RN Position: [facility] Nurse Member Role: Primary Care Nurse Name: Karen Campbell RN Position: [facility] Hospital Machine Welder Member Role: Primary Care Nurse Care Team Related Persons Name: ADRIEL VICTORIA Address: home [address] [place] [address] Name: ANANTH HARRELL Address: [place] [address]
--- OUTSIDE RECORDS SUMMARY | 2023-02-15 12:03 | XMS_ITS | Continuity of Care Document ---
Author Name Unknown Organization [facility] Adult Address [address] [place] [address]- Care Team Providers Care Systems Planner Name Role Phone Alicia Suarez NP Primary Care Physician Encounter [facility] Date(s): 10/05/22 - 11/04/22 [facility] Adult [address] [place] [address]- Allergies, Adverse Reactions, Alerts Substance Reaction Severity [...] and Recorded Vaccine Date Status Refusal Reason [id number] bivalent booster vax 06/03/22 Recorded influenza virus [...] toxoids (Td) 10/06/10 Given 1Result Comment: [facility] [id number] Problem List Condition Confirmation Course Effective Dates [...] Professional Member Role: PCP Address: Address: [address] [place] [address] [address] [place] [address]- Name: Nuha Leigh RN Position: [facility] OB RN Member Role: Primary Care Nurse Name: Karen Campbell RN Position: [facility] Hospital Lamp Tester And Inspector Member Role: Primary Care Nurse Care Team Related Persons Name: ADRIEL VICTORIA Address: home [address] [place] [address] Name: ANANTH HARRELL Address: [place] [address]
--- OUTSIDE RECORDS SUMMARY | 2023-02-15 12:03 | XMS_ITS | Continuity of Care Document ---
Author Name Unknown Organization [facility] Adult Address [address] [place] [address]- Care Team Providers Care State Game Warden Name Role Phone Alicia Suarez NP Primary Care Physician Encounter [facility] Date(s): 10/06/22 - 11/05/[address] [facility] Adult [address] [place] [address]- Allergies, Adverse Reactions, Alerts Substance Reaction Severity [...] and Recorded Vaccine Date Status Refusal Reason [id number] bivalent booster vax 06/03/22 Recorded influenza virus [...] tetanus-diphtheria toxoids (Td) 10/06/10 Given 1Result Comment: [facility] [id number] Problem List Condition Confirmation Course Effective Dates [...] Team Personnel Name: Alicia Suarez NP Position: [facility] PCO Associate Professional Member Role: PCP Address: Address: [address] [place] [address] [address]rd [place] [address]- Name: Nuha Leigh RN Position: [facility] OB RN Member Role: Primary Care Nurse Name: Karen Campbell RN Position: [facility] Hospital Emt I/99 Member Role: Primary Care Nurse Care Team Related Persons Name: ADRIEL VICTORIA Address: home [address] [place] [address] [place] [address] Name: ANANTH HARRELL Address: [place] [address]
--- OUTSIDE RECORDS SUMMARY | 2023-02-15 12:03 | XMS_ITS | Continuity of Care Document ---
Author Name Unknown Organization [facility] Adult Address [address] [place] [address]- Care Team Providers Care Activity Manager Name Role Phone Erick CHEEMA, Alicia Chi Primary Care Physician Encounter [facility] Date(s): 07/16/21 - 08/15/21 [facility] Adult [address] [place] [id number] Allergies, Adverse Reactions, Alerts Substance [...] tetanus-diphtheria toxoids (Td) 10/06/10 Given 1Result Comment: [facility] [id number] Problem List Condition Effective Dates Status Health Status Inform ant BPH (benign prostatic hyperplasia)(Confirmed) Active Bronchiectasis(Confirmed) Active Epididymitis(Confirmed) Active History of chest pain(Confirmed) Active Hearing impaired(Confirmed) Active History of shortness of breath(Confirmed) Active Urinary frequency(Confirmed) Active Urge incontinence(Confirmed) Active Social History Social History Type Response Smoking Status Never smoker entered on: 09/24/16 Sex
--- NOTE | 2023-02-15 12:29 | HO.PM.IMPN ---
Subjective Subjective Date of Service: 02/15/23 Interval History: somnolent but arousable on room air unable to obtain ROS due to mental status Review of Systems Review of Systems: Yes Unobtainable due to mental status Physical Exam Vital Signs: Vital Signs: VS- T 97.6, P 88, R 24, BP 141/79, SaO2 96 on RA Gen: in no acute distress HEENT: sclera anicteric, moist mucus membranes Neck: supple Lungs: clear to auscultation bilaterally Heart: regular rate and rhythm, no murmurs Abd: soft, non-tender, non-distended Ext: no edema Skin: warm/well-perfused Neuro: somnolent but arousable, moving all extremities, unable to assess orientation Psych: impaired insight Objective Data Active Medications Acetaminophen (Acetaminophen 325 Mg Tablet) 650 mg PO Q6H PRN PRN Reason: Pain, Mild (Pain Scale 1-3) Divalproex Sodium (Divalproex Sodium 250 Mg Tablet.) 250 mg PO BID [facility]ON Docusate Sodium (Docusate Sodium 100 Mg Capsule) 100 mg PO BID E[facility] Enoxaparin Sodium (Enoxaparin Sodium 40 Mg/0.4 Ml Syringe) 40 mg SUBCUT Q24H [facility] Piperacillin Sod/Tazobactam (Sod 3.375 gm/ Sodium Chloride) 50 mls @ 100 mls/hr IV Q6H E[facility] Lactulose (Lactulose 20 Gm/30 Ml Solution) 10 gm PO DAILY PRN PRN Reason: Constipation Omeprazole (Omeprazole 20 Mg Capsule.) 20 mg PO DAILY@0630 [facility] Ondansetron HCl (Ondansetron Hcl 4 Mg/2 Ml Vial) 4 mg IVPUSH Q8H PRN PRN Reason: Nausea and Vomiting Polyethylene Glycol (Polyethylene Glycol 3350 17 Gm Powd.Pack) 17 gm PO DAILY E[facility] Quetiapine Fumarate (Quetiapine Fumarate 50 Mg Tablet) 50 mg PO BID E[facility]ON Quetiapine Fumarate (Quetiapine Fumarate 25 Mg Tablet) 25 mg PO Q6H PRN PRN Reason: agitation Sodium Chloride (0.9 % Sodium Chloride Flush 3 Ml Syringe) 3 ml IVFLUSH QSHIFT [facility]END[facility] TO [facility] Labs Labs: WBC 10.6, PCT 0.11 Assessment and Plan (1) Dementia: Status: Acute Plan d4 77yo M with no known PMHx brought in to [facility] due to inability to care for self due to worsening dementia was awaiting LTC placement and [facility] in overflow noted to have lethargy/vomiting, admitted for LLL PNA LLL PNA ?aspiration - leucocytosis resolved - repeat CT chest 3-6 mo for peribronchial tree-in-bud opacities in the lingula - BCx neg, PCT low - pip-pankaj 02/12-02/16 constipation - stool softeners vomiting - had 3 episodes of brown vomit, resolved - continue PPI EPS with dystonia - quetiapine dose resolved acute toxic-metabolic encephalopathy due to antipsychotics + infection - normal CPK, NH3, LA; minimize antipsychotics; treat infection as above dementia with behav disturb - Psychiatry re-consult - standing/prn quetiapine VTE ppx - LMWH dispo - PT consult Time Spent With Patient Time: Total time managing care of this patient today ___35_ minutes. Quality Stroke Does the patient have a stroke diagnosis?: No VTE Prior VTE?: No VTE Risk Level:: Medical - moderate - high VTE Device Contraindication: N/A - Device Ordered VTE Drug Contraindication: N/A - Med Ordered
[2023-02-15 13:29] VITALS: BP 161/79; PULSE 92; RESP 19; TEMP 36.9; O2SAT 98
[2023-02-15] MEDS: Piperacillin Sodium/Tazobactam 3.375 GM in 0.9 % Sodium Chloride 50 ML IV (13:29)
[2023-02-15] MEDS: 0.9 % Sodium Chloride Flush 3 ML SYRINGE IVFLUSH (15:21)
--- NOTE | 2023-02-15 15:40 | PC.NURSE ---
Assumed care of patient at 1500, at this time patient asleep in bed, noticeable rise and fall of chest noted not in any apparent distress. Per report, pt was unable to participate in speech evaluation today d/t drowsiness. Pt is being turned and repositioned in bed every 2 hours with assistance. All safety measures in place.
--- NOTE | 2023-02-15 15:44 | MHC.SLORD ---
Speech Language Pathology Order Status: Attempted to see patient for clinical swallow this pm. Patient was asleep, multiple attempts to wake him were unsuccessful, not appropriate at this time. MONEY ROOM TELLER will re-attempt 02/16/23.
[2023-02-15 15:47] VITALS: BP 161/73; PULSE 97; RESP 21; TEMP 36.4; O2SAT 97
[2023-02-15 16:38] LABS: Venous Blood Gas Refer to POC result
[2023-02-15 16:38] LABS: VBG Base Excess 2.2 mmol/L; VBG HCO3 25 mmol/L (22-26); VBG pCO2 36 mmHg; VBG pH 7.45 (7.32-7.43); VBG pO2 55 mmHg
[2023-02-15 17:16] VITALS: BMI 21.6
[2023-02-15] MEDS: Ampicillin Sodium/Sulbactam Na 3 GM in 0.9 % Sodium Chloride 100 ML IV (18:24)
[2023-02-15 18:30] VITALS: TEMP 37.9
[2023-02-15] MEDS: Acetaminophen Supp 650 MG SUPP.RECT PR (18:53)
--- NOTE | 2023-02-15 19:31 | PM.PSYCN ---
History of Present Illness Date of Service: 02/15/2023 Chief Complaint: Pneumonia Discussed with referring provider: Yes Sources of Information: patient interviewed, chart reviewed and crisis/core team assessment reviewed HPI Narrative: Interim Hx: pt transfered to medical, due to vomiting, presenting more lethargic. Pt currently being treated for pneumonia. Pt has been sleeping and sedated during the day. Psych medications have been decreased, currently on seroquel 50mg po BID and depakote 250mg po BID. This investigative writer went to see pt, pt is sleeping. He does wake up but somewhat agitated when woken up. Past Psychiatric History: Unknown [facility] Medical History Dementia Diagnostics Vital Signs (24Hr): Vital Signs - 24 hr 02/15/23 13:29 02/15/23 15:47 02/15/23 18:30 Temperature 98.5 F 97.6 F 100.3 F Pulse Rate 92 97 Respiratory Rate 19 21 H Blood Pressure 161/79 H 161/73 H Pulse Oximetry 98 97 Oxygen Delivery Method Room Air Room Air BMI result Body Mass Index 21.6 Labs Labs: Laboratory Results - last 48 hr 02/15/23 16:30 VBG pH 7.45 H VBG pCO2 36 VBG pO2 55 VBG HCO3 25 VBG O2 Saturation 85.0 VBG Base Excess 2.2 Medications Medications Current Medications Acetaminophen (Acetaminophen Supp 650 Mg Supp.Rect) 650 mg MN Q6H PRN PRN Reason: Fever Last Admin: 02/15/23 18:53 Dose: 650 mg Docusate Sodium (Docusate Sodium 100 Mg Capsule) 100 mg PO BID [facility] Enoxaparin Sodium (Enoxaparin Sodium 40 Mg/0.4 Ml Syringe) 40 mg SUBCUT Q24H EDSON Ampicillin Sodium/Sulbactam (Sodium 3 gm/ Sodium Chloride) 100 mls @ 200 mls/hr IV Q6H [facility] Last Infusion: 02/15/23 18:59 Dose: Infused Lactulose (Lactulose 20 Gm/30 Ml Solution) 10 gm PO DAILY PRN PRN Reason: Constipation Omeprazole (Omeprazole 20 Mg Capsule.Dr) 20 mg PO DAILY@0630 [facility] Ondansetron HCl (Ondansetron Hcl 4 Mg/2 Ml Vial) 4 mg IVPUSH Q8H PRN PRN Reason: Nausea and Vomiting Polyethylene Glycol (Polyethylene Glycol 3350 17 Gm Powd.Pack) 17 gm PO DAILY [facility] Quetiapine Fumarate (Quetiapine Fumarate 25 Mg Tablet) 25 mg PO Q6H PRN PRN Reason: agitation Sodium Chloride (0.9 % Sodium Chloride Flush 3 Ml Syringe) 3 ml IVFLUSH QSHIFT [facility] Last Admin: 02/15/23 15:21 Dose: 3 ml Allergies Allergies Allergy/AdvReac Type Severity Reaction Status Date / Time Unable to Assess Allergy Verified 06/12/22 16:15 Assessment & Plan Assessment & Plan (1) Major neurocognitive disorder due to multiple etiologies with behavioral disturbance: Status: Acute Code(s): F02.818 - Dementia in other diseases classified elsewhere, unspecified severity, with other behavioral disturbance Plan Mr. Morris is a 77 year-old male with hx of dementia, was awaiting placement in over flow ED. Pt transferred to medical due to vomiting, and lethargic. pt treated for pneumonia. Pt somnolent. He does wake up when called, not lethargic. Seroquel has been reduced to 50mg po BID and continues on depakote 250mg po BID. PLAN- while pt presenting as somnolent and tired (he does not appear lethargic, able to wake up but somewhat agitated when woken up)- hold seroquel scheduled and hold depakote to avoid over sedation as he recovers from pneumonia. Ammonia is wnl. Pt was also constipated. Total time managing care of this patient today ___30_ minutes.
[2023-02-15 20:00] VITALS: BP 145/74; PULSE 98; RESP 20; TEMP 36.9; O2SAT 98
[2023-02-16 01:11] VITALS: BP 126/78; PULSE 95; RESP 19; TEMP 36.4; O2SAT 96
[2023-02-16] MEDS: Ampicillin Sodium/Sulbactam Na 3 GM in 0.9 % Sodium Chloride 100 ML IV ×4 (01:14→18:21)
[2023-02-16] MEDS: 0.9 % Sodium Chloride Flush 3 ML SYRINGE IVFLUSH ×2 (01:15→07:32)
[2023-02-16 07:47] VITALS: BP 120/64; PULSE 94; RESP 20; TEMP 36.8; O2SAT 96
[2023-02-16] MEDS: Enoxaparin Sodium 40 MG/0.4 ML SYRINGE SUBCUT (08:14)
--- NOTE | 2023-02-16 09:23 | P.PNIM_ITS ---
Subjective Subjective Date of Service: 02/16/23 Interval History: low-grade fever to 100.3 ax yesterday afternoon not hypoxic fluctuating mental status, alternately shouting and lethargic Review of Systems Review of Systems: Yes Unobtainable due to mental status Physical Exam Vital Signs: Vital Signs: Last Vital Signs Temp 98.3 F 02/16/23 07:47 Pulse 94 02/16/23 07:47 Resp 20 02/16/23 07:47 BP 120/64 02/16/23 07:47 Pulse Ox 96 02/16/23 07:47 O2 Del Method Room Air 02/16/23 07:47 BMI result Body Mass Index 21.6 Gen: in no acute distress HEENT: sclera anicteric, moist mucus membranes Neck: supple Lungs: clear to auscultation bilaterally Heart: regular rate and rhythm, no murmurs Abd: soft, non-tender, non-distended Ext: no edema Skin: warm/well-perfused Neuro: moving all extremities, minimally verbal but awake, unable to assess orientation Psych: impaired insight Objective Data Active Medications Acetaminophen (Acetaminophen Supp 650 Mg Supp.Rect) 650 mg [place] Q6H PRN PRN Reason: Fever Last Admin: 02/15/23 18:53 Dose: 650 mg Documented By: KATHI Docusate Sodium (Docusate Sodium 100 Mg Capsule) 100 mg PO BID [facility] Last Admin: 02/16/23 07:27 Dose: Not Given Documented By: ASHLEY Non-Admin Reason: NPO Enoxaparin Sodium (Enoxaparin Sodium 40 Mg/0.4 Ml Syringe) 40 mg SUBCUT Q24H [facility] Last Admin: 02/16/23 08:14 Dose: 40 mg Documented By: ASHLEY Ampicillin Sodium/Sulbactam (Sodium 3 gm/ Sodium Chloride) 100 mls @ 200 mls/hr IV Q6H [facility] Last Infusion: 02/16/23 08:14 Dose: 0 mls/hr Documented By: ASHLEY Lactulose (Lactulose 20 Gm/30 Ml Solution) 10 gm PO DAILY PRN PRN Reason: Constipation Omeprazole (Omeprazole 20 Mg Capsule.Dr) 20 mg PO DAILY@0630 [facility] Last Admin: 02/16/23 06:19 Dose: Not Given Documented By: MO Non-Admin Reason: NPO Ondansetron HCl (Ondansetron Hcl 4 Mg/2 Ml Vial) 4 mg IVPUSH Q8H PRN PRN Reason: Nausea and Vomiting Polyethylene Glycol (Polyethylene Glycol 3350 17 Gm Powd.Pack) 17 gm PO DAILY [facility] Last Admin: 02/16/23 07:27 Dose: Not Given Documented By: ASHLEY Non-Admin Reason: NPO Quetiapine Fumarate (Quetiapine Fumarate 25 Mg Tablet) 25 mg PO Q6H PRN PRN Reason: agitation Sodium Chloride (0.9 % Sodium Chloride Flush 3 Ml Syringe) 3 ml IVFLUSH QSHIFT [facility] Last Admin: 02/16/23 07:32 Dose: 3 ml Documented By: ASHLEY Labs Labs: Laboratory Results - last 24 hr 02/15/23 16:30 VBG pH 7.45 H VBG pCO2 36 VBG pO2 55 VBG HCO3 25 VBG O2 Saturation 85.0 VBG Base Excess 2.2 Assessment and Plan (1) Dementia: Status: Acute Plan d5 77yo M with no known PMHx brought in to [facility] due to inability to care for self due to worsening dementia was awaiting LTC placement and [facility] in overflow ED x 2 mo but then was noted to have lethargy/vomiting, admitted for LLL PNA LLL PNA ?aspiration - leucocytosis resolved - repeat CT chest 3-6 mo for peribronchial tree-in-bud opacities in the lingula - BCx neg, PCT low, recheck in AM, also check respiratory pathogen panel - pip-pankaj 02/12-02/15, switched to amp-sul 02/15- constipation - stool softeners vomiting - had 3 episodes of brown vomit, resolved - continue PPI EPS with dystonia - resolved acute toxic-metabolic encephalopathy due to antipsychotics + infection - normal CPK, NH3, LA; minimize antipsychotics; treat infection as above - PT + BOTTLE FILLER consultation - IV maintenance fluids dementia with behav disturb - Psychiatry re-consulted - stopped valproate and standing quetiapine due to lethargy; use prn quetiapine aat this point VTE ppx - LMWH dispo - TBD Time Spent With Patient Time: Total time managing care of this patient today __45__ minutes. Quality Stroke Does the patient have a stroke diagnosis?: No VTE Prior VTE?: No VTE Risk Level:: Medical - moderate - high VTE Device Contraindication: N/A - Device Ordered VTE Drug Contraindication: N/A - Med Ordered
--- NOTE | 2023-02-16 09:28 | MHC.CM.PN ---
pt admitted imm on chart spoke with pts hcp [facility] [place] and [facility] dc plan ltc
[2023-02-16] MEDS: Dextrose 5 % and 0.45 % NaCl 1,000 ML 100 ML IVCONT ×2 (10:14→19:22)
[2023-02-16 12:22] LABS: Adenovirus PCR Not Detected (Not Detect.); Bordetella parapertussis PCR Not Detected (Not Detect.); Bordetella pertussis PCR Not Detected (Not Detect.); Chlamydia pneumoniae PCR Not Detected (Not Detect.); Coronavirus 229E PCR Not Detected (Not Detect.); Coronavirus HKU1 PCR Not Detected (Not Detect.); Coronavirus NL63 PCR Not Detected (Not Detect.); Coronavirus OC43 PCR Not Detected (Not Detect.); Human metapneumovirus PCR Not Detected (Not Detect.); Influenza A PCR Not Detected (Not Detect.); Influenza B PCR Not Detected (Not Detect.); Rhino/Enterovirus PCR Not Detected (Not Detect.); SARS-CoV-2 PCR Not Detected (Not Detect.)
[2023-02-16 12:23] LABS: Mycoplasma pneumoniae PCR Not Detected (Not Detect.); Parainfluenza 1 PCR Not Detected (Not Detect.); Parainfluenza 2 PCR Not Detected (Not Detect.); Parainfluenza 3 PCR Not Detected (Not Detect.); Parainfluenza 4 PCR Not Detected (Not Detect.); RSV PCR Not Detected (Not Detect.)
--- NOTE | 2023-02-16 12:34 | PC.NURSE ---
spoke to speech and swallow this am , they said to try to attempt lunch . This RN attempted to feed pt mashed potatoes , pt kept mashed potatoes in mouth and would not swallow . Mashed potatoes had to be manulally taken out , will keep NPO until further notice , also will speak to speech and swallow again .
--- NOTE | 2023-02-16 14:52 | MHC.SLORD ---
Speech Language Pathology Order Status: Pt not able to be evaluated today. Per RN she attempted some Puree Solids, but the Pt let it remain in his mouth without processing it, and was subsequently removed via [place] suction. RAIL SWITCHMAN will continue to follow.
[2023-02-16 19:21] VITALS: BP 130/75; PULSE 86; RESP 18; TEMP 36.4; O2SAT 97
[2023-02-16] MEDS: QUEtiapine Fumarate 25 MG TABLET PO (20:18)
[2023-02-17] MEDS: Ampicillin Sodium/Sulbactam Na 3 GM in 0.9 % Sodium Chloride 100 ML IV ×4 (01:14→18:07)
[2023-02-17 04:00] VITALS: RESP 20
--- NOTE | 2023-02-17 04:31 | PC.NURSE ---
late entry at beginning of 7p shift patient was yelling nonstop, confused. Seroquel PRN crushed and given with tiny amt of ice cream. No problem with swallowing, good response, patient was asleep and comfortable for most of the night.
[2023-02-17 05:53] LABS: Hematocrit 27.2 % (42.0-52.0); Hemoglobin 8.8 g/dl (14.0-18.0); Mean Corpuscular HGB Conc 32.4 g/dl (31.0-36.0); Mean Corpuscular Hemoglobin 28.6 pg (27.0-33.0); Mean Corpuscular Volume 88.3 fL (80.0-98.0); Mean Platelet Volume 9.3 fL (9.4-12.4); Platelet Count 177 X10*3/uL (160-400); Red Blood Count 3.08 X10*6/uL (4.60-5.80); Red Cell Distribution Width 14.2 % (11.0-16.0); White Blood Count 4.9 X10*3/uL (4.8-10.8)
[2023-02-17 06:07] LABS: Anion Gap 8 (12-20); Blood Urea Nitrogen 19 mg/dL (9-16); Calcium 8.4 mg/dL (8.4-10.2); Carbon Dioxide 25 mmol/L (22-29); Chloride 110 mmol/L (96-108); Creatinine Clr Calc Pharmacy 93.1; Estimated Glomerular Filt Rate > 60; Glucose Random 135 mg/dL (60-115); Sodium 140 mmol/L (135-145)
[2023-02-17] MEDS: Dextrose 5 % and 0.45 % NaCl 1,000 ML 100 ML IVCONT (06:16)
[2023-02-17 06:23] LABS: Procalcitonin 0.24 ng/mL
[2023-02-17] MEDS: QUEtiapine Fumarate 25 MG TABLET PO (07:03)
[2023-02-17 07:55] LABS: Immature Retic Fraction 14.5 % (2.3-13.4); Retic HGB Equivalent 29.3 pg (30.0-35.0); Reticulocyte Percent 1.3 % (0.5-1.8)
[2023-02-17 08:00] VITALS: BP 132/76; PULSE 100; RESP 18; TEMP 36.8; O2SAT 97
[2023-02-17 08:04] LABS: Iron 15 mcg/dL (45-160); Percent Iron Saturation 9 % (15-50); Total Iron Binding Capacity 168 mcg/dL (228-428); Unsaturated Iron Binding 153 ug/dL
[2023-02-17 08:17] LABS: Ferritin 218 ng/mL (20-250)
[2023-02-17] MEDS: Potassium Chloride/H20 10 MEQ/100 ML PIGGYBACK 100 MEQ IV ×2 (08:36→09:29)
[2023-02-17] MEDS: Enoxaparin Sodium 40 MG/0.4 ML SYRINGE SUBCUT (08:43)
--- NOTE | 2023-02-17 09:50 | P.PNIM_ITS ---
Subjective Subjective Date of Service: 02/17/23 Interval History: awake, alert shouting words, incoherent sentences had BM yesterday not hypoxic minimal PO intake Review of Systems Review of Systems: Yes Unobtainable due to mental status Physical Exam Vital Signs: Vital Signs: Last Vital Signs Temp 98.3 F 02/17/23 08:00 Pulse 100 02/17/23 08:00 Resp 18 02/17/23 08:00 BP 132/76 02/17/23 08:00 Pulse Ox 97 02/17/23 08:00 O2 Del Method Room Air 02/17/23 08:00 BMI result Body Mass Index 21.6 Gen: agitated, shouting HEENT: sclera anicteric, moist mucus membranes Neck: supple Lungs: clear to auscultation bilaterally Heart: regular rate and rhythm, no murmurs Abd: soft, non-tender, non-distended Ext: no edema Skin: warm/well-perfused Neuro: moving all extremities, unable to assess orientation Psych: impaired insight Objective Data Active Medications Acetaminophen (Acetaminophen Supp 650 Mg Supp.Rect) 650 mg [place] Q6H PRN PRN Reason: Fever Last Admin: 02/15/23 18:53 Dose: 650 mg Documented By: KATHI Docusate Sodium (Docusate Sodium 100 Mg Capsule) 100 mg PO BID [facility] Last Admin: 02/17/23 07:00 Dose: Not Given Documented By: ASHLEY Non-Admin Reason: NPO Enoxaparin Sodium (Enoxaparin Sodium 40 Mg/0.4 Ml Syringe) 40 mg SUBCUT Q24H [facility] Last Admin: 02/17/23 08:43 Dose: 40 mg Documented By: ASHLEY Ampicillin Sodium/Sulbactam (Sodium 3 gm/ Sodium Chloride) 100 mls @ 200 mls/hr IV Q6H [facility] Last Infusion: 02/17/23 06:45 Dose: 0 mls/hr Documented By: DANTE Dextrose/Sodium Chloride (D51/2ns) 1,000 mls @ 100 mls/hr IVCONT .Q10H [facility] Last Infusion: 02/17/23 06:45 Dose: 100 mls/hr Documented By: DANTE Lactulose (Lactulose 20 Gm/30 Ml Solution) 10 gm PO DAILY PRN PRN Reason: Constipation Omeprazole (Omeprazole 20 Mg Capsule.) 20 mg PO DAILY@0630 [facility] Last Admin: 02/17/23 06:20 Dose: Not Given Documented By: DANTE Non-Admin Reason: can not crush,pt unable to swallow Ondansetron HCl (Ondansetron Hcl 4 Mg/2 Ml Vial) 4 mg IVPUSH Q8H PRN PRN Reason: Nausea and Vomiting Polyethylene Glycol (Polyethylene Glycol 3350 17 Gm Powd.Pack) 17 gm PO DAILY [facility] Last Admin: 02/17/23 07:00 Dose: Not Given Documented By: ASHLEY Non-Admin Reason: NPO Quetiapine Fumarate (Quetiapine Fumarate 25 Mg Tablet) 25 mg PO Q6H PRN PRN Reason: agitation Last Admin: 02/17/23 07:03 Dose: 25 mg Documented By: ASHLEY Sodium Chloride (0.9 % Sodium Chloride Flush 3 Ml Syringe) 3 ml IVFLUSH QSHIFT [facility] Last Admin: 02/17/23 07:00 Dose: Not Given Documented By: ASHLEY Non-Admin Reason: IV Running Labs 02/17/23 05:21 02/17/23 05:21 Labs: Laboratory Results - last 24 hr 02/16/23 02/17/23 02/17/23 08:45 05:21 05:21 MCV 88.3 MCH 28.6 MCHC 32.4 RDW 14.2 Plt Count 177 MPV 9.3 L Absolute Nucleated RBC 0.000 Nucleated RBC % (auto) 0.0 Absolute Retic 0.040 Percent Retic 1.3 Immature Retic Fraction 14.5 H Retic Hgb Equivalent 29.3 L Anion Gap 8 L Estim Creat Clear Calc 93.1 Estimated GFR > 60 Random Glucose 135 H Calcium 8.4 Iron 15 L TIBC 168 L % Saturation 9 L Unsat Iron Binding 153 Ferritin 218 Procalcitonin 0.24 Respiratory Panel Franks See Note Adenovirus (Rapid PCR) Not Detected B.pert (TEM-PCR) Not Detected B.parapertussis DNA PCR Not Detected C. pneumoniae DNA (PCR) Not Detected Coronavirus OC43 (PCR) Not Detected Coronavirus HKU1 (PCR) Not Detected Coronavirus 229E (PCR) Not Detected Coronavirus NL63 (PCR) Not Detected Human Metapneumovir PCR Not Detected Influenza A (RT-PCR) Not Detected Influenza B (RT-PCR) Not Detected M. pneumoniae (PCR) Not Detected Parainfluenza 1 (PCR) Not Detected Parainfluenza 2 (PCR) Not Detected Parainfluenza 3 (PCR) Not Detected Parainfluenza 4 (PCR) Not Detected RSV (PCR) Not Detected Entero/Rhino (PCR) Not Detected SARS-CoV-2 RNA (RT-PCR) Not Detected Assessment and Plan (1) Dementia: Status: Acute Plan d6 77yo M with no known PMHx brought into [facility] due to inability to care for self due to worsening dementia was awaiting LTC placement and [facility] in overflow ED x 2 mo but then was noted to have lethargy/vomiting, admitted for LLL PNA LLL PNA ?aspiration - leucocytosis resolved - repeat CT chest 3-6 mo for peribronchial tree-in-bud opacities in the lingula - BCx neg, PCT low, respiratory pathogen panel negative - pip-pankaj 02/12-02/15, switched to amp-sul 02/15-02/18 constipation - stool softeners, check KUB vomiting - had 3 episodes of brown vomit, resolved - continue PPI EPS with dystonia - resolved acute toxic-metabolic encephalopathy due to antipsychotics + infection - normal CPK, NH3, LA; minimize antipsychotics; treat infection as above - PT + SCRATCH FINISHER consultation - IV maintenance fluids dementia with behav disturb - Psychiatry re-consulted - stopped valproate and standing quetiapine due to lethargy but now agitated; will resume standing quetiapine 50 mg tid and Psych will see again today - added IV lorazepam prn severe agitation VTE ppx - LMWH dispo - TBD. Updated pt's guardian, his nephew Derek, by phone today. Confirms DNR/DNI, no artificial nutrition. Time Spent With Patient Time: Total time managing care of this patient today ____ minutes. Quality Stroke Does the patient have a stroke diagnosis?: No VTE Prior VTE?: No VTE Risk Level:: Medical - moderate - high VTE Device Contraindication: N/A - Device Ordered VTE Drug Contraindication: N/A - Med Ordered
[2023-02-17 12:23] VITALS: BMI 21.6
[2023-02-17] MEDS: LORazepam 2 MG/ML VIAL 0.5 MG IVPUSH ×2 (12:34→21:23)
--- NOTE | 2023-02-17 14:36 | MHC.SLORD ---
Speech Language Pathology Order Status: COMMUNICATIONS ENGINEER attempted to see pt for bedside dysphagia evaluation. COMMUNICATIONS ENGINEER provided minimal oral care, removing some thick white secretions w/ swab, before pt waved arms and swatted at COMMUNICATIONS ENGINEER. Pt continually shouting out- COMMUNICATIONS ENGINEER was not able to redirect pt. Pt not responsive to presentation of PO, and was turning face away and swatting at COMMUNICATIONS ENGINEER when COMMUNICATIONS ENGINEER attempted to provide care/present PO. Unable to evaluate pt. Notified MD and RN.
--- NOTE | 2023-02-17 15:58 | MHC.CM.PN ---
EMR REVIEWED AND PER MD ROUNDS, PT IS NOT MEDICALLY CLEAR FOR DC (EXTREME AGITATION, PSYCH CONSULT PENDING) CM WILL CONTINUE TO FOLLOW FOR DC NEEDS/PLAN
[2023-02-17 16:00] VITALS: BP 133/63; PULSE 79; RESP 16; TEMP 36.6; O2SAT 96
--- NOTE | 2023-02-17 16:57 | P.CNPS_ITS ---
History of Present Illness Date of Service: 02/17/2023 Chief Complaint: Pneumonia Requesting physician: James Short Discussed with referring provider: Yes Sources of Information: patient interviewed, chart reviewed and crisis/core team assessment reviewed HPI Narrative: Interim Hx: pt more agitated and combative. Less lethargic. Pt did not sleep most night, yelling disrupting other pts on medical floor. He is not swallowing well, not taking oral seroquel, spitting and minimal oral intake. He received ativan IV and sleeping when this junior technical writer went to see him. Past Psychiatric History: Unknown Review of Systems Review of Systems Yes Unobtainable due to mental status [facility] Medical History Dementia Diagnostics Vital Signs (24Hr): Vital Signs - 24 hr 02/16/23 19:21 02/17/23 04:00 02/17/23 08:00 Temperature 97.5 F 98.3 F Pulse Rate 86 100 Respiratory Rate 18 20 18 Blood Pressure 130/75 132/76 Pulse Oximetry 97 97 Oxygen Delivery Method Room Air Room Air 02/17/23 16:00 Temperature 97.9 F Pulse Rate 79 Respiratory Rate 16 Blood Pressure 133/63 Pulse Oximetry 96 Oxygen Delivery Method Room Air BMI result Body Mass Index 21.6 Labs 02/17/23 05:21 02/17/23 05:21 Labs: Laboratory Results - last 48 hr 02/16/23 02/17/23 02/17/23 08:45 05:21 05:21 WBC 4.9 RBC 3.08 L D Hgb 8.8 L Hct 27.2 L D MCV 88.3 MCH 28.6 MCHC 32.4 RDW 14.2 Plt Count 177 MPV 9.3 L Absolute Nucleated RBC 0.000 Nucleated RBC % (auto) 0.0 Absolute Retic 0.040 Percent Retic 1.3 Immature Retic Fraction 14.5 H Retic Hgb Equivalent 29.3 L Sodium 140 Potassium 3.0 L D Chloride 110 H Carbon Dioxide 25 Anion Gap 8 L BUN 19 H Creatinine 0.56 Estim Creat Clear Calc 93.1 Estimated GFR > 60 Random Glucose 135 H Calcium 8.4 Iron 15 L TIBC 168 L % Saturation 9 L Unsat Iron Binding 153 Ferritin 218 Procalcitonin 0.24 Respiratory Panel Franks See Note Adenovirus (Rapid PCR) Not Detected B.pert (TEM-PCR) Not Detected B.parapertussis DNA PCR Not Detected C. pneumoniae DNA (PCR) Not Detected Coronavirus OC43 (PCR) Not Detected Coronavirus HKU1 (PCR) Not Detected Coronavirus 229E (PCR) Not Detected Coronavirus NL63 (PCR) Not Detected Human Metapneumovir PCR Not Detected Influenza A (RT-PCR) Not Detected Influenza B (RT-PCR) Not Detected M. pneumoniae (PCR) Not Detected Parainfluenza 1 (PCR) Not Detected Parainfluenza 2 (PCR) Not Detected Parainfluenza 3 (PCR) Not Detected Parainfluenza 4 (PCR) Not Detected RSV (PCR) Not Detected Entero/Rhino (PCR) Not Detected SARS-CoV-2 RNA (RT-PCR) Not Detected Medications Medications Current Medications Acetaminophen (Acetaminophen Supp 650 Mg Supp.Rect) 650 mg [place] Q6H PRN PRN Reason: Fever Last Admin: 02/15/23 18:53 Dose: 650 mg Docusate Sodium (Docusate Sodium 100 Mg Capsule) 100 mg PO BID [facility] Last Admin: 02/17/23 07:00 Dose: Not Given Enoxaparin Sodium (Enoxaparin Sodium 40 Mg/0.4 Ml Syringe) 40 mg SUBCUT Q24H [facility] Last Admin: 02/17/23 08:43 Dose: 40 mg Ferrous Sulfate (Ferrous Sulfate 324 Mg Tablet.) 324 mg PO DAILY [facility] Last Admin: 02/17/23 10:11 Dose: Not Given Ampicillin Sodium/Sulbactam (Sodium 3 gm/ Sodium Chloride) 100 mls @ 200 mls/hr IV Q6H [facility] Last Infusion: 02/17/23 12:49 Dose: Infused Dextrose/Sodium Chloride (D51/2ns) 1,000 mls @ 100 mls/hr IVCONT .Q10H [facility] Last Infusion: 02/17/23 06:45 Dose: 100 mls/hr Lactulose (Lactulose 20 Gm/30 Ml Solution) 10 gm PO DAILY PRN PRN Reason: Constipation Lorazepam (Lorazepam 2 Mg/Ml Vial) 0.5 mg IVPUSH Q6H PRN PRN Reason: severe agitation/anxiety Last Admin: 02/17/23 12:34 Dose: 0.5 mg Omeprazole (Omeprazole 20 Mg Capsule.) 20 mg PO DAILY@0630 [facility] Last Admin: 02/17/23 06:20 Dose: Not Given Ondansetron HCl (Ondansetron Hcl 4 Mg/2 Ml Vial) 4 mg IVPUSH Q8H PRN PRN Reason: Nausea and Vomiting Polyethylene Glycol (Polyethylene Glycol 3350 17 Gm Powd.Pack) 17 gm PO DAILY [facility] Last Admin: 02/17/23 07:00 Dose: Not Given Quetiapine Fumarate (Quetiapine Fumarate 25 Mg Tablet) 25 mg PO Q6H PRN PRN Reason: agitation Last Admin: 02/17/23 07:03 Dose: 25 mg Quetiapine Fumarate (Quetiapine Fumarate 50 Mg Tablet) 50 mg PO TID [facility] Last Admin: 02/17/23 12:36 Dose: Not Given Sodium Chloride (0.9 % Sodium Chloride Flush 3 Ml Syringe) 3 ml IVFLUSH QSHIFT [facility] Last Admin: 02/17/23 13:19 Dose: Not Given Allergies Allergies Allergy/AdvReac Type Severity Reaction Status Date / Time Unable to Assess Allergy Verified 06/12/22 16:15 Assessment & Plan Assessment & Plan (1) Dementia: Status: Acute Code(s): F03.90 - Unspecified dementia, unspecified severity, without behavioral disturbance, psychotic disturbance, mood disturbance, and anxiety Plan 02/17- resume seroquel 50mg po TID, if unable to give oral medication can try disintregrating tablet of Olanzapine 2.5mg po TID. Can use ativan IV for breathrough agitation with olanzapine IM (note that olanzapine highly antich oligergic and may worsen constipation). Continue Seroquel 50mg po q6h prn agitation. Pt does appear AMS more than his usual with baseline dementia. Total time managing care of this patient today ____ minutes.
[2023-02-17 19:15] VITALS: BP 143/85; PULSE 77; RESP 18; TEMP 36.1; O2SAT 100
[2023-02-17] MEDS: OLANZapine 10 MG VIAL IM (23:30)
--- NOTE | 2023-02-18 | ECG_ITS ---
Test Reason : hypokalemia Blood Pressure : / mmHG Vent. Rate : 070 BPM Atrial Rate : 070 BPM P-R Int : 118 ms QRS Dur : 080 ms QT Int : 410 ms P-R-T Axes : 057 058 064 degrees QTc Int : 442 ms Normal sinus rhythm Nonspecific ST abnormality Abnormal ECG When compared with ECG of 18-JAN-2023 21:26, No significant change was found Referred By: Lopez Hope Electronically Signed By:Javier Tinsley
[2023-02-18] MEDS: Ampicillin Sodium/Sulbactam Na 3 GM in 0.9 % Sodium Chloride 100 ML IV ×3 (00:45→12:14)
--- NOTE | 2023-02-18 01:10 | PC.NURSE ---
Patient is restless , continuously screaming very loud, speech mostly unclear, unable to answer to yes or no questions. Mouth care provided PRN ,pt reposition Q 2 hrs and sitter at bedside. PRN Ativan given with no effect. Dr larose notified and IM Zyprexa ordered and administered. Will continue to monitor.
[2023-02-18] MEDS: Dextrose 5 % and 0.45 % NaCl 1,000 ML 100 ML IVCONT ×2 (01:17→12:17)
[2023-02-18 04:00] VITALS: RESP 18
[2023-02-18 05:50] LABS: Hematocrit 29.4 % (42.0-52.0); Hemoglobin 9.4 g/dl (14.0-18.0); Mean Corpuscular Hemoglobin 28.3 pg (27.0-33.0); Mean Corpuscular Volume 88.6 fL (80.0-98.0); Mean Platelet Volume 9.8 fL (9.4-12.4); Platelet Count 160 X10*3/uL (160-400); Red Blood Count 3.32 X10*6/uL (4.60-5.80); Red Cell Distribution Width 13.9 % (11.0-16.0); White Blood Count 4.3 X10*3/uL (4.8-10.8)
[2023-02-18 06:10] LABS: Anion Gap 11 (12-20); Blood Urea Nitrogen 14 mg/dL (9-16); Calcium 8.3 mg/dL (8.4-10.2); Carbon Dioxide 22 mmol/L (22-29); Chloride 112 mmol/L (96-108); Creatinine Clr Calc Pharmacy 85.5; Estimated Glomerular Filt Rate > 60; Glucose Random 111 mg/dL (60-115); Magnesium 1.9 mg/dL (1.6-2.6); Potassium 3.1 mmol/L (3.3-5.1); Sodium 142 mmol/L (135-145)
[2023-02-18 06:25] VITALS: BP 168/64; PULSE 78; RESP 20; TEMP 36.9; O2SAT 99
[2023-02-18 08:00] VITALS: BP 130/60; PULSE 79; RESP 18; TEMP 36.6; O2SAT 99
[2023-02-18] MEDS: Enoxaparin Sodium 40 MG/0.4 ML SYRINGE SUBCUT (08:30)
[2023-02-18 11:19] VITALS: BMI 21.6
--- NOTE | 2023-02-18 11:23 | MHC.CLN ---
RE: CONSULT PT WITH POOR PO X 4 DAYS SINCE ADMISSION, POCKETING FOOD AND REQUIRES PPN FOR NUTRITION SUPPORT REVIEWED LABS REQUESTING PPN TO START; RECOMMEND D10AA4.25 AT 35ML/HR TO PROVIDE 428KCALS, 84G DEXTROSE, 36G PROTEIN DISCUSSED WITH PHARMACY REPLETE LYTES NEEDED FOLLOWING WITH TEAM SEE ALSO FULL CLINICAL NUTRITION ASSESSMENT
[2023-02-18] MEDS: Potassium Chloride/H20 10 MEQ/100 ML PIGGYBACK 100 MEQ IV ×2 (13:27→14:30)
[2023-02-18 13:49] LABS: Albumin Level 2.7 g/dL (3.5-5.0); Phosphorus 1.9 mg/dL (2.7-4.5)
--- NOTE | 2023-02-18 14:17 | HO.PM.IMPN ---
Subjective Subjective Date of Service: 02/18/23 Interval History: Patient somnolent this morning , receive IM Zyprexa 10 mg at 23:00 last night due to agitation, respond to verbal stimuli but keep eyes close, vitals are stable, has not been eating or drinking in last few days since refused speech eval and is NPO. Review of Systems Unable to obtain due to mental status. Physical Exam Vital Signs: Vital Signs: Last Vital Signs Temp 97.9 F 02/18/23 08:00 Pulse 79 02/18/23 08:00 Resp 18 02/18/23 08:00 BP 130/60 02/18/23 08:00 Pulse Ox 99 02/18/23 08:00 O2 Del Method Room Air 02/18/23 08:00 BMI result Body Mass Index 21.6 Const: Other: Gen: Somnolent arousable to verbal stimuli HEENT: sclera anicteric, moist mucus membranes Neck: supple Lungs: clear to auscultation bilaterally Heart: regular rate and rhythm, no murmurs Abd: soft, non-distended, bowel sounds audible Ext: no edema Skin: warm/well-perfused Neuro: moving all extremities, unable to assess orientation Objective Data Active Medications Acetaminophen (Acetaminophen Supp 650 Mg Supp.Rect) 650 mg [place] Q6H PRN PRN Reason: Fever Last Admin: 02/15/23 18:53 Dose: 650 mg Documented By: KATHI Docusate Sodium (Docusate Sodium 100 Mg Capsule) 100 mg PO BID [facility] Last Admin: 02/18/23 07:01 Dose: Not Given Documented By: ASHLEY Non-Admin Reason: NPO Enoxaparin Sodium (Enoxaparin Sodium 40 Mg/0.4 Ml Syringe) 40 mg SUBCUT Q24H [facility] Last Admin: 02/18/23 08:30 Dose: 40 mg Documented By: ASHLEY Ferrous Sulfate (Ferrous Sulfate 324 Mg Tablet.) 324 mg PO DAILY [facility] Last Admin: 02/18/23 07:02 Dose: Not Given Documented By: ASHLEY Non-Admin Reason: NPO Ampicillin Sodium/Sulbactam (Sodium 3 gm/ Sodium Chloride) 100 mls @ 200 mls/hr IV Q6H [facility] Last Infusion: 02/18/23 12:48 Dose: 0 mls/hr Documented By: ASHLEY Nutrition (Parenteral) (Parenteral Nutrition) 840 mls @ 35 mls/hr IV .Q24H [facility]; Protocol Stop: 02/19/23 20:59 Potassium Chloride (Potassium Chloride/H20) 10 meq in 100 mls @ 100 mls/hr IV Q1H [facility] Stop: 02/18/23 15:59 Last Admin: 02/18/23 13:27 Dose: 100 mls/hr Documented By: ASHLEY Lactulose (Lactulose 20 Gm/30 Ml Solution) 10 gm PO DAILY PRN PRN Reason: Constipation Lorazepam (Lorazepam 2 Mg/Ml Vial) 0.5 mg IVPUSH Q6H PRN PRN Reason: severe agitation/anxiety Last Admin: 02/17/23 21:23 Dose: 0.5 mg Documented By: STEVEN Omeprazole (Omeprazole 20 Mg Capsule.Dr) 20 mg PO DAILY@0630 [facility] Last Admin: 02/18/23 05:57 Dose: Not Given Documented By: STEVEN Non-Admin Reason: Patient Condition Contraindication Ondansetron HCl (Ondansetron Hcl 4 Mg/2 Ml Vial) 4 mg IVPUSH Q8H PRN PRN Reason: Nausea and Vomiting Pharmacy Consult (Consult Rx Parenteral Nutrition Ordering) 1 each MISCELLANE DAILY PRN PRN Reason: Consult order Polyethylene Glycol (Polyethylene Glycol 3350 17 Gm Powd.Pack) 17 gm PO DAILY [facility] Last Admin: 02/18/23 07:02 Dose: Not Given Documented By: ASHLEY Non-Admin Reason: NPO Quetiapine Fumarate (Quetiapine Fumarate 25 Mg Tablet) 25 mg PO Q6H PRN PRN Reason: agitation Last Admin: 02/17/23 07:03 Dose: 25 mg Documented By: ASHLEY Quetiapine Fumarate (Quetiapine Fumarate 50 Mg Tablet) 50 mg PO TID [facility] Last Admin: 02/18/23 13:09 Dose: Not Given Documented By: ASHLEY Non-Admin Reason: NPO Sodium Chloride (0.9 % Sodium Chloride Flush 3 Ml Syringe) 3 ml IVFLUSH QSHIFT [facility] Last Admin: 02/18/23 07:02 Dose: Not Given Documented By: ASHLEY Non-Admin Reason: IV Running Labs 02/18/23 05:21 02/18/23 05:21 Labs: Laboratory Results - last 24 hr 02/18/23 02/18/23 05:21 05:21 MCV 88.6 MCH 28.3 MCHC 32.0 RDW 13.9 Plt Count 160 MPV 9.8 Absolute Nucleated RBC 0.000 Nucleated RBC % (auto) 0.0 Anion Gap 11 L Estim Creat Clear Calc 85.5 Estimated GFR > 60 Random Glucose 111 Calcium 8.3 L Phosphorus 1.9 L Magnesium 1.9 Albumin 2.7 L Assessment and Plan (1) Dementia: Status: Acute Plan 77yo M with no known PMHx brought into [facility] due to inability to care for self due to worsening dementia was awaiting LTC placement and [facility] in overflow ED x 2 mo but then was noted to have lethargy/vomiting, admitted for LLL PNA LLL PNA ?aspiration - leucocytosis resolved - repeat CT chest 3-6 mo for peribronchial tree-in-bud opacities in the lingula - BCx neg, PCT low, respiratory pathogen panel negative,s/p pip-pankaj 02/12-02/15, switched to amp-sul 02/15-02/18, will DC antibiotic after today's dose constipation - stool softeners, last BM 02/16, KUB obtained report pending vomiting - had 3 episodes of brown vomit, no recurrent vomitting - will place on IV Pepcid since not taking by mouth meds Hypokalemia will replace and follow labs likely due to IV fluids poor by mouth intake ?EPS with dystonia - resolved ?acute toxic-metabolic encephalopathy due to antipsychotics + infection - normal CPK, NH3, LA; minimize antipsychotics; treat infection as above - PT signed off since patient is unable to participate in PT /+ 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 - pt has severe hearing impairment looking for hearing aids. Continue close clinical follow-up dementia with behavoiral disturb - Psychiatry re-consulted 02/17 they recommend to resume seroquel 50mg po TID, if unable to give oral medication can try disintregrating tablet of Olanzapine 2.5mg po TID. Can use ativan IV for breathrough agitation with olanzapine IM and to Continue Seroquel 50mg po q6h prn agitation. - since patient unable to take by mouth will DC Seroquel t.i.d./will schedule IM Zyprexa 2.5 to 5mg at HS and prn iv ativan. VTE ppx - LMWH dispo - TBD.? Updated pt's guardian, his nephew Derek, by phone today, he agree with no artificial nutrition, will follow up with nephew Derek healthcare proxy at a.m. regarding goal of care. Time Spent With Patient Time: Total time managing care of this patient today ____ minutes. Quality Stroke Does the patient have a stroke diagnosis?: No VTE Prior VTE?: No VTE Risk Level:: Medical - moderate - high VTE Device Contraindication: N/A - Device Ordered VTE Drug Contraindication: N/A - Med Ordered
[2023-02-18] MEDS: 0.9 % Sodium Chloride Flush 3 ML SYRINGE IVFLUSH (14:31)
--- NOTE | 2023-02-18 14:32 | MHC.SLORD ---
Speech Language Pathology Order Status: Attempted to see patient for clinical swallow evaluation. Per RN patient is medicated due to combative state previous evening. Patient was sleeping through early pm, not appropriate for evaluation at this time. This is fourth attempt by CSR TECHNICIAN to see patient (Attempts 02/15, 02/16, 02/17, 02/18). CSR TECHNICIAN wang continue to follow for readiness for assessment.
[2023-02-18 15:07] VITALS: BP 168/48; PULSE 81; RESP 16; TEMP 36.5; O2SAT 100
--- NOTE | 2023-02-18 16:24 | P.CNPS_ITS ---
History of Present Illness Date of Service: 02/18/2023 Chief Complaint: Pneumonia Discussed with referring provider: Yes Sources of Information: patient interviewed, chart reviewed and crisis/core team assessment reviewed HPI Narrative: Interim Hx: Pt combative last night. He received Olanzapine 10mg IM along with ativan. Pt has been asleep most of the day, difficult to wake up. Discussed with Dr. Hope, nighttime scheduled medication for sleep but avoid over sedation as pt continues to present with episodes of agitation followed by excessive sedation. Past Psychiatric History: Unknown Review of Systems Review of Systems Unable to obtain due to mental status. Yes Unobtainable due to mental status [facility] Medical History Dementia Diagnostics Vital Signs (24Hr): Vital Signs - 24 hr 02/17/23 19:15 02/18/23 04:00 02/18/23 06:25 Temperature 97.0 F 98.4 F Pulse Rate 77 78 Respiratory Rate 18 18 20 Blood Pressure 143/85 H 168/64 H Pulse Oximetry 100 99 Oxygen Delivery Method Room Air Room Air 02/18/23 08:00 02/18/23 15:07 Temperature 97.9 F 97.7 F Pulse Rate 79 81 Respiratory Rate 18 16 Blood Pressure 130/60 168/48 H Pulse Oximetry 99 100 Oxygen Delivery Method Room Air Room Air BMI result Body Mass Index 21.6 Labs 02/18/23 05:21 02/18/23 05:21 Labs: Laboratory Results - last 48 hr 02/17/23 02/17/23 02/18/23 05:21 05:21 05:21 WBC 4.9 4.3 L RBC 3.08 L D 3.32 L Hgb 8.8 L 9.4 L Hct 27.2 L D 29.4 L MCV 88.3 88.6 MCH 28.6 28.3 MCHC 32.4 32.0 RDW 14.2 13.9 Plt Count 177 160 MPV 9.3 L 9.8 Absolute Nucleated RBC 0.000 0.000 Nucleated RBC % (auto) 0.0 0.0 Absolute Retic 0.040 Percent Retic 1.3 Immature Retic Fraction 14.5 H Retic Hgb Equivalent 29.3 L Sodium 140 Potassium 3.0 L D Chloride 110 H Carbon Dioxide 25 Anion Gap 8 L BUN 19 H Creatinine 0.56 Estim Creat Clear Calc 93.1 Estimated GFR > 60 Random Glucose 135 H Calcium 8.4 Phosphorus Magnesium Iron 15 L TIBC 168 L % Saturation 9 L Unsat Iron Binding 153 Ferritin 218 Albumin Procalcitonin 0.24 02/18/23 05:21 WBC RBC Hgb Hct MCV MCH MCHC RDW Plt Count MPV Absolute Nucleated RBC Nucleated RBC % (auto) Absolute Retic Percent Retic Immature Retic Fraction Retic Hgb Equivalent Sodium 142 Potassium 3.1 L Chloride 112 H Carbon Dioxide 22 Anion Gap 11 L BUN 14 Creatinine 0.61 Estim Creat Clear Calc 85.5 Estimated GFR > 60 Random Glucose 111 Calcium 8.3 L Phosphorus 1.9 L Magnesium 1.9 Iron TIBC % Saturation Unsat Iron Binding Ferritin Albumin 2.7 L Procalcitonin Imaging Radiology Impressions: ITS Impressions Abdomen X-Ray 02/17/23 10:45 IMPRESSION: Constipation. Mental Status Exam Mental Status Exam Narrative: somnolent Medications Medications Current Medications Acetaminophen (Acetaminophen Supp 650 Mg Supp.Rect) 650 mg [place] Q6H PRN PRN Reason: Fever Last Admin: 02/15/23 18:53 Dose: 650 mg Docusate Sodium (Docusate Sodium 100 Mg Capsule) 100 mg PO BID [facility] Last Admin: 02/18/23 07:01 Dose: Not Given Enoxaparin Sodium (Enoxaparin Sodium 40 Mg/0.4 Ml Syringe) 40 mg SUBCUT Q24H [facility] Last Admin: 02/18/23 08:30 Dose: 40 mg Nutrition (Parenteral) (Parenteral Nutrition) 840 mls @ 35 mls/hr IV .Q24H [facility]; Protocol Stop: 02/19/23 20:59 Lactulose (Lactulose 20 Gm/30 Ml Solution) 10 gm PO DAILY PRN PRN Reason: Constipation Lorazepam (Lorazepam 2 Mg/Ml Vial) 0.5 mg IVPUSH Q6H PRN PRN Reason: severe agitation/anxiety Last Admin: 02/17/23 21:23 Dose: 0.5 mg Olanzapine (Olanzapine 10 Mg Vial) 5 mg IM 2100 PRN PRN Reason: agitation Omeprazole (Omeprazole 20 Mg Capsule.Dr) 20 mg PO DAILY@0630 [facility] Last Admin: 02/18/23 05:57 Dose: Not Given Ondansetron HCl (Ondansetron Hcl 4 Mg/2 Ml Vial) 4 mg IVPUSH Q8H PRN PRN Reason: Nausea and Vomiting Pharmacy Consult (Consult Rx Parenteral Nutrition Ordering) 1 each MISCELLANE DAILY PRN PRN Reason: Consult order Polyethylene Glycol (Polyethylene Glycol 3350 17 Gm Powd.Pack) 17 gm PO DAILY [facility] Last Admin: 02/18/23 07:02 Dose: Not Given Quetiapine Fumarate (Quetiapine Fumarate 25 Mg Tablet) 25 mg PO Q6H PRN PRN Reason: agitation Last Admin: 02/17/23 07:03 Dose: 25 mg Sodium Chloride (0.9 % Sodium Chloride Flush 3 Ml Syringe) 3 ml IVFLUSH QSHIFT [facility] Last Admin: 02/18/23 14:31 Dose: 3 ml Allergies Allergies Allergy/AdvReac Type Severity Reaction Status Date / Time Unable to Assess Allergy Verified 06/12/22 16:15 Assessment & Plan Assessment & Plan (1) Dementia: Status: Acute Code(s): F03.90 - Unspecified dementia, unspecified severity, without behavioral disturbance, psychotic disturbance, mood disturbance, and anxiety Plan 02/18- pt sleeping most of the day today after given olanzapine 10mg IM. Agree to hold schedule doses of antipsychotic- either olanzapine or seroquel if pt sedated. Can schedule low dose of olanzapine 2.5mg IM at bedtime for sleep. If not effective can give ativan 0.5mg IM. Pt with minimal po intake. Total time managing care of this patient today ____ minutes.
[2023-02-18 19:16] VITALS: BP 134/73; PULSE 79; RESP 16; TEMP 36.9; O2SAT 99
[2023-02-18] MEDS: bisacodyL 10 MG SUPP.RECT PR (19:40)
[2023-02-18] MEDS: Parenteral Nutrition 840 ML 35 ML IV (21:13)
[2023-02-19] MEDS: OLANZapine 10 MG VIAL 5 MG IM (00:37)
[2023-02-19 05:16] VITALS: BP 139/79; PULSE 84; RESP 20; TEMP 36; O2SAT 98
[2023-02-19 06:58] LABS: Albumin Level 2.9 g/dL (3.5-5.0); Anion Gap 10 (12-20); Blood Urea Nitrogen 14 mg/dL (9-16); Calcium 8.7 mg/dL (8.4-10.2); Carbon Dioxide 24 mmol/L (22-29); Chloride 109 mmol/L (96-108); Creatinine Clr Calc Pharmacy 86.9; Estimated Glomerular Filt Rate > 60; Glucose Random 111 mg/dL (60-115); Phosphorus 2.3 mg/dL (2.7-4.5); Potassium 3.4 mmol/L (3.3-5.1); Sodium 140 mmol/L (135-145)
[2023-02-19 07:35] VITALS: BP 153/78; PULSE 68; RESP 18; TEMP 36.6; O2SAT 99
[2023-02-19] MEDS: Enoxaparin Sodium 40 MG/0.4 ML SYRINGE SUBCUT (09:26)
--- NOTE | 2023-02-19 09:49 | MHC.CLN ---
PPN F/U CONTINUES WITH VERY POOR PO AND REFUSING TRANSITIONAL NURSE EVAL. REQUIRES PPN FOR NUTRITION SUPPORT. REVIEWED LABS RECOMMEND DAY 2 PPN D10AA4.25 AT 55ML/HR TO PROVIDE 673 KCALS, 56 G PROTEIN, 132 G DEXTROSE. DISCUSSED WITH PHARMACY. REPLETE LYTES NEEDED, CHECK TRIGLYCERIDES. FOLLOWING WITH TEAM.
[2023-02-19 11:23] LABS: Alanine Aminotransferase 13 U/L (0-40); Alkaline Phosphatase 70 U/L (39-117); Aspartate Amino Transferase 24 U/L (5-37); Bilirubin Direct 0.1 mg/dL (0.0-0.5); Bilirubin Total 0.3 mg/dL (0.0-1.0); Total Protein 5.9 g/dL (6.5-8.0)
--- NOTE | 2023-02-19 12:13 | MHC.SLORD ---
Speech Language Pathology Order Status: TURNING MACHINE SET UP OPERATOR attempted to see pt for bedside dysphagia eval this morning. Pt sleeping, was not waking to sternal rub. Per RN and ENGROSSER, pt has been drowsy all morning, shouting out when woken up. D/t lethargic state, not appropriate for PO trials. Will try again this afternoon.
--- NOTE | 2023-02-19 13:53 | MHC.CLN ---
PPN F/U REQUIRES PPN FOR NUTRITION SUPPORT DUE TO LIMITED/NO PO INTAKE. RECOMMEND DAY 3 PPN AT MAX GOAL RATE D10AA4.25 AT 75 ML/HR TO PROVIDE 918 KCALS, 77 G PROTEIN, 180 G DEXTROSE. REPLETE LYTES NEEDED, CHECK TRIGLYCERIDES. ADD 19 ML PER HOUR OF 20% LIPIDS. TOTAL KCALS: 1838 KCALS (30.3 KCALS/KG); 77 G PROTEIN (1,27 G/KG). FOLLOWING WITH TEAM.
--- NOTE | 2023-02-19 14:37 | HO.PM.IMPN ---
Subjective Subjective Date of Service: 02/20/23 Interval History: Being followed for dementia with behavioral issues, Patient this morning somnolent but later became more awake alert, difficult to communicate due to deafness, patient refused to eat and yelling leave me alone, later went back to sleep, vital stable oxygenation 99 on room air, moving all 4 extremities. Review of Systems Unable to obtain due to mental status. Physical Exam Vital Signs: Vital Signs: Last Vital Signs Temp 98 F 02/19/23 07:35 Pulse 68 02/19/23 07:35 Resp 18 02/19/23 07:35 BP 153/78 H 02/19/23 07:35 Pulse Ox 99 02/19/23 07:35 O2 Del Method Room Air 02/19/23 07:35 BMI result Body Mass Index 21.6 Const: Other: Gen:? Somnolent arousable, no distress HEENT: sclera anicteric, moist mucus membranes Neck: supple Lungs: clear to auscultation Heart: regular rate and rhythm, no murmurs Abd: soft,? non-distended, bowel sounds audible Ext: no edema Skin: warm/well-perfused Neuro: moving all extremities, face symmetrical, speech not clear likely baseline Objective Data Active Medications Acetaminophen (Acetaminophen Supp 650 Mg Supp.Rect) 650 mg [place] Q6H PRN PRN Reason: Fever Last Admin: 02/15/23 18:53 Dose: 650 mg Documented By: KATHI Docusate Sodium (Docusate Sodium 100 Mg Capsule) 100 mg PO BID [facility] Last Admin: 02/19/23 09:24 Dose: Not Given Documented By: KATHI Non-Admin Reason: NPO Enoxaparin Sodium (Enoxaparin Sodium 40 Mg/0.4 Ml Syringe) 40 mg SUBCUT Q24H [facility] Last Admin: 02/19/23 09:26 Dose: 40 mg Documented By: KATHI Nutrition (Parenteral) (Parenteral Nutrition) 840 mls @ 35 mls/hr IV .Q24H [facility]; Protocol Stop: 02/19/23 20:59 Last Admin: 02/18/23 21:13 Dose: 35 mls/hr Documented By: STEVEN Nutrition (Parenteral) (Parenteral Nutrition) 1,320 mls @ 55 mls/hr IV .Q24H [facility]; Protocol Stop: 02/20/23 20:59 Lactulose (Lactulose 20 Gm/30 Ml Solution) 10 gm PO DAILY PRN PRN Reason: Constipation Lorazepam (Lorazepam 2 Mg/Ml Vial) 0.5 mg IVPUSH Q6H PRN PRN Reason: severe agitation/anxiety Last Admin: 02/17/23 21:23 Dose: 0.5 mg Documented By: STEVEN Olanzapine (Olanzapine 10 Mg Vial) 5 mg IM 2100 PRN PRN Reason: agitation Last Admin: 02/19/23 00:37 Dose: 5 mg Documented By: STEVEN Omeprazole (Omeprazole 20 Mg Capsule.Dr) 20 mg PO DAILY@0630 [facility] Last Admin: 02/19/23 05:17 Dose: Not Given Documented By: GREGOR Non-Admin Reason: unable to swallow Ondansetron HCl (Ondansetron Hcl 4 Mg/2 Ml Vial) 4 mg IVPUSH Q8H PRN PRN Reason: Nausea and Vomiting Pharmacy Consult (Consult Rx Parenteral Nutrition Ordering) 1 each MISCELLANE DAILY PRN PRN Reason: Consult order Polyethylene Glycol (Polyethylene Glycol 3350 17 Gm Powd.Pack) 17 gm PO DAILY [facility] Last Admin: 02/19/23 09:24 Dose: Not Given Documented By: KATHI Non-Admin Reason: NPO Quetiapine Fumarate (Quetiapine Fumarate 25 Mg Tablet) 25 mg PO Q6H PRN PRN Reason: agitation Last Admin: 02/17/23 07:03 Dose: 25 mg Documented By: ASHLEY Sodium Chloride (0.9 % Sodium Chloride Flush 3 Ml Syringe) 3 ml IVFLUSH QSHIFT [facility] Last Admin: 02/19/23 09:14 Dose: Not Given Documented By: KATHI Non-Admin Reason: IV Running Labs 02/18/23 05:21 02/19/23 05:32 Labs: Laboratory Results - last 24 hr 02/19/23 05:32 Anion Gap 10 L Estim Creat Clear Calc 86.9 Estimated GFR > 60 Random Glucose 111 Calcium 8.7 Phosphorus 2.3 L Magnesium 2.0 Total Bilirubin 0.3 Direct Bilirubin 0.1 AST 24 ALT 13 Alkaline Phosphatase 70 Total Protein 5.9 L Albumin 2.9 L Assessment and Plan (1) Dementia: Status: Acute Plan 77yo M with no known PMHx brought into [facility] due to inability to care for self due to worsening dementia was awaiting LTC placement and [facility] in overflow ED x 2 mo but then was noted to have lethargy/vomiting, admitted for LLL PNA LLL PNA ?aspiration Patient remained somnolent, at times open eyes to verbal stimuli - leucocytosis resolved - repeat CT chest 3-6 mo for peribronchial tree-in-bud opacities in the lingula - BCx neg, PCT low, respiratory pathogen panel negative, finished course of antibiotic s/p pip-pankaj 02/12-02/15, switched to amp-sul 02/15-02/18, constipation - stool softeners, last BM 02/18, KUB 02/17 showed constipation vomiting - had 3 episodes of brown vomit, no recurrent vomitting since admit - on IV Pepcid since not taking by mouth meds Hypokalemia repleted and normalized ?EPS with dystonia - resolved ?acute toxic-metabolic encephalopathy due to antipsychotics + infection - normal CPK, NH3, lactic acid, VBG showed normal CO2 CT head 714 showed no acute pathology but showed Chronic moderate volume loss and changes of mild microangiopathy affecting the supratentorial white matter. - PT signed off since patient is unable to participate in PT / - seen by speech therapy and they recommend NPO since patient unable to initiate swallowing. - on PPN/spoke with healthcare proxy, he do not want artificial nutrition. - pt .has severe hearing impairment, patient can read and answer questions as per guardian, therefore will use white board for writing but patient remained somnolent Continue close clinical follow-up dementia with behavoiral disturb - Psychiatry re-consulted , since patient unable to take by mouth will DC Seroquel t.i.d./continue IM Zyprexa 2.5 to 5mg at HS and prn iv ativan. VTE ppx - LMWH Code status DNR DNI spoke with patient's nephew/guardian Derek Morris, updated him regarding patient's clinical condition with ongoing somnolence, significant dysphagia advanced dementia with behavioral issues he agrees with care more towards comfort. dispo - Updated pt's guardian, his nephew Derek, by phone today, he agree with no artificial nutrition, care towards comfort. Time Spent With Patient Time: Total time managing care of this patient today ____ minutes. Quality Stroke Does the patient have a stroke diagnosis?: No VTE Prior VTE?: No VTE Risk Level:: Medical - moderate - high VTE Device Contraindication: N/A - Device Ordered VTE Drug Contraindication: N/A - Med Ordered
--- NOTE | 2023-02-19 14:45 | MHC.CM.PN ---
Addendum entered by Jerri Bee 02/19/23 15:05: CM RECEIVED A CALL FROM NEPHEW/GUARDIAN ANANTH WHO STATES HE IS UNABLE TO ACCESS BANK STATEMENTS (PER THE BANK) HE ONLY HAS THE RIGHT TO MAKE HEALTHCARE DECISIONS ON GUARDIANSHIP . DIRECTOR OF CM MADE AWARE THAT CONSERVATORSHIP IS NOW NEEDED. Original Note: EMR REVIEWED AND PER MD ROUNDS PT IS NOT MEDICALLY CLEARED FOR DC (MED CHANGES, PPN, AWAITING FAMILY DISCUSSION REGARDING GOC) CM WILL CONTINUE TO FOLLOW FOR DC NEEDS/PLAN
--- NOTE | 2023-02-19 18:06 | MHC.SL.SWA ---
Addendum entered and electronically signed by Dana Rodriguez MA, CCC-GLOVE CLEANER 02/19/23 18:07: GLOVE CLEANER is available transmission system operator-in basis over the weekend via Switchboard. Original Note: Speech Pathologist Impression: High risk of aspiration Risk of Aspiration Due to: Neurological Condition Poor PO Intake Reduced Cognition Dysphasia Diet Status: NPO Liquid Consistency and Strategies for Safe Swallow: Liquid Intake Recommendation: NPO Solid Food Consistency: Dietary Recommendations: NPO Additional Modifications to Solid Foods: Pt not responsive to presentation of PO. Pt shouting out with food and liquid in his mouth, w/ significant retention of bolus on tongue and no initiation of swallow. Pt was not swallowing even requested food item (ice cream) and was not responsive to verbal and tactile cues to swallow. Due to altered mental status, pt is at high risk of aspiration and is recommended NPO status. Notified care team (MD, RN, RD) via [place] Message. Oral Medication Intake: NPO Please contact the pharmacy regarding appropriate crushable or liquid drug formulations that are available whenever modified delivery is recommended. Supervision While Eating and Drinking for Safe Swallow: PO with GLOVE CLEANER Recommendation for Speech: Inpatient Speech Therapy Vehicle Body Builder Clinican/Clinical Fellow: No Supervisory Statement: I have reviewed and agree with the student/clinical fellow's documentation: N/A Speech Language Pathologist: Dana Rodriguez M.A., CCC-[employer]OVE [employer]
[2023-02-19 19:01] VITALS: BP 141/80; PULSE 76; RESP 15; TEMP 36.4; O2SAT 98
[2023-02-19] MEDS: Parenteral Nutrition 1,320 ML 55 ML IV (20:47)
[2023-02-19] MEDS: LORazepam 2 MG/ML VIAL 0.5 MG IVPUSH (23:20)
[2023-02-19] MEDS: 0.9 % Sodium Chloride Flush 3 ML SYRINGE IVFLUSH (23:21)
[2023-02-20 07:38] VITALS: BP 133/63; PULSE 18; RESP 73; TEMP 36.8; O2SAT 96
[2023-02-20] MEDS: Enoxaparin Sodium 40 MG/0.4 ML SYRINGE SUBCUT (07:40)
[2023-02-20] MEDS: Famotidine/PF 20 MG/2 ML VIAL IVPUSH (07:41)
[2023-02-20 09:14] LABS: Albumin Level 2.8 g/dL (3.5-5.0); Anion Gap 10 (12-20); Blood Urea Nitrogen 18 mg/dL (9-16); Calcium 8.7 mg/dL (8.4-10.2); Carbon Dioxide 23 mmol/L (22-29); Chloride 110 mmol/L (96-108); Creatinine Clr Calc Pharmacy 89.9; Estimated Glomerular Filt Rate > 60; Glucose Random 130 mg/dL (60-115); Magnesium 2.1 mg/dL (1.6-2.6); Phosphorus 2.5 mg/dL (2.7-4.5); Potassium 3.9 mmol/L (3.3-5.1); Sodium 139 mmol/L (135-145); Triglycerides 88 mg/dL
[2023-02-20 15:37] VITALS: BP 126/76; PULSE 71; RESP 18; TEMP 36.1; O2SAT 100
--- NOTE | 2023-02-20 16:05 | MHC.CM.PN ---
MESSAGE LEFT FOR PTS NEPHEW/GUARDIAN, ANANTH [phone], REQUESTING A RETURN CALL
--- NOTE | 2023-02-20 16:06 | HO.PM.IMPN ---
Subjective Subjective Date of Service: 02/21/23 Interval History: Being followed for dementia with behavioral issues, patient remains somnolent this morning, wakes up briefly and falls back to sleep, verbalize few words but speech not clear, evaluated by speech on 04/22 And they recommended NPO due to significant retention of bolus on tongue in no in the station of swallow, patient did not respond to verbal and tactile cues to swallow therefore deemed high risk for aspiration. Review of Systems Unobtainable due to mental status and hard of hearing. Physical Exam Vital Signs: Vital Signs: Last Vital Signs Temp 97 F 02/20/23 15:37 Pulse 71 02/20/23 15:37 Resp 18 02/20/23 15:37 BP 126/76 02/20/23 15:37 Pulse Ox 100 02/20/23 15:37 O2 Del Method Room Air 02/20/23 15:37 BMI result Body Mass Index 21.6 Const: Other: Gen:? Somnolent arousable, no distress HEENT: sclera anicteric, moist mucus membranes Neck: supple Lungs: clear to auscultation Heart: regular rate and rhythm, no murmurs Abd: soft,? non-distended, bowel sounds audible Ext: no edema Skin: warm/well-perfused Neuro: moving all extremities, face symmetrical, speech not clear likely baseline Objective Data Active Medications Acetaminophen (Acetaminophen Supp 650 Mg Supp.Rect) 650 mg [place] Q6H PRN PRN Reason: Fever Last Admin: 02/15/23 18:53 Dose: 650 mg Documented By: KATHI Lactulose (Lactulose 20 Gm/30 Ml Solution) 10 gm PO DAILY PRN PRN Reason: Constipation Lorazepam (Lorazepam 2 Mg/Ml Vial) 0.5 mg IVPUSH Q6H PRN PRN Reason: severe agitation/anxiety Last Admin: 02/19/23 23:20 Dose: 0.5 mg Documented By: LEXUS Ondansetron HCl (Ondansetron Hcl 4 Mg/2 Ml Vial) 4 mg IVPUSH Q8H PRN PRN Reason: Nausea and Vomiting Pharmacy Consult (Consult Rx Parenteral Nutrition Ordering) 1 each MISCELLANE DAILY PRN PRN Reason: Consult order Sodium Chloride (0.9 % Sodium Chloride Flush 3 Ml Syringe) 3 ml IVFLUSH [facility] Last Admin: 02/20/23 07:28 Dose: Not Given Documented By: MISSY Non-Admin Reason: IV Running Labs 02/18/23 05:21 02/20/23 08:00 Labs: Laboratory Results - last 24 hr 02/20/23 08:00 Anion Gap 10 L Estim Creat Clear Calc 89.9 Estimated GFR > 60 Random Glucose 130 H Calcium 8.7 Phosphorus 2.5 L Magnesium 2.1 Albumin 2.8 L Triglycerides 88 Assessment and Plan (1) Dementia: Status: Acute Plan 77yo M with no known PMHx [place] [facility] to inability to care for self due to worsening dementia was awaiting LTC placement and [facility] in overflow ED x 2 mo but then was noted to have lethargy/vomiting, admitted for LLL PNA LLL PNA ?aspiration Patient remained somnolent, at times open eyes to verbal stimuli - leucocytosis resolved - repeat CT chest 3-6 mo for peribronchial tree-in-bud opacities in the lingula - BCx neg, PCT low, respiratory pathogen panel negative, finished course of antibiotic s/p pip-pankaj 02/12-02/15, switched to amp-sul 02/15-02/18, constipation - last BM 02/18, KUB 02/17 showed constipation, NPO unable to take by mouth stool softeners will use as needed suppository/enema if needed vomiting - had 3 episodes of brown vomit, no recurrent vomitting since admit, on IV Pepcid since not taking by mouth meds Hypokalemia repleted and normalized ?EPS with dystonia - resolved ?acute toxic-metabolic encephalopathy due to antipsychotics + infection - normal CPK, NH3, lactic acid, VBG showed normal CO2 CT head 714 showed no acute pathology but showed Chronic moderate volume loss and changes of mild microangiopathy affecting the supratentorial white matter. - PT signed off since patient is unable to participate in PT / - seen by speech therapy and they recommend NPO since patient unable to initiate swallowing. - spoke with healthcare proxy, he do not want artificial nutrition and requested for care more towards comfort will DC PPN. - pt .has severe hearing impairment, patient can read and answer questions as per guardian, therefore will use white board for writing but patient remained somnolent Continue close clinical follow-up dementia with behavoiral disturb- Psychiatry re-consulted , since patient unable to take by mouth , will use as needed IV Ativan, DC IM Zyprexa 2.5 to 5mg at HS VTE ppx - LMWH Code status changed to FASHION COORDINATOR spoke with patient's nephew/guardian Derek Morris,updated him regarding patient's clinical condition with ongoing somnolence, significant dysphagia advanced dementia with behavioral issues he agreed with care more towards comfort, witnessed by nurse Greg Bobby RN MOLST form filled out will place patient on IV morphine, continue as needed Ativan. Time Spent With Patient Time: Total time managing care of this patient today ____ minutes. Quality Stroke Does the patient have a stroke diagnosis?: No VTE Prior VTE?: No VTE Risk Level:: Medical - moderate - high VTE Device Contraindication: N/A - Device Ordered VTE Drug Contraindication: N/A - Med Ordered
[2023-02-20] MEDS: Parenteral Nutrition 1,320 ML 55 ML IV (16:40)
--- NOTE | 2023-02-20 16:42 | PC.NURSE ---
per MD order, PPN discontinued in the system but keep PPN running until it finished at 20:47 tonight. new labled recieved and called pharmacist for confirmations. Label scanned just to finish the bag that was started yesterday.
[2023-02-20] MEDS: LORazepam 2 MG/ML VIAL 0.5 MG IVPUSH (17:50)
--- NOTE | 2023-02-20 18:53 | PC.NURSE ---
Spoke with guardian with MD, guardian agrees for BRICK KILN BURNER for patient.
[2023-02-20 19:33] VITALS: RESP 18
[2023-02-20] MEDS: 0.9 % Sodium Chloride Flush 3 ML SYRINGE IVFLUSH (20:05)
[2023-02-20 23:48] VITALS: BP 137/83; PULSE 78; RESP 16; TEMP 36.2; O2SAT 99
[2023-02-21] MEDS: LORazepam 2 MG/ML VIAL 0.5 MG IVPUSH
[2023-02-21] MEDS: 0.9 % Sodium Chloride Flush 3 ML SYRINGE IVFLUSH ×3 (07:13→19:56)
[2023-02-21] MEDS: Famotidine/PF 20 MG/2 ML VIAL IVPUSH (07:14)
[2023-02-21 08:00] VITALS: BP 114/68; PULSE 79; RESP 17; TEMP 36.2; O2SAT 97
--- NOTE | 2023-02-21 13:32 | HO.PM.IMPN ---
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 Review of Systems Unobtainable due to mental status Physical Exam Vital Signs: Vital Signs: Last Vital Signs Temp 97.2 F 02/21/23 08:00 Pulse 79 02/21/23 08:00 Resp 17 02/21/23 08:00 BP 114/68 02/21/23 08:00 Pulse Ox 97 02/21/23 08:00 O2 Del Method Room Air 02/21/23 08:00 BMI result Body Mass Index 21.6 Const: Other: Gen:? Resting comfortably, no distress Lungs: clear to auscultation, no respiratory distress Heart: regular rate and rhythm, no murmurs Abd: soft,? non-distended, bowel sounds audible Ext: no edema Skin: warm/well-perfused Objective Data Active Medications Acetaminophen (Acetaminophen Supp 650 Mg Supp.Rect) 650 mg [place] Q6H PRN PRN Reason: Fever Last Admin: 02/15/23 18:53 Dose: 650 mg Documented By: KATHI Lactulose (Lactulose 20 Gm/30 Ml Solution) 10 gm PO DAILY PRN PRN Reason: Constipation Lorazepam (Lorazepam 2 Mg/Ml Vial) 0.5 mg IVPUSH Q6H PRN PRN Reason: severe agitation/anxiety Last Admin: 02/21/23 00:00 Dose: 0.5 mg Documented By: KERWIN Morphine Sulfate (Morphine Sulfate 2 Mg/Ml Cartridge) 2 mg IVPUSH Q4H PRN; Protocol PRN Reason: Shortness of Breath Ondansetron HCl (Ondansetron Hcl 4 Mg/2 Ml Vial) 4 mg IVPUSH Q8H PRN PRN Reason: Nausea and Vomiting Pharmacy Consult (Consult Rx Parenteral Nutrition Ordering) 1 each MISCELLANE DAILY PRN PRN Reason: Consult order Sodium Chloride (0.9 % Sodium Chloride Flush 3 Ml Syringe) 3 ml IVFLUSH [facility] Last Admin: 02/21/23 07:13 Dose: 3 ml Documented By: PAUL Labs 02/18/23 05:21 02/20/23 08:00 Assessment and Plan (1) Dementia: Status: Acute Plan 77yo M with no known PMHx brought into [facility] due to inability to care for self due to worsening dementia was awaiting LTC placement and [facility] in overflow ED x 2 mo but then was noted to have lethargy/vomiting, admitted for LLL PNA 77-year-old gentleman with a progressive advanced dementia with behavioral issues admitted to hospital due to recurrent vomiting diagnosed to have constipation, aspiration pneumonia, 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 Will continue iv morphine and iv Ativan for anxiety. Medical issues LLL PNA ?aspiration finished course of antibiotic constipation - last BM 02/18 Hypokalemia repleted and normalized ?EPS with dystonia - resolved ?acute toxic-metabolic encephalopathy due to antipsychotics + infection - normal CPK, NH3, lactic acid, VBG showed normal CO2 CT head 714 showed no acute pathology but showed Chronic moderate volume loss and changes of mild microangiopathy affecting the supratentorial white matter. - seen by speech therapy and they recommend NPO since patient unable to initiate swallowing. - patient finished course of antibiotic and antipsychotic suite and patient remains somnolent, confused with intermittent episodes of agitation. - spoke with healthcare proxy, he do not want artificial nutrition and requested for care more towards comfort Advanced progressive dementia with behavoiral disturbance VTE ppx - LMWH Code status changed to DRIVE THRU ORDER TAKER Time Spent With Patient Time: Total time managing care of this patient today ____ minutes. Quality Stroke Does the patient have a stroke diagnosis?: No VTE Prior VTE?: No VTE Risk Level:: Medical - moderate - high VTE Device Contraindication: N/A - Device Ordered VTE Drug Contraindication: N/A - Med Ordered
[2023-02-21 20:00] VITALS: RESP 15
[2023-02-22 04:00] VITALS: RESP 17
[2023-02-22] MEDS: 0.9 % Sodium Chloride Flush 3 ML SYRINGE IVFLUSH ×3 (07:25→22:41)
[2023-02-22 08:00] VITALS: BP 117/70; PULSE 97; RESP 18; TEMP 36.7; O2SAT 99
--- NOTE | 2023-02-22 11:19 | HO.PM.IMPN ---
Subjective Subjective Date of Service: 02/22/23 Interval History: no acute issues overnight. Remains nonverbal /not responsive Review of Systems unable to obtain Physical Exam Vital Signs: Vital Signs: Last Vital Signs Temp 98.0 F 02/22/23 08:00 Pulse 97 02/22/23 08:00 Resp 18 02/22/23 08:00 BP 117/70 02/22/23 08:00 Pulse Ox 99 02/22/23 08:00 O2 Del Method Room Air 02/22/23 08:00 BMI result Body Mass Index 21.6 Const: Other: appears comfortable Resp: Other: clear to auscultation bilaterally no rales rhonchi or wheezes Cardio: Other: no S4; positive S1-S2; no S3 murmurs rubs gallops GI: Other: soft nontender nondistended normoactive bowel sounds Extrem: Other: no edema bilaterally Objective Data Active Medications Acetaminophen (Acetaminophen Supp 650 Mg Supp.Rect) 650 mg [place] Q6H PRN PRN Reason: Fever Last Admin: 02/15/23 18:53 Dose: 650 mg Documented By: KATHI Lactulose (Lactulose 20 Gm/30 Ml Solution) 10 gm PO DAILY PRN PRN Reason: Constipation Morphine Sulfate (Morphine Sulfate 2 Mg/Ml Cartridge) 2 mg IVPUSH Q4H PRN; Protocol PRN Reason: Shortness of Breath Ondansetron HCl (Ondansetron Hcl 4 Mg/2 Ml Vial) 4 mg IVPUSH Q8H PRN PRN Reason: Nausea and Vomiting Pharmacy Consult (Consult Rx Parenteral Nutrition Ordering) 1 each MISCELLANE DAILY PRN PRN Reason: Consult order Sodium Chloride (0.9 % Sodium Chloride Flush 3 Ml Syringe) 3 ml IVFLUSH [facility] Last Admin: 02/22/23 07:25 Dose: 3 ml Documented By: PAUL Labs 02/18/23 05:21 02/20/23 08:00 Assessment and Plan (1) Major neurocognitive disorder due to multiple etiologies with behavioral disturbance: Status: Acute Plan 77-year-old gentleman with a progressive advanced dementia with behavioral issues admitted to hospital due to recurrent vomiting diagnosed to have constipation, aspiration pneumonia, 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 1.Advanced progressive dementia with behavoiral disturbance -as per healthcare proxy wishes patient is LABORER DRYING DEPARTMENT. -Ativan /morphine as indicated for comfort -adjust as indicated LABORER DRYING DEPARTMENT Time Spent With Patient Time: Total time managing care of this patient today ____ minutes. Quality Stroke Does the patient have a stroke diagnosis?: No VTE Prior VTE?: No VTE Risk Level:: Medical - moderate - high VTE Device Contraindication: N/A - Device Ordered VTE Drug Contraindication: N/A - Med Ordered
[2023-02-22] MEDS: LORazepam 2 MG/ML VIAL 1 MG IVPUSH (12:05)
--- NOTE | 2023-02-22 12:13 | MHC.CLN ---
F/U PPN DISCONTINUED 02/20. PATIENT NPO AND NOW POST MANAGER. RD AVAILABLE NEEDED.
--- NOTE | 2023-02-22 12:46 | MHC.CM.PN ---
PT NOW EDUCATION NURSE STATUS WHILE WAITING FOR LTC PAYER SOURCE / BED OFFER
--- NOTE | 2023-02-22 14:25 | MHC.SLORD ---
Speech Language Pathology Order Status: DYE TUB OPERATOR attempted to provide oral care this morning. Pt somnolent, shut mouth, refusing to open mouth to accept swab. RN discussed w/ MD- Per MD, speech to be d/c'ed at this time. Pt now AUTHOR'S AGENT. Please re-refer with any changes or if DYE TUB OPERATOR can be of further assistance.
[2023-02-23] VITALS: RESP 14
[2023-02-23] MEDS: LORazepam 2 MG/ML VIAL 1 MG IVPUSH ×3 (00:49→16:48)
[2023-02-23] MEDS: 0.9 % Sodium Chloride Flush 3 ML SYRINGE IVFLUSH ×3 (08:32→22:48)
--- NOTE | 2023-02-23 14:26 | HO.PM.IMPN ---
Subjective Subjective Date of Service: 02/23/23 Interval History: remains unresponsive; appears comfortab Review of Systems unable to obtain Physical Exam Vital Signs: Vital Signs: Last Vital Signs Temp 98.0 F 02/22/23 08:00 Pulse 97 02/22/23 08:00 Resp 14 02/23/23 00:00 BP 117/70 02/22/23 08:00 Pulse Ox 99 02/22/23 08:00 O2 Del Method Room Air 02/22/23 08:00 BMI result Body Mass Index 21.6 Const: Other: appears comfortable Resp: Other: clear to auscultation bilaterally no rales rhonchi or wheezes Cardio: Other: no S4; positive S1-S2; no S3 murmurs rubs gallops GI: Other: soft nontender nondistended normoactive bowel sounds Extrem: Other: no edema bilaterally Objective Data Active Medications Acetaminophen (Acetaminophen Supp 650 Mg Supp.Rect) 650 mg [place] Q6H PRN PRN Reason: Fever Last Admin: 02/15/23 18:53 Dose: 650 mg Documented By: KATHI Lactulose (Lactulose 20 Gm/30 Ml Solution) 10 gm PO DAILY PRN PRN Reason: Constipation Lorazepam (Lorazepam 2 Mg/Ml Vial) 1 mg IVPUSH Q4H PRN PRN Reason: Restlessness Last Admin: 02/23/23 10:40 Dose: 1 mg Documented By: ASHLEY Morphine Sulfate (Morphine Sulfate 2 Mg/Ml Cartridge) 2 mg IVPUSH Q4H PRN; Protocol PRN Reason: Shortness of Breath Ondansetron HCl (Ondansetron Hcl 4 Mg/2 Ml Vial) 4 mg IVPUSH Q8H PRN PRN Reason: Nausea and Vomiting Pharmacy Consult (Consult Rx Parenteral Nutrition Ordering) 1 each MISCELLANE DAILY PRN PRN Reason: Consult order Sodium Chloride (0.9 % Sodium Chloride Flush 3 Ml Syringe) [facility] Last Admin: 02/23/23 08:32 Dose: 3 ml Documented By: ASHLEY Labs 02/18/23 05:21 02/20/23 08:00 Assessment and Plan (1) Major neurocognitive disorder due to multiple etiologies with behavioral disturbance: Status: Acute Plan 77-year-old gentleman with a progressive advanced dementia with behavioral issues admitted to hospital due to recurrent vomiting diagnosed to have constipation, aspiration pneumonia, 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 1.Advanced progressive dementia with behavoiral disturbance -as per healthcare proxy wishes patient is MAINTENANCE SHOP LABORER. -Ativan /morphine as indicated for comfort -adjust as indicated MAINTENANCE SHOP LABORER Time Spent With Patient Time: Total time managing care of this patient today ____ minutes. Quality Stroke Does the patient have a stroke diagnosis?: No VTE Prior VTE?: No VTE Risk Level:: Medical - moderate - high VTE Device Contraindication: N/A - Device Ordered VTE Drug Contraindication: N/A - Med Ordered
[2023-02-23 23:48] VITALS: BP 127/85; PULSE 94; RESP 14; TEMP 36.7; O2SAT 98
[2023-02-24] MEDS: LORazepam 2 MG/ML VIAL 1 MG IVPUSH ×2 (06:26→13:26)
[2023-02-24] MEDS: 0.9 % Sodium Chloride Flush 3 ML SYRINGE IVFLUSH ×2 (06:57→14:17)
--- NOTE | 2023-02-24 15:09 | MHC.CM.PN ---
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
--- NOTE | 2023-02-24 15:14 | P.PNIM_ITS ---
Subjective Subjective Date of Service: 02/24/23 Interval History: resting comfortably Review of Systems unable to obtain Physical Exam Vital Signs: Vital Signs: Last Vital Signs Temp 98.1 F 02/23/23 23:48 Pulse 94 02/23/23 23:48 Resp 14 02/23/23 23:48 BP 127/85 02/23/23 23:48 Pulse Ox 98 02/23/23 23:48 O2 Del Method Room Air 02/23/23 23:48 BMI result Body Mass Index 21.6 Const: Other: appears comfortable Resp: Other: clear to auscultation bilaterally no rales rhonchi or wheezes Cardio: Other: no S4; positive S1-S2; no S3 murmurs rubs gallops GI: Other: soft nontender nondistended normoactive bowel sounds Extrem: Other: no edema bilaterally Objective Data Active Medications Acetaminophen (Acetaminophen Supp 650 Mg Supp.Rect) 650 mg [place] Q6H PRN PRN Reason: Fever Last Admin: 02/15/23 18:53 Dose: 650 mg Documented By: KATHI Lactulose (Lactulose 20 Gm/30 Ml Solution) 10 gm PO DAILY PRN PRN Reason: Constipation Lorazepam (Lorazepam 2 Mg/Ml Vial) 1 mg IVPUSH Q4H PRN PRN Reason: Restlessness Last Admin: 02/24/23 13:26 Dose: 1 mg Documented By: ASHLEY Morphine Sulfate (Morphine Sulfate 2 Mg/Ml Cartridge) 2 mg IVPUSH Q4H PRN; Protocol PRN Reason: Shortness of Breath Ondansetron HCl (Ondansetron Hcl 4 Mg/2 Ml Vial) 4 mg IVPUSH Q8H PRN PRN Reason: Nausea and Vomiting Pharmacy Consult (Consult Rx Parenteral Nutrition Ordering) 1 each MISCELLANE DAILY PRN PRN Reason: Consult order Sodium Chloride (0.9 % Sodium Chloride Flush 3 Ml Syringe) [facility] Last Admin: 02/24/23 14:17 Dose: 3 ml Documented By: ASHLEY Labs 02/18/23 05:21 02/20/23 08:00 Assessment and Plan (1) Major neurocognitive disorder due to multiple etiologies with behavioral di sturbance: Status: Acute Plan 77-year-old gentleman with a progressive advanced dementia with behavioral issues admitted to hospital due to recurrent vomiting diagnosed to have constipation, aspiration pneumonia, 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 Case discussed with healthcare proxy and due to poor quality of life patient made TURKEY CLEANER. 1.Advanced progressive dementia with behavoiral disturbance -as per healthcare proxy wishes patient is TURKEY CLEANER. -Ativan /morphine as indicated for comfort.... effective -adjust as indicated TURKEY CLEANER Time Spent With Patient Time: Total time managing care of this patient today ____ minutes. Quality Stroke Does the patient have a stroke diagnosis?: No VTE Prior VTE?: No VTE Risk Level:: Medical - moderate - high VTE Device Contraindication: N/A - Device Ordered VTE Drug Contraindication: N/A - Med Ordered
[2023-02-24] MEDS: Morphine Sulfate 2 MG/ML CARTRIDGE IVPUSH (15:55)
[2023-02-24 23:39] VITALS: RESP 14
[2023-02-25] MEDS: 0.9 % Sodium Chloride Flush 3 ML SYRINGE IVFLUSH ×4 (00:56→20:19)
[2023-02-25 03:11] VITALS: RESP 12
[2023-02-25] MEDS: Morphine Sulfate 2 MG/ML CARTRIDGE IVPUSH ×2 (06:34→15:49)
[2023-02-25] MEDS: LORazepam 2 MG/ML VIAL 1 MG IVPUSH ×3 (09:54→18:43)
--- NOTE | 2023-02-25 14:07 | HO.PM.IMPN ---
Subjective Subjective Date of Service: 02/25/23 Interval History: resting comfortably. Remains unresponsive Review of Systems unable to obtain Physical Exam Vital Signs: Vital Signs: Last Vital Signs Temp 98.1 F 02/23/23 23:48 Pulse 94 02/23/23 23:48 Resp 12 02/25/23 03:11 BP 127/85 02/23/23 23:48 Pulse Ox 98 02/23/23 23:48 O2 Del Method Room Air 02/23/23 23:48 BMI result Body Mass Index 21.6 Const: Other: appears comfortable Resp: Other: clear to auscultation bilaterally no rales rhonchi or wheezes Cardio: Other: no S4; positive S1-S2; no S3 murmurs rubs gallops GI: Other: soft nontender nondistended normoactive bowel sounds Extrem: Other: no edema bilaterally Objective Data Active Medications Acetaminophen (Acetaminophen Supp 650 Mg Supp.Rect) 650 mg [place] Q6H PRN PRN Reason: Fever Last Admin: 02/15/23 18:53 Dose: 650 mg Documented By: KATHI Lactulose (Lactulose 20 Gm/30 Ml Solution) 10 gm PO DAILY PRN PRN Reason: Constipation Lorazepam (Lorazepam 2 Mg/Ml Vial) 1 mg IVPUSH Q4H PRN PRN Reason: Restlessness Last Admin: 02/25/23 09:54 Dose: 1 mg Documented By: ASHLEY Morphine Sulfate (Morphine Sulfate 2 Mg/Ml Cartridge) 2 mg IVPUSH Q4H PRN; Protocol PRN Reason: Shortness of Breath Last Admin: 02/25/23 06:34 Dose: 2 mg Documented By: BETTY Ondansetron HCl (Ondansetron Hcl 4 Mg/2 Ml Vial) 4 mg IVPUSH Q8H PRN PRN Reason: Nausea and Vomiting Pharmacy Consult (Consult Rx Parenteral Nutrition Ordering) 1 each MISCELLANE DAILY PRN PRN Reason: Consult order Sodium Chloride (0.9 % Sodium Chloride Flush 3 Ml Syringe) [address] 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 Case discussed with healthcare proxy and due to poor quality of life patient made SPOOL CLEANER. 1.Advanced progressive dementia with behavoiral disturbance -as per healthcare proxy wishes patient is SPOOL CLEANER. -Ativan /morphine as indicated for comfort.... effective -adjust as indicated SPOOL CLEANER Time Spent With Patient Time: Total time managing care of this patient today ____ minutes. Quality Stroke Does the patient have a stroke diagnosis?: No VTE Prior VTE?: No VTE Risk Level:: Medical - moderate - high VTE Device Contraindication: N/A - Device Ordered VTE Drug Contraindication: N/A - Med Ordered
[2023-02-25 23:35] VITALS: RESP 12
[2023-02-26] MEDS: 0.9 % Sodium Chloride Flush 3 ML SYRINGE IVFLUSH ×3 (07:21→19:57)
[2023-02-26 16:00] VITALS: BP 140/81; PULSE 106; RESP 20; TEMP 37.7; O2SAT 97
--- NOTE | 2023-02-26 16:01 | P.PNIM_ITS ---
Subjective Subjective Date of Service: 02/26/23 Interval History: Essentially no change overnight. Lying comfortable in bed Review of Systems unable to obtain Physical Exam Vital Signs: Vital Signs: Last Vital Signs Temp 98.1 F 02/23/23 23:48 Pulse 94 02/23/23 23:48 Resp 12 02/25/23 23:35 BP 127/85 02/23/23 23:48 Pulse Ox 98 02/23/23 23:48 O2 Del Method Room Air 02/23/23 23:48 BMI result Body Mass Index 21.6 Const: Other: appears comfortable Resp: Other: clear to auscultation bilaterally no rales rhonchi or wheezes Cardio: Other: no S4; positive S1-S2; no S3 murmurs rubs gallops GI: Other: soft nontender nondistended normoactive bowel sounds Extrem: Other: no edema bilaterally Objective Data Active Medications Acetaminophen (Acetaminophen Supp 650 Mg Supp.Rect) 650 mg [place] Q6H PRN PRN Reason: Fever Last Admin: 02/15/23 18:53 Dose: 650 mg Documented By: KATHI Lactulose (Lactulose 20 Gm/30 Ml Solution) 10 gm PO DAILY PRN PRN Reason: Constipation Lorazepam (Lorazepam 2 Mg/Ml Vial) 1 mg IVPUSH Q4H PRN PRN Reason: Restlessness Last Admin: 02/25/23 18:43 Dose: 1 mg Documented By: EMILY Ondansetron HCl (Ondansetron Hcl 4 Mg/2 Ml Vial) 4 mg IVPUSH Q8H PRN PRN Reason: Nausea and Vomiting Pharmacy Consult (Consult Rx Parenteral Nutrition Ordering) 1 each MISCELLANE DAILY PRN PRN Reason: Consult order Sodium Chloride (0.9 % Sodium Chloride Flush 3 Ml Syringe) [facility] Last Admin: 02/26/23 07:21 Dose: 3 ml Documented By: KENNEY Labs 02/18/23 05:21 02/20/23 08:00 Assessment and Plan (1) Major neurocognitive disorder due to multiple etiologies with behavioral disturbance: Status: Acute Plan 77-year-old gentleman with a progressive advanced dementia with behavioral issues admitted to hospital due to recurrent vomiting diagnosed to have constipation, aspiration pneumonia, 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 -Ativan /morphine as indicated for comfort.... effective -adjust as indicated SPACECRAFT SYSTEMS ENGINEER Time Spent With Patient Time: Total time managing care of this patient today ____ minutes. Quality Stroke Does the patient have a stroke diagnosis?: No VTE Prior VTE?: No VTE Risk Level:: Medical - moderate - high VTE Device Contraindication: N/A - Device Ordered VTE Drug Contraindication: N/A - Med Ordered
[2023-02-26] MEDS: Acetaminophen Supp 650 MG SUPP.RECT PR (19:49)
[2023-02-27 03:51] VITALS: RESP 22
[2023-02-27 08:00] VITALS: RESP 14
[2023-02-27] MEDS: 0.9 % Sodium Chloride Flush 3 ML SYRINGE IVFLUSH ×3 (09:26→23:01)
[2023-02-27] MEDS: Morphine Sulfate 4 MG/ML CARTRIDGE IVPUSH ×3 (11:47→23:00)
--- NOTE | 2023-02-27 12:41 | HO.PM.IMPN ---
Subjective Subjective Date of Service: 02/27/23 Interval History: Essentially no change overnight. Lying comfortable in bed Review of Systems unable to obtain Physical Exam Vital Signs: Vital Signs: Last Vital Signs Temp 99.9 F 02/26/23 16:00 Pulse 106 H 02/26/23 16:00 Resp 14 02/27/23 08:00 BP 140/81 H 02/26/23 16:00 Pulse Ox 97 02/26/23 16:00 O2 Del Method Room Air 02/26/23 16:00 BMI result Body Mass Index 21.6 Const: Other: appears comfortable Resp: Other: clear to auscultation bilaterally no rales rhonchi or wheezes Cardio: Other: no S4; positive S1-S2; no S3 murmurs rubs gallops GI: Other: soft nontender nondistended normoactive bowel sounds Extrem: Other: no edema bilaterally Objective Data Active Medications Acetaminophen (Acetaminophen Supp 650 Mg Supp.Rect) [address] Q6H PRN PRN Reason: Fever Last Admin: 02/26/23 19:49 Dose: 650 mg Documented By: DANTE Lactulose (Lactulose 20 Gm/30 Ml Solution) 10 gm PO DAILY PRN PRN Reason: Constipation Morphine Sulfate (Morphine Sulfate 4 Mg/Ml Cartridge) 4 mg IVPUSH Q2H PRN; Protocol PRN Reason: pain, restlessness Last Admin: 02/27/23 11:47 Dose: 4 mg Documented By: MERE Ondansetron HCl (Ondansetron Hcl 4 Mg/2 Ml Vial) 4 mg IVPUSH Q8H PRN PRN Reason: Nausea and Vomiting Pharmacy Consult (Consult Rx Parenteral Nutrition Ordering) 1 each MISCELLANE DAILY PRN PRN Reason: Consult order Sodium Chloride (0.9 % Sodium Chloride Flush 3 Ml Syringe) 3 ml IVFLUSH [facility] Last Admin: 02/27/23 09:26 Dose: 3 ml Documented By: NANCY Labs 02/18/23 05:21 02/20/23 08:00 Assessment and Plan (1) Major neurocognitive disorder due to multiple etiologies with behavioral disturbance: Status: Acute Plan 77-year-old gentleman with a progressive advanced dementia with behavioral issues admitted to hospital due to recurrent vomiting diagnosed to have constipation, aspiration pneumonia, 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 -Ativan /morphine as indicated for comfort.... effective -adjust as indicated GROUND NUCLEAR WEAPONS ASSEMBLY OFFICER Time Spent With Patient Time: Total time managing care of this patient today ____ minutes. Quality Stroke Does the patient have a stroke diagnosis?: No VTE Prior VTE?: No VTE Risk Level:: Medical - moderate - high VTE Device Contraindication: N/A - Device Ordered VTE Drug Contraindication: N/A - Med Ordered
[2023-02-27 14:06] VITALS: RESP 28
[2023-02-27] MEDS: LORazepam 2 MG/ML VIAL 1 MG IVPUSH (15:54)
[2023-02-28 04:00] VITALS: RESP 16
[2023-02-28] MEDS: Morphine Sulfate 4 MG/ML CARTRIDGE IVPUSH (04:48)
--- NOTE | 2023-02-28 09:21 | PC.NURSE ---
0808: pt found to be without pulse or respirations after listening to chest. Positioned flat in the bed. Dr Suresh notified and here to pronounce patient. Dr Suresh notified Nephew/guardian Derek, waiting to see if would like to come see pt. ALY notified of pt expiration
--- NOTE | 2023-02-28 12:23 | MHC.CM.PN ---
JC CALLED PTS NEPHEW/GUARDIAN AND INFORMED HIM A LARGE AMOUNT OF PTS BELONGINGS WERE IN THE ROOM WITH HIM ANANTH INDICATED HE WOULD NOT BE PICKING THEM UP HE SAID ADRIEL VICTORIA COULD BE CALLED AND COULD PICK THINGS UP IF SHE SO CHOOSES HOWEVER, IF NOT, HIS STATED DESIRE IS THAT THE PTS BELONGINGS BE DONATED IF POSSIBLE
--- NOTE | 2023-02-28 12:38 | PC.NURSE ---
Pt's nephew Derek notified by of pt expiration. Stated he would not be coming to view the body and we can dispose of pts belongings or donate. Julia Shah spoke with Derek regarding belongings and stated the same. Pt had large footlocker as well as 4 belongings bags full of clothing and personal items. Message left for Neighbor Jerri rivera James request to see if she would like any of pt items prior to this hospital getting rid of items. Awaiting return call.
--- NOTE | 2023-02-28 13:09 | PM.DDS ---
Discharge Sum: Prov Provider Primary care physician: Unknown Physician Consults: 02/15/23 11:26 Consult for Sitter Routine Reason for consultation: safety 02/15/23 11:30 Consult to Psychiatry Routine Consulting Provider: Psych Covering Reason for consultation: benhaviour Discharge Sum: Diag Contributing Factors (1) Major neurocognitive disorder due to multiple etiologies with behavioral disturbance: Discharge Sum: Summary Date and Time Date of admission: 02/15/23 11:24 Summary Details: Admitted from the emergency room with a diagnosis of left lower lobe pneumonia. Continued to decline; was not taking anything oral. Discussion was had with guardian who implemented COMMUNITY SERVICE OFFICER COORDINATOR. On 02/28/2023 patient peacefully at 08:08 Additional Data Attending physician: Otoniel Sruesh,
--- NOTE | 2023-02-28 16:00 | PC.NURSE ---
Candle Maker Julia Shah spoke to Jerri Gonzalez whom will be coming in tomorrow 03/01/23 to filler picker the pts belongings. Superviser Estela notified. Belongings currently behind nurses station on [address]. Belongings consist of footlocker and 4 belongings bags with clothing, 1 valenzuela plastic basket, and personal items.
== END 2023-02-28 14:07 | disposition expired | DRG 177 ==
PROVIDERS: Hospitalist; Admitting Provider Family Medicine; Visit Provider Hospitalist
DX: J69.0 Pneumonitis due to inhalation of food and vomit (principal); G92.8 Other toxic encephalopathy; F03.918 Unspecified dementia, unspecified severity, with other behavioral disturbance; G24.09 Other drug induced dystonia; D50.9 Iron deficiency anemia, unspecified; Z51.5 Encounter for palliative care; E87.6 Hypokalemia; T43.505A Adverse effect of unspecified antipsychotics and neuroleptics, initial encounter; K59.00 Constipation, unspecified; Z20.822 Contact with and (suspected) exposure to COVID-19
CPT/HCPCS: 36415; 70450; 71045; 74018; 74176; 80048; 80076; 81003; 82040; 82140; 82550; 82728; 82803; 82947; 83540; 83605; 83735; 84100; 84145; 84443; 84478; 85025; 85027; 85045; 85610; 85730; 87040; 87633; 87635; 92610; 93005; J0295; J1200; J1650; J2060; J2270; J2405; J2543

== ENCOUNTER → 2023-02-15 11:24 | Outpatient (BNV) | payer MEDICARE, MEDICAID, SELFPAY | PROVIDERS: Admitting Provider Family Medicine; Visit Provider Family Medicine | DX: F02.818 Dementia in other diseases classified elsewhere, unspecified severity, with other behavioral disturbance (principal) | CPT/HCPCS: 99232; 99233; 99239 ==

== ENCOUNTER → 2023-02-15 11:24 | Outpatient (BNV) | payer MEDICARE, MEDICAID, SELFPAY | PROVIDERS: Admitting Provider Family Medicine; Visit Provider Social Worker | DX: F03.90 Unspecified dementia, unspecified severity, without behavioral disturbance, psychotic disturbance, mood disturbance, and anxiety (principal) | CPT/HCPCS: 99232 ==